=== PATIENT | female | born 1955 | race Caucasian/White ===

== ENCOUNTER → 2017-04-12 | Outpatient (CLI) | payer MEDICARE, BC ==
[2017-04-12 13:00] LABS: Basophils # (A) 0.1 k/uL (0-0.2); Basophils % (A) 1 %; CH 28.4; Eosinophils # (A) 0.4 k/uL (0-0.7); Eosinophils % (A) 6 %; HCT 44.6 % (34.0-46.0); HDW 2.57; Hypochromasia Slight; Luc # (Auto) 0.18; Luc % (Auto) 2; Lymphocytes # (A) 0.6 k/uL (1.0-4.8); Lymphocytes % (A) 8 %; MCH 28.8 pg (25.0-35.0); MCHC 31.4 g/dL (31.0-37.0); Mean Platelet Volume 7.2; Monocytes # (A) 0.3 k/uL (0-1.0); Monocytes % (A) 5 %; Neutrophils # (A) 5.7 k/uL (1.3-7.7); Neutrophils % (A) 78 %; RBC 4.85 m/uL (3.80-5.40); RDW 15.3 % (11.5-15.5); WBC 7.3 k/uL (3.8-10.6); WBC (Perox) 7.29
[2017-04-12 13:21] LABS: ALT 34 U/L (9-52); AST 15 U/L (14-36); Alkaline Phosphatase 57 U/L (38-126); Anion Gap 12 mmol/L; Blood Urea Nitrogen 23 mg/dL (7-17); Calcium 9.3 mg/dL (8.4-10.2); Carbon Dioxide 25 mmol/L (22-30); Chloride 105 mmol/L (98-107); Cholesterol 193 mg/dL (<200); Glucose 236 mg/dL (74-99); HDL Cholesterol 45 mg/dL (40-60); Non-African American GFR(MDRD) >60 (>60 ml/min/1.73 sqM); Potassium 4.2 mmol/L (3.5-5.1); Sodium 142 mmol/L (137-145); Total Bilirubin 0.6 mg/dL (0.2-1.3); Total Protein 6.7 g/dL (6.3-8.2); Triglycerides 158 mg/dL (<150)
[2017-04-12 13:40] LABS: Hemoglobin A1C 7.4 % (4.2-6.1)
[2017-04-12 14:09] LABS: Vitamin B12 475 pg/mL (239-931)
== END | disposition home or self-care (01) ==
LOC: LABWHC1 12:21
PROVIDERS: ATTEND Nurse Practitioner Acute Care
DX: Z00.00 Encounter for general adult medical examination without abnormal findings (principal); E11.9 Type 2 diabetes mellitus without complications; E03.9 Hypothyroidism, unspecified; E78.5 Hyperlipidemia, unspecified; I10 Essential (primary) hypertension; E55.9 Vitamin D deficiency, unspecified; G47.33 Obstructive sleep apnea (adult) (pediatric)
CPT/HCPCS: 36415; 80053; 80061; 82306; 82607; 83036; 84439; 84443; 84481; 85025

== ENCOUNTER 2017-05-14 01:35 | Emergency (ER) | payer MEDICARE, BC ==
[2017-05-14 01:42] VITALS: RESP 18
--- NOTE | 2017-05-14 01:57 | ED ---
Skin/Abscess/FB HPI - General Chief complaint: Skin/Abscess/Foreign Body Stated complaint: SAT ON NEEDLE Time Seen by Provider: 05/14/17 01:45 Source: patient, RN notes reviewed Mode of arrival: ambulatory Limitations: no limitations - History of Present Illness Initial comments: 62-year-old female presents to the emergency department with a chief complaint of concern for possible foreign body in the right leg. Patient states that she had something pricking her all day and then tonight she feels as if something went into her leg. Patient states that she hasn't had any drainage or discharge from the area. They do not know what this could be. There is no other symptoms. She has pain when to touch. She states that certainly on this area.Patient denies any recent fever, chills, shortness of breath, chest pain, back pain, abdominal pain, nausea vomiting, numbness or tingling, dysuria or hematuria, constipation or diarrhea, headaches or visual changes, or any other current symptoms. - Related Data Home Medications Medication Instructions Recorded Confirmed Aspirin 81 mg PO DAILY 04/10/14 10/06/14 Cyclobenzaprine [Flexeril] 10 mg PO DIRECTED 04/10/14 10/06/14 Ergocalciferol [Vitamin D2 600 mg PO Q7D 04/10/14 10/06/14 (DRISDOL)] Furosemide [Lasix] 40 mg PO DAILY 04/10/14 10/06/14 INSULIN LISPRO (humaLOG) [humaLOG] 0 unit SQ DIRECTED 04/10/14 10/06/14 Insulin Glargine [Lantus] 60 units SQ HS 04/10/14 10/06/14 Metolazone [Zaroxolyn] 5 mg PO DAILY 04/10/14 10/06/14 Colesevelam [Welchol] 625 mg PO BID 04/11/14 10/06/14 Dimethyl Fumarate [Tecfidera] 240 mg PO BID 04/11/14 10/06/14 Calcium Citrate 600 mg PO DAILY 10/06/14 10/06/14 Magnesium 400 mg PO BID 10/06/14 10/06/14 Allergies Allergy/AdvReac Type Severity Reaction Status Date / Time No Known Allergies Allergy Verified 05/14/17 01:42 Review of Systems ROS Statement: Those systems with pertinent positive or pertinent negative responses have been documented in the HPI. ROS Other: All systems not noted in ROS Statement are negative. Past Medical History Past Medical History: Diabetes Mellitus, Hyperlipidemia, Hypertension, Musculoskeletal Disorder, Sleep Apnea/CPAP/BIPAP, Thyroid Disorder Additional Past Medical History / Comment(s): MS,ARTHRITIS,BACK PAIN History of Any Multi-Drug Resistant Organisms: None Reported Past Surgical History: Bariatric Surgery, Heart Catheterization With Stent Additional Past Surgical History / Comment(s): L CARPAL TUNNEL, GASTRIC SLEEVE Past Anesthesia/Blood Transfusion Reactions: Previous Problems w/ Anesthesia Additional Past Anesthesia/Blood Transfusion Reaction / Comment(s): HX HALLUCINATIONS WITH ANESTHESIA Date of Last Stent Placement:: March 2013, 2 stents placed in front of heart at [facility] Past Psychological History: No Psychological Hx Reported Smoking Status: Never smoker Past Alcohol Use History: None Reported Past Drug Use History: None Reported General Exam - General Exam Comments Initial Comments: General: The patient is awake and alert, in no distress, and does not appear acutely ill. Neck: The neck is supple, there is no tenderness. Cardiovascular: There is a regular rate and rhythm. No murmur, rub or gallop is appreciated. Respiratory: Lungs are clear to auscultation, respirations are non-labored, breath sounds are equal. No wheezes, stridor, rales, or rhonchi. Musculoskeletal: Sensation intact with 2+ pulses in upper extremity. Patient does have some tenderness to palpation in the posterior thigh that doesn't move around to touch there is no fluctuance erythema or induration to the area. Neurological: CN II-XII intact, There are no obvious motor or sensory deficits. Coordination appears grossly intact. Speech is normal. Skin: Skin is warm and dry and no rashes or lesions are noted. Psychiatric: Normal mood and affect. Limitations: no limitations Course Vital Signs 05/14/17 01:39 Temperature 98 F Pulse Rate 99 Respiratory 18 Rate Blood Pressure 143/78 O2 Sat by Pulse 97 Oximetry Medical Decision Making - Medical Decision Making 62-year-old female presents for concern for foreign body to the right leg. This time there does not appear to be any foreign body. Patient does appear to have some skin breakdown. We did discuss care of this. We did discuss follow- up we did discuss return parameters all questions. Patient family stated the [facility] they are in agreement with this plan. This time they will be discharged home. Disposition Clinical Impression: Skin breakdown Disposition: HOME SELF-CARE Condition: Stable Instructions: Acute Wound Care (ED) Additional Instructions: Please use medication as discussed. Please follow up with family doctor if symptoms have not improved over the next two days. Please return to the emergency room if your symptoms increase or worsen or for any other concerns. Referrals: Martin Cuello DO [Primary Care Provider] - 1-2 days Time of Disposition: 03:09
--- NOTE | 2017-05-14 02:33 | XR ---
ADDENDUM - Added by Martin Marques MD on 05/14/2017 2:44 AM (-04:00) Irregularly-shaped radiopaque structure is seen lateral to the right hip, only definitively visualized on the frontal views, measuring up to 3.1 cm. Clinical correlation is recommended to assure this is not a foreign body. EXAM: XR Right Hip With Pelvis When Performed, 2 or 3 Views CLINICAL HISTORY: Reason: Pain TECHNIQUE: Two or three views of the right hip, with pelvis when performed. COMPARISON: None. FINDINGS: Bones/joints: Mild narrowing of the right femoroacetabular joint is seen with associated bony productive changes. Mild osteoarthropathy of the left hip is also noted. No acute fracture. No dislocation. Osteopenia suggested. Soft tissues: Unremarkable. IMPRESSION: No radiographic evidence of an acute fracture. Mild osteoarthropathy involving both hips. [employer] 05/14/17 02:58 Verify Receipt Verified receipt with SUNITA Gayle for KALIN Hoover on 05/14 02:58 (-04:00)
[2017-05-14 03:33] VITALS: BP 155/74; PULSE 95; TEMP 97.8
== END 2017-05-14 03:34 | disposition home or self-care (01) ==
LOC: EC 01:35
DX: L98.8 Other specified disorders of the skin and subcutaneous tissue (principal); M79.604 Pain in right leg; E78.5 Hyperlipidemia, unspecified; I10 Essential (primary) hypertension; E11.9 Type 2 diabetes mellitus without complications; G35 Multiple sclerosis; M19.90 Unspecified osteoarthritis, unspecified site; Z79.4 Long term (current) use of insulin; Z79.82 Long term (current) use of aspirin; Z79.899 Other long term (current) drug therapy
CPT/HCPCS: 73502; 99283

== ENCOUNTER → 2017-06-24 | Outpatient (CLI) | payer MEDICARE, BC ==
[2017-06-24 13:44] LABS: Basophils # (A) 0.1 k/uL (0-0.2); Basophils % (A) 1 %; CHCM 31.9; Eosinophils # (A) 0.4 k/uL (0-0.7); Eosinophils % (A) 4 %; HCT 45.5 % (34.0-46.0); HGB 14.1 gm/dL (11.4-16.0); Luc # (Auto) 0.18; Luc % (Auto) 2; Lymphocytes # (A) 0.8 k/uL (1.0-4.8); Lymphocytes % (A) 10 %; MCH 28.3 pg (25.0-35.0); MCHC 30.9 g/dL (31.0-37.0); MCV 91.4 fL (80.0-100.0); Mean Platelet Volume 7.6; Monocytes # (A) 0.3 k/uL (0-1.0); Monocytes % (A) 4 %; Neutrophils # (A) 6.3 k/uL (1.3-7.7); Neutrophils % (A) 79 %; RBC 4.98 m/uL (3.80-5.40); RDW 15.8 % (11.5-15.5); WBC (Perox) 7.82
[2017-06-24 14:01] LABS: ALT 20 U/L (9-52); AST 13 U/L (14-36); Alkaline Phosphatase 53 U/L (38-126); Anion Gap 10 mmol/L; Blood Urea Nitrogen 20 mg/dL (7-17); Carbon Dioxide 25 mmol/L (22-30); Chloride 105 mmol/L (98-107); Glucose 212 mg/dL (74-99); Non-African American GFR(MDRD) >60 (>60 ml/min/1.73 sqM); Potassium 4.6 mmol/L (3.5-5.1); Sodium 140 mmol/L (137-145); Total Bilirubin 0.5 mg/dL (0.2-1.3); Total Protein 6.8 g/dL (6.3-8.2)
== END | disposition home or self-care (01) ==
LOC: LABWHC1 13:09
PROVIDERS: ATTEND Nurse Practitioner Acute Care
DX: G35 Multiple sclerosis (principal)
CPT/HCPCS: 36415; 80053; 85025; 86480

== ENCOUNTER → 2018-02-26 | Outpatient (CLI) | payer MEDICARE, BC ==
[2018-02-26 10:55] LABS: Anisocytosis Slight; Basophils % (A) 1 %; Eosinophils # (A) 0.2 k/uL (0-0.7); Eosinophils % (A) 3 %; HGB 13.4 gm/dL (11.4-16.0); Hypochromasia Slight; Lymphocytes # (A) 0.5 k/uL (1.0-4.8); Lymphocytes % (A) 6 %; MCH 26.3 pg (25.0-35.0); MCHC 31.2 g/dL (31.0-37.0); MCV 84.2 fL (80.0-100.0); Mean Platelet Volume 6.7; Monocytes # (A) 0.4 k/uL (0-1.0); Monocytes % (A) 5 %; Neutrophils # (A) 6.8 k/uL (1.3-7.7); Neutrophils % (A) 85 %; Platelet Count 247 k/uL (150-450); RBC 5.11 m/uL (3.80-5.40); RDW 16.6 % (11.5-15.5)
[2018-02-26 11:31] LABS: Albumin 3.6 g/dL (3.5-5.0); Bilirubin, Delta 0.2 mg/dL (0.0-0.2); Calcium 9.5 mg/dL (8.4-10.2); Potassium 4.3 mmol/L (3.5-5.1); Total Bilirubin 0.2 mg/dL (0.2-1.3); Total Protein 6.5 g/dL (6.3-8.2)
[2018-02-26 11:47] LABS: T4, Free (Free Thyroxine) 1.38 ng/dL (0.78-2.19)
[2018-02-26 18:32] LABS: Hemoglobin A1C 7.3 % (4.0-6.0)
--- NOTE | 2018-02-26 22:20 | CT ---
EXAMINATION TYPE: CT sinus wo con DATE OF EXAM: 02/26/2018 COMPARISON: NONE HISTORY: 62-year-old female has recurrent sinus infection, 3 in last [address] DLP: 605.9 mGycm Automated exposure control for dose reduction was used. TECHNIQUE: Noncontrast axial views of the paranasal sinuses were obtained. Coronal reconstructions pe rformed. FINDINGS: There is a polyp or mucosal retention cyst along the floor of the left maxillary sinus. Additional tr wade mucosal thickening along the floor of the maxillary sinuses. Otherwise, sphenoid ethmoid, and frontal sinuses are well pneumatized There is no air-fluid level. Reactive leyla- osteogenesis is not seen. There is no destruction of the osseous [place] of the paranasal sinuses. The osteomeatal complexes are patent. Rightward nasal septal deviation. The imaged brain and orbits are normal in appearance. Visualized mastoid air cells and middle ear cavities are well pneumatized. There is a dense plug of c erumen within the deep left external auditory canal and strands of debris in the right external audit ory canal. Reformatted images confirm above findings. IMPRESSION: 1. Mild chronic maxillary sinus disease. Polyp or mucosal retention cyst along the floor of the left maxillary sinus. 2. Rightward nasal septal deviation. 3. A dense plug of cerumen in the deep left external auditory canal and strands of debris in the righ t external auditory canal.
== END ==
LOC: RADCTMAIN 10:13
PROVIDERS: ATTEND Internal Medicine Critical Care Medicine
DX: J32.0 Chronic maxillary sinusitis (principal); J34.2 Deviated nasal septum; I10 Essential (primary) hypertension; E78.5 Hyperlipidemia, unspecified; E11.9 Type 2 diabetes mellitus without complications; G35 Multiple sclerosis; R09.02 Hypoxemia; Z79.899 Other long term (current) drug therapy
CPT/HCPCS: 36415; 70486; 80053; 80061; 82248; 82306; 83036; 84439; 84443; 84481; 85025

== ENCOUNTER → 2018-10-01 | Outpatient (CLI) | payer MEDICARE, BC ==
[2018-10-01 12:26] LABS: Basophils % (A) 1 %; Eosinophils # (A) 0.2 k/uL (0-0.7); Eosinophils % (A) 2 %; HGB 14.3 gm/dL (11.4-16.0); Hypochromasia Slight; Lymphocytes # (A) 0.7 k/uL (1.0-4.8); Lymphocytes % (A) 9 %; MCH 27.2 pg (25.0-35.0); MCHC 31.1 g/dL (31.0-37.0); MCV 87.2 fL (80.0-100.0); Mean Platelet Volume 7.2; Monocytes # (A) 0.4 k/uL (0-1.0); Monocytes % (A) 6 %; Neutrophils # (A) 5.7 k/uL (1.3-7.7); Neutrophils % (A) 80 %; Platelet Count 215 k/uL (150-450); RBC 5.27 m/uL (3.80-5.40); RDW 15.8 % (11.5-15.5)
[2018-10-01 16:45] LABS: Albumin/Globulin Ratio 1.74 (1.20-2.10); Anion Gap 8.1 mmol/L (4.00-12.00); Calcium 9.3 mg/dL (8.7-10.3); Carbon Dioxide 31.9 mmol/L (21.6-31.8); Globulin 2.3 g/dL (2.1-3.7); Potassium 4.5 mmol/L (3.5-5.5); Total Bilirubin 0.4 mg/dL (0.2-1.2); Total Protein 6.3 g/dL (6.2-8.2)
[2018-10-01 16:53] LABS: Vitamin D 25 Hydroxy 32.6 ng/mL (30.0-100.0)
== END ==
LOC: LABWHC1 10:19
PROVIDERS: ATTEND Nurse Practitioner Acute Care
DX: Z51.81 Encounter for therapeutic drug level monitoring (principal); E55.9 Vitamin D deficiency, unspecified; R53.83 Other fatigue
CPT/HCPCS: 36415; 80053; 82306; 82607; 84207; 85025

== ENCOUNTER → 2018-10-05 | Outpatient (CLI) | payer MEDICARE, BC ==
--- NOTE | 2018-10-06 10:34 | US ---
EXAMINATION TYPE: US venous doppler duplex LE LT DATE OF EXAM: 10/05/2018 5:57 PM COMPARISON: Previous lower extremity Doppler duplex 06/29/2012 CLINICAL HISTORY: M79.89 Swollen Left L eg. Left leg swelling. Exam limitations due to body habitus. SIDE PERFORMED: Left TECHNIQUE: The lower extremity deep venous system is examined utilizing real time linear array sonog melisa with graded compression, doppler sonography and color-flow sonography. VESSELS IMAGED: External Iliac Vein (EIV) Common Femoral Vein Deep Femoral Vein Greater Saphenous Vein * Femoral Vein Popliteal Vein Small Saphenous Vein * Proximal Calf Veins (* superficial vessels) Left Leg: Negative for DVT There is normal flow, compressibility, vascular waveforms. There is somewhat limited evaluation of t he peripheral portion of the left femoral vein. Small caliber vessels are again noted. IMPRESSION: No evident deep venous thrombosis at or above the left knee. There are some limitations l ikely due to patient's body habitus. Follow-up as indicated.
== END | disposition home or self-care (01) ==
LOC: RADUSMAIN 17:19
PROVIDERS: ATTEND Internal Medicine Critical Care Medicine
DX: M79.89 Other specified soft tissue disorders (principal)

== ENCOUNTER → 2019-02-10 | Outpatient (CLI) | payer MEDICARE, BC ==
[2019-02-10 18:29] LABS: Anion Gap 12.5 mmol/L (4.00-12.00); Carbon Dioxide 27.5 mmol/L (21.6-31.8); Potassium 3.6 mmol/L (3.5-5.5)
== END ==
LOC: LABWHC1 11:55
PROVIDERS: ATTEND Internal Medicine Critical Care Medicine
DX: I10 Essential (primary) hypertension (principal); E11.9 Type 2 diabetes mellitus without complications; R60.0 Localized edema
CPT/HCPCS: 36415; 80048

== ENCOUNTER 2019-04-12 14:44 | Inpatient (IN) | payer MEDICARE, BC ==
[2019-04-12 17:08] LABS: Glucose,Whole Blood 152 mg/dL (75-99)
[2019-04-12] MEDS ORDERED: NALOXONE 0.4 MG/ML 1 ML VIAL IV PRN (17:14)
[2019-04-12] MEDS ORDERED: ONDANSETRON 4 MG/2 ML VIAL IVP PRN (17:14)
[2019-04-12] MEDS: SODIUM CHLORIDE 0.9% 1,000 ML IV SCH (18:11)
--- NOTE | 2019-04-12 18:21 | P.HPIM ---
History of Present Illness H&P Date: 04/12/19 Chief Complaint: Right great toe swelling redness and infection The patient is a 64-year-old obese female with a past medical history of insulin-dependent type 2 diabetes that presents to [facility] after being referred from Dr. Dickson's wound care clinic earlier today. Apparently the patient began having a right medial great toe blister about 2 weeks ago and was seen by podiatry Dr. Gallegos at her home, at that time the patient was just instructed not to andrew the blister to put PolysporiN and a Band-Aid on her toE, over the next week the patient's began having increasing right great toe swelling redness and pain and reported the burst or broke on its own. The patient was seen in follow-up by podiatry and was placed in a diabetic boot with modifications made for offloading on that right great toe and was started on Keflex with no significant improvement and was later transitioned to clindamycin And was referred to Dr. Jameson clinic today. The patient denied any subjective fevers chills or night sweats, she does report some drainage of her toe that can be malodorous at times. The patient reports history of well- controlled diabetes and reports her last A1c was between 7 and 8. She reports her blood sugars have been labile elevated and low at times. The patient denies any chest pain or shortness of breath. Review of Systems Pertinent positives per HPI all other systems otherwise negative Past Medical History Past Medical History: Chest Pain / Angina, Heart Failure, COPD, Diabetes Mellitus, Hyperlipidemia, Musculoskeletal Disorder, Sleep Apnea/CPAP/BIPAP, Thyroid Disorder Additional Past Medical History / Comment(s): MS,ARTHRITIS,BACK PAIN History of Any Multi-Drug Resistant Organisms: None Reported Past Surgical History: Bariatric Surgery, Heart Catheterization With Stent Additional Past Surgical History / Comment(s): L CARPAL TUNNEL, GASTRIC SLEEVE Past Anesthesia/Blood Transfusion Reactions: No Reported Reaction Additional Past Anesthesia/Blood Transfusion Reaction / Comment(s): HX HALLUCINATIONS WITH ANESTHESIA Date of Last Stent Placement:: March 2013, 2 stents placed in front of heart at [facility] Past Psychological History: No Psychological Hx Reported Smoking Status: Former smoker Past Alcohol Use History: None Reported Past Drug Use History: None Reported - Past Family History Father History Unknown: Yes Family Medical History: COPD, Diabetes Mellitus, Myocardial Infarction (MA) Mother History Unknown: Yes Family Medical History: Diabetes Mellitus, Deep Vein Thrombosis (DVT), Myocardial Infarction (MA) Medications and Allergies Home Medications Medication Instructions Recorded Confirmed Type Aspirin 81 mg PO DAILY 04/10/14 10/06/14 History Cyclobenzaprine [Flexeril] 10 mg PO DIRECTED 04/10/14 10/06/14 History Ergocalciferol [Vitamin D2 600 mg PO Q7D 04/10/14 10/06/14 History (DRISDOL)] Furosemide [Lasix] 40 mg PO DAILY 04/10/14 10/06/14 History INSULIN LISPRO (humaLOG) [humaLOG] 0 unit SQ DIRECTED 04/10/14 10/06/14 History Insulin Glargine [Lantus] 60 units SQ HS 04/10/14 10/06/14 History Metolazone [Zaroxolyn] 5 mg PO DAILY 04/10/14 10/06/14 History Colesevelam [Welchol] 625 mg PO BID 04/11/14 10/06/14 History Dimethyl Fumarate [Tecfidera] 240 mg PO BID 04/11/14 10/06/14 History Calcium Citrate 600 mg PO DAILY 10/06/14 10/06/14 History Magnesium 400 mg PO BID 10/06/14 10/06/14 History Allergies Allergy/AdvReac Type Severity Reaction Status Date / Time No Known Allergies Allergy Verified 04/12/19 17:16 Physical Exam Vitals: Intake and Output 04/12/19 04/12/19 04/12/19 06:59 14:59 22:59 Other: Weight 128.18 kg Constitutional: No acute distress, conversant, pleasant Eyes: Anicteric sclerae, moist conjunctiva, no lid-lag, PERRLA ENMT: NC/AT,Oropharynx clear, no erythema, exudates Neck:Supple, FROM, no masses, or JVD, No carotid bruits; No thyromegaly Lungs: Clear to auscultation, Clear to percussion, Normal respiratory effort, no accessory muscle use Cardiovascular: Heart regular in rate and rhythm, No murmurs, gallops, or rubs no peripheral edema Abdominal: Soft Nontender, nom distended, no guarding, no rebound or rigidity, Normoactive bowel sounds No hepatomegaly, No splenomegaly, No palpable mass No abdominal wall hernia noted Skin: Medially located right great toe ulcer with wet gangrenous drainage with surrounding mild erythema extending up to the MTP Extremities:No digital cyanosis No clubbing, Pedal pulses intact and symmetrical Radial pulses intact and symmetrical Normal gait and station, No calf tenderness Psychiatric: Alert and oriented to person, place and time, Appropriate affect Intact judgement Neuro: Muscles Strength 5/5 in all 4 extremities, Sensation to light touch grossly present throughout, Cranial nerves II-XII grossly intact. No focal sensory deficits Results Labs: Abnormal Lab Results - Last 24 Hours (Table) 04/12/19 Range/Units 17:06 POC Glucose (mg/dL) 152 H (75-99) mg/dL Thrombosis Risk Factor Assmnt - Choose All That Apply Each Factor Represents 1 point: Age 41-60 years Each Risk Factor Represents 2 Points: Age 61-74 years Each Risk Factor Represents 3 Points: Family history of DVT/PE Thrombosis Risk Factor Assessment Total Risk Factor Score: 6 Thrombosis Risk Factor Assessment Level: High Risk Assessment and Plan (1) Diabetic foot ulcer Current Visit: Yes Status: Acute Code(s): E11.621 - TYPE 2 DIABETES MELLITUS WITH FOOT ULCER; L97.509 - NON-PRESSURE CHRONIC ULCER OTH PRT UNSP FOOT W UNSP SEVERITY SNOMED Code(s): 348744922 (2) Diabetic wet gangrene of the foot Current Visit: Yes Status: Acute Code(s): E11.52 - TYPE 2 DIABETES W DIABETIC PERIPHERAL ANGIOPATHY W GANGRENE SNOMED Code(s): 959715551 (3) Type 2 diabetes mellitus Current Visit: Yes Status: Acute Code(s): E11.9 - TYPE 2 DIABETES MELLITUS WITHOUT COMPLICATIONS SNOMED Code(s): 35288930 Plan: The patient is admitted anticipated greater than 2 midnight stay with a diabetic foot ulcer with subsequent wet gangrene, admission labs were ordered we'll check his CBC CMP will plan to institute IV antibiotics with Zosyn and vancomycin. We will plan to restart the patient's medications once updated in the EMR. Wound cultures have been ordered have been obtained and are pending, Start diabetic diet, check an A1c, continue with Accu-Cheks qa with correctional insulin coverage as needed. We will consult Dr. Dickson for further recommendations, kya ordered with daily dressing changes. The patient patient on DVT prophylaxis With heparin and SCDs. Continue to follow her clinical course CODE STATUS: Full code Anticipated discharge: 1-2 days
[2019-04-12 18:27] LABS: Basophils # (A) 0.1 k/uL (0-0.2); Basophils % (A) 1 %; Eosinophils # (A) 0.2 k/uL (0-0.7); Eosinophils % (A) 2 %; HCT 42.9 % (34.0-46.0); HGB 13.3 gm/dL (11.4-16.0); Lymphocytes # (A) 0.8 k/uL (1.0-4.8); Lymphocytes % (A) 9 %; MCH 27.9 pg (25.0-35.0); MCHC 31.1 g/dL (31.0-37.0); MCV 89.8 fL (80.0-100.0); Mean Platelet Volume 6.8; Monocytes # (A) 0.4 k/uL (0-1.0); Monocytes % (A) 5 %; Neutrophils # (A) 6.8 k/uL (1.3-7.7); Neutrophils % (A) 80 %; Platelet Count 259 k/uL (150-450); RBC 4.77 m/uL (3.80-5.40); RDW 15.2 % (11.5-15.5); WBC 8.5 k/uL (3.8-10.6)
[2019-04-12 18:34] LABS: Albumin 3.8 g/dL (3.5-5.0); Calcium 9.3 mg/dL (8.4-10.2); Potassium 4.2 mmol/L (3.5-5.1); Total Bilirubin 0.3 mg/dL (0.2-1.3); Total Protein 6.8 g/dL (6.3-8.2)
[2019-04-12] MEDS ORDERED: CYCLOBENZAPRINE 10 MG TAB PO PRN (18:34)
[2019-04-12 19:26] LABS: Glucose,Whole Blood 110 mg/dL (75-99)
[2019-04-12] MEDS ORDERED: VANCOMYCIN 1,000 MG in SODIUM CHLORIDE 0.9% 250 ML IVPB STA (20:37)
[2019-04-12] MEDS ORDERED: VANCOMYCIN IV PER PHARMACY 1 EACH MISC MISCELLANE PRN (20:37)
[2019-04-12] MEDS ORDERED: VANCOMYCIN 2,250 MG in SODIUM CHLORIDE 0.9% 500 ML 500 ML IVPB ONE (21:00)
[2019-04-12 21:17] LABS: Glucose,Whole Blood 103 mg/dL (75-99)
[2019-04-12] MEDS: ASPIRIN 325 MG TAB PO SCH (21:34)
[2019-04-12] MEDS: MAGNESIUM OXIDE 400 MG TAB PO SCH (21:35)
[2019-04-12] MEDS: COLESEVELAM 625 MG TAB PO SCH (21:35)
[2019-04-12] MEDS: ACETAMINOPHEN TAB 325 MG TAB PO PRN (21:56)
[2019-04-13 00:02] LABS: Glucose,Whole Blood 186 mg/dL (75-99)
[2019-04-13] MEDS: INSULIN DETEMIR (LEVEMIR) 100 UNIT/ML SYR SQ SCH ×2 (00:02→20:45)
[2019-04-13] MEDS: PIPERACILLIN-TAZOBACTAM 3.375 GM in SODIUM CHLORIDE 0.9% 100 ML IVPB SCH ×4 (01:07→22:39)
[2019-04-13 01:29] LABS: Hemoglobin A1C 7.7 % (4.0-6.0)
[2019-04-13 02:19] LABS: Glucose,Whole Blood 170 mg/dL (75-99)
[2019-04-13] MEDS: ACETAMINOPHEN TAB 325 MG TAB PO PRN ×3 (03:33→19:17)
[2019-04-13] MEDS: LEVOTHYROXINE 125 MCG TAB PO SCH (05:40)
[2019-04-13 06:43] LABS: Glucose,Whole Blood 134 mg/dL (75-99)
--- NOTE | 2019-04-13 08:22 | CONS ---
CONSULTATION This is a 64-year-old diabetic female. She came to my office referred by Dr. Gallegos for right foot wet gangrene changes noted. The patient had a blister formation and eventually blister busted and she was put on p.o. antibiotic, but no improvement. The patient was seen in my office and we did the vascular study and the patient has been admitted because of the ulcer and wet gangrene changes noted on the right foot big toe. MEDICAL HISTORY: History of diabetes mellitus, hyperlipidemia, obesity, sleep apnea. PHYSICAL EXAMINATION: Neck is supple. Trachea central. CHEST: Clear. ABDOMEN: Soft. Femorals are present. Posterior dorsalis pedis is by the Doppler. The right foot big toe has an open wound with drainage noted from the big toe wound and redness noted on the dorsal aspect of the foot. PLAN: The patient has been admitted with IV antibiotic and local wound care. We will use Medihoney gel for the wound and IV antibiotic on daily basis. Follow up with you. MMODL / IJN: [id number] /
[2019-04-13] MEDS: MAGNESIUM OXIDE 400 MG TAB PO SCH ×2 (08:27→20:45)
[2019-04-13] MEDS: ASPIRIN 325 MG TAB PO SCH ×2 (08:27→20:45)
[2019-04-13] MEDS: INSULIN ASPART (NovoLOG) 100 UNIT/ML VIAL SQ SCH ×5 (08:27→20:48)
[2019-04-13] MEDS: COLESEVELAM 625 MG TAB PO SCH ×2 (08:27→20:44)
[2019-04-13] MEDS: FUROSEMIDE 40 MG TAB PO SCH (08:27)
[2019-04-13] MEDS: CHOLECALCIFEROL 1,000 UNIT TAB PO SCH (08:27)
[2019-04-13 10:26] LABS: Basophils # (A) 0.1 k/uL (0-0.2); Basophils % (A) 1 %; Eosinophils # (A) 0.2 k/uL (0-0.7); Eosinophils % (A) 3 %; HGB 12.6 gm/dL (11.4-16.0); Hypochromasia Slight; Lymphocytes # (A) 0.6 k/uL (1.0-4.8); Lymphocytes % (A) 8 %; MCH 28.5 pg (25.0-35.0); MCHC 31.5 g/dL (31.0-37.0); MCV 90.6 fL (80.0-100.0); Mean Platelet Volume 6.9; Monocytes # (A) 0.4 k/uL (0-1.0); Monocytes % (A) 6 %; Neutrophils # (A) 5.6 k/uL (1.3-7.7); Neutrophils % (A) 80 %; Platelet Count 235 k/uL (150-450); RBC 4.42 m/uL (3.80-5.40); RDW 15.2 % (11.5-15.5)
[2019-04-13 10:41] LABS: Calcium 8.7 mg/dL (8.4-10.2); Potassium 4.2 mmol/L (3.5-5.1)
[2019-04-13 11:56] LABS: Glucose,Whole Blood 223 mg/dL (75-99)
[2019-04-13] MEDS: VANCOMYCIN 2,000 MG in SODIUM CHLORIDE 0.9% 500 ML 500 ML IVPB SCH (14:10)
[2019-04-13] MEDS ORDERED: VANCOMYCIN 2,000 MG in SODIUM CHLORIDE 0.9% 500 ML 500 ML IVPB SCH (16:00)
[2019-04-13 16:52] LABS: Glucose,Whole Blood 158 mg/dL (75-99)
[2019-04-13] MEDS: SODIUM CHLORIDE 0.9% 1,000 ML IV SCH (17:32)
--- NOTE | 2019-04-13 18:34 | P.PN ---
Subjective Progress Note Date: 04/13/19 Patient seen and examined at bedside, awaiting to have her dressing changed. No acute events overnight having dressing changes daily with therfrances hogan. Wound cultures taken yesterday and are pending. Vital signs are stable patient afebrile Objective - Vital Signs Vital signs: Vital Signs Temp 98.8 F 04/13/19 13:50 Pulse 86 04/13/19 13:50 Resp 16 04/13/19 13:50 BP 141/69 04/13/19 13:50 Pulse Ox 95 04/13/19 13:50 Intake & Output 04/12/19 04/13/19 04/13/19 18:59 06:59 18:59 Intake Total 500 Balance 500 Weight 128.18 kg 130.2 kg Intake: Intake, IV Titration 500 Amount Vancomycin 2,000 mg In 500 Sodium Chloride 0.9% 500 ml 500 ml @ 167 mls/hr IVPB Q16H [facility] Rx#: [id number] Other: Voiding Method Bedside Commode # Voids 0 2 3 - Exam Constitutional: No acute distress, conversant, pleasant Eyes: Anicteric sclerae, moist conjunctiva, no lid-lag, PERRLA ENMT: NC/AT,Oropharynx clear, no erythema, exudates Neck:Supple, FROM, no masses, or JVD, No carotid bruits; No thyromegaly Lungs: Clear to auscultation, Clear to percussion, Normal respiratory effort, no accessory muscle use Cardiovascular: Heart regular in rate and rhythm, No murmurs, gallops, or rubs no peripheral edema Abdominal: Soft Nontender, nom distended, no guarding, no rebound or rigidity, Normoactive bowel sounds No hepatomegaly, No splenomegaly, No palpable mass No abdominal wall hernia noted Skin: Medially located right great toe ulcer with wet gangrenous drainage with improving surrounding erythema extending up to the MTP Extremities:No digital cyanosis No clubbing, Pedal pulses intact and symmetr ical Radial pulses intact and symmetrical Normal gait and station, No calf tenderness Psychiatric: Alert and oriented to person, place and time, Appropriate affect Intact judgement Neuro: Muscles Strength 5/5 in all 4 extremities, Sensation to light touch grossly present throughout, Cranial nerves II-XII grossly intact. No focal sensory deficits - Labs CBC & Chem 7: 04/13/19 09:39 04/13/19 09:39 Labs: Abnormal Lab Results - Last 24 Hours (Table) 04/12/19 04/12/19 04/12/19 Range/Units 18:10 18:10 18:10 Lymphocytes # 0.8 L (1.0-4.8) k/uL Chloride 110 H (98-107) mmol/L BUN 26 H (7-17) mg/dL Glucose (74-99) mg/dL POC Glucose (mg/dL) (75-99) mg/dL Hemoglobin A1c 7.7 H (4.0-6.0) % 04/12/19 04/12/19 04/12/19 Range/Units 19:25 20:44 23:59 Lymphocytes # (1.0-4.8) k/uL Chloride (98-107) mmol/L BUN (7-17) mg/dL Glucose (74-99) mg/dL POC Glucose (mg/dL) 110 H 103 H 186 H (75-99) mg/dL Hemoglobin A1c (4.0-6.0) % 04/13/19 04/13/19 04/13/19 Range/Units 02:16 06:39 09:39 Lymphocytes # 0.6 L (1.0-4.8) k/uL Chloride (98-107) mmol/L BUN (7-17) mg/dL Glucose (74-99) mg/dL POC Glucose (mg/dL) 170 H 134 H (75-99) mg/dL Hemoglobin A1c (4.0-6.0) % 04/13/19 04/13/19 04/13/19 Range/Units 09:39 11:52 16:48 Lymphocytes # (1.0-4.8) k/uL Chloride 108 H (98-107) mmol/L BUN 23 H (7-17) mg/dL Glucose 220 H (74-99) mg/dL POC Glucose (mg/dL) 223 H 158 H (75-99) mg/dL Hemoglobin A1c (4.0-6.0) % Microbiology - Last 24 Hours (Table) 04/12/19 Unknown Gram Stain - Preliminary Toe - Right First Wound Culture - Preliminary 04/12/19 Unknown Anaerobic Culture - Preliminary Toe - Right First Assessment and Plan (1) Diabetic foot ulcer Narrative/Plan: * Continue TheraHoney daily chesting changes * Continue current antibiotic regimen IV vancomycin and Zosyn * Noted improvement with erythema resolving Current Visit: Yes Status: Acute Code(s): E11.621 - TYPE 2 DIABETES MELLITUS WITH FOOT ULCER; L97.509 - NON-PRESSURE CHRONIC ULCER OTH PRT UNSP FOOT W UNSP SEVERITY SNOMED Code(s): 198472234 (2) Diabetic wet gangrene of the foot Narrative/Plan: * Continue with antibiotic regimen above * Preliminary Wound culture growing through gram-positive cocci * We'll plan to consult ID for further recommendations regarding antibiotics for discharge Current Visit: Yes Status: Acute Code(s): E11.52 - TYPE 2 DIABETES W DIABETIC PERIPHERAL ANGIOPATHY W GANGRENE SNOMED Code(s): 569237986 (3) Type 2 diabetes mellitus Narrative/Plan: * A1c 7.7 * Blood sugars are elevated 130-223 * continue with correctional scale coverage Current Visit: Yes Status: Acute Code(s): E11.9 - TYPE 2 DIABETES MELLITUS WITHOUT COMPLICATIONS SNOMED Code(s): 52956288 Plan: Disposition * Anticipated discharge 1-2 days * Follow-up wound cultures and ID recommendations
[2019-04-13 20:44] LABS: Glucose,Whole Blood 131 mg/dL (75-99)
[2019-04-14] MEDS: ACETAMINOPHEN TAB 325 MG TAB PO PRN ×3 (01:02→13:05)
[2019-04-14] MEDS: VANCOMYCIN 2,000 MG in SODIUM CHLORIDE 0.9% 500 ML 500 ML IVPB SCH ×2 (03:21→19:55)
[2019-04-14] MEDS: LEVOTHYROXINE 125 MCG TAB PO SCH (06:03)
[2019-04-14] MEDS: PIPERACILLIN-TAZOBACTAM 3.375 GM in SODIUM CHLORIDE 0.9% 100 ML IVPB SCH ×3 (06:03→23:12)
[2019-04-14 07:19] LABS: Glucose,Whole Blood 101 mg/dL (75-99)
[2019-04-14] MEDS: INSULIN ASPART (NovoLOG) 100 UNIT/ML VIAL SQ SCH ×4 (07:31→20:34)
[2019-04-14] MEDS: CHOLECALCIFEROL 1,000 UNIT TAB PO SCH (07:36)
[2019-04-14] MEDS: ASPIRIN 325 MG TAB PO SCH ×2 (07:36→19:55)
[2019-04-14] MEDS: MAGNESIUM OXIDE 400 MG TAB PO SCH ×2 (07:37→19:56)
[2019-04-14] MEDS: FUROSEMIDE 40 MG TAB PO SCH (07:37)
[2019-04-14] MEDS: COLESEVELAM 625 MG TAB PO SCH ×2 (07:37→19:56)
--- NOTE | 2019-04-14 08:23 | P.CONS ---
History of Present Illness - Reason for Consult Consult date: 04/14/19 Gangrenous right great toe - History of Present Illness This is a 64-year-old female with past medical history for diabetes mellitus type 2 insulin requiring, MS luc Hardy. Patient gives history that several weeks ago she developed a blister on her right great toe. She was seen by Dr. Gallegos and he initially told her to cover it keep it clean and dry and apply Neosporin but 4 days later she thought it was looking funny that the skin was puffy white and raised. Dr. Gallegos came back and saw her on Wednesday, March 31 and he prescribed Keflex and gentamicin cream. He then rechecked her on April 04 and told her she needed to get into the wound center. He contacted Wound Center and the only appointment they had was on April 11 and because she artery had an MRI scheduled and waiting for 6 weeks, Dr. Gallegos contacted Dr. Dickson's office and the patient was seen there yesterday. Dr. Dickson saw the patient in office and sent her in to [facility] emergency center for evaluation. Patient has been started on Zosyn and vancomycin and wound cultures are in progress. She has been afebrile, white count 7, creatinine 0.98 albumin 3.8. Hemoglobin A1c 7.7. Wound culture is showing gra m-negative bacilli. The patient has been seen by Dr. Dickson and he has ordered wound care in the form of medihoney daily. Note the patient was waiting for MRI ordered by Dr. Baez at the open MRI center. She is scheduled to see him in May for the results. The patient has been treated at a wound care center in the remote past for nonhealing wound to the left pretibial area. This wound has healed with no sign of active infection. Patient states that the redness on her right great toe is improved from yesterday. Review of Systems Constitutional: Reports chills, Reports fatigue, Reports sweats, Denies anorexia, Denies fever, Denies lethargy, Denies malaise, Denies poor appetite, Denies weight loss Ears, nose, mouth and throat: Reports sore throat, Denies dental pain, Denies dysphagia, Denies mouth pain, Denies nasal congestion, Denies nasal discharge Cardiovascular: Denies chest pain, Denies leg edema, Denies lightheadedness, Denies shortness of breath, Denies syncope Respiratory: Reports cough, Denies cough with sputum, Denies dyspnea, Denies excessive sputum, Denies hemoptysis, Denies home oxygen Gastrointestinal: Denies abdominal pain, Denies diarrhea, Denies loss of appetite, Denies nausea, Denies vomiting Genitourinary: Denies dysuria, Denies urgency, Denies urinary frequency Musculoskeletal: Reports gait dysfunction, Reports muscle weakness, Reports myalgias, Denies frequent falls Integumentary: Reports wounds, Denies pruritus, Denies rash Neurological: Reports gait dysfunction, Denies aphasia, Denies change in mentation, Denies confusion, Denies syncope Psychiatric: Denies anxiety, Denies depression Endocrine: Denies fatigue, Denies weight change Past Medical History Past Medical History: Chest Pain / Angina, Heart Failure, COPD, Diabetes Mellitus, Hyperlipidemia, Musculoskeletal Disorder, Sleep Apnea/CPAP/BIPAP, Thyroid Disorder Additional Past Medical History / Comment(s): MS,ARTHRITIS,BACK PAIN History of Any Multi-Drug Resistant Organisms: None Reported Past Surgical History: Bariatric Surgery, Heart Catheterization With Stent Additional Past Surgical History / Comment(s): L CARPAL TUNNEL, GASTRIC SLEEVE Past Anesthesia/Blood Transfusion Reactions: No Reported Reaction Additional Past Anesthesia/Blood Transfusion Reaction / Comm: HX HALLUCINATIONS WITH ANESTHESIA Date of Last Stent Placement:: March 2013, 2 stents placed in front of heart at [facility] Past Psychological History: No Psychological Hx Reported Smoking Status: Former smoker Past Alcohol Use History: None Reported Additional Past Alcohol Use History / Comment(s): Patient was a smoker of less than one pack per day for about 14 years and quit 20 years ago. She uses stephanie brittnee oil for muscle aches. She denies any alcohol or street drug use. She currently lives alone. She has a dog in the home. Past Drug Use History: None Reported - Past Family History Father History Unknown: Yes Family Medical History: COPD, Diabetes Mellitus, Myocardial Infarction (SC) Mother History Unknown: Yes Family Medical History: Diabetes Mellitus, Deep Vein Thrombosis (DVT), Myocardial Infarction (SC) Medications and Allergies Home Medications Medication Instructions Recorded Confirmed Type Furosemide [Lasix] 40 mg PO DAILY 04/10/14 04/12/19 History INSULIN LISPRO (humaLOG) [humaLOG] See Protocol SQ DIRECTED 04/10/14 04/12/19 History Insulin Glargine [Lantus] 60 units SQ HS 04/10/14 04/12/19 History Colesevelam [Welchol] 625 mg PO BID 04/11/14 04/12/19 History Magnesium 400 mg PO BID 10/06/14 04/12/19 History Aspirin EC [Ecotrin] 650 mg PO BID 04/12/19 04/12/19 History Cdb Salve 1 applic TOPICAL Q2H 04/12/19 04/12/19 History Cholecalciferol (Vitamin D3) 2,000 unit PO DAILY 04/12/19 04/12/19 History [Vitamin D3] Cyclobenzaprine [Flexeril] 10 mg PO DAILY PRN 04/12/19 04/12/19 History Levothyroxine Sodium 125 mcg PO DAILY 04/12/19 04/12/19 History Sulfamethox-Tmp 800-160Mg [Bactrim 1 tab PO BID 04/12/19 04/12/19 History DS 800-160 mg] Teriflunomide [Aubagio] 14 mg PO DAILY 04/12/19 04/12/19 History Allergies Allergy/AdvReac Type Severity Reaction Status Date / Time No Known Allergies Allergy Verified 04/12/19 17:16 Physical Exam Vitals: Vital Signs Temp Pulse Resp BP BP Pulse Ox 04/14/19 07:43 18 04/14/19 05:25 98 F 86 20 168/93 93 L 04/13/19 20:51 98.2 F 94 18 129/76 94 L 04/13/19 13:50 98.8 F 86 16 141/69 95 Intake and Output 04/13/19 04/14/19 04/14/19 22:59 06:59 14:59 Other: Voiding Method Bedside Commode # Voids 3 Gen: This is a morbidly obese 64-year-old female. Patient is resting in bed and appears to be comfortable and in no acute distress. HEENT: Head is atraumatic, normocephalic. Pupils equal, round. Sclerae is anicteric. Oral mucous membranes are moist. Dentures in place. No erythema to the oropharynx. NECK: Supple. No JVD. No lymphadenopathy. No thyromegaly. LUNGS: Diminished but Clear to auscultation. No wheezes or rhonchi. No intercostal retractions. HEART: Slight irregular rate and rhythm. No murmur. ABDOMEN: Soft. Bowel sounds are present. No masses. No tenderness. EXTREMITIES: Minimal pedal edema. No calf tenderness. Dorsalis pedis is palpable bilaterally. Patient is open wound to the right great toe lateral plantar surface with serous drainage and surrounding erythema. Chronic dark skin changes to the left pretibial area from previous wound. NEUROLOGICAL: Patient is awake, alert and oriented x3. Cranial nerves 2 through 12 are grossly intact. Results Results: Laboratory Results WBC 7.0 k/uL (3.8-10.6) 04/13/19 09:39 RBC 4.42 m/uL (3.80-5.40) 04/13/19 09:39 Hgb 12.6 gm/dL (11.4-16.0) 04/13/19 09:39 Hct 40.0 % (34.0-46.0) 04/13/19 09:39 MCV 90.6 fL (80.0-100.0) 04/13/19 09:39 MCH 28.5 pg (25.0-35.0) 04/13/19 09:39 MCHC 31.5 g/dL (31.0-37.0) 04/13/19 09:39 RDW 15.2 % (11.5-15.5) 04/13/19 09:39 Plt Count 235 k/uL (150-450) 04/13/19 09:39 Neutrophils % 80 % 04/13/19 09:39 Lymphocytes % 8 % 04/13/19 09:39 Monocytes % 6 % 04/13/19 09:39 Eosinophils % 3 % 04/13/19 09:39 Basophils % 1 % 04/13/19 09:39 Neutrophils # 5.6 k/uL (1.3-7.7) 04/13/19 09:39 Lymphocytes # 0.6 k/uL (1.0-4.8) L 04/13/19 09:39 Monocytes # 0.4 k/uL (0-1.0) 04/13/19 09:39 Eosinophils # 0.2 k/uL (0-0.7) 04/13/19 09:39 Basophils # 0.1 k/uL (0-0.2) 04/13/19 09:39 Hypochromasia Slight 04/13/19 09:39 Sodium 140 mmol/L (137-145) 04/13/19 09:39 Potassium 4.2 mmol/L (3.5-5.1) 04/13/19 09:39 Chloride 108 mmol/L (98-107) H 04/13/19 09:39 Carbon Dioxide 23 mmol/L (22-30) 04/13/19 09:39 Anion Gap 9 mmol/L 04/13/19 09:39 BUN 23 mg/dL (7-17) H 04/13/19 09:39 Creatinine 0.98 mg/dL (0.52-1.04) 04/13/19 09:39 Est GFR (CKD-EPI)AfAm 71 (>60 ml/min/1.73 sqM) 04/13/19 09:39 Est GFR (CKD-EPI)NonAf 61 (>60 ml/min/1.73 sqM) 04/13/19 09:39 Glucose 220 mg/dL (74-99) H 04/13/19 09:39 POC Glucose (mg/dL) 101 mg/dL (75-99) H 04/14/19 07:15 POC Glu Ramp Lead ID Vita Rendon 04/14/19 07:[address] Glu mg/dL 174 04/12/19 18:10 Hemoglobin A1c 7.7 % (4.0-6.0) H 04/12/19 18:10 Calcium 8.7 mg/dL (8.4-10.2) 04/13/19 09:39 Total Bilirubin 0.3 mg/dL (0.2-1.3) 04/12/19 18:10 AST 14 U/L (14-36) 04/12/19 18:10 ALT 11 U/L (9-52) 04/12/19 18:10 Alkaline Phosphatase 51 U/L (38-126) 04/12/19 18:10 Total Protein 6.8 g/dL (6.3-8.2) 04/12/19 18:10 Albumin 3.8 g/dL (3.5-5.0) 04/12/19 18:10 CBC & Chem 7: 04/13/19 09:39 04/13/19 09:39 Labs: Abnormal Lab Results - Last 24 Hours (Table) 04/13/19 04/13/19 04/13/19 Range/Units 09:39 09:39 11:52 Lymphocytes # 0.6 L (1.0-4.8) k/uL Chloride 108 H (98-107) mmol/L BUN 23 H (7-17) mg/dL Glucose 220 H (74-99) mg/dL POC Glucose (mg/dL) 223 H (75-99) mg/dL 04/13/19 04/13/19 04/14/19 Range/Units 16:48 20:43 07:15 Lymphocytes # (1.0-4.8) k/uL Chloride (98-107) mmol/L BUN (7-17) mg/dL Glucose (74-99) mg/dL POC Glucose (mg/dL) 158 H 131 H 101 H (75-99) mg/dL Microbiology - Last 24 Hours (Table) 04/12/19 Unknown Gram Stain - Preliminary Toe - Right First Wound Culture - Preliminary Gram Neg Bacilli Assessment and Plan Plan: This is a 64-year-old patient presents with a nonhealing gangrenous diabetic wound to the right great toe. She is currently on Zosyn and vancomycin which will be continued. Wound cultures are showing gram-positive bacilli. Bone scan will be ordered to rule out osteomyelitis. Dr. Dickson is following the patient as well and ordered medihoney daily for wound care. Patient will require tight glucose control to improve healing of this wound. Continue supportive care. Further recommendations as patient progresses. The above dictated assessment and findings were discussed with Dr. King. The impression and plan of care have been directed as dictated. Anitra Lemon nurse practitioner acting as scribe for Dr. King.
--- NOTE | 2019-04-14 11:27 | P.PN ---
Subjective Progress Note Date: 04/14/19 Patient seen and examined at bedside doing well today apparently having a bowel movement on the commode. He was seen by center consultant ID this morning, denies any fevers chills or night sweats. No acute events overnight. Preliminary wound cultures growing gram-negative bacilli Objective - Vital Signs Vital signs: Vital Signs Temp 98 F 04/14/19 05:25 Pulse 86 04/14/19 05:25 Resp 18 04/14/19 07:43 BP 168/93 04/14/19 05:25 Pulse Ox 93 L 04/14/19 05:25 Intake & Output 04/13/19 04/14/19 04/14/19 18:59 06:59 18:59 Intake Total 500 200 Balance 500 200 Weight 133 kg Intake: Intake, IV Titration 500 Amount Vancomycin 2,000 mg In 500 Sodium Chloride 0.9% 500 ml 500 ml @ 167 mls/hr IVPB Q16H [facility] Rx#: [id number] Oral 200 Other: Voiding Method Bedside Commode # Voids 3 10 1 - Exam Constitutional: No acute distress, conversant, pleasant Eyes: Anicteric sclerae, moist conjunctiva, no lid-lag, PERRLA ENMT: NC/AT,Oropharynx clear, no erythema, exudates Neck:Supple, FROM, no masses, or JVD, No carotid bruits; No thyromegaly Lungs: Clear to auscultation, Clear to percussion, Normal respiratory effort, no accessory muscle use Cardiovascular: Heart regular in rate and rhythm, No murmurs, gallops, or rubs no peripheral edema Abdominal: Soft Nontender, nom distended, no guarding, no rebound or rigidity, Normoactive bowel sounds No hepatomegaly, No splenomegaly, No palpable mass No abdominal wall hernia noted Skin: Medially located right great toe ulcer with wet gangrenous drainage with improving surrounding erythema extending up to the MTP Extremities:No digital cyanosis No clubbing, Pedal pulses intact and symmetrical Radial pulses intact and symmetrical Normal gait and station, No calf tenderness Psychiatric: Alert and oriented to person, place and time, Appropriate affect Intact judgement Neuro: Muscles Strength 5/5 in all 4 extremities, Sensation to light touch grossly present throughout, Cranial nerves II-XII grossly intact. No focal sensory deficits - Labs CBC & Chem 7: 04/13/19 09:39 04/13/19 09:39 Labs: Abnormal Lab Results - Last 24 Hours (Table) 04/13/19 04/13/19 04/13/19 Range/Units 11:52 16:48 20:43 POC Glucose (mg/dL) 223 H 158 H 131 H (75-99) mg/dL 04/14/19 Range/Units 07:15 POC Glucose (mg/dL) 101 H (75-99) mg/dL Microbiology - Last 24 Hours (Table) 04/12/19 Unknown Gram Stain - Preliminary Toe - Right First Wound Culture - Preliminary Gram Neg Bacilli Assessment and Plan (1) Diabetic foot ulcer Narrative/Plan: * Continue TheraHoney daily dressing changes * Continue current antibiotic regimen IV vancomycin and Zosyn * Noted improvement with erythema resolving Current Visit: Yes Status: Acute Code(s): E11.621 - TYPE 2 DIABETES MELLITUS WITH FOOT ULCER; L97.509 - NON-PRESSURE CHRONIC ULCER OTH PRT UNSP FOOT W UNSP SEVERITY SNOMED Code(s): 952379321 (2) Diabetic wet gangrene of the foot Narrative/Plan: * Continue with antibiotic regimen above * Preliminary Wound culture growing gram-negative bacilli * Bone scan ordered to rule out osteomyelitis * We'll plan to consult ID for further recommendations regarding antibiotics for discharge Current Visit: Yes Status: Acute Code(s): E11.52 - TYPE 2 DIABETES W DIABETIC PERIPHERAL ANGIOPATHY W GANGRENE SNOMED Code(s): 016684334 (3) Type 2 diabetes mellitus Narrative/Plan: * A1c 7.7 * Blood sugars are elevated 130-223 * continue with correctional scale coverage Current Visit: Yes Status: Acute Code(s): E11.9 - TYPE 2 DIABETES MELLITUS WITHOUT COMPLICATIONS SNOMED Code(s): 09865513 Plan: Disposition * Anticipated discharge 1-2 days * Follow-up bone scan wound cultures and ID recommendations
[2019-04-14 12:06] LABS: Glucose,Whole Blood 207 mg/dL (75-99)
--- NOTE | 2019-04-14 14:53 | NM ---
EXAMINATION TYPE: NM bone 3 phase DATE OF EXAM: 04/14/2019 COMPARISON: NONE HISTORY: Right great toe blister Triple phase bone scintigraphy was performed following the injection of 25.7 mCi Tc 99m MDP. Immedia te images and 5 hours post injection images acquired. FINDINGS: Increased blood flow, blood pool and delayed uptake is noted the first digit of the right foot. Uptak e in the mid foot is likely degenerative bilaterally. IMPRESSION: Findings consistent with osteomyelitis.
[2019-04-14 17:14] LABS: Glucose,Whole Blood 134 mg/dL (75-99)
[2019-04-14] MEDS: SODIUM CHLORIDE 0.9% 1,000 ML IV SCH (17:55)
[2019-04-14 20:29] LABS: Glucose,Whole Blood 153 mg/dL (75-99)
[2019-04-14] MEDS: INSULIN DETEMIR (LEVEMIR) 100 UNIT/ML SYR SQ SCH (20:34)
--- NOTE | 2019-04-15 00:49 | P.CON ---
Consult Note - . Consult date: 04/14/19 Assessment/Plan:: This is a 64-year-old female with past medical history for diabetes mellitus type 2 insulin requiring, MS on Aubagio. Patient gives history that several weeks ago she developed a blister on her right great toe. She was seen by Dr. Gallegos and he initially told her to cover it keep it clean and dry and apply Neosporin but 4 days later she thought it was looking funny that the skin was puffy white and raised. Dr. Gallegos came back and saw her on Wednesday, March 31 and he prescribed Keflex and gentamicin cream. He then rechecked her on April 04 and told her she needed to get into the wound center. He contacted Wound Center and the only appointment they had was on April 11 and because she artery had an MRI scheduled and waiting for 6 weeks, Dr. Gallegos contacted Dr. Dickson's office and the patient was seen there yesterday. Dr. Dickson saw the patient in office and sent her in to [facility] emergency center for evaluation. Patient has been started on Zosyn and vancomycin and wound cultures are in progress. She has been afebrile, white count 7, creatinine 0.98 albumin 3.8. Hemoglobin A1c 7.7. Wound culture is showing gram-negative bacilli. The patient has been seen by Dr. Dickson and he has ordered wound care in the form of medihoney daily. Note the patient was waiting for MRI ordered by Dr. Baez at the open MRI center. She is scheduled to see him in May for the results. The patient has been treated at a wound care center in the remote past for nonhealing wound to the left pretibial area. This wound has healed with no sign of active infection. Patient states that the re dness on her right great toe is improved from yesterday. Please see the consult note is dictated by nurse practitioner Mrs. Anitra Lemon. The 64-year-old woman has multiple medical troubles and has diabetes and MS on immunotherapy. Developed the callus and blister to the right great toe is now ulcerated. At this time bone scan has been requested await those results. Wound cultures also pending which further help direct the course of antibiotic therapy. Underlying osteomyelitis. We'll need to make arrangements for outpatient intravenous antibiotic therapy. She is anxious to get home to be with her pet dog is being cared for by her neighbor. She's been seen by podiatry and has an offloading shoe are ready. Local wound care with therahoney product is requesting to be continued on a daily basis for now. I agree with evaluation, assessment and plan as dictated by nurse practitioner Mrs. Anitra Lemon.
[2019-04-15] MEDS: ACETAMINOPHEN TAB 325 MG TAB PO PRN ×3 (04:23→15:06)
[2019-04-15] MEDS: LEVOTHYROXINE 125 MCG TAB PO SCH (05:55)
[2019-04-15] MEDS: PIPERACILLIN-TAZOBACTAM 3.375 GM in SODIUM CHLORIDE 0.9% 100 ML IVPB SCH ×3 (05:55→22:00)
[2019-04-15 07:12] LABS: Glucose,Whole Blood 90 mg/dL (75-99)
[2019-04-15] MEDS: INSULIN ASPART (NovoLOG) 100 UNIT/ML VIAL SQ SCH ×4 (07:16→20:59)
[2019-04-15] MEDS: FUROSEMIDE 40 MG TAB PO SCH (07:46)
[2019-04-15] MEDS: ASPIRIN 325 MG TAB PO SCH ×2 (07:51→20:07)
[2019-04-15] MEDS: CHOLECALCIFEROL 1,000 UNIT TAB PO SCH (07:51)
[2019-04-15] MEDS: COLESEVELAM 625 MG TAB PO SCH ×2 (07:51→20:07)
[2019-04-15] MEDS: MAGNESIUM OXIDE 400 MG TAB PO SCH ×2 (07:51→20:08)
[2019-04-15] MEDS ORDERED: ASPIRIN 325 MG TAB PO STA (07:55)
--- NOTE | 2019-04-15 09:04 | P.WCPCN ---
Wound Center Open Debridement Procedure note preoperative diagnoses is right foot big toe chronic wound measurement is 8 mm Post operative same Procedure right foot was prepped and draped applied usual sterile manner 1% lidocaine for infected in the wound area. After using a knife did the debridement down to separate his tissue necrotic tissue was removed and no active bleeding was noted wound was irrigated with saline medihoney gel applied to the wound dressing applied patient are to the procedure well
[2019-04-15 11:00] LABS: Glucose,Whole Blood 150 mg/dL (75-99)
[2019-04-15] MEDS: VANCOMYCIN 2,000 MG in SODIUM CHLORIDE 0.9% 500 ML 500 ML IVPB SCH (11:40)
[2019-04-15 11:51] LABS: Glucose,Whole Blood 130 mg/dL (75-99)
[2019-04-15] MEDS: NYSTATIN 100,000 UNIT/GM POWD 15 GM TOPICAL SCH ×2 (12:38→22:07)
--- NOTE | 2019-04-15 13:28 | P.PN ---
Subjective Progress Note Date: 04/15/19 Patient seen and examined at bedside doing well today apparently having a bowel movement on the commode. The patient currently receiving bedside debridement by Dr. Dickson, patient had a bone scan that was consistent with osteomyelitis Objective - Vital Signs Vital signs: Vital Signs Temp 98.6 F 04/15/19 12:24 Pulse 80 04/15/19 12:24 Resp 18 04/15/19 12:24 BP 162/80 04/15/19 12:24 Pulse Ox 95 04/15/19 12:24 Intake & Output 04/14/19 04/15/19 04/15/19 18:59 06:59 18:59 Intake Total 800 825 Balance 800 825 Weight 133 kg 127.5 kg Intake: Oral 800 825 Other: Voiding Method Bedside Commode Bedside Commode # Voids 7 8 2 # Bowel Movements 4 2 - Exam Constitutional: No acute distress, conversant, pleasant Eyes: Anicteric sclerae, moist conjunctiva, no lid-lag, PERRLA ENMT: NC/AT,Oropharynx clear, no erythema, exudates Neck:Supple, FROM, no masses, or JVD, No carotid bruits; No thyromegaly Lungs: Clear to auscultation, Clear to percussion, Normal respiratory effort, no accessory muscle use Cardiovascular: Heart regular in rate and rhythm, No murmurs, gallops, or rubs no peripheral edema Abdominal: Soft Nontender, nom distended, no guarding, no rebound or rigidity, Normoactive bowel sounds No hepatomegaly, No splenomegaly, No palpable mass No abdominal wall hernia noted Skin: Medially located right great toe ulcer with wet gangrenous drainage with improving surrounding erythema extending up to the MTP Extremities:No digital cyanosis No clubbing, Pedal pulses intact and symmetrical Radial pulses intact and symmetrical Normal gait and station, No calf tenderness Psychiatric: Alert and oriented to person, place and time, Appropriate affect Intact judgement Neuro: Muscles Strength 5/5 in all 4 extremities, Sensation to light touch grossly present throughout, Cranial nerves II-XII grossly intact. No focal sensory deficits - Labs CBC & Chem 7: 04/13/19 09:39 04/15/19 09:53 Labs: Abnormal Lab Results - Last 24 Hours (Table) 04/14/19 04/14/19 04/15/19 Range/Units 16:59 20:22 10:57 POC Glucose (mg/dL) 134 H 153 H 150 H (75-99) mg/dL 04/15/19 Range/Units 11:46 POC Glucose (mg/dL) 130 H (75-99) mg/dL Microbiology - Last 24 Hours (Table) 04/12/19 Unknown Anaerobic Culture - Preliminary Toe - Right First Assessment and Plan (1) Diabetic foot ulcer Narrative/Plan: * Continue TheraHoney daily dressing changes * Continue current antibiotic regimen IV vancomycin and Zosyn * Noted improvement with erythema resolving Current Visit: Yes Status: Acute Code(s): E11.621 - TYPE 2 DIABETES MELLITUS WITH FOOT ULCER; L97.509 - NON-PRESSURE CHRONIC ULCER OTH PRT UNSP FOOT W UNSP SEVERITY SNOMED Code(s): 527420757 (2) Osteomyelitis of great toe of right foot Narrative/Plan: * Seen on bone scan consistent with osteomyelitis * We'll need PICC placement and several weeks of IV antibiotics * Consult placed for PICC line Current Visit: Yes Status: Acute Code(s): M86.9 - OSTEOMYELITIS, UNSPECIFIED SNOMED Code(s): 885368790 (3) Diabetic wet gangrene of the foot Narrative/Plan: * Continue with antibiotic regimen above * Preliminary Wound culture growing gram-negative bacilli * Bone scan ordered to rule out osteomyelitis * We'll plan to consult ID for further recommendations regarding antibiotics for discharge Current Visit: Yes Status: Acute Code(s): E11.52 - TYPE 2 DIABETES W DIABETIC PERIPHERAL ANGIOPATHY W GANGRENE SNOMED Code(s): 846832403 (4) Type 2 diabetes mellitus Narrative/Plan: * A1c 7.7 * Blood sugars are elevated 130-223 * continue with correctional scale coverage Current Visit: Yes Status: Acute Code(s): E11.9 - TYPE 2 DIABETES MELLITUS WITHOUT COMPLICATIONS SNOMED Code(s): 91234087 Plan: Disposition * Anticipated discharge 1-2 days * Follow-up bone scan wound cultures and ID recommendations
[2019-04-15] MEDS: NON-FORMULARY DRUG (Teriflunomide [Aubagio] 14 MG) PO SCH ×3 (15:00→21:58)
[2019-04-15 17:07] LABS: Glucose,Whole Blood 143 mg/dL (75-99)
[2019-04-15] MEDS: SODIUM CHLORIDE 0.9% 1,000 ML IV SCH (17:23)
[2019-04-15 20:36] LABS: Glucose,Whole Blood 160 mg/dL (75-99)
[2019-04-15] MEDS: INSULIN DETEMIR (LEVEMIR) 100 UNIT/ML SYR SQ SCH (20:58)
--- NOTE | 2019-04-15 22:03 | P.PN ---
Subjective Progress Note Date: 04/15/19 This is a 64-year-old female with past medical history for diabetes mellitus type 2 insulin requiring, MS on Hayley. Patient gives history that several weeks ago she developed a blister on her right great toe. She was seen by Dr. Gallegos and he initially told her to cover it keep it clean and dry and apply Neosporin but 4 days later she thought it was looking funny that the skin was puffy white and raised. Dr. Gallegos came back and saw her on Wednesday, March 31 and he prescribed Keflex and gentamicin cream. He then rechecked her on April 04 and told her she needed to get into the wound center. He contacted W[facility] Center and the only appointment they had was on April 11 and because she artery had an MRI scheduled and waiting for 6 weeks, Dr. Gallegos contacted Dr. Dickson's office and the patient was seen there yesterday. Dr. Dickson saw the patient in office and sent her in to [facility] emergency center for evaluation. Patient has been started on Zosyn and vancomycin and wound cultures are in progress. She has been afebrile, white count 7, creatinine 0.98 albumin 3.8. Hemoglobin A1c 7.7. Wound culture is showing gram-negative bacilli. The patient has been seen by Dr. Dickson and he has ordered wound care in the form of medihoney daily. Note the patient was waiting for MRI ordered by Dr. Baez at the open MRI center. She is scheduled to see him in May for the results. The patient has been treated at a wound care center in the remote past for nonhealing wound to the left pretibial area. This wound has healed with no sign of active infection. Patient states that the redness on her right great toe is improved from yesterday. Patient feels about the same today. Does not feel very well overall. We discussed that the bone scan his become available and shows evidence of the osteomyelitis to the right great toe. Blood cultures negative so far. Wound culture is pending. Objective - Vital Signs Vital signs: Vital Signs Temp 98.6 F 04/15/19 12:24 Pulse 80 04/15/19 12:24 Resp 18 04/15/19 12:24 BP 162/80 04/15/19 12:24 Pulse Ox 95 04/15/19 12:24 Intake & Output 04/15/19 04/15/19 04/16/19 06:59 18:59 06:59 Intake Total 825 Balance 825 Weight 127.5 kg Intake: Oral 825 Other: Voiding Method Bedside Commode Bedside Commode # Voids 8 3 # Bowel Movements 2 - Exam Gen: This is a morbidly obese 64-year-old female. Patient is resting in bed and appears to be comfortable and in no acute distress. HEENT: Head is atraumatic, normocephalic. Pupils equal, round. Sclerae is anicteric. Oral mucous membranes are moist. Dentures in place. No erythema to the oropharynx. NECK: Supple. No JVD. No lymphadenopathy. No thyromegaly. LUNGS: Diminished but Clear to auscultation. No wheezes or rhonchi. No intercostal retractions. HEART: Slight irregular rate and rhythm. No murmur. ABDOMEN: Soft. Bowel sounds are present. No masses. No tenderness. EXTREMITIES: Minimal pedal edema. No calf tenderness. Dorsalis pedis is palpable bilaterally. Patient is open wound to the right great toe lateral plantar surface with serous drainage and surrounding erythema. Chronic dark skin changes to the left pretibial area from previous wound. NEUROLOGICAL: Patient is awake, alert and oriented x3. - Labs CBC & Chem 7: 04/13/19 09:39 04/15/19 09:53 Labs: Abnormal Lab Results - Last 24 Hours (Table) 04/15/19 04/15/19 04/15/19 Range/Units 10:57 11:46 17:05 POC Glucose (mg/dL) 150 H 130 H 143 H (75-99) mg/dL 04/15/19 Range/Units 20:28 POC Glucose (mg/dL) 160 H (75-99) mg/dL Microbiology - Last 24 Hours (Table) 04/12/19 Unknown Gram Stain - Final Toe - Right First Wound Culture - Final Pseudomonas aeruginosa Alpha Hemolytic Streptococcus 04/12/19 Unknown Anaerobic Culture - Preliminary Toe - Right First Laboratory Results WBC 7.0 k/uL (3.8-10.6) 04/13/19 09:39 RBC 4.42 m/uL (3.80-5.40) 04/13/19 09:39 Hgb 12.6 gm/dL (11.4-16.0) 04/13/19 09:39 Hct 40.0 % (34.0-46.0) 04/13/19 09:39 MCV 90.6 fL (80.0-100.0) 04/13/19 09:39 MCH 28.5 pg (25.0-35.0) 04/13/19 09:39 MCHC 31.5 g/dL (31.0-37.0) 04/13/19 09:39 RDW 15.2 % (11.5-15.5) 04/13/19 09:39 Plt Count 235 k/uL (150-450) 04/13/19 09:39 Neutrophils % 80 % 04/13/19 09:39 Lymphocytes % 8 % 04/13/19 09:39 Monocytes % 6 % 04/13/19 09:39 Eosinophils % 3 % 04/13/19 09:39 Basophils % 1 % 04/13/19 09:39 Neutrophils # 5.6 k/uL (1.3-7.7) 04/13/19 09:39 Lymphocytes # 0.6 k/uL (1.0-4.8) L 04/13/19 09:39 Monocytes # 0.4 k/uL (0-1.0) 04/13/19 09:39 Eosinophils # 0.2 k/uL (0-0.7) 04/13/19 09:39 Basophils # 0.1 k/uL (0-0.2) 04/13/19 09:39 Hypochromasia Slight 04/13/19 09:39 Sodium 140 mmol/L (137-145) 04/13/19 09:39 Potassium 4.2 mmol/L (3.5-5.1) 04/13/19 09:39 Chloride 108 mmol/L (98-107) H 04/13/19 09:39 Carbon Dioxide 23 mmol/L (22-30) 04/13/19 09:39 Anion Gap 9 mmol/L 04/13/19 09:39 BUN 23 mg/dL (7-17) H 04/13/19 09:39 Creatinine 0.85 mg/dL (0.52-1.04) 04/15/19 09:53 Est GFR (CKD-EPI)AfAm 84 (>60 ml/min/1.73 sqM) 04/15/19 09:53 Est GFR (CKD-EPI)NonAf 73 (>60 ml/min/1.73 sqM) 04/15/19 09:53 Glucose 220 mg/dL (74-99) H 04/13/19 09:39 POC Glucose (mg/dL) 160 mg/dL (75-99) H 04/15/19 20:28 POC Glu Service Delivery Management Consultant ID Angeline Ashford 04/15/19 20:[address] Glu mg/dL 174 04/12/19 18:10 Hemoglobin A1c 7.7 % (4.0-6.0) H 04/12/19 18:10 Calcium 8.7 mg/dL (8.4-10.2) 04/13/19 09:39 Total Bilirubin 0.3 mg/dL (0.2-1.3) 04/12/19 18:10 AST 14 U/L (14-36) 04/12/19 18:10 ALT 11 U/L (9-52) 04/12/19 18:10 Alkaline Phosphatase 51 U/L (38-126) 04/12/19 18:10 Total Protein 6.8 g/dL (6.3-8.2) 04/12/19 18:10 Albumin 3.8 g/dL (3.5-5.0) 04/12/19 18:10 Microbiology 04/12/19 Unknown Toe - Right First Gram Stain - Final 04/12/19 Unknown Toe - Right First Wound Culture - Final Pseudomonas aeruginosa Alpha Hemolytic Streptococcus 04/12/19 Unknown Toe - Right First Anaerobic Culture - Preliminary Assessment and Plan (1) Osteomyelitis of great toe of right foot Narrative/Plan: The 64-year-old woman has multiple medical troubles and has diabetes and MS on immunotherapy. Developed the callus and blister to the right great toe is now ulcerated. At this time bone scan has been requested await those results. Wound cultures also pending which further help direct the course of antibiotic therapy. Underlying osteomyelitis. We'll need to make arrangements for outpatient intravenous antibiotic therapy. She is anxious to get home to be with her pet dog is being cared for by her neighbor. She's been seen by podiatry and has an offloading shoe are ready. Local wound care with therahoney product is requesting to be continued on a daily basis for now. 04/15/2019 patient feeling about the same has some generalized weakness. Ulceration of the toe has been debrided by the vascular surgeon today. There is evidence of the bone scan showing evidence of underlying osteomyelitis of the ri ght great toe and consequently will need a course of intravenous antibiotic therapy. We'll start to investigate what her options are recommendations is therapy, significant be done at home or she would need to go to a outpatient clinic or other type of setting. Local wound care continues to the [facility] product continue to work on her blood glucose status. Further basic laboratories requested for the morning. Current Visit: Yes Status: Acute Code(s): M86.9 - OSTEOMYELITIS, UNSPECIFIED SNOMED Code(s): 246163067
[2019-04-16] MEDS: ACETAMINOPHEN TAB 325 MG TAB PO PRN ×4 (00:37→18:12)
[2019-04-16] MEDS ORDERED: VANCOMYCIN TROUGH DUE 1 EACH MISC MISCELLANE ONE (03:00)
[2019-04-16 03:34] LABS: Anisocytosis Slight; Basophils # (A) 0.1 k/uL (0-0.2); Basophils % (A) 1 %; Eosinophils # (A) 0.2 k/uL (0-0.7); Eosinophils % (A) 3 %; HCT 41.7 % (34.0-46.0); HGB 13.1 gm/dL (11.4-16.0); Lymphocytes # (A) 0.7 k/uL (1.0-4.8); Lymphocytes % (A) 10 %; MCH 28.1 pg (25.0-35.0); MCHC 31.4 g/dL (31.0-37.0); MCV 89.4 fL (80.0-100.0); Mean Platelet Volume 7.4; Monocytes # (A) 0.4 k/uL (0-1.0); Monocytes % (A) 6 %; Neutrophils # (A) 5.4 k/uL (1.3-7.7); Neutrophils % (A) 78 %; Platelet Count 213 k/uL (150-450); RBC 4.66 m/uL (3.80-5.40); RDW 16.5 % (11.5-15.5); WBC 6.9 k/uL (3.8-10.6)
[2019-04-16 03:56] LABS: African American GFR (CKD) >90 (>60 ml/min/1.73 sqM); Anion Gap 6 mmol/L; Blood Urea Nitrogen 16 mg/dL (7-17); C Reactive Protein 28.8 mg/L (<10.0); Calcium 8.7 mg/dL (8.4-10.2); Carbon Dioxide 23 mmol/L (22-30); Chloride 110 mmol/L (98-107); Glucose 103 mg/dL (74-99); Potassium 3.8 mmol/L (3.5-5.1); Sodium 139 mmol/L (137-145)
[2019-04-16] MEDS: VANCOMYCIN 2,000 MG in SODIUM CHLORIDE 0.9% 500 ML 500 ML IVPB SCH ×2 (03:59→20:18)
[2019-04-16] MEDS: LEVOTHYROXINE 125 MCG TAB PO SCH (06:00)
[2019-04-16 07:07] LABS: Erythrocyte Sedimentation Rate 48 mm/hr (0-20)
[2019-04-16 07:23] LABS: Glucose,Whole Blood 86 mg/dL (75-99)
[2019-04-16] MEDS: INSULIN ASPART (NovoLOG) 100 UNIT/ML VIAL SQ SCH ×4 (07:53→21:51)
[2019-04-16] MEDS: CHOLECALCIFEROL 1,000 UNIT TAB PO SCH (08:02)
[2019-04-16] MEDS: COLESEVELAM 625 MG TAB PO SCH ×2 (08:02→21:51)
[2019-04-16] MEDS: MAGNESIUM OXIDE 400 MG TAB PO SCH ×2 (08:02→21:51)
[2019-04-16] MEDS: ASPIRIN 325 MG TAB PO SCH ×2 (08:02→21:51)
[2019-04-16] MEDS: FUROSEMIDE 40 MG TAB PO SCH (08:02)
[2019-04-16] MEDS: PIPERACILLIN-TAZOBACTAM 3.375 GM in SODIUM CHLORIDE 0.9% 100 ML IVPB SCH ×2 (08:03→13:29)
[2019-04-16] MEDS: NYSTATIN 100,000 UNIT/GM POWD 15 GM TOPICAL SCH ×2 (08:03→21:53)
--- NOTE | 2019-04-16 11:19 | P.PN ---
Subjective Progress Note Date: 04/16/19 Patient seen and examined at bedside doing well today apparently having a bowel movement on the commode. the patient unable to have PICC line placed as it's the weekend. No acute events overnight Objective - Vital Signs Vital signs: Vital Signs Temp 97.0 F L 04/16/19 06:21 Pulse 91 04/16/19 06:21 Resp 20 04/16/19 06:21 BP 170/71 04/16/19 06:21 Pulse Ox 95 04/16/19 06:21 Intake & Output 04/15/19 04/16/19 04/16/19 18:59 06:59 18:59 Intake Total 1000 Balance 1000 Weight 127.5 kg Intake: Oral 1000 Other: Voiding Method Bedside Commode Bedside Commode # Voids 3 15 # Bowel Movements 1 - Exam Constitutional: No acute distress, conversant, pleasant Eyes: Anicteric sclerae, moist conjunctiva, no lid-lag, PERRLA ENMT: NC/AT,Oropharynx clear, no erythema, exudates Neck:Supple, FROM, no masses, or JVD, No carotid bruits; No thyromegaly Lungs: Clear to auscultation, Clear to percussion, Normal respiratory effort, no accessory muscle use Cardiovascular: Heart regular in rate and rhythm, No murmurs, gallops, or rubs no peripheral edema Abdominal: Soft Nontender, nom distended, no guarding, no rebound or rigidity, Normoactive bowel sounds No hepatomegaly, No splenomegaly, No palpable mass No abdominal wall hernia noted Skin: Medially located right great toe ulcer with wet gangrenous drainage with improving surrounding erythema extending up to the MTP Extremities:No digital cyanosis No clubbing, Pedal pulses intact and symmetrical Radial pulses intact and symmetrical Normal gait and station, No calf tenderness Psychiatric: Alert and oriented to person, place and time, Appropriate affect Intact judgement Neuro: Muscles Strength 5/5 in all 4 extremities, Sensation to light touch grossly present throughout, Cranial nerves II-XII grossly intact. No focal sensory deficits - Labs CBC & Chem 7: 04/16/19 03:18 04/17/19 08:34 Labs: Abnormal Lab Results - Last 24 Hours (Table) 04/15/19 04/15/19 04/15/19 Range/Units 11:46 17:05 20:28 RDW (11.5-15.5) % Lymphocytes # (1.0-4.8) k/uL ESR (0-20) mm/hr Chloride (98-107) mmol/L Glucose (74-99) mg/dL POC Glucose (mg/dL) 130 H 143 H 160 H (75-99) mg/dL C-Reactive Protein (<10.0) mg/L 04/16/19 04/16/19 Range/Units 03:18 03:18 RDW 16.5 H (11.5-15.5) % Lymphocytes # 0.7 L (1.0-4.8) k/uL ESR 48 H (0-20) mm/hr Chloride 110 H (98-107) mmol/L Glucose 103 H (74-99) mg/dL POC Glucose (mg/dL) (75-99) mg/dL C-Reactive Protein 28.8 H (<10.0) mg/L Microbiology - Last 24 Hours (Table) 04/12/19 Unknown Gram Stain - Final Toe - Right First Wound Culture - Final Pseudomonas aeruginosa Alpha Hemolytic Streptococcus Assessment and Plan (1) Diabetic foot ulcer Narrative/Plan: * Continue TheraHoney daily dressing changes * Continue current antibiotic regimen IV vancomycin and Zosyn * Noted improvement with erythema resolving Current Visit: Yes Status: Acute Code(s): E11.621 - TYPE 2 DIABETES MELLITUS WITH FOOT ULCER; L97.509 - NON-PRESSURE CHRONIC ULCER OTH PRT UNSP FOOT W UNSP SEVERITY SNOMED Code(s): 910976278 (2) Osteomyelitis of great toe of right foot Narrative/Plan: * Seen on bone scan consistent with osteomyelitis * We'll need PICC placement and several weeks of IV antibiotics * Consult placed for PICC line dry me Current Visit: Yes Status: Acute Code(s): M86.9 - OSTEOMYELITIS, UNSPECIFIED SNOMED Code(s): 377860636 (3) Diabetic wet gangrene of the foot Narrative/Plan: * Continue with antibiotic regimen above * Preliminary Wound culture growing gram-negative bacilli * Bone scan ordered to rule out osteomyelitis * We'll plan to consult ID for further recommendations regarding antibiotics for discharge Current Visit: Yes Status: Acute Code(s): E11.52 - TYPE 2 DIABETES W DIABETIC PERIPHERAL ANGIOPATHY W GANGRENE SNOMED Code(s): 993632683 (4) Type 2 diabetes mellitus Narrative/Plan: * A1c 7.7 * Blood sugars are elevated 130-223 * continue with correctional scale coverage Current Visit: Yes Status: Acute Code(s): E11.9 - TYPE 2 DIABETES MELLITUS WITHOUT COMPLICATIONS SNOMED Code(s): 32184580
[2019-04-16 12:05] LABS: Glucose,Whole Blood 131 mg/dL (75-99)
[2019-04-16 17:20] LABS: Glucose,Whole Blood 113 mg/dL (75-99)
[2019-04-16] MEDS: SODIUM CHLORIDE 0.9% 1,000 ML IV SCH (18:03)
[2019-04-16 20:32] LABS: Glucose,Whole Blood 159 mg/dL (75-99)
[2019-04-16] MEDS: INSULIN DETEMIR (LEVEMIR) 100 UNIT/ML SYR SQ SCH (21:52)
[2019-04-16] MEDS: NON-FORMULARY DRUG (Teriflunomide [Aubagio] 14 MG) PO SCH (21:52)
[2019-04-17] MEDS: PIPERACILLIN-TAZOBACTAM 3.375 GM in SODIUM CHLORIDE 0.9% 100 ML IVPB SCH ×3 (00:01→13:54)
[2019-04-17] MEDS: ACETAMINOPHEN TAB 325 MG TAB PO PRN (03:24)
[2019-04-17 05:30] VITALS: TEMP 98.1
[2019-04-17] MEDS: LEVOTHYROXINE 125 MCG TAB PO SCH (06:22)
[2019-04-17 07:12] LABS: Glucose,Whole Blood 93 mg/dL (75-99)
[2019-04-17] MEDS: INSULIN ASPART (NovoLOG) 100 UNIT/ML VIAL SQ SCH ×2 (07:22→12:23)
[2019-04-17] MEDS: COLESEVELAM 625 MG TAB PO SCH (07:23)
[2019-04-17] MEDS: ASPIRIN 325 MG TAB PO SCH (07:23)
[2019-04-17] MEDS: MAGNESIUM OXIDE 400 MG TAB PO SCH (07:23)
[2019-04-17] MEDS: FUROSEMIDE 40 MG TAB PO SCH (07:23)
[2019-04-17] MEDS: CHOLECALCIFEROL 1,000 UNIT TAB PO SCH (07:23)
[2019-04-17] MEDS: NYSTATIN 100,000 UNIT/GM POWD 15 GM TOPICAL SCH (07:24)
[2019-04-17 09:41] LABS: Potassium 3.9 mmol/L (3.5-5.1)
[2019-04-17 11:17] LABS: Glucose,Whole Blood 128 mg/dL (75-99)
--- NOTE | 2019-04-17 13:41 | P.DS ---
Providers Date of admission: 04/12/19 16:07 Expected date of discharge: 04/17/19 Attending physician: Brett Santana MD Consults: 04/12/19 17:16 Consult Physician Routine Consulting Provider: Chris Dickson Consult Reason/Comments: gangrene Do you want consulting provider notified?: Yes 04/13/19 16:19 Consult Physician Routine Consulting Provider: Felipe King Consult Reason/Comments: gangrenous right big toe Do you want consulting provider notified?: Yes Primary care physician: Martin Cuello - Discharge Diagnosis(es) (1) Diabetic foot ulcer Current Visit: Yes Status: Acute (2) Osteomyelitis of great toe of right foot Current Visit: Yes Status: Acute (3) Diabetic wet gangrene of the foot Current Visit: Yes Status: Acute (4) Type 2 diabetes mellitus Current Visit: Yes Status: Acute Hospital Course: the patient is a 64-year-old obese female with a past medical history of type 2 diabetes with diabetic foot ulcer of the right great toe that was referred for admission from Dr. Dickson after being seen in wound care clinic due to nonhealing ulcer and after failing outpatient antibiotics and treatment. she was started on empiric IV antibiotics with Zosyn and vancomycin. Dr. Dickson was consulted for wound care and he performed open debridement of the right big toe chronic wound measuring 8 mm. Cultures were drawn and grew pseudomonas and alphahemolytic streptococcus, ID was consulted and the patient was continued on current antibiotic regimen. A bone scan was ordered that was consistent with osteomyelitis. IR was consulted to provide a PICC placement so the patient can receive outpatient antibiotics for total of 6 weeks. The patient is discharged to home with home health services for wound care and antibiotics. This discharge process took approximately 35 minutes. focused exam Extremities:No digital cyanosis No clubbing, Pedal pulses intact and symmetrical Radial pulses intact and symmetrical Normal gait and station, No calf tenderness, right lower extremity dressed without any obvious purulent drainage or bleeding. Patient Condition at Discharge: Fair Plan - Discharge Summary New Discharge Prescriptions: New Ertapenem [INVanz] 1 gm IVPB Q24H #42 bag Ciprofloxacin HCl [Cipro] 500 mg PO Q12HR #84 tablet Continue INSULIN LISPRO (humaLOG) [humaLOG] See Protocol SQ DIRECTED Furosemide [Lasix] 40 mg PO DAILY Insulin Glargine [Lantus] 60 units SQ HS Colesevelam [Welchol] 625 mg PO BID Magnesium 400 mg PO BID Cdb Salve 1 applic TOPICAL Q2H Teriflunomide [Aubagio] 14 mg PO DAILY Levothyroxine Sodium 125 mcg PO DAILY Cholecalciferol (Vitamin D3) [Vitamin D3] 2,000 unit PO DAILY Aspirin EC [Ecotrin] 325 mg PO BID Cyclobenzaprine [Flexeril] 10 mg PO DAILY PRN PRN Reason: Spasms Discontinued Sulfamethox-Tmp 800-160Mg [Bactrim DS 800-160 mg] 1 tab PO BID Discharge Medication List Furosemide [Lasix] 40 mg PO DAILY 04/10/14 [History] INSULIN LISPRO (humaLOG) [humaLOG] See Protocol SQ DIRECTED 04/10/14 [History] Insulin Glargine [Lantus] 60 units SQ HS 04/10/14 [History] Colesevelam [Welchol] 625 mg PO BID 04/11/14 [History] Magnesium 400 mg PO BID 10/06/14 [History] Aspirin EC [Ecotrin] 325 mg PO BID 04/12/19 [History] Cdb Salve 1 applic TOPICAL Q2H 04/12/19 [History] Cholecalciferol (Vitamin D3) [Vitamin D3] 2,000 unit PO DAILY 04/12/19 [History] Cyclobenzaprine [Flexeril] 10 mg PO DAILY PRN 04/12/19 [History] Levothyroxine Sodium 125 mcg PO DAILY 04/12/19 [History] Teriflunomide [Aubagio] 14 mg PO DAILY 04/12/19 [History] Ertapenem [INVanz] 1 gm IVPB Q24H #42 bag 04/15/19 [Rx] Ciprofloxacin HCl [Cipro] 500 mg PO Q12HR #84 tablet 04/17/19 [Rx] Follow up Appointment(s)/Referral(s): Felipe King MD [STAFF PHYSICIAN] - 1 Week Martin Cuello DO [Primary Care Provider] - 1 Week [facility] [NON-STAFF] - Chris Dickson MD [STAFF PHYSICIAN] - 1 Week Patient Instructions/Handouts: Heart Failure (DC), Type 2 Diabetes in Adults: New Diagnosis (DC), Gangrene (DC) Activity/Diet/Wound Care/Special Instructions: Dr. King office will call you with time to start IV antibiotic infusions for 04/18/19. Discharge Disposition: HOME WITH HOME HEALTH SERVICES
[2019-04-17] MEDS ORDERED: LIDOCAINE 1% INJ 10MG/ML (20 ML MDV) ONE (14:42)
[2019-04-17] MEDS ORDERED: LIDOCAINE 1% INJ 10MG/ML (20 ML MDV) SQ ONE (14:59)
[2019-04-17 15:09] VITALS: BP 153/64; PULSE 77; RESP 16
[2019-04-17] MEDS ORDERED: ERTAPENEM 1 GM in SODIUM CHLORIDE 0.9% 50 ML IVPB SCH (16:00)
--- NOTE | 2019-04-17 17:19 | CDI ---
Documentation Clarification Form Date: 04/17/2019 5:02:00 PM From: Tiffany Jackson RN, CCDS Admit Date: 04/12/2019 4:07:00 PM Patient Name: Roxana Barnes Visit Number: [id number] Discharge Date: 04/17/2019 5:12:00 PM ATTENTION: The Clinical Documentation Specialists (CDI) and [facility] Coding Staff appreciate your assistance in clarifying documentation. Please respond to the clarification below the line at the bottom and electronically sign. The CDI & [facility] Coding staff will review the response and follow-up if needed. Please note: Queries are made part of the Legal Health Record. If you have any questions, please contact the author of this message via ITS. Dr. Felipe King Osteomyelitis has been documented in the ongoing progress note starting on 04/15/15 and further clarification is needed. History/Risk Factors: Diabetes Mellitus type 2, COPD, MS, Clinical Indicators: 64-year-old female who present with a nonhealing gangrenous diabetic wound, developed a blister on her right great toe and is now ulcerated. The wound culture showing gram-positive bacilli. Bone Scan Right great toe: Findings consistent with osteomyelitis Treatment: PICC line Invanz IV In your professional opinion, please specify the acuity of the right great toe osteomyelitis: Acuity: Acute Chronic Subacute Unable to Determine Cause: Viral (specify organism if know): Bacterial (specify organism if know): Other (please specify): Unable to Determine (Last Revision: August 2017) MTDD
[2019-04-17] MEDS ORDERED: CIPROFLOXACIN HCL 500 MG TAB PO SCH (21:00)
--- NOTE | 2019-04-18 08:08 | IR ---
EXAMINATION TYPE: IR cvc insert >=5 years DATE OF EXAM: 04/17/2019 COMPARISON: NONE CLINICAL HISTORY: Infection Needs long-term intravenous access for antibiotics. PROCEDURE: After informed consent, the skin overlying the left basilic vein was localized with ultrasound and no gerry to be compressible and patent. An ultrasound image was obtained and submitted on the patient's c dacosta. The overlying skin was prepped and draped and Lidocaine was used for local anesthesia. A skin reina was made with a scalpel. Access was gained to the vein under ultrasound guidance with a 21 gau ge needle and a 0.018 inch wire was advanced. Access site was dilated with Peel-Away sheath and cath eter tailored to the appropriate length and advanced such that the distal tip is at the cavoatrial ju nction. Spot image was obtained verifying placement. Catheter was fixed to the skin and a sterile d ressing was placed following hemostasis. Catheter was aspirated and flushed with saline. Patient wa s discharged in stable condition without complication. Maximal barrier technique is utilized. Ultras ound image is documented on the chart. Ultrasound used with sterile technique. Fluoro time and fluoroscopic images submitted to document procedure: 235 intraoperative C-arm images. 0.9 minutes fluoroscopy time IMPRESSION: STATUS POST ULTRASOUND AND FLUOROSCOPIC GUIDED PICC LINE PLACEMENT, READY FOR USE. THIS PROCEDURE WAS PERFORMED BY THE UNDERSIGNED.
--- NOTE | 2019-04-18 09:28 | CDI ---
Documentation Clarification Form Date: 04/18/19 From: Tiffany Jackson RN, CCDS Admit Date: 04/12/2019 4:07:00 PM Patient Name: Roxana Barnes Visit Number: [id number] Discharge Date: 04/17/2019 5:12:00 PM ATTENTION: The Clinical Documentation Specialists (CDI) and [facility] Coding Staff appreciate your assistance in clarifying documentation. Please respond to the clarification below the line at the bottom and electronically sign. The CDI & [facility] Coding staff will review the response and follow-up if needed. Please note: Queries are made part of the Legal Health Record. If you have any questions, please contact the author of this message via ITS. Dr. Chris Dickson Per your progress notes/operative note, a debridement was performed on 04/15/2019, and further clarification is needed. History/Risk Factors: Diabetes mellitus Type 2, COPD, Heart Failure, Former smoker, MS Clinical Indicators: 64-year-old female who developed a blister on her right great toe and presents with a non healing gangrenous diabetic ulcer to the right great toe. Wound cultures are showing gram-positive. Bone scan was ordered and was positive for osteomyelitis. Treatment: Debridement Medihoney Daily Antibiotics: Vancomycin IV, Zosyn IV, Cipro PO PICC Line Five elements required for accurate and compliant documentation of a debridement: 1. Technique used (e.g., excisional, excised, cutting, etc.) 2. Instrument(s) used (e.g., scalpel, curette, etc.) 3. Nature of the tissue removed (e.g., necrotic, devitalized tissues, non- viable tissue, etc.) 4. Appearance and size of the wound (e.g., down to fresh bleeding tissue, 7cm x 10cm, etc.) 5. Depth of the debridement* (e.g., skin, subcutaneous tissue, fascia, muscle, bone, etc.) In order to capture the severity of condition and code the appropriate procedure; could you please clarify if the procedure was an: Excisional debridement (the removal of necrotic, devitalized tissue or slough by means of cutting away of tissue) Non-excisional debridement (the removal of necrotic, devitalized tissue or slough by means of flushing, brushing, or washing. (Irrigation) Other; please specify Unable to determine (Last Revision: January 2018) MTDD
--- NOTE | 2019-04-28 08:45 | CDI ---
o Documentation Clarification Form Date: 04/18/2019 9:30:00 AM From: Tiffany Jackson RN, CCDS Admit Date: 04/12/2019 4:07:00 PM Patient Name: Roxana Barnes Visit Number: [id number] Discharge Date: 04/17/2019 5:12:00 PM ATTENTION: The Clinical Documentation Specialists (CDI) and [facility] Coding Staff appreciate your assistance in clarifying documentation. Please respond to the clarification below the line at the bottom and electronically sign. The CDI & [facility] Coding staff will review the response and follow-up if needed. Please note: Queries are made part of the Legal Health Record. If you have any questions, please contact the author of this message via ITS. Dr. Chris Dickson Per your progress notes/operative note, a debridement was performed on 04/15/2019, and further clarification is needed. History/Risk Factors: Diabetes mellitus Type 2, COPD, Heart Failure, Former smoker, MS Clinical Indicators: 64-year-old female who developed a blister on her right great toe and presents with a non healing gangrenous diabetic wound to the right great toe. Wound cultures are showing gram-positive. Bone scan was ordered and was positive for osteomyelitis. Treatment: Debridement Medihoney Daily Antibiotics: Vancomycin IV, Zosyn IV, Cipro PO PICC Line Five elements required for accurate and compliant documentation of a debridement: 1. Technique used (e.g., excisional, excised, cutting, etc.) 2. Instrument(s) used (e.g., scalpel, curette, etc.) 3. Nature of the tissue removed (e.g., necrotic, devitalized tissues, non- viable tissue, etc.) 4. Appearance and size of the wound (e.g., down to fresh bleeding tissue, 7cm x 10cm, etc.) 5. Depth of the debridement* (e.g., skin, subcutaneous tissue, fascia, muscle, bone, etc.) In order to capture the severity of condition and code the appropriate procedure; could you please clarify if the procedure was an: Excisional debridement (the removal of necrotic, devitalized tissue or slough by means of cutting away of tissue) Non-excisional debridement (the removal of necrotic, devitalized tissue or slough by means of flushing, brushing, or washing. (Irrigation) Other; please specify Unable to determine (Last Revision: January 2018) MTDD
== END 2019-04-17 17:12 | disposition home health service (06) | DRG 264 ==
LOC: 4MS4W 16:07
PROVIDERS: ADMIT Family Medicine; ATTEND Family Medicine
PROC: 0JBQ0ZZ Excision of Right Foot Subcutaneous Tissue and Fascia, Open Approach (ICD-10-PCS; principal; 2019-04-15)
PROC: 02HV33Z Insertion of Infusion Device into Superior Vena Cava, Percutaneous Approach (ICD-10-PCS; 2019-04-17)
DX: E11.52 Type 2 diabetes mellitus with diabetic peripheral angiopathy with gangrene (principal); I96 Gangrene, not elsewhere classified; Z68.42 Body mass index [BMI] 45.0-49.9, adult; M86.9 Osteomyelitis, unspecified; E11.621 Type 2 diabetes mellitus with foot ulcer; E11.69 Type 2 diabetes mellitus with other specified complication; I50.9 Heart failure, unspecified; G35 Multiple sclerosis; L97.519 Non-pressure chronic ulcer of other part of right foot with unspecified severity; E66.01 Morbid (severe) obesity due to excess calories; E78.5 Hyperlipidemia, unspecified; G47.30 Sleep apnea, unspecified; J44.9 Chronic obstructive pulmonary disease, unspecified; E07.9 Disorder of thyroid, unspecified; M19.90 Unspecified osteoarthritis, unspecified site; Z79.4 Long term (current) use of insulin; Z79.82 Long term (current) use of aspirin; Z79.890 Hormone replacement therapy; Z79.899 Other long term (current) drug therapy; I25.10 Atherosclerotic heart disease of native coronary artery without angina pectoris; Z87.891 Personal history of nicotine dependence; Z95.5 Presence of coronary angioplasty implant and graft; Z82.49 Family history of ischemic heart disease and other diseases of the circulatory system; Z82.5 Family history of asthma and other chronic lower respiratory diseases; Z83.3 Family history of diabetes mellitus
CPT/HCPCS: 36573; 78315; 80048; 80053; 80202; 82565; 83036; 85025; 85652; 86140; 87070; 87075; 87077; 87186; 87205; 93005

== ENCOUNTER 2019-04-23 11:07 | Inpatient (IN) | payer MEDICARE, BC ==
[2019-04-23] MEDS ORDERED: ASPIRIN 81 MG PO STA (11:46)
--- NOTE | 2019-04-23 11:51 | ED ---
General Adult HPI - General Chief complaint: Weakness Stated complaint: Unable to walk Time Seen by Provider: 04/23/19 11:30 Source: patient Mode of arrival: wheelchair Limitations: no limitations - History of Present Illness Initial comments: Patient is a 64-year-old female with a history of MS, diabetes, osteomyelitis of the right foot, and currently on long-term IV antibiotics through a PICC line who presents with the chief complaint weakness and left knee pain. Patient states this is her recent discharge from the hospital she has been feeling weak. She states that she stays in bed most the day. She came to the emergency department today because when she entered the bathroom she was unable to get up afterwards. She states that her knee hurts when she tries to ambulate even though she uses a walker. The patient cannot identify any inciting incident or knee pain. Factors include movement, there are no alleviating factors. Timing is constant. Patient states that she lives alone, she does not feel safe as she is not mobile enough to take care of herself. - Related Data Home Medications Medication Instructions Recorded Confirmed Furosemide [Lasix] 40 mg PO DAILY 04/10/14 04/12/19 INSULIN LISPRO (humaLOG) [humaLOG] See Protocol SQ DIRECTED 04/10/14 04/12/19 Insulin Glargine [Lantus] 60 units SQ HS 04/10/14 04/12/19 Colesevelam [Welchol] 625 mg PO BID 04/11/14 04/12/19 Magnesium 400 mg PO BID 10/06/14 04/12/19 Aspirin EC [Ecotrin] 325 mg PO BID 04/12/19 04/15/19 Cdb Salve 1 applic TOPICAL Q2H 04/12/19 04/12/19 Cholecalciferol (Vitamin D3) 2,000 unit PO DAILY 04/12/19 04/12/19 [Vitamin D3] Cyclobenzaprine [Flexeril] 10 mg PO DAILY PRN 04/12/19 04/12/19 Levothyroxine Sodium 125 mcg PO DAILY 04/12/19 04/12/19 Teriflunomide [Aubagio] 14 mg PO DAILY 04/12/19 04/12/19 Previous Rx's Medication Instructions Recorded Ertapenem [INVanz] 1 gm IVPB Q24H #42 bag 04/15/19 Ciprofloxacin HCl [Cipro] 500 mg PO Q12HR #84 tablet 04/17/19 Allergies Allergy/AdvReac Type Severity Reaction Status Date / Time No Known Allergies Allergy Verified 04/23/19 11:22 Review of Systems ROS Statement: Those systems with pertinent positive or pertinent negative responses have been documented in the HPI. ROS Other: All systems not noted in ROS Statement are negative. Constitutional: Reports: weakness Musculoskeletal: Reports: arthralgia Past Medical History Past Medical History: Chest Pain / Angina, Heart Failure, COPD, Diabetes Mellitus, Hyperlipidemia, Musculoskeletal Disorder, Sleep Apnea/CPAP/BIPAP, Thyroid Disorder Additional Past Medical History / Comment(s): MS,ARTHRITIS,BACK PAIN History of Any Multi-Drug Resistant Organisms: None Reported Past Surgical History: Bariatric Surgery, Heart Catheterization With Stent Additional Past Surgical History / Comment(s): L CARPAL TUNNEL, GASTRIC SLEEVE Past Anesthesia/Blood Transfusion Reactions: No Reported Reaction Additional Past Anesthesia/Blood Transfusion Reaction / Comment(s): HX HALLUCINATIONS WITH ANESTHESIA Date of Last Stent Placement:: March 2013, 2 stents placed in front of heart at [facility] Past Psychological History: No Psychological Hx Reported Smoking Status: Former smoker Past Alcohol Use History: None Reported Past Drug Use History: None Reported - Past Family History Father History Unknown: Yes Family Medical History: COPD, Diabetes Mellitus, Myocardial Infarction ([place]) Mother History Unknown: Yes Family Medical History: Diabetes Mellitus, Deep Vein Thrombosis (DVT), Myocardial Infarction ([place]) General Exam Limitations: no limitations General appearance: alert, in no apparent distress Head exam: Present: atraumatic, normocephalic Eye exam: Present: normal appearance ENT exam: Present: normal exam Neck exam: Present: normal inspection Respiratory exam: Present: normal lung sounds bilaterally. Absent: respiratory distress, wheezes Cardiovascular Exam: Present: regular rate, normal rhythm GI/Abdominal exam: Present: soft. Absent: distended, tenderness Rectal exam: Present: deferred Extremities exam: Present: other (Patient has a PICC line in the left upper extremity) Back exam: Present: normal inspection Neurological exam: Present: alert, oriented X3 Psychiatric exam: Present: normal affect, normal mood Skin exam: Present: warm, dry, intact Course Vital Signs 04/23/19 04/23/19 11:19 13:09 Temperature 98.8 F 98.2 F Pulse Rate 81 77 Respiratory 18 18 Rate Blood Pressure 122/66 113/73 O2 Sat by Pulse 97 97 Oximetry Medical Decision Making - Medical Decision Making Patient presents with a chief complaint of weakness, debility, and left knee pain. On initial evaluation, vitals are stable, patient is in no acute distress. Being concerned because she was not able to get off of the commode today at home. She lives alone and states that she does not feel safe. Patient to be evaluated with patient including cardiac enzymes, x-ray of the chest, urinalysis, and x-ray of the knee 1:52 PM X-rays reviewed, there is evidence of osteoarthritis the left knee with possible joint effusion. X-ray of the chest shows mild cardiomegaly but otherwise stable. Laboratory evaluation is unremarkable. Possibility of urinary tract i nfection however patient already on antibiotics. At this time, patient will be admitted for intractable knee pain. Case discussed with Dr. Pringle who is agreeable with admission for placement. - Lab Data Result diagrams: 04/23/19 12:01 04/23/19 12:01 Lab Results 04/23/19 04/23/19 04/23/19 Range/Units 12:01 12:01 12:01 WBC 6.3 (3.8-10.6) k/uL RBC 4.64 (3.80-5.40) m/uL Hgb 13.1 (11.4-16.0) gm/dL Hct 41.5 (34.0-46.0) % MCV 89.5 (80.0-100.0) fL MCH 28.1 (25.0-35.0) pg MCHC 31.5 (31.0-37.0) g/dL RDW 15.3 (11.5-15.5) % Plt Count 207 (150-450) k/uL Neutrophils % 79 % Lymphocytes % 11 % Monocytes % 5 % Eosinophils % 2 % Basophils % 1 % Neutrophils # 5.0 (1.3-7.7) k/uL Lymphocytes # 0.7 L (1.0-4.8) k/uL Monocytes # 0.3 (0-1.0) k/uL Eosinophils # 0.1 (0-0.7) k/uL Basophils # 0.1 (0-0.2) k/uL Sodium 142 (137-145) mmol/L Potassium 4.1 (3.5-5.1) mmol/L Chloride 108 H (98-107) mmol/L Carbon Dioxide 26 (22-30) mmol/L Anion Gap 8 mmol/L BUN 16 (7-17) mg/dL Creatinine 0.82 (0.52-1.04) mg/dL Est GFR (CKD-EPI)AfAm 88 (>60 ml/min/1.73 sqM) Est GFR (CKD-EPI)NonAf 76 (>60 ml/min/1.73 sqM) Glucose 107 H (74-99) mg/dL Calcium 9.2 (8.4-10.2) mg/dL Total Bilirubin 0.3 (0.2-1.3) mg/dL AST 15 (14-36) U/L ALT 20 (9-52) U/L Alkaline Phosphatase 51 (38-126) U/L Troponin I (0.000-0.034) ng/mL NT-Pro-B Natriuret Pep pg/mL Total Protein 6.3 (6.3-8.2) g/dL Albumin 3.5 (3.5-5.0) g/dL Urine Color Urine Appearance (Clear) Urine pH (5.0-8.0) Ur Specific [place] (1.001-1.035) Urine Protein (Negative) Urine Glucose (UA) (Negative) Urine Ketones (Negative) Urine Blood (Negative) Urine Nitrite (Negative) Urine Bilirubin (Negative) Urine Urobilinogen (<2.0) mg/dL Ur Leukocyte Esterase (Negative) Urine RBC (0-5) /hpf Urine WBC (0-5) /hpf Ur Squamous Epith Cells (0-4) /hpf Urine Bacteria (None) /hpf Hyaline Casts (0-2) /lpf Urine Mucus (None) /hpf Blood Type A Positive Blood Type Recheck No Antibody Screen NEGATIVE Spec Expiration Date 04/26/2019 - 230004/23/19 04/23/19 04/23/19 Range/Units 12:01 12:01 12:01 WBC (3.8-10.6) k/uL RBC (3.80-5.40) m/uL Hgb (11.4-16.0) gm/dL Hct (34.0-46.0) % MCV (80.0-100.0) fL MCH (25.0-35.0) pg MCHC (31.0-37.0) g/dL RDW (11.5-15.5) % Plt Count (150-450) k/uL Neutrophils % % Lymphocytes % % Monocytes % % Eosinophils % % Basophils % % Neutrophils # (1.3-7.7) k/uL Lymphocytes # (1.0-4.8) k/uL Monocytes # (0-1.0) k/uL Eosinophils # (0-0.7) k/uL Basophils # (0-0.2) k/uL Sodium (137-145) mmol/L Potassium (3.5-5.1) mmol/L Chloride (98-107) mmol/L Carbon Dioxide (22-30) mmol/L Anion Gap mmol/L BUN (7-17) mg/dL Creatinine (0.52-1.04) mg/dL Est GFR (CKD-EPI)AfAm (>60 ml/min/1.73 sqM) Est GFR (CKD-EPI)NonAf (>60 ml/min/1.73 sqM) Glucose (74-99) mg/dL Calcium (8.4-10.2) mg/dL Total Bilirubin (0.2-1.3) mg/dL AST (14-36) U/L ALT (9-52) U/L Alkaline Phosphatase (38-126) U/L Troponin I 0.014 (0.000-0.034) ng/mL NT-Pro-B Natriuret Pep 702 pg/mL Total Protein (6.3-8.2) g/dL Albumin (3.5-5.0) g/dL Urine Color Yellow Urine Appearance Cloudy H (Clear) Urine pH 5.5 (5.0-8.0) Ur Specific [place] 1.032 (1.001-1.035) Urine Protein 1+ H (Negative) Urine Glucose (UA) Negative (Negative) Urine Ketones Negative (Negative) Urine Blood Trace H (Negative) Urine Nitrite Negative (Negative) Urine Bilirubin Negative (Negative) Urine Urobilinogen 2.0 (<2.0) mg/dL Ur Leukocyte Esterase Moderate H (Negative) Urine RBC 6 H (0-5) /hpf Urine WBC 10 H (0-5) /hpf Ur Squamous Epith Cells 6 H (0-4) /hpf Urine Bacteria Rare H (None) /hpf Hyaline Casts 3 H (0-2) /lpf Urine Mucus Many H (None) /hpf Blood Type Blood Type Recheck Antibody Screen Spec Expiration Date Disposition Clinical Impression: Intractable neuropathic pain of knee, At risk for falls, Debility, Osteomyelitis Disposition: ADMITTED IP TO THIS HOSP Condition: Good Is patient prescribed a controlled substance at d/c from ED?: No Referrals: Martin Cuello DO [Primary Care Provider] - 1-2 days Decision to Admit Reason: Admit from EC - Out of Hospital Transfer - Req. Specs Out of Hospital Transfer - Requested Specifics: Other Non-Acute
[2019-04-23 12:23] LABS: Basophils # (A) 0.1 k/uL (0-0.2); Basophils % (A) 1 %; Eosinophils # (A) 0.1 k/uL (0-0.7); Eosinophils % (A) 2 %; HCT 41.5 % (34.0-46.0); HGB 13.1 gm/dL (11.4-16.0); Lymphocytes # (A) 0.7 k/uL (1.0-4.8); Lymphocytes % (A) 11 %; MCH 28.1 pg (25.0-35.0); MCHC 31.5 g/dL (31.0-37.0); MCV 89.5 fL (80.0-100.0); Mean Platelet Volume 6.8; Monocytes # (A) 0.3 k/uL (0-1.0); Monocytes % (A) 5 %; Neutrophils % (A) 79 %; Platelet Count 207 k/uL (150-450); RBC 4.64 m/uL (3.80-5.40); RDW 15.3 % (11.5-15.5); WBC 6.3 k/uL (3.8-10.6)
[2019-04-23 12:30] LABS: Appearance,Urine Cloudy (Clear); Bacteria,Urine Rare /hpf; Bilirubin,Urine Negative (Negative); Blood,Urine Trace (Negative); Color,Urine Yellow; Glucose,Urine (UA) Negative (Negative); Hyaline Casts,Urine 3 /lpf (0-2); Ketones,Urine Negative (Negative); Leukocyte Esterase,Urine Moderate (Negative); Mucus,Urine Many /hpf; Nitrite,Urine Negative (Negative); PH, Urine 5.5 (5.0-8.0); Protein,Urine 1+ (Negative); RBC,Urine 6 /hpf (0-5); Specific Gravity,Urine 1.032 (1.001-1.035); Squamous Epithelial Cell,Urine 6 /hpf (0-4); WBC,Urine 10 /hpf (0-5)
[2019-04-23 12:36] LABS: Albumin 3.5 g/dL (3.5-5.0); Calcium 9.2 mg/dL (8.4-10.2); Potassium 4.1 mmol/L (3.5-5.1); Total Bilirubin 0.3 mg/dL (0.2-1.3); Total Protein 6.3 g/dL (6.3-8.2)
--- NOTE | 2019-04-23 12:45 | XR ---
EXAMINATION TYPE: XR chest 2V DATE OF EXAM: 04/23/2019 HISTORY: Pain. REFERENCE: Previous study dated 05/17/2013. FINDINGS: There is multichamber cardiac enlargement. Lungs are clear. Pleural spaces are clear. IMPRESSION: CARDIOMEGALY.
--- NOTE | 2019-04-23 12:46 | XR ---
EXAMINATION TYPE: XR knee complete LT , 3 VIEWS DATE OF EXAM ORDERED: 04/23/2019 HISTORY: Pain. COMPARISON: None. FINDINGS: There is lateral joint space loss. There are remodeling changes in the lateral compartment as well as the patellofemoral joint. I could not exclude a tiny effusion. No fracture or dislocation is seen. IMPRESSION: OSTEOARTHRITIS WITH A SMALL CONCOMITANT EFFUSION.
[2019-04-23] MEDS ORDERED: NALOXONE 0.4 MG/ML 1 ML VIAL IV PRN (13:54)
[2019-04-23] MEDS ORDERED: KETOROLAC 30 MG/ML 1 ML VIAL IVP STA (13:54)
[2019-04-23] MEDS ORDERED: ACETAMINOPHEN TAB 500 MG TAB PO STA (13:54)
[2019-04-23] MEDS ORDERED: HYDROcodone/APAP 5-325MG 1 EACH TAB PO PRN (16:24)
[2019-04-23] MEDS ORDERED: MELATONIN 3 MG TABLET PO PRN (16:24)
--- NOTE | 2019-04-23 16:28 | P.HPIM ---
History of Present Illness H&P Date: 04/23/19 Chief Complaint: left knee pain Patient is a 64-year-old female past medical history of diet controlled diabetes mellitus, dyslipidemia, congestive heart failure unknown type, coronary artery disease status post stenting, COPD and, obstructive sleep apnea without CPAP use who presented to the ER with inability to bear weight on her left knee. In the ER she underwent an extensive evaluation. Her vital signs were within normal limits. Laboratory analysis unremarkable. X-ray of her left knee revealed a small effusion but no fracture. Chest x-ray negative. She was unable to ambulate in the ER was therefore admitted. Patient was recently hospitalized here from through for osteomyelitis of her right great toe at that time she was found have Pseudomonas and also lytic strep in her wound. She has been on IV Invanz through [facility] as well as oral Cipro. She was admitted as she will need ortho eval and placement. Patient seen and examined at bedside. When she initially left the hospital she was doing well. However 2 days ago she became exceedingly weak. She started noticing left pain. Her knee was making and grinding sound. Every time she was trying to bear weight on her left knee is buckling and giving out from her. She has no pain at rest but does have excruciating pain with walking. She's never had any difficulty with her left knee before. She does have a history of multiple sclerosis and is followed by Dr. Baez. She states she was diagnosed when she had dizziness and has never had an multiple sclerosis flare. She repor ts that she's been feeling very fatigued since leaving the hospital and has been sleeping more than normal. She also reports urinary frequency which is unchanged. She states that due to her difficulty ambulating she has not taken her water pill for the last 2 days. She denies any chest pain, shortness of breath, nausea, vomiting, or dysuria. She does report some loose stools however this is approximately 1-2 times daily. She lives by herself and does not feel safe at home at this point in time. She has not followed with any orthopedic surgeons recently. She did receive her Invanz today prior to coming to the hospital. Review of Systems Pertinent positives and negatives as discussed in HPI, a complete review of systems was performed and all other systems are negative. Past Medical History Past Medical History: Chest Pain / Angina, Heart Failure, COPD, Diabetes Mellitus, Hyperlipidemia, Musculoskeletal Disorder, Sleep Apnea/CPAP/BIPAP, Thyroid Disorder Additional Past Medical History / Comment(s): MS,ARTHRITIS,BACK PAIN History of Any Multi-Drug Resistant Organisms: None Reported Past Surgical History: Bariatric Surgery, Heart Catheterization With Stent Additional Past Surgical History / Comment(s): L CARPAL TUNNEL, GASTRIC SLEEVE Past Anesthesia/Blood Transfusion Reactions: No Reported Reaction Additional Past Anesthesia/Blood Transfusion Reaction / Comment(s): HX HALLUCINATIONS WITH ANESTHESIA Date of Last Stent Placement:: March 2013, 2 stents placed in front of heart at [facility] Past Psychological History: No Psychological Hx Reported Smoking Status: Former smoker Past Alcohol Use History: None Reported Past Drug Use History: None Reported - Past Family History Father Family Medical History: COPD, Diabetes Mellitus, Myocardial Infarction ([place]) Mother Family Medical History: Diabetes Mellitus, Deep Vein Thrombosis (DVT), Myocardial Infarction ([place]) Medications and Allergies Home Medications Medication Instructions Recorded Confirmed Type Furosemide [Lasix] 40 mg PO DAILY 04/10/14 04/23/19 History INSULIN LISPRO (humaLOG) [humaLOG] See Protocol SQ AC-TID 04/10/14 04/23/19 History Insulin Glargine [Lantus] 60 units SQ HS 04/10/14 04/23/19 History Colesevelam [Welchol] 625 mg PO BID 04/11/14 04/23/19 History Aspirin EC [Ecotrin] 325 mg PO BID 04/12/19 04/23/19 History Cyclobenzaprine [Flexeril] 10 mg PO DAILY PRN 04/12/19 04/23/19 History Levothyroxine Sodium 125 mcg PO DAILY 04/12/19 04/23/19 History Teriflunomide [Aubagio] 14 mg PO DAILY 04/12/19 04/23/19 History Ciprofloxacin HCl [Cipro] 500 mg PO Q12HR #84 tablet 04/17/19 04/23/19 Rx Allergies Allergy/AdvReac Type Severity Reaction Status Date / Time No Known Allergies Allergy Verified 04/23/19 14:21 Physical Exam Osteopathic Statement: *. No significant issues noted on an osteopathic structural exam other than those noted in the History and Physical/Consult. Vitals: Vital Signs Temp Pulse Resp BP Pulse Ox 04/23/19 14:17 72 18 113/62 97 04/23/19 13:09 98.2 F 77 18 113/73 97 04/23/19 11:19 98.8 F 81 18 122/66 97 Intake and Output 04/23/19 04/23/19 04/23/19 06:59 14:59 22:59 Other: Weight 127.913 kg General: non toxic, no distress, appears at stated age, Obese, Malodorus Derm: + erythema with excoriations b/l pannus, no unusual rashes/lesions no unusual ecchymoses, warm, dry Head: atraumatic, normocephalic, symmetric Eyes: EOMI, no lid lag, anicteric sclera, pupils equal round reactive to light ENT: Nose and ears atraumatic, no thrush, no pharyngeal erythema Neck: No thyromegaly, no cervical lymphadenopathy, trachea midline, supple Mouth: no lip lesion, mucus membranes moist Cardiovascular: S1S2 reg, no murmur, positive posterior tibial pulse bilateral, no edema, capillary refill less than 2 seconds Lungs: decreased bs bilateral, no rhonchi, no rales , no accessory muscle use Abdominal: soft, nontender to palpation, no guarding, no appreciable organomegaly, normal bowel sounds Ext: no gross muscle atrophy, muscle strength 5 out of 5 in bilateral upper extremities, no contractures, negative anterior and posterior drawer of the knee, no pain to varus pressure, but pain along the medial knee and slight ligamentous laxity with valgus pressure. Neuro: CN II-XI grossly intact, light touch intact all 4 extremities, finger to nose within normal limits, Psych: Alert, oriented, appropriate affect Results CBC & Chem 7: 04/23/19 12:01 04/23/19 12:01 Labs: Abnormal Lab Results - Last 24 Hours (Table) 04/23/19 04/23/19 04/23/19 Range/Units 12:01 12:01 12:01 Lymphocytes # 0.7 L (1.0-4.8) k/uL Chloride 108 H (98-107) mmol/L Glucose 107 H (74-99) mg/dL Urine Appearance Cloudy H (Clear) Urine Protein 1+ H (Negative) Urine Blood Trace H (Negative) Ur Leukocyte Esterase Moderate H (Negative) Urine RBC 6 H (0-5) /hpf Urine WBC 10 H (0-5) /hpf Ur Squamous Epith Cells 6 H (0-4) /hpf Urine Bacteria Rare H (None) /hpf Hyaline Casts 3 H (0-2) /lpf Urine Mucus Many H (None) /hpf Chest x-ray: report reviewed Thrombosis Risk Factor Assmnt - DVT/VTE Prophylaxis DVT/VTE Prophylaxis: Pharmacologic Prophylaxis ordered Assessment and Plan Assessment: Intractable left knee pain with inability to ambulate. Concern for possible MCL tear -Orthopedics evaluation -PT/OT -Pain control -Fall precautions Osteomyelitis of the right great toe Pseudomonas and strep -Continue with Invanz and Cipro -Infectious disease recommendations -Wound care recommendations Diabetes mellitus type 2 -Converting Lantus to Levemir -Sliding-scale insulin -Follow blood sugars -Hemoglobin A1c 7.7 Morbid obesity -Structured outpatient weight loss Dyslipidemia -Continue with WelChol Congestive heart failure, unknown ejection fraction -Resume Lasix -Patient is not chronically on beta masoud or ALFONSO inhibitor Multiple sclerosis -continue teriflunomide Hope intertrigo -Nystatin powder PEPPER - does not use CPAP at baseline The patient is placed in observation with an anticipated less than 2 per night stay for evaluation of Left knee pain. Surrogate decision-maker: Lewis Villegas CODE STATUS: Full, no prolonged mechanical ventilation DVT prophylaxis: Lovenox Discussed with: patient, nursing Anticipated discharge: 1-[address]: home A total of 65 minutes was spent on the care of this complex patient more than 50% of the time was spent in counseling and care coordination.
[2019-04-23] MEDS ORDERED: CYCLOBENZAPRINE 10 MG TAB PO PRN (16:37)
[2019-04-23 17:20] LABS: Glucose,Whole Blood 79 mg/dL (75-99)
[2019-04-23] MEDS: INSULIN ASPART (NovoLOG) 100 UNIT/ML VIAL SQ SCH ×2 (17:31→21:00)
[2019-04-23] MEDS ORDERED: ONDANSETRON 4 MG/2 ML VIAL IVP PRN ×2 (18:12)
[2019-04-23] MEDS: ACETAMINOPHEN TAB 325 MG TAB PO PRN (19:59)
[2019-04-23 20:16] LABS: Glucose,Whole Blood 84 mg/dL (75-99)
[2019-04-23] MEDS: ERTAPENEM 1 GM in SODIUM CHLORIDE 0.9% 50 ML IVPB SCH (20:57)
[2019-04-23] MEDS: LACTOBACILLUS ACIDOPH & BULGAR 1 EACH PACKET PO SCH (20:58)
[2019-04-23] MEDS: CIPROFLOXACIN HCL 500 MG TAB PO SCH (20:59)
[2019-04-23] MEDS: COLESEVELAM 625 MG TAB PO SCH (20:59)
[2019-04-23] MEDS ORDERED: INSULIN DETEMIR (LEVEMIR) 100 UNIT/ML SYR SQ SCH (21:00)
[2019-04-23] MEDS: NYSTATIN 100,000 UNIT/GM POWD 15 GM TOPICAL SCH (21:01)
[2019-04-23] MEDS: TERIFLUNOMIDE 14 MG PO SCH (22:07)
[2019-04-24 02:46] LABS: Glucose,Whole Blood 93 mg/dL (75-99)
[2019-04-24] MEDS: LEVOTHYROXINE 125 MCG TAB PO SCH (05:53)
[2019-04-24] MEDS: CIPROFLOXACIN HCL 500 MG TAB PO SCH ×2 (07:06→20:44)
[2019-04-24] MEDS: LACTOBACILLUS ACIDOPH & BULGAR 1 EACH PACKET PO SCH ×4 (07:06→20:44)
[2019-04-24] MEDS: FUROSEMIDE 40 MG TAB PO SCH (07:06)
[2019-04-24] MEDS: COLESEVELAM 625 MG TAB PO SCH ×2 (07:06→20:44)
[2019-04-24] MEDS: NYSTATIN 100,000 UNIT/GM POWD 15 GM TOPICAL SCH ×3 (07:06→20:45)
[2019-04-24 07:14] LABS: Glucose,Whole Blood 83 mg/dL (75-99)
[2019-04-24] MEDS: INSULIN ASPART (NovoLOG) 100 UNIT/ML VIAL SQ SCH ×4 (07:24→21:23)
[2019-04-24] MEDS ORDERED: TERIFLUNOMIDE 14 MG PO SCH (09:00)
[2019-04-24] MEDS: ACETAMINOPHEN TAB 325 MG TAB PO PRN ×3 (09:05→20:46)
[2019-04-24 12:03] LABS: Glucose,Whole Blood 118 mg/dL (75-99)
--- NOTE | 2019-04-24 16:21 | P.CNOR ---
History of Present Illness - [facility] Consult date: 04/24/19 Requesting physician: Hilary Mendoza Consult reason: joint pain (Left knee pain) History of present illness: Patient is a very pleasant 64-year-old female who is seen and examined at bedside for further evaluation in regards to left knee pain. Patient has a significant medical history which includes osteomyelitis of the right great toe. She was recently hospitalized from 04/12/2019 to 04/18/2019 for osteomyelitis of the right great toe. She currently has a PICC line in place and is receiving antibiotics for the osteomyelitis of the right great toe. She has been follo wing with Dr. Mclean and Dr. King. She's been nonweightbearing on the right lower extremity. Following discharge from the hospital she had been doing quite well until approximately 3 days ago when she began to experience some left knee pain. She states she went to use the toilet and was unable to get up. She called EMS who help transfer her from a toilet to her couch. She states she remained on the couch overnight. She states in the morning she was unable to get off a couch. She called the EMS at that time to transfer her to [facility]. She denies any injury to her left knee. She states she has been relying on her left lower extremity to bear weight due to her inability to place any weight on the right lower extremity and feels that may be a cause of her symptoms. She denies any left knee pain at rest and states her symptoms are only present with weightbearing. She states her pain is most significant upon the medial side of the knee and along the medial joint line. She is using a walker to aid in ambulation. She uses a 4 wheeled walker to aid in ambulation at baseline. She admits to multiple sclerosis. X-rays the left knee were taken at her presentation to the emergency department which showed evidence of osteoarthritis without evidence of fracture. Patient has been discussed with nursing case management. Case management states medicine is planning to discharge the patient today to a rehabilitation facility. She qualifies for discharge after her recent 5 night hospital stay. Patient has a history of diabetes mellitus type 2. Past Medical History Past Medical History: Chest Pain / Angina, Heart Failure, COPD, Diabetes Mellitus, Hyperlipidemia, Musculoskeletal Disorder, Sleep Apnea/CPAP/BIPAP, Thyroid Disorder Additional Past Medical History / Comment(s): MS,ARTHRITIS,BACK PAIN History of Any Multi-Drug Resistant Organisms: None Reported Past Surgical History: Bariatric Surgery, Heart Catheterization With Stent Additional Past Surgical History / Comment(s): L CARPAL TUNNEL, GASTRIC SLEEVE Past Anesthesia/Blood Transfusion Reactions: No Reported Reaction Additional Past Anesthesia/Blood Transfusion Reaction / Comm: HX HALLUCINATIONS WITH ANESTHESIA Date of Last Stent Placement:: March 2013, 2 stents placed in front of heart at [facility] Past Psychological History: No Psychological Hx Reported Smoking Status: Former smoker Past Alcohol Use History: None Reported Past Drug Use History: None Reported - Past Family History Father History Unknown: Yes Family Medical History: COPD, Diabetes Mellitus, Myocardial Infarction (NM) Mother History Unknown: Yes Family Medical History: Diabetes Mellitus, Deep Vein Thrombosis (DVT), Myocardial Infarction (NM) Medications and Allergies Home Medications Medication Instructions Recorded Confirmed Type Furosemide [Lasix] 40 mg PO DAILY 04/10/14 04/23/19 History INSULIN LISPRO (humaLOG) [humaLOG] See Protocol SQ AC-TID 04/10/14 04/23/19 History Insulin Glargine [Lantus] 60 units SQ HS 04/10/14 04/23/19 History Colesevelam [Welchol] 625 mg PO BID 04/11/14 04/23/19 History Aspirin EC [Ecotrin] 325 mg PO BID 04/12/19 04/23/19 History Cyclobenzaprine [Flexeril] 10 mg PO DAILY PRN 04/12/19 04/23/19 History Levothyroxine Sodium 125 mcg PO DAILY 04/12/19 04/23/19 History Teriflunomide [Aubagio] 14 mg PO DAILY 04/12/19 04/23/19 History Ciprofloxacin HCl [Cipro] 500 mg PO Q12HR #84 tablet 04/17/19 04/23/19 Rx Allergies Allergy/AdvReac Type Severity Reaction Status Date / Time No Known Allergies Allergy Verified 04/23/19 14:21 Physical Examination Physical Exam: Patient is awake, alert, and oriented 3 Vital signs stable Good chest excursion with deep inspiration and expiration Inspection of the left knee shows mild generalized swelling over the left lateral in the superior portion of the left knee No erythema, bruising, laceration, or signs of infection or left knee Pain on palpation along the medial joint line along the medial aspect of the left knee No pain with palpation along the lateral joint line or lateral aspect of the left knee Patient is able to perform active hip flexion and knee extension on the left range of motion is slow Patient is able to perform dorsiflexion and plantarflexion of the left ankle without difficulty Neurovascular intact left lower extremity Calves are soft nontender: No evidence of DVT Evidence of a dressing intact over the right great toe Results Pertinent studies: X-rays left knee taken on 04/23/2019: Osteoarthritis of the left knee with l ateral joint space loss; no evidence of fracture dislocation at the left knee - Labs Labs: Abnormal Lab Results - Last 24 Hours (Table) 04/24/19 Range/Units 11:59 POC Glucose (mg/dL) 118 H (75-99) mg/dL Microbiology - Last 24 Hours (Table) 04/23/19 12:01 Urine Culture - Final Urine,Voided Hope albicans H & H 04/23/19 Range/Units 12:01 Hgb 13.1 (11.4-16.0) gm/dL Hct 41.5 (34.0-46.0) % Result Diagrams: 04/23/19 12:01 04/23/19 12:01 Assessment and Plan Assessment: Assessment: Acute left knee pain Inability to ambulate left lower extremity due to knee pain Osteoarthritis left knee Osteomyelitis right great toe History of multiple sclerosis History of diabetes mellitus type 2 Current PICC line placement receiving IV antibiotics (1) Acute pain of left knee Current Visit: Yes Status: Acute Code(s): M25.562 - PAIN IN LEFT KNEE SNOMED Code(s): 33166786 (2) Inability to ambulate due to knee Current Visit: Yes Status: Acute Code(s): R26.2 - DIFFICULTY IN WALKING, NOT ELSEWHERE CLASSIFIED SNOMED Code(s): 820442768 (3) Osteoarthritis of left knee Current Visit: Yes Status: Acute Code(s): M17.12 - UNILATERAL PRIMARY OSTEOARTHRITIS, LEFT KNEE SNOMED Code(s): 476856210599251 (4) Multiple sclerosis Current Visit: Yes Status: Acute Code(s): G35 - MULTIPLE SCLEROSIS SNOMED Code(s): 04982330 (5) Osteomyelitis of great toe of right foot Current Visit: No Status: Acute Code(s): M86.9 - OSTEOMYELITIS, UNSPECIFIED SNOMED Code(s): 479669270 (6) Type 2 diabetes mellitus Current Visit: No Status: Acute Code(s): E11.9 - TYPE 2 DIABETES MELLITUS WITHOUT COMPLICATIONS SNOMED Code(s): 93197921 Plan: Plan: 1. After further discussion with the patient, reviewing imaging, physical examination the patient, and discussion with Dr. Noe Suazo, we will currently plan to continue with conservative treatment. Reviewing of imaging does show osteoarthritic changes at the left knee. There is no evidence of fracture dislocation. Physical examination shows some generalized swelling along the lateral superior aspect of the left knee. Patient does have some pain with palpation over the joint line medially along the medial aspect of the left knee. Patient has been unable to ambulate on the right lower extremity due to recent osteomyelitis of the right great toe. She has been performing all her weightbearing on the left lower extremity which may be the cause of the exacerbation of her symptoms. She is unable to care for herself at home. Given her recent 5 night hospital stay, patient is approved to be transferred to a rehabilitation facility. We feel this is a good plan of care. We are not planning for surgical intervention in her left knee. She does not currently need further evaluation or bracing for her left knee. She may weight-bear to tolerance on the left lower extremity. At this time, we'll plan to have her follow up in the outpatient setting on as-needed basis. If her symptoms are not improving with rehabilitation, she may call the office to set up a follow-up appointment. She may follow-up with Juan Daniel Santillan PA-C or Dr. Noe Suazo at [facility]. Patient is cleared for discharge from an orthopedic standpoint. 2. Patient will continue be seen and examined by medicine. Time with Patient: Greater than 30 (Including obtaining history, physical examination, reviewing of imaging, and dictation.)
[2019-04-24 17:23] LABS: Glucose,Whole Blood 109 mg/dL (75-99)
[2019-04-24] MEDS: ERTAPENEM 1 GM in SODIUM CHLORIDE 0.9% 50 ML IVPB SCH (17:23)
--- NOTE | 2019-04-24 20:21 | P.PN ---
Subjective Progress Note Date: 04/24/19 (Delayed charting patient seen and examined at 9:15 AM) Principal diagnosis: Left knee pain with inability to ambulate Patient is a 64-year-old female past medical history of diet controlled diabetes mellitus, dyslipidemia, congestive heart failure unknown type, coronary artery disease status post stenting, COPD and, obstructive sleep apnea without CPAP use who presented to the ER with inability to bear weight on her left knee. In the ER she underwent an extensive evaluation. Her vital signs were within normal limits. Laboratory analysis unremarkable. X-ray of her left knee revealed a small effusion but no fracture. Chest x-ray negative. She was unable to ambulate in the ER was therefore admitted. Patient was recently hospitalized here from through for osteomyelitis of her right great toe at that time she was found have Pseudomonas and also lytic strep in her wound. She has been on IV Invanz through [facility] as well as oral Cipro. Patient seen by orthopedic surgery who felt that she likely exacerbated her arthritis of her left knee and she was weightbearing on this. They did not feel bracing was warranted. Patient seen and examined at bedside. She is pain-free when she is laying in bed but is still unable to ambulate on her left knee. She denies any chest pain, shortness of breath, nausea, vomiting, or diarrhea. Objective - Vital Signs Vital signs: Vital Signs Temp 99.0 F 04/24/19 14:36 Pulse 85 04/24/19 14:36 Resp 18 04/24/19 15:30 BP 126/62 04/24/19 14:36 Pulse Ox 91 L 04/24/19 14:36 Intake & Output 04/24/19 04/24/19 04/25/19 06:59 18:59 06:59 Intake Total 750 240 Balance 750 240 Weight 119 kg Intake: Oral 750 240 Other: Voiding Method Bedpan # Voids 4 5 0 # Bowel Movements 1 0 - Exam General: non toxic, no distress, appears at stated age, obese Derm: warm, dry Head: atraumatic, normocephalic, symmetric Eyes: EOMI, no lid lag, anicteric sclera Mouth: no lip lesion, mucus membranes moist Cardiovascular: S1S2 reg, no murmur, positive posterior tibial pulse bilateral, Lungs: CTA bilateral, no rhonchi, no rales , no accessory muscle use Abdominal: soft, nontender to palpation, no guarding, no appreciable organomegaly Ext: no gross muscle atrophy, swelling over left lateral knee, no contractures Neuro: CN II-XI grossly intact, no focal neuro deficits Psych: Alert, oriented, appropriate affect - Labs CBC & Chem 7: 04/23/19 12:01 04/23/19 12:01 Labs: Abnormal Lab Results - Last 24 Hours (Table) 04/24/19 04/24/19 Range/Units 11:59 17:13 POC Glucose (mg/dL) 118 H 109 H (75-99) mg/dL Microbiology - Last 24 Hours (Table) 04/23/19 12:01 Urine Culture - Final Urine,Voided Hope albicans Assessment and Plan Assessment: Intractable left knee pain secondary to acute exacerbation of arthritis on top of multiple sclerosis -Orthopedics recommendations appreciated. -PT/OT -Pain control -Fall precautions -Patient is currently unable to ambulate secondary to increased pain and instability in the left knee. She is nonweightbearing of her right lower extremity secondary to osteomyelitis of her right great toe. She is currently not safe to return home secondary to her inability to ambulate. Osteomyelitis of the right great toe Pseudomonas and strep -Continue with Invanz and Cipro -Infectious disease recommendations -Wound care recommendations Diabetes mellitus type 2 -Patient's blood sugar has been low normal. Levemir decreased to 20 units as it was not given on 04/23 secondary to low normal blood sugars. -Sliding-scale insulin -Follow blood sugars -Hemoglobin A1c 7.7 Morbid obesity -Structured outpatient weight loss Dyslipidemia -Continue with WelChol Congestive heart failure, unknown ejection fraction -Lasix -Patient is not chronically on beta masoud or ALFONSO inhibitor Multiple sclerosis -continue teriflunomide Hope intertrigo -Nystatin powder PEPPER - does not use CPAP at baseline DVT prophylaxis: Lovenox Discussed with: patient, nursing Anticipated discharge: 1-[address]: half-way nursing facility A total of 25 minutes was spent on the care of this complex patient more than 50% of the time was spent in counseling and care coordination.
[2019-04-24] MEDS ORDERED: INSULIN DETEMIR (LEVEMIR) 100 UNIT/ML SYR SQ SCH (21:00)
[2019-04-24 21:17] LABS: Glucose,Whole Blood 141 mg/dL (75-99)
[2019-04-24] MEDS: TERIFLUNOMIDE 14 MG PO SCH (21:27)
--- NOTE | 2019-04-25 00:08 | P.CONS ---
History of Present Illness - Reason for Consult Consult date: 04/24/19 - Chief Complaint left knee pain - History of Present Illness This is a 64-year-old female with past medical history for diabetes mellitus type 2 insulin requiring, MS on Hayley. Patient gives history that several weeks ago she developed a blister on her right great toe. She was seen by Dr. Gallegos and he initially told her to cover it keep it clean and dry and apply Neosporin but 4 days later she thought it was looking funny that the skin was puffy white and raised. Dr. Gallegos came back and saw her on Wednesday, March 31 and he prescribed Keflex and gentamicin cream. He then rechecked her on April 04 and told her she needed to get into the wound center. She was evaluated by Dr. Dickson with evidence of the significant ulceration to she was brought in the hospital. She was seen in consult at that point in time and imaging to reveal evidence of osteomyelitis of the right great toe and she was initiated to a course of outpatient intravenous antibiotic therapy. The pat ient was nonweightbearing to the right foot in developed significant injury to her left leg likely from ongoing use and developed inability to bear weight on her left leg and presented to the emergency center. He was seen by orthopedics and there is concerned shown acute flare of osteoarthritis to the knee and unable to determine if there is other significant difficulty but does not appear to have any acute traumatic change. Regardless patient is now unable to ambulate, having significant pain in having ongoing needs for IV antibiotic therapy. Consult is requested. She is a 89 fever chills rigors or sweats. Jover is miserable consider inability to ambulate. Review of Systems HEENT:Denies headache or acute visual change. Denies sinus or mouth discomforts. Denies neck stiffness or pain. Denies significant oral cavity pain. Denies difficulty on swallowing. Lungs: Denies significant shortness of breath, cough, sputum production, or hemoptysis. Cardiovascular: Denies significant shortness of breath, chest pain, chest wall pain, orthopnea, dyspnea on exertion, syncope Gastrointestinal:Denies nausea, vomiting, diarrhea, constipation, hematemesis, m rosanna, hematochezia. No no significant change of bowel habit noticed. Musculoskeletal: As per the HPI has severe left knee pain Skin: Ulceration of the right great toe is without acute change Neuro: MS with chronic weakness difficulty with ambulation no recent falls Psychiatric chronic anxiety and depression Endocrine: Fatigue and weight gain Past Medical History Past Medical History: Chest Pain / Angina, Heart Failure, COPD, Diabetes Mellitu s, Hyperlipidemia, Musculoskeletal Disorder, Sleep Apnea/CPAP/BIPAP, Thyroid Disorder Additional Past Medical History / Comment(s): MS,ARTHRITIS,BACK PAIN History of Any Multi-Drug Resistant Organisms: None Reported Past Surgical History: Bariatric Surgery, Heart Catheterization With Stent Additional Past Surgical History / Comment(s): L CARPAL TUNNEL, GASTRIC SLEEVE Past Anesthesia/Blood Transfusion Reactions: No Reported Reaction Additional Past Anesthesia/Blood Transfusion Reaction / Comm: HX HALLUCINATIONS WITH ANESTHESIA Date of Last Stent Placement:: March 2013, 2 stents placed in front of heart at [facility] Past Psychological History: No Psychological Hx Reported Additional Psychological History / Comment(s): Patient was a smoker of less than one pack per day for about 14 years and quit 20 years ago. She uses marijuana oil for muscle aches. She denies any alcohol or street drug use. She currently lives alone. She has a dog in the home. Smoking Status: Former smoker Past Alcohol Use History: None Reported Past Drug Use History: None Reported - Past Family History Father History Unknown: Yes Family Medical History: COPD, Diabetes Mellitus, Myocardial Infarction (OK) Mother History Unknown: Yes Family Medical History: Diabetes Mellitus, Deep Vein Thrombosis (DVT), Myocardial Infarction (OK) Medications and Allergies Home Medications and Allergies Comment(s): Current Medications Acetaminophen (Tylenol Tab) 650 mg PO Q6HR PRN PRN Reason: Mild Pain or Fever > 100.5 Last Admin: 04/24/19 20:46 Dose: 650 mg Documented by: Hydrocodone Bitart/Acetaminophen ([place] 5-325) 1 each PO Q4HR PRN PRN Reason: Moderate Pain Ciprofloxacin (Cipro) 500 mg PO Q12HR [facility] Last Admin: 04/24/19 20:44 Dose: 500 mg Documented by: Colesevelam HCl (Welchol) 625 mg PO BID [facility] Last Admin: 04/24/19 20:44 Dose: 625 mg Documented by: Cyclobenzaprine HCl (Flexeril) 10 mg PO DAILY PRN PRN Reason: Spasms Furosemide (Lasix) 40 mg PO DAILY [facility] Last Admin: 04/24/19 07:06 Dose: 40 mg Documented by: Ertapenem 1 gm/ Sodium (Chloride) 50 mls @ 100 mls/hr IVPB Q24H [facility]; Protocol Last Admin: 04/24/19 17:23 Dose: 100 mls/hr Documented by: Insulin Aspart (Novolog) 0 unit SQ ACHS [facility]; Protocol Last Admin: 04/24/19 21:23 Dose: 1 unit Documented by: Insulin Detemir (Levemir) 20 unit SQ HS [facility] Last Admin: 04/24/19 21:24 Dose: 20 unit Documented by: Lactobacillus Acidoph/Bulgaricus (Lactinex) 1 each PO QID [facility] Last Admin: 04/24/19 20:44 Dose: 1 each Documented by: Levothyroxine Sodium (Synthroid) 125 mcg PO 0630 [facility] Last Admin: 04/24/19 05:53 Dose: 125 mcg Documented by: Melatonin (Melatonin) 3 mg PO HS PRN PRN Reason: Insomnia Naloxone HCl (Narcan) 0.2 mg IV Q2M PRN PRN Reason: Opioid Reversal Patient's Own ( Teriflunomide [ Aubagio] 14 Mg) 14 mg PO HS@2200 [facility] Last Admin: 04/24/19 21:27 Dose: 14 mg Documented by: Nystatin (Mycostatin Powder) 1 applic TOPICAL TID [facility] Last Admin: 04/24/19 20:45 Dose: 1 applic Documented by: Ondansetron HCl (Zofran) 4 mg IVP Q6HR PRN PRN Reason: Nausea And Vomiting Home Medications Medication Instructions Recorded Confirmed Type Furosemide [Lasix] 40 mg PO DAILY 04/10/14 04/23/19 History INSULIN LISPRO (humaLOG) [humaLOG] See Protocol SQ AC-TID 04/10/14 04/23/19 History Insulin Glargine [Lantus] 60 units SQ HS 04/10/14 04/23/19 History Colesevelam [Welchol] 625 mg PO BID 04/11/14 04/23/19 History Aspirin EC [Ecotrin] 325 mg PO BID 04/12/19 04/23/19 History Cyclobenzaprine [Flexeril] 10 mg PO DAILY PRN 04/12/19 04/23/19 History Levothyroxine Sodium 125 mcg PO DAILY 04/12/19 04/23/19 History Teriflunomide [Aubagio] 14 mg PO DAILY 04/12/19 04/23/19 History Ciprofloxacin HCl [Cipro] 500 mg PO Q12HR #84 tablet 04/17/19 04/23/19 Rx Allergies Allergy/AdvReac Type Severity Reaction Status Date / Time No Known Allergies Allergy Verified 04/23/19 14:21 Physical Exam Vitals: Vital Signs Temp Pulse Resp BP Pulse Ox 04/24/19 15:30 18 04/24/19 14:36 99.0 F 85 18 126/62 91 L 04/24/19 08:00 18 04/24/19 05:15 97.8 F 89 18 132/77 92 L 04/23/19 23:21 18 Intake and Output 04/24/19 04/24/19 04/25/19 14:59 22:59 06:59 Intake Total 240 Balance 240 Intake: Oral 240 Other: # Voids 5 0 # Bowel Movements 1 0 Weight 119 kg 64 -year-old woman very uncomfortable due to her left knee pain and anxious because inability to ambulate HEENT: Anicteric conjunctiva are pink and moist nasal mucosa grossly intact without significant lesions, there is no thrush. Neck: The neck is supple without significant lymphadenopathy or thyromegaly. Lungs: Good bilateral air entry without significant crackles or wheezing. There is no significant bronchial sounds. There is no egophony or dullness. Heart: Regular rate and rhythm with an audible S1-S2, no S3 no S4. There is no significant murmur click or rub, PMI was nondisplaced. Abdomen: Positive bowel sounds soft and nontender without palpable masses or organomegaly. There was no guarding or rebound. Extremities: The upper extremities have excellent pulses they are symmetric, no significant petechiae or telangiectasia. No splinter hemorrhages were noted. The lower extremity reveal evidence of bilateral lower extremity edema. The ulceration to the right great toe without acute change. The left knee has evidence of some swelling in distinct point tenderness over the left medial aspect of the tibia, patella is nontender ballotable without acute tenderness. Lateral aspect of the left knee is without tenderness on exam. His distinct pain upon range of motion to the left knee. Neuro: Awake alert oriented to person place and time. There are no acute new gross focal sensory motor deficits. Results CBC & Chem 7: 04/23/19 12:01 04/23/19 12:01 Labs: Abnormal Lab Results - Last 24 Hours (Table) 04/24/19 04/24/19 04/24/19 Range/Units 11:59 17:13 21:04 POC Glucose (mg/dL) 118 H 109 H 141 H (75-99) mg/dL Microbiology - Last 24 Hours (Table) 04/23/19 12:01 Urine Culture - Final Urine,Voided Hope albicans Laboratory Results WBC 6.3 k/uL (3.8-10.6) 04/23/19 12:01 RBC 4.64 m/uL (3.80-5.40) 04/23/19 12:01 Hgb 13.1 gm/dL (11.4-16.0) 04/23/19 12:01 Hct 41.5 % (34.0-46.0) 04/23/19 12:01 MCV 89.5 fL (80.0-100.0) 04/23/19 12:01 MCH 28.1 pg (25.0-35.0) 04/23/19 12:01 MCHC 31.5 g/dL (31.0-37.0) 04/23/19 12:01 RDW 15.3 % (11.5-15.5) 04/23/19 12:01 Plt Count 207 k/uL (150-450) 04/23/19 12:01 Neutrophils % 79 % 04/23/19 12:01 Lymphocytes % 11 % 04/23/19 12:01 Monocytes % 5 % 04/23/19 12:01 Eosinophils % 2 % 04/23/19 12:01 Basophils % 1 % 04/23/19 12:01 Neutrophils # 5.0 k/uL (1.3-7.7) 04/23/19 12:01 Lymphocytes # 0.7 k/uL (1.0-4.8) L 04/23/19 12:01 Monocytes # 0.3 k/uL (0-1.0) 04/23/19 12:01 Eosinophils # 0.1 k/uL (0-0.7) 04/23/19 12:01 Basophils # 0.1 k/uL (0-0.2) 04/23/19 12:01 Sodium 142 mmol/L (137-145) 04/23/19 12:01 Potassium 4.1 mmol/L (3.5-5.1) 04/23/19 12:01 Chloride 108 mmol/L (98-107) H 04/23/19 12:01 Carbon Dioxide 26 mmol/L (22-30) 04/23/19 12:01 Anion Gap 8 mmol/L 04/23/19 12:01 BUN 16 mg/dL (7-17) 04/23/19 12:01 Creatinine 0.82 mg/dL (0.52-1.04) 04/23/19 12:01 Est GFR (CKD-EPI)AfAm 88 (>60 ml/min/1.73 sqM) 04/23/19 12:01 Est GFR (CKD-EPI)NonAf 76 (>60 ml/min/1.73 sqM) 04/23/19 12:01 Glucose 107 mg/dL (74-99) H 04/23/19 12:01 POC Glucose (mg/dL) 141 mg/dL (75-99) H 04/24/19 21:04 POC Glu Business Analyst Consultant ID Lulú Oswald 04/24/19 21:04 Calcium 9.2 mg/dL (8.4-10.2) 04/23/19 12:01 Total Bilirubin 0.3 mg/dL (0.2-1.3) 04/23/19 12:01 AST 15 U/L (14-36) 04/23/19 12:01 ALT 20 U/L (9-52) 04/23/19 12:01 Alkaline Phosphatase 51 U/L (38-126) 04/23/19 12:01 Troponin I 0.014 ng/mL (0.000-0.034) 04/23/19 12:01 NT-Pro-B Natriuret Pep 702 pg/mL 04/23/19 12:01 Total Protein 6.3 g/dL (6.3-8.2) 04/23/19 12:01 Albumin 3.5 g/dL (3.5-5.0) 04/23/19 12:01 Urine Color Yellow 04/23/19 12:01 Urine Appearance Cloudy (Clear) H 04/23/19 12:01 Urine pH 5.5 (5.0-8.0) 04/23/19 12:01 Ur Specific [place] 1.032 (1.001-1.035) 04/23/19 12:01 Urine Protein 1+ (Negative) H 04/23/19 12:01 Urine Glucose (UA) Negative (Negative) 04/23/19 12:01 Urine Ketones Negative (Negative) 04/23/19 12:01 Urine Blood Trace (Negative) H 04/23/19 12:01 Urine Nitrite Negative (Negative) 04/23/19 12:01 Urine Bilirubin Negative (Negative) 04/23/19 12:01 Urine Urobilinogen 2.0 mg/dL (<2.0) 04/23/19 12:01 Ur Leukocyte Esterase Moderate (Negative) H 04/23/19 12:01 Urine RBC 6 /hpf (0-5) H 04/23/19 12:01 Urine WBC 10 /hpf (0-5) H 04/23/19 12:01 Ur Squamous Epith Cells 6 /hpf (0-4) H 04/23/19 12:01 Urine Bacteria Rare /hpf (None) H 04/23/19 12:01 Hyaline Casts 3 /lpf (0-2) H 04/23/19 12:01 Urine Mucus Many /hpf (None) H 04/23/19 12:01 Blood Type A Positive 04/23/19 12:01 Blood Type Recheck No 04/23/19 12:01 Antibody Screen NEGATIVE 04/23/19 12:01 Spec Expiration Date 04/26/2019 - 2301 04/23/19 12:01 Microbiology 04/23/19 12:01 Urine,Voided Urine Culture - Final Hope albicans Comments: X-ray left knee with degenerative joint change and small effusion Assessment and Plan (1) Acute pain of left knee Narrative/Plan: 64-year-old woman who has a long-standing history of MS who is having some ongoing debility he also has uncontrolled diabetes who developed the right great toe diabetic foot ulceration which was found also to have evidence of osteomyelitis. She's been receiving intravenous antibiotic therapy and offloa ding of the right foot. Which may have aggravated her left knee resulting in the significant inability to ambulate at this time. She also does have MS which may be worsening the current situation. Case management is working and she likely will go to rehab to receive therapy and her course of antibiotic therapy. Invanz is not appear to be an option and they are looking to see if meropenem can be utilized instead. Fanioney utilized for daily wound care Importance of improved glucose control was again stressed. Current Visit: Yes Status: Acute Code(s): M25.562 - PAIN IN LEFT KNEE SNOMED Code(s): 62497178 (2) Osteomyelitis of great toe of right foot Current Visit: No Status: Acute Code(s): M86.9 - OSTEOMYELITIS, UNSPECIFIED SNOMED Code(s): 366659492
[2019-04-25] MEDS: ACETAMINOPHEN TAB 325 MG TAB PO PRN ×2 (04:45→14:56)
[2019-04-25] MEDS: LEVOTHYROXINE 125 MCG TAB PO SCH (06:15)
[2019-04-25 07:41] LABS: Glucose,Whole Blood 82 mg/dL (75-99)
[2019-04-25] MEDS: CIPROFLOXACIN HCL 500 MG TAB PO SCH (07:42)
[2019-04-25] MEDS: COLESEVELAM 625 MG TAB PO SCH (07:42)
[2019-04-25] MEDS: FUROSEMIDE 40 MG TAB PO SCH (07:42)
[2019-04-25] MEDS: INSULIN ASPART (NovoLOG) 100 UNIT/ML VIAL SQ SCH ×4 (07:43→17:54)
[2019-04-25] MEDS: LACTOBACILLUS ACIDOPH & BULGAR 1 EACH PACKET PO SCH ×3 (07:43→18:25)
[2019-04-25] MEDS: NYSTATIN 100,000 UNIT/GM POWD 15 GM TOPICAL SCH ×2 (07:44→15:26)
[2019-04-25 08:58] VITALS: RESP 18
[2019-04-25 12:11] LABS: Glucose,Whole Blood 114 mg/dL (75-99)
[2019-04-25 15:00] VITALS: BP 152/71; PULSE 59; TEMP 97.5
--- NOTE | 2019-04-25 16:00 | P.DS ---
Providers Date of admission: 04/23/19 13:55 Expected date of discharge: 04/25/19 Attending physician: Hilary Mendoza DO Consults: 04/23/19 14:42 Consult Physician Stat Consulting Provider: Felipe King Reason/Comments: osteomyelitis of the foot Do you want consulting provider notified?: Already Contacted 04/23/19 16:27 Consult Physician Routine Consulting Provider: Bruce Cordero Consult Reason/Comments: Left knee pain Do you want consulting provider notified?: Yes Primary care physician: [facility] Course: Discharge Diagnosis: Intractable left knee pain secondary to acute flare of arthritis on top of multiple sclerosis Osteomyelitis of the right great toe Pseudomonas and alpha hemolytic strep Diabetes mellitus type 2 Morbid obesity with BMI 42.3 Dyslipidemia Congestive heart failure with unknown ejection fraction Hope intertrigo Obstructive sleep apnea-patient does not use CPAP at baseline Hospital Course: Patient is a 64-year-old female past medical history of diet controlled diabetes mellitus, dyslipidemia, congestive heart failure unknown type, coronary artery disease status post stenting, COPD and, obstructive sleep apnea without CPAP use who presented to the ER with inability to bear weight on her left knee. In the ER she underwent an extensive evaluation. Her vital signs were within normal limits. Laboratory analysis unremarkable. X-ray of her left knee revealed a small effusion but no fracture. Chest x-ray negative. She was unable to ambulate in the ER was therefore admitted. Patient was recently hospitalized here from 04/12 through 04/18 for osteomyelitis of her right great toe at that time she was found have Pseudomonas and also alpha hemolytic strep in her wound. She has been on IV Invanz through outpatient infusion as well as oral Cipro. Patient seen by orthopedic surgery who felt that she likely exacerbated her arthritis of her left knee and she could weight bear as tolerated. They did not feel bracing was warranted. Patient is unable to ambulate at this time without significant pain. She is also feeling more tired than usual. She is having frequent bowel movements at 3-4 per day but they are formed. The lactobacillus has helped slightly. She was accepted at [facility] and is stable for discharge to SNF. She will complete both invanz and cipro on May 29. Patient seen and examined at bedside. Pain controlled well resting, continues to have left knee pain and instability with inability to ambulate. Denies any chest pain or shortness of breath. Denies any nausea or vomiting today. Still having some more frequent bowel movements however they are not liquid. Vital signs reviewed and stable. General: non toxic, no distress, appears at stated age, obese Derm: warm, dry Head: atraumatic, normocephalic, symmetric Eyes: EOMI, no lid lag, anicteric sclera Mouth: no lip lesion, mucus membranes moist Cardiovascular: S1S2 reg, no murmur, positive posterior tibial pulse bilateral, Lungs: CTA bilateral, no rhonchi, no rales , no accessory muscle use Abdominal: soft, nontender to palpation, no guarding, no appreciable organomegaly Ext: no gross muscle atrophy, left medial knee edema, no contractures Neuro: CN II-XI grossly intact, no focal neuro deficits Psych: Alert, oriented, appropriate affect A total of 35 minutes of time were spent preparing this complex discharge summary . Pertinent Studies: Knee [id number] with small concomitant effusion Chest x-ray-no acute process Patient Condition at Discharge: Good Plan - Discharge Summary Discharge Rx Participant: No New Discharge Prescriptions: New Ertapenem [INVanz] 1 gm IVPB Q24H vial Lactobacillus Acidoph & Bulgar [Lactinex] 1 each PO QID packet Insulin Detemir (Levemir) [Levemir] 20 unit SQ HS syr Nystatin 100,000 Unit/gm Powd [Mycostatin Powder] 1 applic TOPICAL TID applic Acetaminophen Tab [Tylenol] 650 mg PO Q6HR PRN tab PRN Reason: Mild Pain Or Fever > 100.5 Continue INSULIN LISPRO (humaLOG) [humaLOG] See Protocol SQ AC-TID Furosemide [Lasix] 40 mg PO DAILY Colesevelam [Welchol] 625 mg PO BID Teriflunomide [Aubagio] 14 mg PO DAILY Levothyroxine Sodium 125 mcg PO DAILY Aspirin EC [Ecotrin] 325 mg PO BID Ciprofloxacin HCl [Cipro] 500 mg PO Q12HR #84 tablet Cyclobenzaprine [Flexeril] 10 mg PO DAILY PRN #7 tab PRN Reason: Spasms Discontinued Insulin Glargine [Lantus] 60 units SQ HS Discharge Medication List Furosemide [Lasix] 40 mg PO DAILY 04/10/14 [History] INSULIN LISPRO (humaLOG) [humaLOG] See Protocol SQ AC-TID 04/10/14 [History] Colesevelam [Welchol] 625 mg PO BID 04/11/14 [History] Aspirin EC [Ecotrin] 325 mg PO BID 04/12/19 [History] Levothyroxine Sodium 125 mcg PO DAILY 04/12/19 [History] Teriflunomide [Aubagio] 14 mg PO DAILY 04/12/19 [History] Ciprofloxacin HCl [Cipro] 500 mg PO Q12HR #84 tablet 04/17/19 [Rx] Acetaminophen Tab [Tylenol] 650 mg PO Q6HR PRN tab 04/25/19 [Rx] Cyclobenzaprine [Flexeril] 10 mg PO DAILY PRN #7 tab 04/25/19 [Rx] Ertapenem [INVanz] 1 gm IVPB Q24H vial 04/25/19 [Rx] Insulin Detemir (Levemir) [Levemir] 20 unit SQ HS syr 04/25/19 [Rx] Lactobacillus Acidoph & Bulgar [Lactinex] 1 each PO QID packet 04/25/19 [Rx] Nystatin 100,000 Unit/gm Powd [Mycostatin Powder] 1 applic TOPICAL TID applic 04/25/19 [Rx] Follow up Appointment(s)/Referral(s): Juan Daniel Santillan, JENISE [PHYSICIAN PROGRAM SUPPORT CLERK] - As Needed (Patient may follow-up with Juan Daniel Santillan PA-C or Dr. Noe Suazo at [facility] on an as-needed basis following discharge. ) Martin Cuello DO [Primary Care Provider] - 1-2 days Patient Instructions/Handouts: Osteomyelitis (DC), Knee Pain (ED) Activity/Diet/Wound Care/Special Instructions: STERLING picc line dressing changed 04/23 dressing on right great toe changed 04-25-19 :therahoney, nonadherent gauze, and kirlex Patient may weight-bear to tolerance on the left lower extremity
[2019-04-25] MEDS: ERTAPENEM 1 GM in SODIUM CHLORIDE 0.9% 50 ML IVPB SCH (16:23)
[2019-04-25 17:52] LABS: Glucose,Whole Blood 112 mg/dL (75-99)
--- NOTE | 2019-04-25 22:47 | P.PN ---
Subjective Progress Note Date: 04/25/19 This is a 64-year-old female with past medical history for diabetes mellitus type 2 insulin requiring, MS on [place]. Patient gives history that several weeks ago she developed a blister on her right great toe. She was seen by Dr. Gallegos and he initially told her to cover it keep it clean and dry and apply Neosporin but 4 days later she thought it was looking funny that the skin was puffy white and raised. Dr. Gallegos came back and saw her on Wednesday, March 31 and he prescribed Keflex and gentamicin cream. He then rechecked her on April 04 and told her she needed to get into the wound center. She was evaluated by Dr. Dickson with evidence of the significant ulceration to she was brought in the hospital. She was seen in consult at that point in time and imaging to reveal evidence of osteomyelitis of the right great toe and she was initiated to a course of outpatient intravenous antibiotic therapy. The patient was nonweightbearing to the right foot in developed significant injury to her left leg likely from ongoing use and developed inability to bear weight on her left leg and presented to the emergency center. He was seen by orthopedics and there is concerned shown acute flare of osteoarthritis to the knee and unable to determine if there is other significant difficulty but does not appear to have any acute traumatic change. Regardless patient is now unable to ambulate, having significant pain in having ongoing needs for IV antibiotic therapy. Consult is requested. She is a 89 fever chills rigors or sweats. However is miserable consider inability to ambulate. 04/25/2019 the patient is feeling just slightly better. Still has significant weakness and difficulty ambulating. Objective - Vital Signs Vital signs: Vital Signs Temp 97.5 F L 04/25/19 14:53 Pulse 59 L 04/25/19 14:53 Resp 18 04/25/19 15:14 BP 152/71 04/25/19 14:53 Pulse Ox 93 L 04/25/19 14:53 Intake & Output 04/25/19 04/25/19 04/26/19 06:59 18:59 06:59 Intake Total 300 Output Total 450 Balance 300 -450 Intake: Oral 300 Output: Urine 450 Other: Voiding Method Bedpan Bedpan # Voids 1 6 # Bowel Movements 0 2 - Exam 64 -year-old woman very uncomfortable due to her left knee pain and anxious because inability to ambulate HEENT: Anicteric conjunctiva are pink and moist nasal mucosa grossly intact without significant lesions, there is no thrush. Neck: The neck is supple without significant lymphadenopathy or thyromegaly. Lungs: Good bilateral air entry without significant crackles or wheezing. There is no significant bronchial sounds. There is no egophony or dullness. Heart: Regular rate and rhythm with an audible S1-S2, no S3 no S4. There is no significant murmur click or rub, PMI was nondisplaced. Abdomen: Positive bowel sounds soft and nontender without palpable masses or organomegaly. There was no guarding or rebound. Extremities: The upper extremities have excellent pulses they are symmetric, no significant petechiae or telangiectasia. No splinter hemorrhages were noted. The lower extremity reveal evidence of bilateral lower extremity edema. The ulceration to the right great toe without acute change. The left knee has evidence of some swelling in distinct point tenderness over the left medial aspect of the tibia, patella is nontender ballotable without acute tenderness. Lateral aspect of the left knee is without tenderness on exam. Has distinct pain upon range of motion to the left knee. Neuro: Awake alert oriented to person place and time. There are no acute new gross focal sensory motor deficits. - Labs CBC & Chem 7: 04/23/19 12:01 04/23/19 12:01 Labs: Abnormal Lab Results - Last 24 Hours (Table) 04/25/19 04/25/19 Range/Units 11:57 17:13 POC Glucose (mg/dL) 114 H 112 H (75-99) mg/dL Laboratory Results WBC 6.3 k/uL (3.8-10.6) 04/23/19 12:01 RBC 4.64 m/uL (3.80-5.40) 04/23/19 12:01 Hgb 13.1 gm/dL (11.4-16.0) 04/23/19 12:01 Hct 41.5 % (34.0-46.0) 04/23/19 12:01 MCV 89.5 fL (80.0-100.0) 04/23/19 12:01 MCH 28.1 pg (25.0-35.0) 04/23/19 12:01 MCHC 31.5 g/dL (31.0-37.0) 04/23/19 12:01 RDW 15.3 % (11.5-15.5) 04/23/19 12:01 Plt Count 207 k/uL (150-450) 04/23/19 12:01 Neutrophils % 79 % 04/23/19 12:01 Lymphocytes % 11 % 04/23/19 12:01 Monocytes % 5 % 04/23/19 12:01 Eosinophils % 2 % 04/23/19 12:01 Basophils % 1 % 04/23/19 12:01 Neutrophils # 5.0 k/uL (1.3-7.7) 04/23/19 12:01 Lymphocytes # 0.7 k/uL (1.0-4.8) L 04/23/19 12:01 Monocytes # 0.3 k/uL (0-1.0) 04/23/19 12:01 Eosinophils # 0.1 k/uL (0-0.7) 04/23/19 12:01 Basophils # 0.1 k/uL (0-0.2) 04/23/19 12:01 Sodium 142 mmol/L (137-145) 04/23/19 12:01 Potassium 4.1 mmol/L (3.5-5.1) 04/23/19 12:01 Chloride 108 mmol/L (98-107) H 04/23/19 12:01 Carbon Dioxide 26 mmol/L (22-30) 04/23/19 12:01 Anion Gap 8 mmol/L 04/23/19 12:01 BUN 16 mg/dL (7-17) 04/23/19 12:01 Creatinine 0.82 mg/dL (0.52-1.04) 04/23/19 12:01 Est GFR (CKD-EPI)AfAm 88 (>60 ml/min/1.73 sqM) 04/23/19 12:01 Est GFR (CKD-EPI)NonAf 76 (>60 ml/min/1.73 sqM) 04/23/19 12:01 Glucose 107 mg/dL (74-99) H 04/23/19 12:01 POC Glucose (mg/dL) 112 mg/dL (75-99) H 04/25/19 17:13 POC Glu [facility] SHAGUFTA Azeb Moon 04/25/19 17:13 Calcium 9.2 mg/dL (8.4-10.2) 04/23/19 12:01 Total Bilirubin 0.3 mg/dL (0.2-1.3) 04/23/19 12:01 AST 15 U/L (14-36) 04/23/19 12:01 ALT 20 U/L (9-52) 04/23/19 12:01 Alkaline Phosphatase 51 U/L (38-126) 04/23/19 12:01 Troponin I 0.014 ng/mL (0.000-0.034) 04/23/19 12:01 NT-Pro-B Natriuret Pep 702 pg/mL 04/23/19 12:01 Total Protein 6.3 g/dL (6.3-8.2) 04/23/19 12:01 Albumin 3.5 g/dL (3.5-5.0) 04/23/19 12:01 Urine Color Yellow 04/23/19 12:01 Urine Appearance Cloudy (Clear) H 04/23/19 12:01 Urine pH 5.5 (5.0-8.0) 04/23/19 12:01 Ur Specific Mccaskill 1.032 (1.001-1.035) 04/23/19 12:01 Urine Protein 1+ (Negative) H 04/23/19 12:01 Urine Glucose (UA) Negative (Negative) 04/23/19 12:01 Urine Ketones Negative (Negative) 04/23/19 12:01 Urine Blood Trace (Negative) H 04/23/19 12:01 Urine Nitrite Negative (Negative) 04/23/19 12:01 Urine Bilirubin Negative (Negative) 04/23/19 12:01 Urine Urobilinogen 2.0 mg/dL (<2.0) 04/23/19 12:01 Ur Leukocyte Esterase Moderate (Negative) H 04/23/19 12:01 Urine RBC 6 /hpf (0-5) H 04/23/19 12:01 Urine WBC 10 /hpf (0-5) H 04/23/19 12:01 Ur Squamous Epith Cells 6 /hpf (0-4) H 04/23/19 12:01 Urine Bacteria Rare /hpf (None) H 04/23/19 12:01 Hyaline Casts 3 /lpf (0-2) H 04/23/19 12:01 Urine Mucus Many /hpf (None) H 04/23/19 12:01 Blood Type A Positive 04/23/19 12:01 Blood Type Recheck No 04/23/19 12:01 Antibody Screen NEGATIVE 04/23/19 12:01 Spec Expiration Date 04/26/2019 - 230004/23/19 12:01 Microbiology 04/23/19 12:01 Urine,Voided Urine Culture - Final Hope albicans Assessment and Plan (1) Acute pain of left knee Narrative/Plan: 64-year-old woman who has a long-standing history of MS who is having some ongoing debility he also has uncontrolled diabetes who developed the right great toe diabetic foot ulceration which was found also to have evidence of osteo myelitis. She's been receiving intravenous antibiotic therapy and offloading of the right foot. Which may have aggravated her left knee resulting in the significant inability to ambulate at this time. She also does have MS which may be worsening the current situation. Case management is working and she likely will go to rehab to receive therapy and her course of antibiotic therapy. Invanz is not appear to be an option and they are looking to see if meropenem can be utilized instead. Therahoney utilized for daily wound care Importance of improved glucose control was again stressed. 04/25/2019 patient is having significant difficulties with ambulation with the acute left knee pain and her MS. We'll transfer to rehab today to receive physical therapy and her intravenous antibiotic therapy Invanz or Merrem depending on the formulary of the facility. She is to complete 6 weeks of antib iotic for the osteomyelitis of her right great toe. Orthopedics will follow regarding her acute swelling of her left knee that does not appear to be infectious. I believe she was following up in the wound healing center as possible. Status: Acute Code(s): M25.562 - PAIN IN LEFT KNEE SNOMED Code(s): 12676827 (2) Osteomyelitis of great toe of right foot Status: Acute Code(s): M86.9 - OSTEOMYELITIS, UNSPECIFIED SNOMED Code(s): 995270006
== END 2019-04-25 19:16 | DRG 554 ==
LOC: EC 11:07 → 4MS4W 13:55 → OBSVTOIN 04-25 15:52 → UNDODISOB 04-25 19:16
PROVIDERS: ADMIT Internal Medicine; ATTEND Internal Medicine
DX: M17.12 Unilateral primary osteoarthritis, left knee (principal); Z68.41 Body mass index [BMI] 40.0-44.9, adult; M86.171 Other acute osteomyelitis, right ankle and foot; G35 Multiple sclerosis; E11.69 Type 2 diabetes mellitus with other specified complication; B96.5 Pseudomonas (aeruginosa) (mallei) (pseudomallei) as the cause of diseases classified elsewhere; B95.0 Streptococcus, group A, as the cause of diseases classified elsewhere; E11.621 Type 2 diabetes mellitus with foot ulcer; L97.519 Non-pressure chronic ulcer of other part of right foot with unspecified severity; E11.65 Type 2 diabetes mellitus with hyperglycemia; J44.9 Chronic obstructive pulmonary disease, unspecified; G47.33 Obstructive sleep apnea (adult) (pediatric); E78.5 Hyperlipidemia, unspecified; R53.81 Other malaise; I50.9 Heart failure, unspecified; I25.10 Atherosclerotic heart disease of native coronary artery without angina pectoris; E07.9 Disorder of thyroid, unspecified; B37.2 Candidiasis of skin and nail; R35.0 Frequency of micturition; E66.01 Morbid (severe) obesity due to excess calories; M54.9 Dorsalgia, unspecified; F41.9 Anxiety disorder, unspecified; F32.9 Major depressive disorder, single episode, unspecified; R26.2 Difficulty in walking, not elsewhere classified; Z79.4 Long term (current) use of insulin; Z79.82 Long term (current) use of aspirin; Z79.890 Hormone replacement therapy; Z79.2 Long term (current) use of antibiotics; Z79.899 Other long term (current) drug therapy; Z95.5 Presence of coronary angioplasty implant and graft; Z87.891 Personal history of nicotine dependence; Z98.84 Bariatric surgery status; Z95.9 Presence of cardiac and vascular implant and graft, unspecified; Z83.3 Family history of diabetes mellitus; Z82.5 Family history of asthma and other chronic lower respiratory diseases; Z82.49 Family history of ischemic heart disease and other diseases of the circulatory system; B95.4 Other streptococcus as the cause of diseases classified elsewhere; M25.362 Other instability, left knee; Z91.81 History of falling; M25.462 Effusion, left knee; L30.4 Erythema intertrigo
CPT/HCPCS: 36415; 71046; 80053; 81001; 83880; 84484; 85025; 86850; 86900; 86901; 87086; 93005; 96365; 99285

== ENCOUNTER → 2019-08-10 | Outpatient (CLI) | payer MEDICARE, BC ==
--- NOTE | 2019-08-11 07:44 | CT ---
EXAMINATION TYPE: CT angio abd aorta w/Runoff DATE OF EXAM: 08/10/2019 HISTORY: Non healing wound 1st digit of right foot CT DLP: 1533mGycm Automated Exposure Control for Dose Reduction was Utilized. CONTRAST: CTA scan of the abdomen and pelvis with lower extremity runoff is performed without oral but with IV Contrast, patient injected with 120 mL of Isovue 370. 3-D reconstructed images created on an [employer] workstation and reviewed. COMPARISON: None. FINDINGS: VASCULAR: There is moderate mixed plaque in the abdominal aorta. There is patent celiac artery and SM A with moderate peripheral plaque in the proximal celiac artery causing stenosis approaching about ju st under 50% seen best on axial image 29. There are patent bilateral single renal arteries without si gnificant stenosis. There is a patent SIRISHA identified. Common iliac arteries show mild peripheral plaq ue without significant stenosis. Moderate plaque and internal iliac arteries bilaterally is seen with out significant stenosis. No significant plaque or stenosis in the external iliac arteries bilaterall y. Mild peripheral plaque bilateral common femoral arteries. Left lower extremity shows successful branching into superficial and deep femoral arteries without si gnificant plaque or stenosis. There is moderate calcified plaque along the course of the proximal sup erficial femoral artery extending into the popliteal artery without significant stenosis. There is dowd ccessful bifurcation with an more significant calcified plaque and areas of nonvisualization or poor thready flow involving the tibial peroneal trunk before bifurcation. There are areas of absent flow i n the posterior tibial and peroneal arteries. Poor distal flow in the left lower extremity noted. Right lower extremity shows similar findings with no significant plaque or stenosis at origin of supe rficial and deep femoral arteries. There is then moderate calcified plaque along course of the superf icial femoral artery and popliteal artery without significant stenosis. There is good visualization o f the bifurcation with an poor flow involving the anterior tibial artery suspected occluded shortly a fter its origin. There is good flow in the tibial peroneal trunk with severe calcified plaque causing complete occlusion of the posterior tibial artery shortly after its origin. There is poor flow mid t o distal leg on the right also. LUNG BASES: Small pericardial effusion. LIVER/GB: Liver is diffusely low dense may be products of fatty infiltration or phase of contrast sirisha ging. PANCREAS: No significant abnormality is seen. SPLEEN: No significant abnormality is seen. ADRENALS: No significant abnormality is seen. KIDNEYS: Some areas of cortical thinning in both kidneys. Roughly 7 mm calculus upper pole right kidn ey on axial image 48. BOWEL: Sigmoid colonic diverticulosis. UTERUS/ADNEXA: No gross abnormality seen. LYMPH NODES: No greater than 1cm abdominal or pelvic lymph nodes are appreciated. OSSEOUS STRUCTURES: Multilevel moderate to severe spurring and disc space narrowing most prominent at L1-L2 and L4-L5 levels. Multilevel facet arthropathy in the lower lumbar spine. Lower extremities: Fairly moderate to severe degenerative change in both knees, left skull slightly m ore prominent than right. There is moderate to severe diffuse subcutaneous edema below the knees involving both legs most promi nent in the distal leg and ankle level with slight asymmetric swelling of the left bike versus right leg thought present. Hallux valgus positioning first metatarsal-phalangeal joint bilaterally is noted . Other: Ventral wall hernia containing fat near level of umbilicus. Mild diffuse fat stranding or prom inent right posterior gluteal region could reflect early soft tissue infection approximately 157. Cor relate clinically. IMPRESSION: Bilateral significant peripheral vascular disease below the level of knee bilaterally wit h multifocal areas of significant stenosis and occlusion bilaterally. Poor flow begins after poplitea l bifurcation bilaterally with significant multifocal occlusions are normal three-vessel and two-vess el flows beginning in the proximal leg extending to the hindfoot region. Findings thought on basis of severe peripheral atherosclerotic calcified plaque.
== END | disposition home or self-care (01) ==
LOC: RADCTMAIN 17:15
PROVIDERS: ATTEND Surgery Vascular Surgery
DX: I73.9 Peripheral vascular disease, unspecified (principal); I70.0 Atherosclerosis of aorta; I77.1 Stricture of artery; E11.52 Type 2 diabetes mellitus with diabetic peripheral angiopathy with gangrene; E11.621 Type 2 diabetes mellitus with foot ulcer; I50.9 Heart failure, unspecified; G35 Multiple sclerosis; L97.519 Non-pressure chronic ulcer of other part of right foot with unspecified severity; E66.01 Morbid (severe) obesity due to excess calories
CPT/HCPCS: 75635; Q9967

== ENCOUNTER → 2019-08-14 | Outpatient (CLI) | payer MEDICARE, BC ==
--- NOTE | 2019-08-14 12:07 | FL ---
EXAMINATION TYPE: FL barium swallow w video DATE OF EXAM: 08/14/2019 COMPARISON: NONE HISTORY: Dysphagia TECHNIQUE: Fluoroscopy. FINDINGS: Fluoroscopic guidance was provided for the procedure performed in conjunction with the [facility] pathology department. Please see complete report forthcoming from the Speech Pathology departmen t. Various consistencies from thin liquid to solids were administered. Fluoroscopy time 54 seconds. Number of images: 0. No aspiration or penetration was evident. No significant pooling was observed in the vallecula. There was normal propulsion of the bolus. IMPRESSION: 1. Normal modified barium swallow
== END | disposition home or self-care (01) ==
LOC: RADFLMAIN 10:28
PROVIDERS: ATTEND Internal Medicine Critical Care Medicine
DX: R13.10 Dysphagia, unspecified (principal)
CPT/HCPCS: 74230

== ENCOUNTER 2019-08-26 12:03 | Emergency (ER) | payer MEDICARE, BC ==
[2019-08-26 12:46] LABS: Glucose,Whole Blood 123 mg/dL (75-99)
--- NOTE | 2019-08-26 12:47 | CT ---
EXAMINATION TYPE: CT brain wo con for TPA DATE OF EXAM: 08/26/2019 COMPARISON: Previous study dated 04/11/2014. HISTORY: altered mental status CT DLP: 1061 mGycm Automated exposure control for dose reduction was used. FINDINGS: There are generalized changes of sulcal prominence and ventriculomegaly, compatible with atrophic pao nge. There is diffuse periventricular white matter lucency, compatible with small vessel ischemic pao nge. There is no acute focal lesion, mass effect or midline shift identified. I do not see evidence o f intracranial blood. There are vascular calcifications present. Visualized portions of the paranasal sinuses and mastoids are clear. The bony calvarium is intact. IMPRESSION: 1. NO ACUTE INTRACRANIAL ABNORMALITY. 2. ATROPHIC CHANGE. 3. CHRONIC WHITE MATTER ISCHEMIC
[2019-08-26 12:49] LABS: Basophils # (A) 0.1 k/uL (0-0.2); Basophils % (A) 1 %; Eosinophils # (A) 0.1 k/uL (0-0.7); Eosinophils % (A) 2 %; HGB 14.1 gm/dL (11.4-16.0); Lymphocytes # (A) 0.4 k/uL (1.0-4.8); Lymphocytes % (A) 6 %; MCH 29.7 pg (25.0-35.0); MCHC 32.7 g/dL (31.0-37.0); MCV 90.8 fL (80.0-100.0); Mean Platelet Volume 5.9; Monocytes # (A) 0.3 k/uL (0-1.0); Monocytes % (A) 4 %; Neutrophils # (A) 6.7 k/uL (1.3-7.7); Neutrophils % (A) 87 %; Platelet Count 222 k/uL (150-450); RBC 4.73 m/uL (3.80-5.40); RDW 14.4 % (11.5-15.5); WBC 7.7 k/uL (3.8-10.6)
--- NOTE | 2019-08-26 12:51 | ED ---
Neuro HPI - General Chief Complaint: Neuro Symptoms/Deficit Stated Complaint: Stroke like Symptoms Time Seen by Provider: 08/26/19 12:07 Source: patient, EMS Mode of arrival: EMS Limitations: altered mental status - History of Present Illness Is the patient presenting with stroke symptoms?: Yes Last Known Well Date: 08/25/19 Last Known Well Time: 19:00 Initial Comments: The patient is a 64-year-old female with past medical history of DVT and right lower extremity gangrene who presents to the emergency department with strokelike symptoms. History is provided by the patient's sister. She talked to her at 7 PM last night and stated the patient was well. She then called her again this morning around 9:30 AM. This is when she noted that the patient was having confused speech. The patient had significant difficulty finding her words. Because of this the sister decided to drive to the patient's home. This was approximately an hour and half commute. She found the patient continued to be confused with expressive aphasia. No lateralizing deficits otherwise. Patient does not have a history of stroke. She is currently on Coumadin for DVT. Denies that she missed any doses. Denies any blunt head trauma or syncopal episodes. Patient admits that she has difficulty finding her words. She denies any new weakness in her extremities. She does have chronic lower extremity weakness and is wheelchair-bound. Denies any visual disturbances. No headaches. Denies any nausea or vomiting. No back pain or neck pain. No recent fevers or chills. Denies any changes in bowel or bladder habits. No history of similar event in the past. There are no other alleviating, precipitating or modifying factors - Related Data Home Medications: Home Medications Medication Instructions Recorded Confirmed Furosemide [Lasix] 40 mg PO DAILY 04/10/14 08/26/19 INSULIN LISPRO (humaLOG) [humaLOG] See Protocol SQ AC-TID 04/10/14 08/26/19 Levothyroxine Sodium 125 mcg PO DAILY 04/12/19 08/26/19 Teriflunomide [Aubagio] 14 mg PO DAILY 04/12/19 08/26/19 Acetaminophen Tab [Tylenol Tab] 500 mg PO Q6HR 08/25/19 08/26/19 Cannabidiol (Cbd) Extract 1 dose TOPICAL DIRECTED 08/25/19 08/26/19 [Epidiolex] Cyclobenzaprine [Flexeril] 10 mg PO Q4HR PRN 08/25/19 08/26/19 Insulin Glargine [Lantus] 60 unit SQ BID 08/25/19 08/26/19 Warfarin [Coumadin] 5 mg PO HS 08/25/19 08/26/19 amLODIPine BESYLATE [Norvasc] 10 mg PO DAILY 08/25/19 08/26/19 Allergies/Adverse Reactions: Allergies Allergy/AdvReac Type Severity Reaction Status Date / Time No Known Allergies Allergy Verified 08/26/19 13:14 Review of Systems ROS Statement: Those systems with pertinent positive or pertinent negative responses have been documented in the HPI. ROS Other: All systems not noted in ROS Statement are negative. General Exam Limitations: altered mental status General appearance: alert, in no apparent distress Head exam: Present: atraumatic, normocephalic Eye exam: Present: normal appearance, PERRL ENT exam: Present: normal exam, normal oropharynx, mucous membranes moist Neck exam: Present: normal inspection. Absent: tenderness, meningismus Respiratory exam: Present: normal lung sounds bilaterally. Absent: respiratory distress, wheezes, rales, rhonchi Cardiovascular Exam: Present: normal rhythm, tachycardia GI/Abdominal exam: Present: soft, other (The patient does have a red, blanchable rash noted within her inguinal folds. This is worse on the left. Appears chronic with brawny edema. Consistent with intertrigo). Absent: distended Extremities exam: Present: other (The patient has 3-5 strength in her bilateral lower extremity. This is chronic for the patient. She has a bandage placed on the right great toe. There is a small area of blistering. No surrounding cellulitic changes.) Back exam: Present: normal inspection, full ROM. Absent: tenderness Neurological exam: Present: alert, oriented X3, other (The patient has expressive aphasia. Difficulty naming objects. Difficult recall. 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 3 out of 5 strength in her bilateral lower extremities which is chronic. No deviation or visual field deficit) Psychiatric exam: Present: normal affect, normal mood Skin exam: Present: warm, dry, intact Stroke MDM - Lab Data Result diagrams: 08/26/19 12:34 08/26/19 12:34 Lab Results 08/26/19 08/26/19 08/26/19 Range/Units 12:34 12:34 12:34 WBC 7.7 (3.8-10.6) k/uL RBC 4.73 (3.80-5.40) m/uL Hgb 14.1 (11.4-16.0) gm/dL Hct 43.0 (34.0-46.0) % MCV 90.8 (80.0-100.0) fL MCH 29.7 (25.0-35.0) pg MCHC 32.7 (31.0-37.0) g/dL RDW 14.4 (11.5-15.5) % Plt Count 222 (150-450) k/uL Neutrophils % 87 % Lymphocytes % 6 % Monocytes % 4 % Eosinophils % 2 % Basophils % 1 % Neutrophils # 6.7 (1.3-7.7) k/uL Lymphocytes # 0.4 L (1.0-4.8) k/uL Monocytes # 0.3 (0-1.0) k/uL Eosinophils # 0.1 (0-0.7) k/uL Basophils # 0.1 (0-0.2) k/uL PT 15.3 H (9.0-12.0) sec INR 1.5 H (<1.2) APTT 30.1 H (22.0-30.0) sec Sodium 136 L (137-145) mmol/L Potassium 4.1 (3.5-5.1) mmol/L Chloride 103 (98-107) mmol/L Carbon Dioxide 26 (22-30) mmol/L Anion Gap 7 mmol/L BUN 16 (7-17) mg/dL Creatinine 0.70 (0.52-1.04) mg/dL Est GFR (CKD-EPI)AfAm >90 (>60 ml/min/1.73 sqM) Est GFR (CKD-EPI)NonAf >90 (>60 ml/min/1.73 sqM) Glucose 210 H (74-99) mg/dL POC Glucose (mg/dL) (75-99) mg/dL POC Glu Summer Nanny ID Calcium 8.9 (8.4-10.2) mg/dL Total Bilirubin 0.5 (0.2-1.3) mg/dL AST 12 L (14-36) U/L ALT 15 (9-52) U/L Alkaline Phosphatase 57 (38-126) U/L Total Creatine Kinase (30-135) U/L CK-MB (CK-2) (0.0-2.4) ng/mL CK-MB (CK-2) Rel Index Troponin I (0.000-0.034) ng/mL Total Protein 6.5 (6.3-8.2) g/dL Albumin 3.4 L (3.5-5.0) g/dL 08/26/19 08/26/19 Range/Units 12:34 12:35 WBC (3.8-10.6) k/uL RBC (3.80-5.40) m/uL Hgb (11.4-16.0) gm/dL Hct (34.0-46.0) % MCV (80.0-100.0) fL MCH (25.0-35.0) pg MCHC (31.0-37.0) g/dL RDW (11.5-15.5) % Plt Count (150-450) k/uL Neutrophils % % Lymphocytes % % Monocytes % % Eosinophils % % Basophils % % Neutrophils # (1.3-7.7) k/uL Lymphocytes # (1.0-4.8) k/uL Monocytes # (0-1.0) k/uL Eosinophils # (0-0.7) k/uL Basophils # (0-0.2) k/uL PT (9.0-12.0) sec INR (<1.2) APTT (22.0-30.0) sec Sodium (137-145) mmol/L Potassium (3.5-5.1) mmol/L Chloride (98-107) mmol/L Carbon Dioxide (22-30) mmol/L Anion Gap mmol/L BUN (7-17) mg/dL Creatinine (0.52-1.04) mg/dL Est GFR (CKD-EPI)AfAm (>60 ml/min/1.73 sqM) Est GFR (CKD-EPI)NonAf (>60 ml/min/1.73 sqM) Glucose (74-99) mg/dL POC Glucose (mg/dL) 123 H (75-99) mg/dL POC Glu Summer Nanny ID Roseboom, Momo Calcium (8.4-10.2) mg/dL Total Bilirubin (0.2-1.3) mg/dL AST (14-36) U/L ALT (9-52) U/L Alkaline Phosphatase (38-126) U/L Total Creatine Kinase 33 (30-135) U/L CK-MB (CK-2) 0.9 (0.0-2.4) ng/mL CK-MB (CK-2) Rel Index 2.7 Troponin I 0.014 (0.000-0.034) ng/mL Total Protein (6.3-8.2) g/dL Albumin (3.5-5.0) g/dL - Medical Decision Making Upon arrival the patient was placed in room 6. Physical exam was performed. Patient does have moderate expressive aphasia. Because of this I did activate a code stroke at 1210. IV access was established. The patient was sent over for a CT of her brain as well as CT angios of her head and neck. Laboratory studies were conducted. 12-lead EKG was performed. Laboratory studies demonstrated normal CBC. INR is subtherapeutic at 1.5. CMP shows a sugar of 210. Chest x-ray demonstrates tiny infiltrate in the posterior basal segment of the left lower lobe. Vascular congestion without kalpana edema. CT angios of brain demonstrates no significant right-sided carotid stenosis. Minimal, nonhemodynamically significant stenosis of the left internal rotted artery. Diminution of the left vertebral artery. Normal CT of the [place] of [place]. CT of the brain without contrast demonstrates no acute intracranial abnormality. Atrophic change. Chronic white matter ischemia. He did reevaluate the patient. She continues to have difficulties finding her words. Because of this I did recommend transfer to [facility] as Dr. Ferrera had requested. Called and discussed the case with Dr. Boothe who accepted transfer. Discussed this with the patient and her sister at bedside. They did agree. The patient was transferred in stable condition 08/26/19 14:09 EKG demonstrates a sinus tachycardia with a ventricular rate of 102. PA interval is 18. QRS E4. QTC 461. No acute ST segment elevations or depressions concerning for ischemic changes Past Medical History Past Medical History: Chest Pain / Angina, Heart Failure, COPD, Diabetes Mellitus, Deep Vein Thrombosis (DVT), Hyperlipidemia, Hypertension, Musculoskeletal Disorder, Sleep Apnea/CPAP/BIPAP, Thyroid Disorder Additional Past Medical History / Comment(s): MS , STATES PAIN ALL OVER., COPD (NO RX), OXYGEN AT 2 LITERS @ HS AND PRN., USES WHEELCHAIR., DYSPHAGIA. History of Any Multi-Drug Resistant Organisms: None Reported Past Surgical History: Bariatric Surgery, Heart Catheterization With Stent Additional Past Surgical History / Comment(s): L CARPAL TUNNEL, GASTRIC SLEEVE ([facility]) Past Anesthesia/Blood Transfusion Reactions: No Reported Reaction Additional Past Anesthesia/Blood Transfusion Reaction / Comment(s): . Date of Last Stent Placement:: March 2013, 2 stents placed @ [facility] Past Psychological History: No Psychological Hx Reported Smoking Status: Former smoker Past Alcohol Use History: None Reported Past Drug Use History: Marijuana - Past Family History Father History Unknown: Yes Family Medical History: Cancer, COPD, Diabetes Mellitus, Myocardial Infarction ([place]) Mother History Unknown: Yes Family Medical History: Diabetes Mellitus, Deep Vein Thrombosis (DVT), Myocardial Infarction ([place]) Course Vital Signs 08/26/19 08/26/19 08/26/19 12:07 12:10 12:25 Temperature 99 F Pulse Rate 106 H 106 H 102 H Respiratory 18 18 16 Rate Blood Pressure 132/106 156/111 157/113 O2 Sat by Pulse 100 95 97 Oximetry 08/26/19 08/26/19 08/26/19 12:40 12:55 13:10 Temperature Pulse Rate 102 H 100 108 H Respiratory 18 18 18 Rate Blood Pressure 164/94 154/77 171/75 O2 Sat by Pulse 97 96 95 Oximetry 08/26/19 08/26/19 13:40 14:13 Temperature 98.7 F Pulse Rate 99 108 H Respiratory 18 16 Rate Blood Pressure 155/68 157/94 O2 Sat by Pulse 96 98 Oximetry - Reevaluation(s) Reevaluation #1: 08/26/19 12:[address] Loza who agrees that the patient is not a TPA candidate. We are awaiting the scan results. He recommended the patient be transferred to [facility] Disposition Clinical Impression: Cerebrovascular accident (CVA) Disposition: OTHER INSTITUTION NOT DEFINED Condition: Serious Is patient prescribed a controlled substance at d/c from ED?: No Referrals: Martin Cuello DO [Primary Care Provider] - 1-2 days Time of Disposition: 13:56 - Out of Hospital Transfer - Req. Specs Out of Hospital Transfer - Requested Specifics: Other Emergency Center ([facility])
[2019-08-26 12:59] LABS: INR 1.5 (<1.2); Prothrombin Time 15.3 sec (9.0-12.0)
[2019-08-26 13:00] LABS: Partial Thromboplastin Time 30.1 sec (22.0-30.0)
[2019-08-26 13:01] LABS: ALT 15 U/L (9-52); AST 12 U/L (14-36); African American GFR (CKD) >90 (>60 ml/min/1.73 sqM); Albumin 3.4 g/dL (3.5-5.0); Alkaline Phosphatase 57 U/L (38-126); Anion Gap 7 mmol/L; Blood Urea Nitrogen 16 mg/dL (7-17); Calcium 8.9 mg/dL (8.4-10.2); Carbon Dioxide 26 mmol/L (22-30); Chloride 103 mmol/L (98-107); Glucose 210 mg/dL (74-99); Potassium 4.1 mmol/L (3.5-5.1); Sodium 136 mmol/L (137-145); Total Bilirubin 0.5 mg/dL (0.2-1.3); Total Protein 6.5 g/dL (6.3-8.2)
--- NOTE | 2019-08-26 13:07 | CT ---
EXAMINATION TYPE: CT angio head neck DATE OF EXAM: 08/26/2019 HISTORY: altered mental status COMPARISON: None. CT DLP: 638.8 mGycm. Automated Exposure Control for Dose Reduction was Utilized. TECHNIQUE: CTA scan of the neck is performed with IV Contrast, patient injected with 65 mL of Isovue 370, axial images are obtained, coronal and sagittal reformatted images are reviewed. Three-D recons tructed images are created on an independent workstation and reviewed. FINDINGS: Visualized portions of the lungs are clear. The heart is enlarged. There is no significant cervical adenopathy. The major salivary glands are unremarkable. Visualized i ntracranial structures are normal. Visualized portions of the paranasal sinuses and mastoids are eleazar r. Vertebral body height and alignment are maintained. Atlantoaxial relationships are normal. There is degenerative disc disease and hypertrophic spondylosis most marked at C5-6 and C6-7. There is a normal origin of the great vessels. The left vertebral artery is miniscule in the right ve rtebral artery is dominant. There is mild to moderate atheromatous calcification of the left carotid bulb. There is no significan t calcification at the right carotid bulb.. In spite of calcification there is only 11% by diameter s tenosis on the left. There is no significant stenosis on the right. There is moderate chronic calcification within the carotid sinus. There is normal arborization of the middle cerebral arteries. Both anterior cerebral arteries are patent. The posterior circulation appe ars unremarkable. IMPRESSION: 1. NO SIGNIFICANT RIGHT SIDED CAROTID STENOSIS. 2. MINIMAL, NONHEMODYNAMICALLY SIGNIFICANT STENOSIS OF THE LEFT INTERNAL CAROTID ARTERY. 3. DIMINUTION OF THE LEFT VERTEBRAL ARTERY. 4. NORMAL CTA OF THE [place].
[2019-08-26 13:20] LABS: Creatine Kinase MB 0.9 ng/mL (0.0-2.4); Troponin I 0.014 ng/mL (0.000-0.034)
--- NOTE | 2019-08-26 13:36 | XR ---
EXAMINATION TYPE: XR chest 2V DATE OF EXAM: 08/26/2019 HISTORY: altered mental status. REFERENCE: Previous study dated 04/23/2019. FINDINGS: The heart is enlarged. There is a tiny infiltrate in the posterior basal segment of the lef t lower lobe. There is vascular congestion without kalpana edema. I suspect tiny, bilateral effusions. IMPRESSION: 1. CARDIAC 2 SMALL AMOUNT OF INFILTRATE IN THE LEFT LUNG BASE. 3. VASCULAR CONGESTION WITHOUT KALPANA EDEMA. 4. I COULD NOT EXCLUDE SMALL, BILATERAL EFFUSIONS.
[2019-08-26 14:15] VITALS: BP 157/94; PULSE 108; RESP 16; TEMP 98.7
== END 2019-08-26 14:24 | disposition other institution (70) ==
LOC: EC 12:03
DX: I63.9 Cerebral infarction, unspecified (principal); I87.8 Other specified disorders of veins; R91.8 Other nonspecific abnormal finding of lung field; I65.22 Occlusion and stenosis of left carotid artery; I67.82 Cerebral ischemia; S90.421A Blister (nonthermal), right great toe, initial encounter; I25.2 Old myocardial infarction; I11.0 Hypertensive heart disease with heart failure; I50.9 Heart failure, unspecified; E11.9 Type 2 diabetes mellitus without complications; E78.5 Hyperlipidemia, unspecified; G35 Multiple sclerosis; G47.30 Sleep apnea, unspecified; E07.9 Disorder of thyroid, unspecified; J44.9 Chronic obstructive pulmonary disease, unspecified; Z79.890 Hormone replacement therapy; Z79.4 Long term (current) use of insulin; Z79.01 Long term (current) use of anticoagulants; Z79.899 Other long term (current) drug therapy; Z86.718 Personal history of other venous thrombosis and embolism; Z99.89 Dependence on other enabling machines and devices; Z99.81 Dependence on supplemental oxygen; Z99.3 Dependence on wheelchair; Z98.84 Bariatric surgery status; Z95.5 Presence of coronary angioplasty implant and graft; Z87.891 Personal history of nicotine dependence; X58.XXXA Exposure to other specified factors, initial encounter
CPT/HCPCS: 36415; 93005; 80053; 82550; 82553; 84484; 85025; 85610; 85730; 71046; 70496; 70450; 70498; 99285; Q9967

== ENCOUNTER 2019-11-02 10:30 | Day surgery (SDC) | payer MEDICARE, BC ==
[2019-10-26 11:01] VITALS: BMI 45.7
[~2019-11-02 10:30] MED LIST: ALPRAZolam 0.25 MG TAB PO PRN; ASPIRIN 325 MG TAB PO STA; SODIUM CHLORIDE 0.9% 1,000 ML in EMPTY BAG 1 BAG IV ONE
[2019-11-02 10:54] VITALS: TEMP 98.2
[2019-11-02 11:04] LABS: Glucose,Whole Blood 190 mg/dL (75-99)
[2019-11-02] MEDS ORDERED: MIDAZOLAM 2 MG/2 ML VIAL IVP ONE (12:59)
[2019-11-02] MEDS ORDERED: LIDOCAINE 1% INJ 10MG/ML (20 ML MDV) SQ ONE (12:59)
[2019-11-02 13:01] LABS: INR 1.1 (<1.2); Prothrombin Time 11.4 sec (9.0-12.0)
[2019-11-02] MEDS: VERAPAMIL SYRINGE (5 MG/10 ML) INTRAARTER ONE ×2 (13:01→13:16)
[2019-11-02] MEDS ORDERED: IOPAMIDOL-370 150ML BTL INJ ONE (13:13)
[2019-11-02] MEDS ORDERED: SODIUM CHLORIDE 0.9% 1,000 ML IV SCH (13:30)
--- NOTE | 2019-11-02 13:43 | IR ---
EXAMINATION TYPE: IR angio abdominal w runoff DATE OF EXAM: 11/02/2019 COMPARISON: NONE HISTORY: Fluoroscopy time. Fluoroscopy was provided to the referring clinician.
[2019-11-02 15:28] VITALS: BP 137/62; PULSE 100; RESP 16
--- NOTE | 2019-11-03 08:32 | AN ---
ANGIOGRAPHY REPORT DATE OF SERVICE: November 02, 2019 PERFORMING PHYSICIAN: Nikolas Nina MD. PROCEDURE PERFORMED: 1. An abdominal aortogram. 2. Bilateral lower extremities runoff. INDICATION: This is a 64-year-old female patient with diabetes who recently was diagnosed with critical limb ischemia of the right foot with nonhealing ulcer involving the right toe. She was referred for aortogram and possible angioplasty. APPROACH: Right radial artery. COMPLICATION: None. LEVEL OF SEDATION: Moderate with sedation length of 20 minutes. PROCEDURE DESCRIPTION: After obtaining an informed consent, the patient was brought to the cardiac cath lab radiology technician. The right radial artery was cannulated using micropuncture technique and a micropuncture wire passed easily then I placed a 5-[place]izen Of [place] sheath. I gave the patient 2 mg of verapamil IA and 10,000 units of Heparin IV. Subsequently I did an aortogram with runoff using 5-[place]izen [place] pigtail catheter which was initially placed at the level of the renal arteries and it was advanced into above the bifurcation of the aorta to right and left common iliac arteries. The procedure was completed without any complication. SELECTIVE PERIPHERAL ANGIOGRAM: 1. The aorta appeared to be angiographically normal. 2. Iliacs: Both right and left common iliac arteries appeared to be angiographically normal. 3. Internal iliac arteries appeared to be patent. 4. External iliac arteries appeared to be patent as well. 5. Common femoral arteries appeared to be normal. 6. Profunda: Both are patent. 7. SFA: Both are patent. 8. Popliteal: Both are angiographically normal. 9. Below the knee: The 3 vessels below the knee are 100% occluded bilaterally. They reconstitute above the heel. CONCLUSION: 1. Normal aortoiliac segments. 2. Normal femoral popliteal segments. 3. Severe fzyaw-vvf-axil disease bilaterally. POSTPROCEDURE MANAGEMENT: The patient will be scheduled to undergo a ASSOCI[employer] of the right anterior tibial and/or posterior tibial. MMODL / IJN: [id number] /
== END 2019-11-02 16:37 | disposition home or self-care (01) ==
LOC: CATHCVL 10:30
PROVIDERS: ATTEND Internal Medicine Interventional Cardiology
DX: E11.51 Type 2 diabetes mellitus with diabetic peripheral angiopathy without gangrene (principal); I70.235 Atherosclerosis of native arteries of right leg with ulceration of other part of foot; L97.519 Non-pressure chronic ulcer of other part of right foot with unspecified severity; I70.202 Unspecified atherosclerosis of native arteries of extremities, left leg; I99.8 Other disorder of circulatory system; I25.10 Atherosclerotic heart disease of native coronary artery without angina pectoris; I10 Essential (primary) hypertension; E78.5 Hyperlipidemia, unspecified; F17.210 Nicotine dependence, cigarettes, uncomplicated; Z86.718 Personal history of other venous thrombosis and embolism; Z95.5 Presence of coronary angioplasty implant and graft; Z79.4 Long term (current) use of insulin; Z79.82 Long term (current) use of aspirin; Z79.890 Hormone replacement therapy; Z79.899 Other long term (current) drug therapy
CPT/HCPCS: 36200; 75625; 75716; 85610; C1769 ×4; C1887; C1894; J2250; J2001; J1644; Q9967

== ENCOUNTER 2019-11-16 05:53 | Day surgery (SDC) | payer MEDICARE, BC ==
[2019-11-14 13:39] VITALS: BMI 45.7
[2019-11-16] MEDS ORDERED: SODIUM CHLORIDE 0.9% 1,000 ML in EMPTY BAG 1 BAG IV ONE (06:02)
[2019-11-16] MEDS ORDERED: ALPRAZolam 0.25 MG TAB PO PRN (06:02)
[2019-11-16] MEDS ORDERED: ASPIRIN 325 MG TAB ONE (06:34)
[2019-11-16 06:50] LABS: Glucose,Whole Blood 125 mg/dL (75-99)
[2019-11-16 06:54] LABS: Basophils # (A) 0.1 k/uL (0-0.2); Basophils % (A) 1 %; Eosinophils # (A) 0.3 k/uL (0-0.7); Eosinophils % (A) 3 %; HCT 41.9 % (34.0-46.0); HGB 13.2 gm/dL (11.4-16.0); Lymphocytes # (A) 0.7 k/uL (1.0-4.8); Lymphocytes % (A) 8 %; MCH 28.9 pg (25.0-35.0); MCHC 31.4 g/dL (31.0-37.0); Mean Platelet Volume 7.4; Monocytes # (A) 0.4 k/uL (0-1.0); Monocytes % (A) 5 %; Neutrophils # (A) 6.8 k/uL (1.3-7.7); Neutrophils % (A) 82 %; Platelet Count 219 k/uL (150-450); RBC 4.56 m/uL (3.80-5.40); RDW 15.8 % (11.5-15.5); WBC 8.3 k/uL (3.8-10.6)
[2019-11-16 07:01] LABS: Prothrombin Time 10.4 sec (9.0-12.0)
[2019-11-16 07:14] LABS: African American GFR (CKD) >90 (>60 ml/min/1.73 sqM); Anion Gap 8 mmol/L; Blood Urea Nitrogen 22 mg/dL (7-17); Calcium 9.1 mg/dL (8.4-10.2); Carbon Dioxide 26 mmol/L (22-30); Chloride 107 mmol/L (98-107); Glucose 127 mg/dL (74-99); Non-African American GFR(CKD) 87 (>60 ml/min/1.73 sqM); Potassium 4.4 mmol/L (3.5-5.1); Sodium 141 mmol/L (137-145)
[2019-11-16] MEDS ORDERED: LIDOCAINE 1% INJ 10MG/ML (20 ML MDV) SQ ONE (07:56)
[2019-11-16] MEDS ORDERED: MIDAZOLAM 2 MG/2 ML VIAL IV ONE (08:05)
[2019-11-16] MEDS ORDERED: fentaNYL (PF) 50 MCG/ML 2 ML AMP IV ONE (08:05)
[2019-11-16] MEDS: HYDROmorphone 1 MG/ML 1 ML SYRINGE IVP ONE ×2 (08:38→08:52)
[2019-11-16] MEDS ORDERED: NITROGLYCERIN SL TABS 0.4 MG TAB SUBLINGUAL PRN (09:15)
[2019-11-16] MEDS ORDERED: RX INFO: IV CONTRAST WAS GIVEN 1 EACH MISC MISCELLANE PRN (09:15)
[2019-11-16] MEDS ORDERED: ZOLPIDEM 5 MG TAB PO PRN (09:15)
[2019-11-16] MEDS ORDERED: ATROPINE SULFATE 0.1 MG/ML 10ML SYRINGE IV PRN (09:15)
[2019-11-16] MEDS ORDERED: SODIUM CHLORIDE 0.9% 1,000 ML IV SCH (09:15)
[2019-11-16] MEDS ORDERED: MAG HYDROX/AL HYDROX/SIMETH 30 ML CUP PO PRN (09:15)
[2019-11-16] MEDS ORDERED: IOPAMIDOL-250 100ML BTL INTRAARTER ONE (09:16)
[2019-11-16] MEDS ORDERED: CLOPIDOGREL 75 MG TAB PO ONE (09:17)
--- NOTE | 2019-11-16 10:12 | AN ---
ANGIOGRAPHY REPORT PERCUTANEOUS PERIPHERAL INTERVENTION: DATE OF SERVICE: November 16, 2019. PERFORMING PHYSICIAN: Nikolas Nina MD. PROCEDURE PERFORMED: 1. Right cphvz-bva-wnnr angiogram. 2. Successful crossing chronic total occlusion of the right posterior tibial artery. 3. Successful balloon angioplasty of the right posterior tibial artery with reduction of stenosis from 100% to 0%. 4. Selective left common femoral artery angiogram. INDICATION: This is a 64-year-old female patient who sees Dr. Dickson in the office as an outpatient with diabetes, who was diagnosed recently with critical limb ischemia of the right foot. She underwent an angiogram which revealed normal aortoiliacs and normal fem-pop segments. She did have severe dhaoj-lyu-capx disease bilaterally. Because of that, she was brought today to undergo an angioplasty of the right posterior tibial artery. APPROACH: Left common femoral artery. COMPLICATION: None. LEVEL OF SEDATION: Moderate with sedation length of 80 minutes. PROCEDURE DESCRIPTION: After obtaining an informed consent, the patient was brought to the cardiac photographic laboratory technician. The left common femoral artery was cannulated using micropuncture technique and a micropuncture wire passed easily then I placed a 70 cm 6-[place] Raabe sheath across the left groin. After that I did go up and over using a 0.035 Niland Advantage wire and Rim catheter. The long sheath was advanced all the way to the right mid SFA. Selective left atdsh-osq-pkih angiogram was performed and revealed severe below-the- knee disease with occluded anterior tibial as well as posterior tibial as well as peroneal. At that point, anticoagulation was initiated using heparin. I did cross the chronic total occlusion initially using an 0.014 wire, but I was unsuccessful then 0.018 yin tip glidewire with the backup support of 0.018 Quick- Cross catheter. Subsequently, I did inject contrast in the left posterior tibial artery to prove that I was in the true lumen. Balloon angioplasty was performed using initially a 2 mm balloon and then 2.5 x 120 mm chocolate balloon. The following angiogram showed excellent angiographic results and the procedure was completed without any complication. After that I did exchange my long sheath into short sheath using 0.035 Nil[employer] Advantage wire. Then I did selective left common femoral artery angiogram. The procedure was completed without any complication. POSTPROCEDURE MANAGEMENT: 1. Dual antiplatelet therapy. 2. Risk factors modifications. 3. Follow up with the patient. MMODL / IJN: [id number] /
--- NOTE | 2019-11-16 12:12 | IR ---
EXAMINATION TYPE: IR angio lower extremity RT DATE OF EXAM: 11/16/2019 COMPARISON: NONE HISTORY: Fluoroscopy time. Fluoroscopy was provided to the referring clinician.
[2019-11-16] MEDS ORDERED: hydrALAZINE HCL 20 MG/ML 1 ML VIAL ONE (12:18)
[2019-11-16 16:14] VITALS: BP 125/76; PULSE 94; RESP 18; TEMP 97.9
[2019-11-16] MEDS ORDERED: ACETAMINOPHEN TAB 500 MG TAB PO STA (16:17)
[2019-11-16 16:42] LABS: Glucose,Whole Blood 184 mg/dL (75-99)
== END 2019-11-16 18:40 | disposition home or self-care (01) ==
LOC: CATHCVL 05:53 → 3SCARD 09:15 → CATHCVL 18:40
PROVIDERS: ATTEND Internal Medicine Interventional Cardiology
DX: E11.51 Type 2 diabetes mellitus with diabetic peripheral angiopathy without gangrene (principal); I70.235 Atherosclerosis of native arteries of right leg with ulceration of other part of foot; I70.92 Chronic total occlusion of artery of the extremities; E11.621 Type 2 diabetes mellitus with foot ulcer; L97.519 Non-pressure chronic ulcer of other part of right foot with unspecified severity; I10 Essential (primary) hypertension; I25.10 Atherosclerotic heart disease of native coronary artery without angina pectoris; Z95.5 Presence of coronary angioplasty implant and graft; E78.5 Hyperlipidemia, unspecified; Z87.891 Personal history of nicotine dependence; Z86.718 Personal history of other venous thrombosis and embolism; Z79.01 Long term (current) use of anticoagulants; Z79.82 Long term (current) use of aspirin; Z79.890 Hormone replacement therapy; Z79.4 Long term (current) use of insulin; Z79.899 Other long term (current) drug therapy
CPT/HCPCS: 37228; 80048; 85025; 85610; C1894; C1769 ×3; C1887; C1725 ×2; J2250; J0360; J2001; J3010; J1170; J1644; Q9966

== ENCOUNTER 2019-12-04 17:55 | Emergency (ER) | payer MEDICARE, BC ==
[2019-12-04 18:05] VITALS: TEMP 98.9
[2019-12-04 18:58] LABS: Basophils % (A) 0 %; Eosinophils # (A) 0.2 k/uL (0-0.7); Eosinophils % (A) 2 %; HCT 41.3 % (34.0-46.0); HGB 12.8 gm/dL (11.4-16.0); Lymphocytes # (A) 0.6 k/uL (1.0-4.8); Lymphocytes % (A) 7 %; MCH 28.9 pg (25.0-35.0); MCHC 31.1 g/dL (31.0-37.0); Mean Platelet Volume 7.7; Monocytes # (A) 0.5 k/uL (0-1.0); Monocytes % (A) 6 %; Neutrophils # (A) 7.4 k/uL (1.3-7.7); Neutrophils % (A) 82 %; Platelet Count 231 k/uL (150-450); RBC 4.44 m/uL (3.80-5.40); RDW 15.3 % (11.5-15.5)
[2019-12-04 19:00] LABS: ALT 9 U/L (4-34); AST 17 U/L (14-36); African American GFR (CKD) >90 (>60 ml/min/1.73 sqM); Albumin 3.6 g/dL (3.5-5.0); Alkaline Phosphatase 49 U/L (38-126); Anion Gap 9 mmol/L; Blood Urea Nitrogen 20 mg/dL (7-17); Carbon Dioxide 25 mmol/L (22-30); Chloride 107 mmol/L (98-107); Glucose 86 mg/dL (74-99); Magnesium 1.7 mg/dL (1.6-2.3); Non-African American GFR(CKD) 80 (>60 ml/min/1.73 sqM); Potassium 4.1 mmol/L (3.5-5.1); Sodium 141 mmol/L (137-145); Total Bilirubin 0.4 mg/dL (0.2-1.3); Total Protein 6.5 g/dL (6.3-8.2)
[2019-12-04 19:02] LABS: INR 1.1 (<1.2); Partial Thromboplastin Time 23.8 sec (22.0-30.0); Prothrombin Time 11.5 sec (9.0-12.0)
--- NOTE | 2019-12-04 19:03 | ED ---
General Adult HPI - General Chief complaint: Back Pain/Injury Stated complaint: back pain Time Seen by Provider: 12/04/19 18:17 Source: EMS Mode of arrival: EMS Limitations: physical limitation - History of Present Illness Initial comments: 64-year-old female patient presents to the emergency department today for evaluation of mid thoracic back pain. Patient states this started on 3 PM this afternoon and has been worsening. Patient states the pain has been persistent. Denies any radiation through to her chest. Denies shortness of breath. Denies a ny abdominal pain, nausea, vomiting, sweats, dizziness, or weakness. Patient states she does have a history of coronary artery disease and has 2 stents. States her symptoms were different with those episodes. She denies any known aortic aneurysm. States that she has had an intermittent cough. Denies sputum production. Denies any fever or chills. Patient denies any recent rash, fever, chills, shortness or breath, chest pain, diarrhea, constipation, numbness, tingling, dizziness, weakness, hematuria, dysuria, urinary urgency, urinary frequency, headache, visual changes, or any other complaints. - Related Data Home Medications Medication Instructions Recorded Confirmed INSULIN LISPRO (humaLOG) [humaLOG] See Protocol SQ AC-TID 04/10/14 12/04/19 Levothyroxine Sodium 125 mcg PO DAILY 04/12/19 12/04/19 Teriflunomide [Aubagio] 14 mg PO HS 04/12/19 12/04/19 Acetaminophen Tab [Tylenol] 500 mg PO Q6HR PRN 08/25/19 12/04/19 Cyclobenzaprine [Flexeril] 10 mg PO TID PRN 08/25/19 12/04/19 Insulin Glargine [Lantus] 20 unit SQ HS 08/25/19 12/04/19 amLODIPine BESYLATE [Norvasc] 10 mg PO DAILY 08/25/19 12/04/19 Warfarin [Coumadin] 2.5 mg PO SA 11/14/19 12/04/19 Warfarin [Coumadin] 5 mg PO MOTUWETHFR 11/14/19 12/04/19 Aspirin EC [Ecotrin Low Dose] 81 mg PO DAILY 12/04/19 12/04/19 Atorvastatin [Lipitor] 40 mg PO HS 12/04/19 12/04/19 Lisinopril [Prinivil] 10 mg PO DAILY 12/04/19 12/04/19 Previous Rx's Medication Instructions Recorded Clopidogrel Bisulfate [Plavix] 75 mg PO DAILY #30 tab 11/16/19 Allergies Allergy/AdvReac Type Severity Reaction Status Date / Time No Known Allergies Allergy Verified 12/04/19 19:22 Review of Systems ROS Statement: Those systems with pertinent positive or pertinent negative responses have been documented in the HPI. ROS Other: All systems not noted in ROS Statement are negative. Past Medical History Past Medical History: Chest Pain / Angina, Heart Failure, COPD, Diabetes Mellitus, Deep Vein Thrombosis (DVT), Hyperlipidemia, Hypertension, Musculoskeletal Disorder, Sleep Apnea/CPAP/BIPAP, Thyroid Disorder Additional Past Medical History / Comment(s): MS, current wound on rt leg great toe, dressing on, STATES PAIN ALL OVER., COPD (NO RX), OXYGEN AT 2 LITERS @ HS AND PRN, USES WHEELCHAIR., DYSPHAGIA. History of Any Multi-Drug Resistant Organisms: None Reported Past Surgical History: Bariatric Surgery, Heart Catheterization With Stent, Orthopedic Surgery Additional Past Surgical History / Comment(s): 11/02/19 angiogram, L CARPAL TUNNEL, GASTRIC SLEEVE ([facility]) wound center patient Past Anesthesia/Blood Transfusion Reactions: No Reported Reaction Additional Past Anesthesia/Blood Transfusion Reaction / Comment(s): . Date of Last Stent Placement:: March 2013, 2 stents placed @ [facility] Past Psychological History: No Psychological Hx Reported Smoking Status: Never smoker Past Alcohol Use History: None Reported Past Drug Use History: None Reported - Past Family History Father History Unknown: Yes Family Medical History: Cancer, COPD, Diabetes Mellitus, Myocardial Infarction ([place]) Mother History Unknown: Yes Family Medical History: Diabetes Mellitus, Deep Vein Thrombosis (DVT), Myocardial Infarction ([place]) General Exam Limitations: physical limitation General appearance: alert, in no apparent distress, other (Physical well-develo ped, well-nourished adult female patient in no acute distress. Vital signs upon presentation are temperature 98.9F, pulse 93, respirations 17, blood pressure 142/59, pulse ox 98% on room air.) Eye exam: Present: normal appearance, PERRL, EOMI. Absent: scleral icterus, con junctival injection, periorbital swelling ENT exam: Present: normal exam, normal oropharynx, mucous membranes moist Respiratory exam: Present: normal lung sounds bilaterally. Absent: respiratory distress, wheezes, rales, rhonchi, stridor Cardiovascular Exam: Present: regular rate, normal rhythm, normal heart sounds. Absent: systolic murmur, diastolic murmur, rubs, gallop, clicks GI/Abdominal exam: Present: soft, normal bowel sounds. Absent: distended, tenderness, guarding, rebound, rigid Back exam: Present: normal inspection. Absent: vertebral tenderness Neurological exam: Present: alert, oriented X3, CN II-XII intact Psychiatric exam: Present: normal affect, normal mood Skin exam: Present: warm, dry, intact, normal color. Absent: rash Course Vital Signs 12/04/19 12/04/19 18:02 20:39 Temperature 98.9 F 98.9 F Pulse Rate 93 87 Respiratory 17 19 Rate Blood Pressure 142/59 121/57 O2 Sat by Pulse 98 98 Oximetry EKG Findings - EKG Comments: EKG Findings:: EKG obtained at 1847 shows sinus rhythm with PACs, there is some left axis deviation. Ventricular rate is 86, CT interval 162, QRS duration 86, QT 372, QTc 445. No evidence of ST elevation or depression. Medical Decision Making - Medical Decision Making 64-year-old female patient presents to the emergency department today for evaluation of mid thoracic back pain. Physical examination did reveal clear equal lung sounds. The pain is not reproducible palpation. She states it does not worsen with movement. Labs reviewed and are unremarkable. Troponin negative. Did add d-dimer which was positive at 0.62. Perform CT angiography of the chest which was negative for pulmonary and was evidence for aortic aneurysm or dissection. I had patient was given a small dose of Toradol, she does report improvement of symptoms with this medication. Given negative workup it is felt her symptoms are most likely from musculoskeletal back pain. She'll be discharged home to follow-up with her primary care physician for recheck in 1-2 days. Return parameters were discussed in detail. She verbalizes understanding and agrees with this plan. - Lab Data Result diagrams: 12/04/19 18:35 12/04/19 18:35 Lab Results 12/04/19 12/04/19 12/04/19 Range/Units 18:35 18:35 18:35 WBC 9.0 (3.8-10.6) k/uL RBC 4.44 (3.80-5.40) m/uL Hgb 12.8 (11.4-16.0) gm/dL Hct 41.3 (34.0-46.0) % MCV 93.0 (80.0-100.0) fL MCH 28.9 (25.0-35.0) pg MCHC 31.1 (31.0-37.0) g/dL RDW 15.3 (11.5-15.5) % Plt Count 231 (150-450) k/uL Neutrophils % 82 % Lymphocytes % 7 % Monocytes % 6 % Eosinophils % 2 % Basophils % 0 % Neutrophils # 7.4 (1.3-7.7) k/uL Lymphocytes # 0.6 L (1.0-4.8) k/uL Monocytes # 0.5 (0-1.0) k/uL Eosinophils # 0.2 (0-0.7) k/uL Basophils # 0.0 (0-0.2) k/uL PT 11.5 (9.0-12.0) sec INR 1.1 (<1.2) APTT 23.8 (22.0-30.0) sec D-Dimer (<0.60) mg/L FEU Sodium 141 (137-145) mmol/L Potassium 4.1 (3.5-5.1) mmol/L Chloride 107 (98-107) mmol/L Carbon Dioxide 25 (22-30) mmol/L Anion Gap 9 mmol/L BUN 20 H (7-17) mg/dL Creatinine 0.79 (0.52-1.04) mg/dL Est GFR (CKD-EPI)AfAm >90 (>60 ml/min/1.73 sqM) Est GFR (CKD-EPI)NonAf 80 (>60 ml/min/1.73 sqM) Glucose 86 (74-99) mg/dL Calcium 9.0 (8.4-10.2) mg/dL Magnesium 1.7 (1.6-2.3) mg/dL Total Bilirubin 0.4 (0.2-1.3) mg/dL AST 17 (14-36) U/L ALT 9 (4-34) U/L Alkaline Phosphatase 49 (38-126) U/L Troponin I (0.000-0.034) ng/mL Total Protein 6.5 (6.3-8.2) g/dL Albumin 3.6 (3.5-5.0) g/dL Lipase 113 (23-300) U/L Urine Color Urine Appearance (Clear) Urine pH (5.0-8.0) Ur Specific [place] (1.001-1.035) Urine Protein (Negative) Urine Glucose (UA) (Negative) Urine Ketones (Negative) Urine Blood (Negative) Urine Nitrite (Negative) Urine Bilirubin (Negative) Urine Urobilinogen (<2.0) mg/dL Ur Leukocyte Esterase (Negative) Urine RBC (0-5) /hpf Urine WBC (0-5) /hpf Ur Squamous Epith Cells (0-4) /hpf Urine Mucus (None) /hpf 12/04/19 12/04/19 12/04/19 Range/Units 18:35 18:35 20:00 WBC (3.8-10.6) k/uL RBC (3.80-5.40) m/uL Hgb (11.4-16.0) gm/dL Hct (34.0-46.0) % MCV (80.0-100.0) fL MCH (25.0-35.0) pg MCHC (31.0-37.0) g/dL RDW (11.5-15.5) % Plt Count (150-450) k/uL Neutrophils % % Lymphocytes % % Monocytes % % Eosinophils % % Basophils % % Neutrophils # (1.3-7.7) k/uL Lymphocytes # (1.0-4.8) k/uL Monocytes # (0-1.0) k/uL Eosinophils # (0-0.7) k/uL Basophils # (0-0.2) k/uL PT (9.0-12.0) sec INR (<1.2) APTT (22.0-30.0) sec D-Dimer 0.62 H (<0.60) mg/L FEU Sodium (137-145) mmol/L Potassium (3.5-5.1) mmol/L Chloride (98-107) mmol/L Carbon Dioxide (22-30) mmol/L Anion Gap mmol/L BUN (7-17) mg/dL Creatinine (0.52-1.04) mg/dL Est GFR (CKD-EPI)AfAm (>60 ml/min/1.73 sqM) Est GFR (CKD-EPI)NonAf (>60 ml/min/1.73 sqM) Glucose (74-99) mg/dL Calcium (8.4-10.2) mg/dL Magnesium (1.6-2.3) mg/dL Total Bilirubin (0.2-1.3) mg/dL AST (14-36) U/L ALT (4-34) U/L Alkaline Phosphatase (38-126) U/L Troponin I <0.012 (0.000-0.034) ng/mL Total Protein (6.3-8.2) g/dL Albumin (3.5-5.0) g/dL Lipase (23-300) U/L Urine Color Yellow Urine Appearance Clear (Clear) Urine pH 5.5 (5.0-8.0) Ur Specific [place] 1.020 (1.001-1.035) Urine Protein Negative (Negative) Urine Glucose (UA) Negative (Negative) Urine Ketones Negative (Negative) Urine Blood Negative (Negative) Urine Nitrite Negative (Negative) Urine Bilirubin Negative (Negative) Urine Urobilinogen <2.0 (<2.0) mg/dL Ur Leukocyte Esterase Trace H (Negative) Urine RBC <1 (0-5) /hpf Urine WBC 3 (0-5) /hpf Ur Squamous Epith Cells 2 (0-4) /hpf Urine Mucus Rare H (None) /hpf - Radiology Data Radiology results: report reviewed, image reviewed Two-view x-ray of the chest is obtained. Report was reviewed in its entirety. Impression by Dr. Serrano shows mild cardiomegaly. No acute lung disease. Inspiration improved compared to old exam. CT chest angiography for pulmonary embolism was obtained. Report was reviewed in its entirety. Impression by Dr. Lindsey shows no evidence of pulmonary embolism. Small hiatal hernia noted. Disposition Clinical Impression: Thoracic back pain Disposition: HOME SELF-CARE Condition: Good Instructions (If sedation given, give patient instructions): Back Pain (ED) Additional Instructions: Take Tylenol Motrin for pain control. Follow-up with your primary care physician for recheck in 1-2 days. Return to the emergency department immediately for any new, worsening, or concerning symptoms. Is patient prescribed a controlled substance at d/c from ED?: No Referrals: Basha,Martin, DO [Primary Care Provider] - 1-2 days Time of Disposition: 22:16
--- NOTE | 2019-12-04 19:22 | XR ---
EXAMINATION TYPE: XR chest 2V DATE OF EXAM: 12/04/2019 COMPARISON: 08/26/2019 HISTORY: Chest pain TECHNIQUE: FINDINGS: Heart appears slightly enlarged. There is no heart failure. Lungs are clear of infiltrate. There is no pleural effusion. There are chest leads. Bony thorax appears intact. IMPRESSION: Mild cardiomegaly. No acute lung disease. Inspiration improved compared to old exam.
[2019-12-04 20:12] LABS: Appearance,Urine Clear (Clear); Bilirubin,Urine Negative (Negative); Blood,Urine Negative (Negative); Color,Urine Yellow; Glucose,Urine (UA) Negative (Negative); Ketones,Urine Negative (Negative); Leukocyte Esterase,Urine Trace (Negative); Mucus,Urine Rare /hpf; Nitrite,Urine Negative (Negative); PH, Urine 5.5 (5.0-8.0); Protein,Urine Negative (Negative); RBC,Urine <1 /hpf (0-5); Squamous Epithelial Cell,Urine 2 /hpf (0-4); Urobilinogen,Urine <2.0 mg/dL (<2.0); WBC,Urine 3 /hpf (0-5)
[2019-12-04] MEDS ORDERED: SODIUM CHLORIDE 0.9% 500 ML 500 ML IV ONE (20:31)
[2019-12-04] MEDS ORDERED: KETOROLAC 30 MG/ML 1 ML VIAL IVP STA (20:32)
[2019-12-04 20:44] VITALS: BP 121/57; PULSE 87; RESP 19
--- NOTE | 2019-12-04 22:03 | CT ---
EXAMINATION TYPE: CT chest angio for PE DATE OF EXAM: 12/04/2019 COMPARISON: None HISTORY: Upper back pain, elevated d-dimer CT DLP: 829.8 mGycm Automated exposure control for dose reduction was used. CONTRAST: Performed with IV Contrast, patient injected with 80 mL of Isovue 370. There are 3-D post processed images. The lungs are clear of consolidation. There is no evidence of a pulmonary mass. There is minimal subs egmental atelectasis at the lung bases. There is no pericardial effusion. There is no pleural effusio n. There is no mediastinal adenopathy. There are no hilar masses. There is normal contrast opacification of the pulmonary arteries. There are no filling defects. There is hiatal hernia noted. Thoracic aorta is atheromatous. There is no aneurysm or dissection. The bony thorax is intact. There is spurring in the thoracic spine. I see no bony destructive process. IMPRESSION: No evidence of pulmonary embolism. Small hiatal hernia noted.
== END 2019-12-04 22:32 | disposition home or self-care (01) ==
LOC: EC 17:55
DX: M54.6 Pain in thoracic spine (principal); I11.0 Hypertensive heart disease with heart failure; I50.9 Heart failure, unspecified; E11.9 Type 2 diabetes mellitus without complications; E07.9 Disorder of thyroid, unspecified; G47.30 Sleep apnea, unspecified; Z79.01 Long term (current) use of anticoagulants; Z79.82 Long term (current) use of aspirin; Z79.4 Long term (current) use of insulin; Z79.890 Hormone replacement therapy; Z79.899 Other long term (current) drug therapy; Z98.84 Bariatric surgery status; Z95.5 Presence of coronary angioplasty implant and graft; Z99.89 Dependence on other enabling machines and devices; Z86.718 Personal history of other venous thrombosis and embolism
CPT/HCPCS: 36415; 93005; 85379; 80053; 83690; 83735; 84484; 85025; 85610; 85730; 81001; 71046; 71275; 99285; 96374; 96361 ×2; J1885; Q9967

== ENCOUNTER → 2020-08-19 | Outpatient (CLI) | payer MEDICARE, BC ==
[2020-08-19 15:42] LABS: Basophils % (A) 0 %; Eosinophils # (A) 0.1 k/uL (0-0.7); Eosinophils % (A) 2 %; HCT 41.8 % (34.0-46.0); HGB 13.1 gm/dL (11.4-16.0); Hypochromasia Slight; Lymphocytes # (A) 0.8 k/uL (1.0-4.8); Lymphocytes % (A) 10 %; MCH 27.7 pg (25.0-35.0); MCHC 31.3 g/dL (31.0-37.0); MCV 88.6 fL (80.0-100.0); Mean Platelet Volume 6.7; Monocytes # (A) 0.5 k/uL (0-1.0); Monocytes % (A) 5 %; Neutrophils # (A) 6.8 k/uL (1.3-7.7); Neutrophils % (A) 81 %; Platelet Count 283 k/uL (150-450); RBC 4.71 m/uL (3.80-5.40); RDW 14.6 % (11.5-15.5); WBC 8.4 k/uL (3.8-10.6)
[2020-08-19 21:15] LABS: Hemoglobin A1C 6.3 % (4.0-6.0)
[2020-08-20 01:27] LABS: T4, Free (Free Thyroxine) 1.4 ng/dL (0.80-1.80)
== END | disposition home or self-care (01) ==
LOC: LABWHC1 14:54
PROVIDERS: ATTEND Internal Medicine Critical Care Medicine
DX: E78.5 Hyperlipidemia, unspecified (principal); I82.409 Acute embolism and thrombosis of unspecified deep veins of unspecified lower extremity; G35 Multiple sclerosis; E11.9 Type 2 diabetes mellitus without complications; M86.9 Osteomyelitis, unspecified
CPT/HCPCS: 36415; 82306; 82947; 83036; 84439; 84481; 85025

== ENCOUNTER 2020-10-20 18:05 | Emergency (ER) | payer MEDICARE, BC ==
[2020-10-20 18:14] VITALS: BP 113/56; PULSE 85; RESP 18; TEMP 98
[2020-10-20] MEDS ORDERED: HYDROcodone/APAP 5-325MG 1 EACH TAB PO STA (18:27)
--- NOTE | 2020-10-20 18:28 | ED ---
General Adult HPI - General Chief complaint: Wound/Laceration Stated complaint: Right toe pain Time Seen by Provider: 10/20/20 18:15 Source: patient, RN notes reviewed, old records reviewed Mode of arrival: ambulatory Limitations: no limitations - History of Present Illness Initial comments: 65-year-old female with chronic wound to the right toe. Patient is presenting with pain that is not being treated well with [id number] Tylenol. No fever or chills. She has an appointment with her vascular surgeon Dr. Dickson tomorrow for wound evaluation. She has been following with the wound clinic regarding this for some time. Her only complaint is increased pain, no increased swelling, no increased redness. She has had a dressing on for the pa st 6 days and is scheduled to see the wound clinic and Dr. Dickson tomorrow morning. - Related Data Home Medications Medication Instructions Recorded Confirmed INSULIN LISPRO (humaLOG) [humaLOG] See Protocol SQ AC-TID 04/10/14 12/04/19 Levothyroxine Sodium 125 mcg PO DAILY 04/12/19 12/04/19 Teriflunomide [Aubagio] 14 mg PO HS 04/12/19 12/04/19 Acetaminophen Tab [Tylenol] 500 mg PO Q6HR PRN 08/25/19 12/04/19 Cyclobenzaprine [Flexeril] 10 mg PO TID PRN 08/25/19 12/04/19 Insulin Glargine [Lantus] 20 unit SQ HS 08/25/19 12/04/19 amLODIPine BESYLATE [Norvasc] 10 mg PO DAILY 08/25/19 12/04/19 Warfarin [Coumadin] 2.5 mg PO SA 11/14/19 12/04/19 Warfarin [Coumadin] 5 mg PO MOTUWETHFR 11/14/19 12/04/19 Aspirin EC [Ecotrin Low Dose] 81 mg PO DAILY 12/04/19 12/04/19 Atorvastatin [Lipitor] 40 mg PO HS 12/04/19 12/04/19 Lisinopril [Prinivil] 10 mg PO DAILY 12/04/19 12/04/19 Previous Rx's Medication Instructions Recorded Clopidogrel Bisulfate [Plavix] 75 mg PO DAILY #30 tab 11/16/19 HYDROcodone/APAP 5-325MG [Fifty Six 1 tab PO Q6HR PRN #12 tab 10/20/20 5-325] Allergies Allergy/AdvReac Type Severity Reaction Status Date / Time No Known Allergies Allergy Verified 10/20/20 18:11 Review of Systems ROS Statement: Those systems with pertinent positive or pertinent negative responses have been documented in the HPI. ROS Other: All systems not noted in ROS Statement are negative. Past Medical History Past Medical History: Chest Pain / Angina, Heart Failure, COPD, Diabetes Mellitus, Deep Vein Thrombosis (DVT), Hyperlipidemia, Hypertension, Musculoskeletal Disorder, Sleep Apnea/CPAP/BIPAP, Thyroid Disorder Additional Past Medical History / Comment(s): MS, current wound on rt leg great toe, dressing on, STATES PAIN ALL OVER., COPD (NO RX), OXYGEN AT 2 LITERS @ HS AND PRN, USES WHEELCHAIR., DYSPHAGIA. History of Any Multi-Drug Resistant Organisms: None Reported Past Surgical History: Bariatric Surgery, Heart Catheterization With Stent, Orthopedic Surgery Additional Past Surgical History / Comment(s): 11/02/19 angiogram, L CARPAL TUNNEL, GASTRIC SLEEVE ([facility]) wound center patient Past Anesthesia/Blood Transfusion Reactions: No Reported Reaction Additional Past Anesthesia/Blood Transfusion Reaction / Comment(s): . Date of Last Stent Placement:: March 2013, 2 stents placed @ [facility] Past Psychological History: No Psychological Hx Reported Smoking Status: Former smoker Past Alcohol Use History: Rare Past Drug Use History: None Reported - Past Family History Father History Unknown: Yes Family Medical History: Cancer, COPD, Diabetes Mellitus, Myocardial Infarction ([place]) Mother History Unknown: Yes Family Medical History: Diabetes Mellitus, Deep Vein Thrombosis (DVT), Myocardial Infarction ([place]) General Exam Limitations: no limitations General appearance: alert, in no apparent distress Head exam: Present: atraumatic, normocephalic Eye exam: Present: normal appearance, PERRL ENT exam: Present: normal exam Neck exam: Present: normal inspection. Absent: tenderness, meningismus Respiratory exam: Present: normal lung sounds bilaterally. Absent: respiratory distress, wheezes Cardiovascular Exam: Present: regular rate, normal rhythm Extremities exam: Present: other (Dressing is clean dry and intact over the right great toe. There is some minimal erythema to the toe and wound on the plantar surface. Overall this appears appropriate healing with wound care.) Course Vital Signs 10/20/20 18:11 Temperature 98 F Pulse Rate 85 Respiratory 18 Rate Blood Pressure 113/56 O2 Sat by Pulse 100 Oximetry Medical Decision Making - Medical Decision Making Patient is afebrile, nontoxic, wound appears chronic with no signs of acute cellulitis, no systemic signs of infection. Patient prescribed Fifty Six for increased pain control and she will maintain her appointment with vascular surgery and the wound center tomorrow. Disposition Clinical Impression: Diabetic foot ulcer Disposition: HOME SELF-CARE Condition: Fair Instructions (If sedation given, give patient instructions): Diabetic Foot Ulcers (ED) Prescriptions: HYDROcodone/APAP 5-325MG [Fifty Six 5-325] 1 tab PO Q6HR PRN #12 tab PRN Reason: Pain Is patient prescribed a controlled substance at d/c from ED?: No Referrals: Martin Cuello DO [Primary Care Provider] - 1-2 days Chris Dickson MD [STAFF PHYSICIAN] - 1-2 days Time of Disposition: 18:28
== END 2020-10-20 18:59 | disposition home or self-care (01) ==
LOC: EC 18:05
DX: E11.621 Type 2 diabetes mellitus with foot ulcer (principal); L97.529 Non-pressure chronic ulcer of other part of left foot with unspecified severity; I11.0 Hypertensive heart disease with heart failure; I50.9 Heart failure, unspecified; E78.5 Hyperlipidemia, unspecified; G47.30 Sleep apnea, unspecified; G35 Multiple sclerosis; Z79.4 Long term (current) use of insulin; Z79.01 Long term (current) use of anticoagulants; Z79.82 Long term (current) use of aspirin; Z79.899 Other long term (current) drug therapy; Z87.891 Personal history of nicotine dependence; Z86.718 Personal history of other venous thrombosis and embolism; Z99.89 Dependence on other enabling machines and devices; Z95.5 Presence of coronary angioplasty implant and graft
CPT/HCPCS: 99283

== ENCOUNTER → 2020-11-11 | Outpatient (CLI) | payer MEDICARE, BC ==
--- NOTE | 2020-11-11 13:43 | NM ---
EXAMINATION TYPE: NM bone 3 phase DATE OF EXAM: 11/11/2020 COMPARISON: Prior bone scan 04/14/2019 HISTORY: L97.519 Triple phase bone scintigraphy was performed following the injection of 24.5 mCi Tc 99m MDP. Immedia te images and 4 hours post injection images acquired Limited scanning performed at the level of the f eet and ankles. FINDINGS: There is increased blood flow, blood pool activity to the right lower extremity as compared to the le ft with uptake especially noted at the first digit of the right foot which is more focal on delayed i mages. IMPRESSION: Findings consistent with osteomyelitis first digit right foot.
== END | disposition home or self-care (01) ==
LOC: RADNMMAIN 08:29
PROVIDERS: ATTEND Thoracic Surgery (Cardiothoracic Vascular Surgery)
DX: L97.519 Non-pressure chronic ulcer of other part of right foot with unspecified severity (principal)
CPT/HCPCS: 78315; A9503

== ENCOUNTER → 2020-11-13 | Outpatient (CLI) | payer MEDICARE, BC ==
--- NOTE | 2020-11-20 11:01 | P.ARTDOP ---
Arterial Doppler LOWER EXTREMITY ARTERIAL DOPPLER: DATE OF SERVICE: 11/13/2020 Reason for study: Right great toe ulcer. Doppler waveforms: Multiphasic throughout on the left but poor toe waveforms. Multiphasic including popliteal and posterior tibial on the right dorsalis pedis is monophasic. Pulse volume recording: []. Pressure gradients: Across the knee on the right and somewhat below the knee on the right.. Ankle-brachial indices: 0.56 on the right and greater than 1 on the left. Toe brachial indices: [] on the right, [] on the left Impression: Suspect diffuse calcific wall disease. At least moderate femoral popliteal and infrapopliteal disease on the right. Clinical correlation recommended. Appears to be mostly infrapopliteal disease..
== END | disposition home or self-care (01) ==
LOC: RADUSWWP 13:14
PROVIDERS: ATTEND Thoracic Surgery (Cardiothoracic Vascular Surgery)
DX: I73.9 Peripheral vascular disease, unspecified (principal)
CPT/HCPCS: 93923

== ENCOUNTER 2020-11-20 10:55 | Day surgery (SDC) | payer MEDICARE, BC ==
[2020-11-15 11:53] VITALS: BMI 46.5
--- NOTE | 2020-11-20 10:38 | P.GSHP ---
History of Present Illness H&P Date: 11/20/20 Chief Complaint: Ulcer right great toe This 65-year-old diabetic patient has had an ulcer on the right great toe for over a year. Recently it deteriorated to the point that bone is exposed and her bone scan is positive prostate myelitis. - Constitutional Constitutional: Denies chills, Denies fever - EENT Eyes: denies blurred vision, denies pain Ears, nose, mouth and throat: Denies headache, Denies sore throat - Cardiovascular Cardiovascular: Denies chest pain, Denies shortness of breath - Respiratory Respiratory: Denies cough, Denies 7 - Gastrointestinal Gastrointestinal: Denies abdominal pain, Denies diarrhea, Denies nausea, Denies vomiting - Genitourinary (Female) Genitourinary: Denies dysuria, Denies hematuria - Genitourinary (Male) Genitourinary: Denies dysuria, Denies hematuria - Musculoskeletal Musculoskeletal: Denies myalgias - Integumentary Integumentary: Denies pruritus, Denies rash - Neurological Neurological: Denies numbness, Denies weakness - Psychiatric Psychiatric: Denies anxiety, Denies depression - Endocrine Endocrine: Denies fatigue, Denies weight change Past Medical History Past Medical History: Coronary Artery Disease (CAD), COPD, Diabetes Mellitus, Deep Vein Thrombosis (DVT), Hypertension, Musculoskeletal Disorder, Osteoarthritis (OA), Sleep Apnea/CPAP/BIPAP, Thyroid Disorder, Vascular Disorder Additional Past Medical History / Comment(s): MS, current wound on rt leg great toe-dressing on, USES WHEELCHAIR- can stand and pivot., DYSPHAGIA. migraines, no cpap used, hx dvt's luke legs, urinary leakage, History of Any Multi-Drug Resistant Organisms: None Reported Past Surgical History: Bariatric Surgery, Heart Catheterization With Stent, Orthopedic Surgery Additional Past Surgical History / Comment(s): 11/02/19 angiogram, L CARPAL TUNNEL, GASTRIC SLEEVE, 2 cardiac stents Past Anesthesia/Blood Transfusion Reactions: Motion Sickness Additional Past Anesthesia/Blood Transfusion Reaction / Comment(s): past motion sickness, never had a transfusion Date of Last Stent Placement:: unknown Smoking Status: Former smoker - Past Family History Father History Unknown: Yes Family Medical History: Cancer Mother History Unknown: Yes Family Medical History: Deep Vein Thrombosis (DVT) Medications and Allergies Home Medications Medication Instructions Recorded Confirmed Type Levothyroxine Sodium 125 mcg PO DAILY 04/12/19 11/15/20 History Acetaminophen Tab [Tylenol] 500 mg PO Q6HR 08/25/19 11/15/20 History Cyclobenzaprine [Flexeril] 10 mg PO TID PRN 08/25/19 11/15/20 History amLODIPine BESYLATE [Norvasc] 10 mg PO DAILY 08/25/19 11/15/20 History Aspirin EC [Ecotrin Low Dose] 81 mg PO DAILY 12/04/19 11/15/20 History Atorvastatin [Lipitor] 40 mg PO HS 12/04/19 11/15/20 History Lisinopril [Prinivil] 10 mg PO DAILY 12/04/19 11/15/20 History Clopidogrel Bisulfate [Plavix] 75 mg PO HS 11/15/20 11/15/20 History Furosemide [Lasix] 40 mg PO QAM 11/15/20 11/15/20 History Insulin Aspart [NovoLOG Flexpen] 0 units SQ 5XD PRN 11/15/20 11/15/20 History Insulin Glargine,Hum.rec.anlog 50 unit SQ DAILY 11/15/20 11/15/20 History [Lantus Solostar] Multivitamins, Thera [Multivitamin 1 tab PO DAILY 11/15/20 11/15/20 History (formulary)] Rivaroxaban [Xarelto] 20 mg PO DAILY 11/15/20 11/15/20 History Allergies Allergy/AdvReac Type Severity Reaction Status Date / Time No Known Allergies Allergy Verified 11/15/20 11:34 Surgical - Exam Osteopathic Statement: *. No significant issues noted on an osteopathic str uctural exam other than those noted in the History and Physical/Consult. - General well developed, well nourished, no distress, obese - Eyes normal ocular movement, no icteric - ENT no hearing loss, no congestion - Neck no masses, trachea midline - Respiratory normal respiratory effort, clear to auscultation - Cardiovascular Rhythm: regular - Abdomen Abdomen: soft, non tender, no guarding, no rigid, no rebound - Integumentary no rash, no abnormal pigmentation - Neurologic no disoriented, no combative - Musculoskeletal Ulcer right great toe medially with bone exposed - Psychiatric oriented to time, oriented to person, oriented to place, speech is normal, memory intact Assessment and Plan (1) Diabetic ulcer of right great toe Status: Acute Code(s): E11.621 - TYPE 2 DIABETES MELLITUS WITH FOOT ULCER; L97.519 - NON-PRS CHRONIC ULCER OTH PRT RIGHT FOOT W UNSP SEVERITY SNOMED Code(s): 00307876 (2) Osteomyelitis of great toe of right foot Status: Acute Code(s): M86.9 - OSTEOMYELITIS, UNSPECIFIED SNOMED Code(s): 959144635 Plan: We discussed in detail with the patient options for therapy. We have recommended amputation of the right great toe. We've discussed with her the need for offloading afterwards. She appears to understand the process and the risks involved and verbalizes her agreement with the plan.
[~2020-11-20 10:55] MED LIST changes: -ALPRAZolam 0.25 MG TAB PO PRN; -ASPIRIN 325 MG TAB PO STA; +DEXAMETHASONE SOD PHOSPHATE 4 MG/ML 1 ML VIAL IV ONE; +LACTATED RINGERS 1,000 ML IV SCH; +LIDOCAINE 1% (10MG/ML) FOR IV START INTRADERMA PRN; +ONDANSETRON 4 MG/2 ML VIAL IVP ONE; -SODIUM CHLORIDE 0.9% 1,000 ML in EMPTY BAG 1 BAG IV ONE; +ceFAZolin 3 GM in SODIUM CHLORIDE 0.9% 100 ML IVPB PRN
[2020-11-20 11:36] VITALS: TEMP 98.7
[2020-11-20 11:41] LABS: Glucose,Whole Blood 98 mg/dL (75-99)
[2020-11-20] MEDS ORDERED: KETAMINE 10 MG/ML 20 ML VIAL ONE (11:55)
[2020-11-20] MEDS ORDERED: fentaNYL (PF) 50 MCG/ML 2 ML AMP ONE (11:55)
[2020-11-20] MEDS ORDERED: PROPOFOL 10 MG/ML 20 ML VIAL IV ONE (11:55)
[2020-11-20] MEDS ORDERED: HYDROmorphone (PF) 1 MG/ML ONE (11:55)
[2020-11-20] MEDS ORDERED: MIDAZOLAM 2 MG/2 ML VIAL ONE (11:55)
[2020-11-20] MEDS ORDERED: LIDOCAINE 1% INJ 10MG/ML (20 ML MDV) ONE (11:55)
[2020-11-20] MEDS ORDERED: HYDROmorphone 0.5 MG/0.5 ML SYRINGE IVP ONE ×5 (12:50→13:27)
[2020-11-20] MEDS ORDERED: HYDROcodone/APAP 7.5-325MG 1 EACH TAB ONE (13:47)
[2020-11-20] MEDS ORDERED: HYDROcodone/APAP 7.5-325MG 1 EACH TAB PO ONE (13:52)
--- NOTE | 2020-11-20 13:56 | P.OP ---
Date of Procedure: 11/20/20 Preoperative Diagnosis: Osteomyelitis right great toe with ulcer Postoperative Diagnosis: Same Procedure(s) Performed: Amputation right great toe through proximal phalanx Anesthesia: MAC Surgeon: Erich Ham Estimated Blood Loss (ml): 10 Pathology: other (Bone specimen for culture) Condition: stable Disposition: PACU Indications for Procedure: The patient had an ulcer on the medial right great toe for a year. Bone scan showed osteomyelitis. Examination of the wound showed it to involve the phalanx. Operative Findings: The blood supply to the residual tissues appeared excellent. The residual bone were divided appeared healthy. There was necrotic bone at the base of the ulcer. Description of Procedure: With the patient spine position, under benefit of IV sedation, we prepped and draped in standard fashion. We performed a somewhat fishmouth incision with leaving more tissue on the lateral side of the great toe, the ulcer being on the medial aspect. We took this directly down to the bone. The majority of the tissue was removed with sharp dissection. We then removed the distal portion of the proximal phalanx with rongeur, taking it up above the level of the soft tissue in the depth of the wound. We irrigated with saline. We closed the wound with interrupted vertical mattress 4-0 nylon. Hemostasis satisfactory. Sterile dressings were applied. The patient tolerated the procedure well and was taken recovery area in stable condition.
[2020-11-20 14:31] VITALS: BP 132/56; PULSE 91; RESP 16
== END 2020-11-20 14:58 | disposition home or self-care (01) ==
LOC: OR 10:55
PROVIDERS: ATTEND Thoracic Surgery (Cardiothoracic Vascular Surgery)
DX: M86.171 Other acute osteomyelitis, right ankle and foot (principal); M86.671 Other chronic osteomyelitis, right ankle and foot; E11.69 Type 2 diabetes mellitus with other specified complication; E11.621 Type 2 diabetes mellitus with foot ulcer; L97.514 Non-pressure chronic ulcer of other part of right foot with necrosis of bone; I25.10 Atherosclerotic heart disease of native coronary artery without angina pectoris; J44.9 Chronic obstructive pulmonary disease, unspecified; I10 Essential (primary) hypertension; M19.90 Unspecified osteoarthritis, unspecified site; E07.9 Disorder of thyroid, unspecified; G35 Multiple sclerosis; G43.909 Migraine, unspecified, not intractable, without status migrainosus; R32 Unspecified urinary incontinence; G47.33 Obstructive sleep apnea (adult) (pediatric); F41.9 Anxiety disorder, unspecified; K21.9 Gastro-esophageal reflux disease without esophagitis; Z79.02 Long term (current) use of antithrombotics/antiplatelets; Z79.01 Long term (current) use of anticoagulants; Z86.718 Personal history of other venous thrombosis and embolism; Z98.84 Bariatric surgery status; Z95.5 Presence of coronary angioplasty implant and graft; Z98.890 Other specified postprocedural states; Z87.898 Personal history of other specified conditions; Z87.891 Personal history of nicotine dependence; Z79.890 Hormone replacement therapy; Z79.899 Other long term (current) drug therapy; Z79.82 Long term (current) use of aspirin; Z79.4 Long term (current) use of insulin; Z97.2 Presence of dental prosthetic device (complete) (partial); Z80.9 Family history of malignant neoplasm, unspecified; Z82.49 Family history of ischemic heart disease and other diseases of the circulatory system
CPT/HCPCS: 88305; 88311; 87070; 87205; 87075; 28160; J2250; J1100; J0690; J2405; J2001; J3010; J1170 ×2; J2704

== ENCOUNTER → 2020-12-11 | Outpatient (CLI) | payer MEDICARE, BC | END | disposition home or self-care (01) | LOC: LABWHC1 12:18 | PROVIDERS: ATTEND Internal Medicine Critical Care Medicine | DX: E11.9 Type 2 diabetes mellitus without complications (principal) | CPT/HCPCS: 36415; 83036 ==

== ENCOUNTER 2021-02-01 16:42 | Inpatient (IN) | payer MEDICARE, BC ==
--- NOTE | 2021-02-01 19:07 | XR ---
EXAMINATION TYPE: XR Hip Complete RT DATE OF EXAM: 02/01/2021 COMPARISON: NONE HISTORY: Right hip pain. TECHNIQUE: 2 views FINDINGS: I see no fracture nor dislocation. Hip joint space is fairly normal. There is no hip dyspla barbara. There is no evidence of a fracture. Sacroiliac joint is intact. IMPRESSION: Negative right hip exam.
[2021-02-01] MEDS ORDERED: DIAZEPAM 5 MG/ML 2 ML INJ IVP STA (19:41)
--- NOTE | 2021-02-01 19:41 | ED ---
Extremity Problem HPI - General Chief complaint: Extremity Problem,Nontraumatic Stated complaint: R hip injury Time Seen by Provider: 02/01/21 18:28 Source: patient, EMS, RN notes reviewed Mode of arrival: EMS Limitations: physical limitation - History of Present Illness Initial comments: 65-year-old white female patient, alert and oriented 4, presents to the emergency room with complaints of using her exercise pants today at 6 AM and developed a sharp shooting pain from her hip all the on the back of her leg to her ankle. Patient states is wheelchair bound normally does not ambulate. Patient given 10 mg of morphine and Zofran by EMS. Patient crying in distress from pain states nothing is working and can't get relief. Patient with a history of coronary artery disease, hypertension, diabetes, DVT, osteoarthritis, vascular disease, COPD. patient takes xeralto and Plavix for DVTs. MD Complaint: extremity pain -: hour(s) (12) Location: right, lower extremity (right hip down to right foot) Radiation: distal Severity scale (1-10): 10 Quality: sharp, other (shooting) Consistency: constant Improves with: nothing Worsens with: other (movement) Associated Symptoms: denies other symptoms - Related Data Home Medications Medication Instructions Recorded Confirmed Levothyroxine Sodium 125 mcg PO DAILY 04/12/19 02/01/21 Cyclobenzaprine [Flexeril] 10 mg PO DAILY PRN 08/25/19 02/01/21 amLODIPine BESYLATE [Norvasc] 10 mg PO DAILY 08/25/19 02/01/21 Aspirin EC [Ecotrin Low Dose] 81 mg PO DAILY 12/04/19 02/01/21 Atorvastatin [Lipitor] 40 mg PO HS 12/04/19 02/01/21 Lisinopril [Prinivil] 10 mg PO DAILY 12/04/19 02/01/21 Clopidogrel Bisulfate [Plavix] 75 mg PO HS 11/15/20 02/01/21 Furosemide [Lasix] 40 mg PO DAILY 11/15/20 02/01/21 Insulin Glargine,Hum.rec.anlog 50 unit SQ DAILY@0600 11/15/20 02/01/21 [Lantus Solostar] Rivaroxaban [Xarelto] 20 mg PO DAILY 11/15/20 02/01/21 Acetaminophen [Tylenol 8 Hour] 650 mg PO Q6H 02/01/21 02/01/21 Insulin Aspart Protam & Aspart See Protocol SQ AC-TID 02/01/21 02/01/21 [NovoLOG MIX 70-30 Flexpen] Allergies Allergy/AdvReac Type Severity Reaction Status Date / Time No Known Allergies Allergy Verified 02/01/21 22:39 Review of Systems ROS Statement: Those systems with pertinent positive or pertinent negative responses have been documented in the HPI. ROS Other: All systems not noted in ROS Statement are negative. Past Medical History Past Medical History: Coronary Artery Disease (CAD), COPD, Diabetes Mellitus, Deep Vein Thrombosis (DVT), Hypertension, Musculoskeletal Disorder, Osteoarthritis (OA), Sleep Apnea/CPAP/BIPAP, Thyroid Disorder, Vascular Disorder Additional Past Medical History / Comment(s): MS, current wound on rt leg great toe-dressing on, USES WHEELCHAIR- can stand and pivot., DYSPHAGIA. migraines, no cpap used, hx dvt's luke legs, urinary leakage, History of Any Multi-Drug Resistant Organisms: None Reported Past Surgical History: Bariatric Surgery, Heart Catheterization With Stent, Orthopedic Surgery Additional Past Surgical History / Comment(s): 11/02/19 angiogram, L CARPAL TUNNEL, GASTRIC SLEEVE, 2 cardiac stents. Right big toe amputation Past Anesthesia/Blood Transfusion Reactions: Motion Sickness Additional Past Anesthesia/Blood Transfusion Reaction / Comment(s): past motion sickness, never had a transfusion Date of Last Stent Placement:: unknown Past Psychological History: Anxiety Past Alcohol Use History: None Reported - Past Family History Father History Unknown: Yes Family Medical History: Cancer Mother History Unknown: Yes Family Medical History: Deep Vein Thrombosis (DVT) General Exam Limitations: physical limitation General appearance: alert, in no apparent distress Head exam: Present: atraumatic, normocephalic, normal inspection Eye exam: Present: normal appearance, PERRL, EOMI. Absent: scleral icterus ENT exam: Present: normal exam, mucous membranes moist Neck exam: Present: normal inspection. Absent: tenderness, meningismus, lymphadenopathy Respiratory exam: Present: normal lung sounds bilaterally (diminished at bases r/t body habitus). Absent: respiratory distress, wheezes, rales, rhonchi, stridor Cardiovascular Exam: Present: regular rate, normal rhythm, normal heart sounds. Absent: systolic murmur, diastolic murmur, rubs, gallop, clicks GI/Abdominal exam: Present: soft, normal bowel sounds. Absent: distended, tenderness, guarding, rebound, rigid Extremities exam: Present: normal capillary refill. Absent: pedal edema, calf tenderness Right Hip exam: Present: tenderness (intertrigo, right hip and thigh), erythema Knee exam: Present: normal inspection, full ROM, full knee extension. Absent: abrasion, deformity, dislocation, erythema Foot/Toe exam: Present: amputation (partial amputation great toe, ulcer to right side of foot, dressed by home care) Neurological exam: Present: alert, oriented X3, CN II-XII intact Psychiatric exam: Present: normal affect, normal mood Skin exam: Present: warm, dry, intact, normal color, other (pt has dressings on right foot, recent amputation of part of right great toe). Absent: rash, cyanosis, diaphoretic Course Vital Signs 02/01/21 02/01/21 02/01/21 16:45 17:54 18:00 Temperature 99.1 F Pulse Rate 83 83 80 Respiratory 18 18 18 Rate Blood Pressure 105/78 116/64 127/41 O2 Sat by Pulse 90 L 90 L 90 L Oximetry 02/01/21 02/01/21 02/01/21 19:00 20:03 22:00 Temperature Pulse Rate 85 68 72 Respiratory 18 18 18 Rate Blood Pressure 109/80 113/55 113/58 O2 Sat by Pulse 90 L 95 95 Oximetry 02/01/21 02/02/21 02/02/21 23:09 01:56 05:00 Temperature 98.3 F Pulse Rate 90 77 Respiratory 18 20 Rate Blood Pressure 135/88 122/56 O2 Sat by Pulse 95 8 L 95 Oximetry 02/02/21 02/02/21 02/02/21 09:45 12:52 13:37 Temperature 98 F 98.2 F 98.2 F Pulse Rate 82 81 81 Respiratory 20 18 18 Rate Blood Pressure 120/62 97/63 97/63 O2 Sat by Pulse 96 95 95 Oximetry Medical Decision Making - Lab Data Result diagrams: 02/01/21 22:23 02/01/21 22:23 Disposition Clinical Impression: Intractable pain Disposition: ADMITTED IP TO THIS [facility] Condition: Fair
[2021-02-01] MEDS ORDERED: SODIUM CHLORIDE 0.9% 500 ML 500 ML IV STA (20:13)
[2021-02-01] MEDS ORDERED: ACETAMINOPHEN TAB 325 MG TAB PO PRN (22:07)
[2021-02-01] MEDS ORDERED: NALOXONE 0.4 MG/ML 1 ML VIAL IV PRN (22:07)
[2021-02-01 22:48] LABS: Basophils % (A) 0 %; Eosinophils # (A) 0.1 k/uL (0-0.7); Eosinophils % (A) 1 %; HCT 31.4 % (34.0-46.0); HGB 10.7 gm/dL (11.4-16.0); Lymphocytes # (A) 0.7 k/uL (1.0-4.8); Lymphocytes % (A) 12 %; MCH 27.9 pg (25.0-35.0); Mean Platelet Volume 6.9; Monocytes # (A) 0.4 k/uL (0-1.0); Monocytes % (A) 7 %; Neutrophils # (A) 4.5 k/uL (1.3-7.7); Neutrophils % (A) 78 %; Platelet Count 237 k/uL (150-450); RBC 3.83 m/uL (3.80-5.40); RDW 15.6 % (11.5-15.5); WBC 5.8 k/uL (3.8-10.6)
[2021-02-01 22:51] LABS: Appearance,Urine Cloudy (Clear); Bacteria,Urine Moderate /hpf; Bilirubin,Urine Negative (Negative); Blood,Urine Negative (Negative); Color,Urine Yellow; Glucose,Urine (UA) Negative (Negative); Hyaline Casts,Urine 1 /lpf (0-2); Ketones,Urine Negative (Negative); Leukocyte Esterase,Urine Large (Negative); Mucus,Urine Rare /hpf; Nitrite,Urine Negative (Negative); Protein,Urine Trace (Negative); RBC,Urine 7 /hpf (0-5); Specific Gravity,Urine 1.021 (1.001-1.035); Squamous Epithelial Cell,Urine 1 /hpf (0-4); Urobilinogen,Urine <2.0 mg/dL (<2.0); WBC,Urine 46 /hpf (0-5)
[2021-02-01 23:03] LABS: Potassium 4.3 mmol/L (3.5-5.1); Total Bilirubin 0.4 mg/dL (0.2-1.3)
[2021-02-01] MEDS: KETOROLAC 15 MG/ML 1 ML VIAL IVP PRN (23:08)
[2021-02-01 23:33] LABS: C Reactive Protein 120.5 mg/L (<10.0)
[2021-02-02] MEDS: HYDROcodone/APAP 5-325MG 1 EACH TAB PO PRN ×5 (01:49→19:55)
[2021-02-02] MEDS: KETOROLAC 15 MG/ML 1 ML VIAL IVP PRN ×2 (08:36→17:52)
--- NOTE | 2021-02-02 12:02 | P.CNPUL ---
History of Present Illness Consult date: 02/02/21 Requesting physician: Tj Angela Reason for consult: other Chief complaint: Right hip pain. History of present illness: 65-year-old female, well-known to me, who presents to the emergency department with one or 2 days worth of pain in the right hip area. The patient is in her right hip and right back area. In addition, her legs are swollen. She denies any trauma. She couldn't get up out of bed. For that reason, she came in to be evaluated. She did receive some morphine in route from EMS. She apparently was crying and distress when she came to the emergency department. Again she denies any trauma to that area. She sitting in the emergency room, and room 23. She's not receiving any supplemental oxygen or IV fluids. She does have a history of coronary artery disease, hypertension, diabetes, DVT, osteoarthritis, peripheral vascular disease, and COPD. X-ray was negative. White count 5.8, hemoglobin 10.7, hematocrit 31.4, platelet count 237,000. Sodium 134, potassium 4.3, chlorides 103, CO2 27, anion gap 4, BUN 22, creatinine 0.8. Urine is cloudy, with large positive for leukocyte esterase, 46 WBCs, and moderate bacteria. This is consistent with a urinary tract infection. In addition, her COVID test was negative Review of Systems REVIEW OF SYSTEMS: CONSTITUTIONAL: [Negative.] NEUROLOGIC: [ Negative.] HEENT: [ Negative.] CARDIAC: [Negative.] PULMONARY: [Negative.] GI: [Negative.] : [Negative.] RHEUMATOLOGIC: Nontraumatic right hip pain. IMMUNOLOGIC: [ Negative.] ENDOCRINE: [Negative. ] DERMATOLOGIC: [Negative.] Past Medical History Past Medical History: Coronary Artery Disease (CAD), COPD, Diabetes Mellitus, Deep Vein Thrombosis (DVT), Hypertension, Musculoskeletal Disorder, Osteoarthritis (OA), Sleep Apnea/CPAP/BIPAP, Thyroid Disorder, Vascular Disorder Additional Past Medical History / Comment(s): MS, current wound on rt leg great toe-dressing on, USES WHEELCHAIR- can stand and pivot., DYSPHAGIA. migraines, no cpap used, hx dvt's luke legs, urinary leakage, History of Any Multi-Drug Resistant Organisms: None Reported Past Surgical History: Bariatric Surgery, Heart Catheterization With Stent, Orthopedic Surgery Additional Past Surgical History / Comment(s): 11/02/19 angiogram, L CARPAL TUNNEL, GASTRIC SLEEVE, 2 cardiac stents. Right big toe amputation Past Anesthesia/Blood Transfusion Reactions: Motion Sickness Additional Past Anesthesia/Blood Transfusion Reaction / Comment(s): past motion sickness, never had a transfusion Date of Last Stent Placement:: unknown Past Psychological History: Anxiety Past Alcohol Use History: None Reported - Past Family History Father History Unknown: Yes Family Medical History: Cancer Mother History Unknown: Yes Family Medical History: Deep Vein Thrombosis (DVT) Medications and Allergies Home Medications Medication Instructions Recorded Confirmed Type Levothyroxine Sodium 125 mcg PO DAILY 04/12/19 02/01/21 History Cyclobenzaprine [Flexeril] 10 mg PO DAILY PRN 08/25/19 02/01/21 History amLODIPine BESYLATE [Norvasc] 10 mg PO DAILY 08/25/19 02/01/21 History Aspirin EC [Ecotrin Low Dose] 81 mg PO DAILY 12/04/19 02/01/21 History Atorvastatin [Lipitor] 40 mg PO HS 12/04/19 02/01/21 History Lisinopril [Prinivil] 10 mg PO DAILY 12/04/19 02/01/21 History Clopidogrel Bisulfate [Plavix] 75 mg PO HS 11/15/20 02/01/21 History Furosemide [Lasix] 40 mg PO DAILY 11/15/20 02/01/21 History Insulin Glargine,Hum.rec.anlog 50 unit SQ DAILY@0600 11/15/20 02/01/21 History [Lantus Solostar] Rivaroxaban [Xarelto] 20 mg PO DAILY 11/15/20 02/01/21 History Acetaminophen [Tylenol 8 Hour] 650 mg PO Q6H 02/01/21 02/01/21 History Insulin Aspart Protam & Aspart See Protocol SQ AC-TID 02/01/21 02/01/21 History [NovoLOG MIX 70-30 Flexpen] Allergies Allergy/AdvReac Type Severity Reaction Status Date / Time No Known Allergies Allergy Verified 02/01/21 22:39 Physical Exam Osteopathic Statement: *. No significant issues noted on an osteopathic structural exam other than those noted in the History and Physical/Consult. Vitals: Vital Signs Temp Pulse Resp BP Pulse Ox 02/02/21 09:45 98 F 82 20 120/62 96 02/02/21 05:00 95 02/02/21 01:56 98.3 F 77 20 122/56 8 L 02/01/21 23:09 90 18 135/88 95 02/01/21 22:00 72 18 113/58 95 02/01/21 20:03 68 18 113/55 95 02/01/21 19:00 85 18 109/80 90 L 02/01/21 18:00 80 18 127/41 90 L 02/01/21 17:54 83 18 116/64 90 L 02/01/21 16:45 99.1 F 83 18 105/78 90 L Intake and Output 02/01/21 02/02/21 02/02/21 22:59 06:59 14:59 Other: Weight 124.738 kg No acute distress, oriented 3. No supplemental oxygen. Room air saturation 96%. HEENT examination is grossly unremarkable. Mucous membranes are moist. No oral lesions. Neck supple. Full range of motion. No adenopathy thyromegaly or neck vein d istention. Cardiovascular examination reveals regular rhythm rate. S1-S2 normal. No S3 or S4. No discernible murmur noted. Heart rate 82 bpm. Lungs reveal clear breath sounds. Her sounds are equal bilaterally. No adventitious lung sounds including wheezes rhonchi or crackles. Abdomen soft bowel sounds are heard. No masses or tenderness. Extremities are intact. Lower extremity edema, left leg more so than right leg. Right hip normal appearing. Skin is without rash or lesion. Neurologic examination is brief but nonfocal. Results - Laboratory Findings CBC and BMP: 02/01/21 22:23 02/01/21 22:23 Abnormal lab findings: Abnormal Labs 02/01/21 02/01/21 02/01/21 22:23 22:23 22:23 Hgb 10.7 L Hct 31.4 L RDW 15.6 H Lymphocytes # 0.7 L Sodium 134 L BUN 22 H Glucose 68 L AST 12 L C-Reactive Protein 120.5 H Total Protein 6.0 L Albumin 3.0 L Urine Appearance Cloudy H Urine Protein Trace H Ur Leukocyte Esterase Large H Urine RBC 7 H Urine WBC 46 H Urine Bacteria Moderate H Urine Mucus Rare H Assessment and Plan Assessment: Nontraumatic right hip pain. Probable urinary tract infection. History of hyperlipidemia. History of hypertension. History of diabetes mellitus. History of hypothyroidism. History of coronary artery disease, status post stent. History of sleep apnea syndrome, currently on CPAP. History of deep venous thrombosis. History of migraine cephalgia. Obesity. Plan: Plan dated 02/02/2021. The x-rays of the right hip were negative. Not sure what is causing her right hip and back pain. The patient appears to have a urinary tract infection. She should be treated for this. He also significant lower extremity edema. Not really done, Dopplers of the lower extremity should be done. The patient is on will Xarelto already. The patient appears to be stable otherwise. No ad ditional recommendations are made. We'll follow along. Time with Patient: Greater than 30
[2021-02-02] MEDS ORDERED: CYCLOBENZAPRINE 10 MG TAB PO PRN (12:12)
[2021-02-02] MEDS: lisinopriL 10 MG TAB PO SCH ×2 (12:50→12:54)
[2021-02-02] MEDS: RIVAROXABAN 20 MG TAB PO SCH (12:50)
[2021-02-02] MEDS: ACETAMINOPHEN TAB 325 MG TAB PO SCH ×2 (12:51→16:46)
[2021-02-02 13:03] LABS: Glucose,Whole Blood 75 mg/dL (75-99)
--- NOTE | 2021-02-02 13:31 | P.HPIM ---
History of Present Illness Patient is a pleasant 65-year-old female with known history of multiple cirrhosis came to emergency department with compensative right hip pain patient the right hip imaging did not show any significant fracture. Patient pain is better controlled. Patient denies any trauma patient usually can get out of the bed onto the wheelchair and is not dependent on ADLs. But because of this hip pain patient is unable to perform her ADLs. Patient lives by herself with her regular and daily visits from the family members. Patient pain is better controlled with tramadol and Tillar at this time. Patient denied any increased weakness or tingling numbness patient doesn't believe she has MS exacerbation patient the head mildly abnormal urine but was complaining of some burning sensation was started today because of which I'll continue antibiotics today and tomorrow. Patient is negative for covid. Patient has a suprapubic catheter in place patient usually uses wheelchairs nonambulatory. Review of Systems REVIEW OF SYSTEMS: CONSTITUTIONAL: No fever, no malaise, no fatigue. HEENT: No recent visual problems or hearing problems. Denied any sore throat. CARDIOVASCULAR: No chest pain, orthopnea, PND, no palpitations, no syncope. PULMONARY: No shortness of breath, no cough, no hemoptysis. GASTROINTESTINAL: No diarrhea, no nausea, no vomiting, no abdominal pain. NEUROLOGICAL: As mentioned in HPI HEMATOLOGICAL: Denies any bleeding or petechiae. GENITOURINARY: Denies any burning micturition, frequency, or urgency. MUSCULOSKELETAL/RHEUMATOLOGICAL: Denies any joint pain, swelling, or any muscle pain. ENDOCRINE: Denies any polyuria or polydipsia. The rest of the 14-point review of systems is negative. Past Medical History Past Medical History: Coronary Artery Disease (CAD), COPD, Diabetes Mellitus, Deep Vein Thrombosis (DVT), Hypertension, Musculoskeletal Disorder, Osteoarthritis (OA), Sleep Apnea/CPAP/BIPAP, Thyroid Disorder, Vascular Disorder Additional Past Medical History / Comment(s): MS, current wound on rt leg great toe-dressing on, USES WHEELCHAIR- can stand and pivot., DYSPHAGIA. migraines, no cpap used, hx dvt's luke legs, urinary leakage, History of Any Multi-Drug Resistant Organisms: None Reported Past Surgical History: Bariatric Surgery, Heart Catheterization With Stent, Orthopedic Surgery Additional Past Surgical History / Comment(s): 11/02/19 angiogram, L CARPAL TUNNEL, GASTRIC SLEEVE, 2 cardiac stents. Right big toe amputation Past Anesthesia/Blood Transfusion Reactions: Motion Sickness Additional Past Anesthesia/Blood Transfusion Reaction / Comment(s): past motion sickness, never had a transfusion Date of Last Stent Placement:: unknown Past Psychological History: Anxiety Past Alcohol Use History: None Reported - Past Family History Father History Unknown: Yes Family Medical History: Cancer Mother History Unknown: Yes Family Medical History: Deep Vein Thrombosis (DVT) Medications and Allergies Home Medications Medication Instructions Recorded Confirmed Type Levothyroxine Sodium 125 mcg PO DAILY 04/12/19 02/01/21 History Cyclobenzaprine [Flexeril] 10 mg PO DAILY PRN 08/25/19 02/01/21 History amLODIPine BESYLATE [Norvasc] 10 mg PO DAILY 08/25/19 02/01/21 History Aspirin EC [Ecotrin Low Dose] 81 mg PO DAILY 12/04/19 02/01/21 History Atorvastatin [Lipitor] 40 mg PO HS 12/04/19 02/01/21 History Lisinopril [Prinivil] 10 mg PO DAILY 12/04/19 02/01/21 History Clopidogrel Bisulfate [Plavix] 75 mg PO HS 11/15/20 02/01/21 History Furosemide [Lasix] 40 mg PO DAILY 11/15/20 02/01/21 History Insulin Glargine,Hum.rec.anlog 50 unit SQ DAILY@0600 11/15/20 02/01/21 History [Lantus Solostar] Rivaroxaban [Xarelto] 20 mg PO DAILY 11/15/20 02/01/21 History Acetaminophen [Tylenol 8 Hour] 650 mg PO Q6H 02/01/21 02/01/21 History Insulin Aspart Protam & Aspart See Protocol SQ AC-TID 02/01/21 02/01/21 History [NovoLOG MIX 70-30 Flexpen] Allergies Allergy/AdvReac Type Severity Reaction Status Date / Time No Known Allergies Allergy Verified 02/01/21 22:39 Physical Exam Vitals: Vital Signs Temp Pulse Resp BP Pulse Ox 02/02/21 12:52 98.2 F 81 18 97/63 95 02/02/21 09:45 98 F 82 20 120/62 96 02/02/21 05:00 95 02/02/21 01:56 98.3 F 77 20 122/56 8 L 02/01/21 23:09 90 18 135/88 95 02/01/21 22:00 72 18 113/58 95 02/01/21 20:03 68 18 113/55 95 02/01/21 19:00 85 18 109/80 90 L 02/01/21 18:00 80 18 127/41 90 L 02/01/21 17:54 83 18 116/64 90 L 02/01/21 16:45 99.1 F 83 18 105/78 90 L Intake and Output 02/01/21 02/02/21 02/02/21 22:59 06:59 14:59 Other: Weight 124.738 kg PHYSICAL EXAMINATION: GENERAL: The patient is alert and oriented x3, not in any acute distress. Well developed, well nourished. HEENT: Pupils are round and equally reacting to light. EOMI. No scleral icterus. No conjunctival pallor. Normocephalic, atraumatic. No pharyngeal erythema. No thyromegaly. CARDIOVASCULAR: S1 and S2 present. No murmurs, rubs, or gallops. PULMONARY: Chest is clear to auscultation, no wheezing or crackles. ABDOMEN: Soft, nontender, nondistended, normoactive bowel sounds. No palpable organomegaly. She has a suprapubic catheter in place MUSCULOSKELETAL: Patient has some chronic deformities hip exam was not performed because of this reason EXTREMITIES: No cyanosis, clubbing, or pedal edema. NEUROLOGICAL: Patient the has significant bilateral lower limb muscle atrophy no new focal weakness at this time. SKIN: No rashes. Results CBC & Chem 7: 02/01/21 22:23 02/01/21 22:23 Labs: Abnormal Lab Results - Last 24 Hours (Table) 02/01/21 02/01/21 02/01/21 Range/Units 22:23 22:23 22:23 Hgb 10.7 L (11.4-16.0) gm/dL Hct 31.4 L (34.0-46.0) % RDW 15.6 H (11.5-15.5) % Lymphocytes # 0.7 L (1.0-4.8) k/uL Sodium 134 L (137-145) mmol/L BUN 22 H (7-17) mg/dL Glucose 68 L (74-99) mg/dL AST 12 L (14-36) U/L C-Reactive Protein 120.5 H (<10.0) mg/L Total Protein 6.0 L (6.3-8.2) g/dL Albumin 3.0 L (3.5-5.0) g/dL Urine Appearance Cloudy H (Clear) Urine Protein Trace H (Negative) Ur Leukocyte Esterase Large H (Negative) Urine RBC 7 H (0-5) /hpf Urine WBC 46 H (0-5) /hpf Urine Bacteria Moderate H (None) /hpf Urine Mucus Rare H (None) /hpf Microbiology - Last 24 Hours (Table) 02/01/21 22:23 Urine Culture - Preliminary Urine,Voided Assessment and Plan Plan: -Hip pain: No fracture appears to have some back pain radiating to the hip along with some inflammation of muscles and tendons in that area. Patient will be continued on tramadol and Tillar which are helping her. Physical therapy and occupational therapy will evaluate the patient -Generalized deconditioning: Patient may end up needing subacute rehabilitation -Possible urinary tract infection will continue the antibiotic discontinued after 3 days which will be tomorrow -Hypertension: The patient's blood pressure is low-normal continue with lisinopril hold off on amlodipine -Type 2 diabetes mellitus Girard-hypothyroidism -Coronary artery disease with stents in the past -Sleep apnea -History of DVT for which patient is on Xarelto -Migraine history without any headaches at this time For above-mentioned chronic medical problems patient was resumed on appropriate home medications
[2021-02-02 17:59] LABS: Glucose,Whole Blood 86 mg/dL (75-99)
[2021-02-02] MEDS: ATORVASTATIN 40 MG TAB PO SCH (19:55)
[2021-02-02] MEDS: CLOPIDOGREL 75 MG TAB PO SCH (19:55)
[2021-02-02 21:09] LABS: Glucose,Whole Blood 112 mg/dL (75-99)
[2021-02-03] MEDS: ACETAMINOPHEN TAB 325 MG TAB PO SCH ×5 (00:36→23:55)
[2021-02-03] MEDS: KETOROLAC 15 MG/ML 1 ML VIAL IVP PRN ×3 (00:36→19:00)
[2021-02-03] MEDS: HYDROcodone/APAP 5-325MG 1 EACH TAB PO PRN ×3 (02:27→19:53)
[2021-02-03 05:35] LABS: Glucose,Whole Blood 77 mg/dL (75-99)
[2021-02-03 06:59] LABS: Glucose,Whole Blood 83 mg/dL (75-99)
[2021-02-03] MEDS: lisinopriL 10 MG TAB PO SCH (07:44)
[2021-02-03] MEDS: RIVAROXABAN 20 MG TAB PO SCH (07:44)
[2021-02-03] MEDS: ASPIRIN 81 MG PO SCH (07:44)
[2021-02-03] MEDS: LEVOTHYROXINE 125 MCG TAB PO SCH (07:44)
[2021-02-03] MEDS ORDERED: COLLAGENASE 250 UNIT/GM OINTMENT 30 GM TUBE TOPICAL SCH (10:30)
[2021-02-03 11:14] LABS: Glucose,Whole Blood 144 mg/dL (75-99)
[2021-02-03] MEDS: INSULIN DETEMIR (LEVEMIR) 100 UNIT/ML SYR SQ SCH (12:02)
--- NOTE | 2021-02-03 14:19 | P.PN ---
Subjective Progress Note Date: 02/03/21 Principal diagnosis: Right hip pain 65-year-old female, well-known to me, who presents to the emergency department with one or 2 days worth of pain in the right hip area. The patient is in her right hip and right back area. In addition, her legs are swollen. She denies any trauma. She couldn't get up out of bed. For that reason, she came in to be evaluated. She did receive some morphine in route from EMS. She apparently was crying and distress when she came to the emergency department. Again she denies any trauma to that area. She sitting in the emergency room, and room 23. She's not receiving any supplemental oxygen or IV fluids. She does have a history of coronary artery disease, hypertension, diabetes, DVT, osteoarthritis, peripheral vascular disease, and COPD. X-ray was negative. White count 5.8, hemoglobin 10.7, hematocrit 31.4, platelet count 237,000. Sodium 134, potassium 4.3, chlorides 103, CO2 27, anion gap 4, BUN 22, creatinine 0.8. Urine is cloudy, with large positive for leukocyte esterase, 46 WBCs, and moderate bacteria. This is consistent with a urinary tract infection. In addition, her COVID test was negative Reevaluated today on 02/03/2021, patient continues to have significant unbearable pain in the right hip area, especially when she bears weight. Describes the pain as radiating pain, sugars down her buttock area, almost to the knee level. X-rays of the hip failed to show any fracture. Patient is undergoing physical therapy with minimal relief. Continues to have pain with any movement. But no pain at rest. Did recommend orthopedic evaluation, and initiated a consult to Dr. Pierre. No labs were drawn today. Objective - Vital Signs Vital signs: Vital Signs Temp 98.2 F 02/03/21 08:48 Pulse 77 02/03/21 08:48 Resp 16 02/03/21 08:48 BP 106/55 02/03/21 08:48 Pulse Ox 93 L 02/03/21 08:48 Intake & Output 02/02/21 02/03/21 02/03/21 18:59 06:59 18:59 Intake Total 450 Output Total 450 Balance 0 Intake: Oral 450 Output: Urine 450 Other: Voiding Method External Catheter External Catheter External Catheter # Voids 2 - Exam Physical Exam: Revealed a 65-year-old obese, in no distress. Head: Atraumatic, normocephalic. HEENT:[Neck is supple.] [No neck masses.] [No thyromegaly.] [No JVD.] Chest: [Clear throughout, no crackles, no rhonchi, no wheezes.] Cardiac Exam: [Normal S1 and S2, no S3 gallop, no murmur.] Abdomen: [Soft, nontender, no megaly, no rebound, no guarding, normal bowel sounds.] Extremities: [No clubbing, no edema, no cyanosis.] Good pulses bilaterally. Neurological Exam: [No focal neurologic deficit.] Alert oriented 3. Musculoskeletal: Minimal tenderness in the right hip area. Pain upon moving right hip. - Labs CBC & Chem 7: 02/01/21 22:23 02/01/21 22:23 Labs: Abnormal Lab Results - Last 24 Hours (Table) 02/02/21 02/03/21 Range/Units 21:08 11:12 POC Glucose (mg/dL) 112 H 144 H (75-99) mg/dL Microbiology - Last 24 Hours (Table) 02/01/21 22:23 Urine Culture - Preliminary Urine,Voided Gram Neg Bacilli Assessment and Plan Assessment: Impression: Right hip pain, nontraumatic in nature. Possible urinary tract infection. Benign essential hypertension. History of coronary artery disease and previous stent placement. Obstructive sleep apnea syndrome on CPAP. History of deep vein thrombosis. Recommendation: Continue present supportive care measures. We'll consult orthopedics to evaluate right hip pain Will follow on when necessary basis. Time with Patient: Less than 30
--- NOTE | 2021-02-03 15:27 | P.CNOR ---
History of Present Illness - [facility] Consult date: 02/03/21 Consult reason: other (hip pain/low back pain) History of present illness: Patient is a 65yo female who presents to [facility] on 02/01/2021 with regards to severe pain involving her right hip/low back area. Patient was apparently doing her physical therapy exercises at home when she noticed the pain began. She was unable to tolerate the pain, she reports [facility] further workup. Initial x-rays of the right hip demonstrated no acute fractures or dislocations. She was admitted under internal medicine, our orthopedic team was on consult today with regards to the right hip. Patient is a relatively complicated medical history. She does have a history of MS. She utilizes a wheelchair for ambulation, she's been utilizing this over the last year so. She has an extensive surgical history on her right foot, she has a previous dictation of the first great toe and a recent diabetic ulcer that she is followed by at the wound care clinic every Wednesday. She denies any previous surgery involving her right lower extremity. She denies any previous surgery involving her low back. She denies any recent trauma, including falls. At bedside, she notes most of discomfort in her right buttock region. She has some radiating pain that occurs when she positions her self, this goes down the back of the leg to the foot. She denies any active paresthesias of the right lower extremity left lower extremity. She denies any loss of bowel control this time. She states she's had urinary constant for many years, this is positional when she stands up. She denies any left lower extremity symptoms, including pain, numbness or tingling. She has generalized weakness from her medical comorbidities of the bilateral upper and lower extremities. She has no pain involving the right knee, foot or ankle. She denies any pain involving the left lower extremity, bilateral upper extremities, new onset cervical, thoracic or lumbar pain. Review of Systems Constitutional: Reports as per [facility] Past Medical History Past Medical History: Coronary Artery Disease (CAD), COPD, Diabetes Mellitus, D eep Vein Thrombosis (DVT), Hypertension, Musculoskeletal Disorder, Osteoarthritis (OA), Sleep Apnea/CPAP/BIPAP, Thyroid Disorder, Vascular Disorder Additional Past Medical History / Comment(s): MS, current wound on rt leg great toe-dressing on, USES WHEELCHAIR- can stand and pivot., DYSPHAGIA. migraines, no cpap used, hx dvt's luke legs, urinary leakage, History of Any Multi-Drug Resistant Organisms: None Reported Past Surgical History: Bariatric Surgery, Heart Catheterization With Stent, Orthopedic Surgery Additional Past Surgical History / Comment(s): 11/02/19 angiogram, L CARPAL TUNNEL, GASTRIC SLEEVE, 2 cardiac stents. Right big toe amputation Past Anesthesia/Blood Transfusion Reactions: Motion Sickness Additional Past Anesthesia/Blood Transfusion Reaction / Comm: past motion sickness, never had a transfusion Date of Last Stent Placement:: unknown Past Psychological History: Anxiety Past Alcohol Use History: None Reported - Past Family History Father History Unknown: Yes Family Medical History: Cancer Mother History Unknown: Yes Family Medical History: Deep Vein Thrombosis (DVT) Medications and Allergies Home Medications Medication Instructions Recorded Confirmed Type Levothyroxine Sodium 125 mcg PO DAILY 04/12/19 02/01/21 History Cyclobenzaprine [Flexeril] 10 mg PO DAILY PRN 08/25/19 02/01/21 History Aspirin EC [Ecotrin Low Dose] 81 mg PO DAILY 12/04/19 02/01/21 History Atorvastatin [Lipitor] 40 mg PO HS 12/04/19 02/01/21 History Clopidogrel Bisulfate [Plavix] 75 mg PO HS 11/15/20 02/01/21 History Furosemide [Lasix] 40 mg PO DAILY 11/15/20 02/01/21 History Insulin Glargine,Hum.rec.anlog 50 unit SQ DAILY@0600 11/15/20 02/01/21 History [Lantus Solostar] Rivaroxaban [Xarelto] 20 mg PO DAILY 11/15/20 02/01/21 History Acetaminophen [Tylenol 8 Hour] 650 mg PO Q6H 02/01/21 02/01/21 History Insulin Aspart Protam & Aspart See Protocol SQ AC-TID 02/01/21 02/01/21 History [NovoLOG MIX 70-30 Flexpen] HYDROcodone/APAP 5-325MG [[place] 1 each PO Q4HR PRN #12 tab 02/03/21 Rx 5-325] Lisinopril [Prinivil] 5 mg PO DAILY #30 tab 02/03/21 Rx Allergies Allergy/AdvReac Type Severity Reaction Status Date / Time No Known Allergies Allergy Verified 02/01/21 22:39 Physical Examination Right lower extremity, No obvious open lesions or sores present throughout the upper aspect the extremity. There is no obvious ecchymosis or soft tissue swelling Logroll maneuver reproduces no pain in the groin She is tender with palpation in the SI joint region, including posterior buttock, she's nontender with palpation of the greater trochanter Active flexion and internal/external rotation of the hip does reproduce pain in the buttock region. Negative straight leg raise Nontender around the right knee, there is no effusion present, there is no tenderness with medial and lateral joint line She is nontender throughout the lower aspect of the extremity, including foot an d ankle There is a bandage present on the lateral aspect of the right foot from the diabetic foot ulcer The skin is warm to touch, her dorsalis pedis pulses 2+ Gen. Exam: Range of motion is intact in all major muscle groups of the bilateral upper extremities, sensory exam light touch is intact at the extremities, radial and ulnar pulses are 2+ No obvious skin changes are present about the left lower extremity, she is able to extend and flex the knee without difficulty along with flexion of the hip. Logroll maneuver reproduces no pain, she can straight leg raise with no difficulty. Results - Labs Labs: Abnormal Lab Results - Last 24 Hours (Table) 02/02/21 02/03/21 Range/Units 21:08 11:12 POC Glucose (mg/dL) 112 H 144 H (75-99) mg/dL Microbiology - Last 24 Hours (Table) 02/01/21 22:23 Urine Culture - Preliminary Urine,Voided Gram Neg Bacilli H & H 02/01/21 Range/Units 22:23 Hgb 10.7 L (11.4-16.0) gm/dL Hct 31.4 L (34.0-46.0) % Result Diagrams: 02/01/21 22:23 02/01/21 22:23 - Diagnostic results Hip x-ray: report reviewed, image reviewed (X-rays of the hip demonstrated no acute fractures or dislocations. Mild/moderate osteophytic changes present.) Assessment and Plan Assessment: Right lower extremity pain Right-sided sciatica Right hip osteoarthritis Multiple medical comorbidities Plan: I was able to discuss the case, including the physical exam findings and imaging studies with my attending Dr. Pierre, no orthopedic surgery recommended at this time Recommend weight-bear as tolerated with walker at all times Recommending conservative management, this including Tylenol and anti- inflammatories. Patient would benefit from subacute rehab placement with daily physical therapy to include sciatica stretching and strengthening program Recommend follow-up in the outpatient setting an as-needed basis We'll be available for any further questions regarding this patient Time with Patient: Less than 30
--- NOTE | 2021-02-03 16:44 | P.PN ---
Subjective Progress Note Date: 02/03/21 Patient is a pleasant 65-year-old female with known history of multiple cirrhosis came to emergency department with compensative right hip pain patient the right hip imaging did not show any significant fracture. Patient pain is better controlled. Patient denies any trauma patient usually can get out of the bed onto the wheelchair and is not dependent on ADLs. But because of this hip pain patient is unable to perform her ADLs. Patient lives by herself with her regular and daily visits from the family members. Patient pain is better controlled with tramadol and [place] at this time. Patient denied any increased weakness or tingling numbness patient doesn't believe she has MS exacerbation patient the head mildly abnormal urine but was complaining of some burning sensation was started today because of which I'll continue antibiotics today and tomorrow. Patient is negative for covid. Patient has a suprapubic catheter in place patient usually uses wheelchairs nonambulatory. 02/03/2021 She is seen and evaluated this morning continues to have hip pain and is being followed by pulmonary. Consult was placed for orthopedics to discuss possible epidural injection due to continued pain. Xrays negative for any fractures. A continues to be weak and will have PT/OT evaluate the patient for possibility of ECF she states she does not feel strong enough to return home on her own. Will discuss with case management and place a consult for social work for possible placement. Review of systems: Constitutional: No reports of fatigue, fever, or chills Cardiovascular: No reports of chest pain or palpitations Respiratory: No reports of shortness of breath or cough GI: No reports of nausea, vomiting, or diarrhea : No reports of dysuria or retention Neurovascular: Ports generalized weakness and continued hip pain All medications have been reviewed Objective - Vital Signs Vital signs: Vital Signs Temp 98.2 F 02/03/21 08:48 Pulse 77 02/03/21 08:48 Resp 16 02/03/21 08:48 BP 106/55 02/03/21 08:48 Pulse Ox 93 L 02/03/21 08:48 Intake & Output 02/02/21 02/03/21 02/03/21 18:59 06:59 18:59 Intake Total 450 Output Total 450 Balance 0 Intake: Oral 450 Output: Urine 450 Other: Voiding Method External Catheter External Catheter External Catheter # Voids 2 - Exam GENERAL: The patient is alert and oriented x3, not in any acute distress. Well developed, well nourished. HEENT: Pupils are round and equally reacting to light. EOMI. No scleral icterus. No conjunctival pallor. Normocephalic, atraumatic. No pharyngeal erythema. No thyromegaly. CARDIOVASCULAR: S1 and S2 present. No murmurs, rubs, or gallops. PULMONARY: Chest is clear to auscultation, no wheezing or crackles. ABDOMEN: Soft, nontender, nondistended, normoactive bowel sounds. No palpable organomegaly. She has a suprapubic catheter in place MUSCULOSKELETAL: Patient has some chronic deformities hip exam was not performed because of this reason EXTREMITIES: No cyanosis, clubbing, or pedal edema. NEUROLOGICAL: Patient the has significant bilateral lower limb muscle atrophy no new focal weakness at this time. SKIN: No rashes. - Labs CBC & Chem 7: 02/01/21 22:23 02/01/21 22:23 Labs: Abnormal Lab Results - Last 24 Hours (Table) 02/02/21 02/03/21 Range/Units 21:08 11:12 POC Glucose (mg/dL) 112 H 144 H (75-99) mg/dL Microbiology - Last 24 Hours (Table) 02/01/21 22:23 Urine Culture - Preliminary Urine,Voided Gram Neg Bacilli Assessment and Plan Assessment: -Hip pain: No fracture appears to have some back pain radiating to the hip along with some inflammation of muscles and tendons in that area. Patient will be continued on tramadol and [place] which are helping her. Patient has continued weakness and will have PT/OT evaluate the patient. Orthopedic consult placed for the possibility of epidural injection and will await report. -Generalized deconditioning: Patient may end up needing subacute rehabilitation, social work consulted for possible placement as patient continues to be weak -Possible urinary tract infection will continue the antibiotic while waiting for cultures to finalized. Preliminary culture showing gram-negative bacilli and patient is maintained on IV ceftriaxone -Hypertension: The patient's blood pressure is low-normal continue with ellie nopril hold off on amlodipine -Type 2 diabetes mellitus -hypothyroidism -Coronary artery disease with stents in the past -Sleep apnea -History of DVT for which patient is on Xarelto -Migraine history without any headaches at this time Plan: Continue with current medications and continue with IV antibiotics while awaiting for urine cultures to finalized. Preliminary showing gram-negative patient is maintained on IV ceftriaxone. Orthopedic surgery consulted for continued hip pain and will await report. Social work following and working on accepting facility for ECF placement as patient continues to be weak and feels unsafe returning home alone. Anticipate discharge in 24 hours.
[2021-02-03 17:08] LABS: Glucose,Whole Blood 108 mg/dL (75-99)
[2021-02-03] MEDS: CLOPIDOGREL 75 MG TAB PO SCH (19:53)
[2021-02-03] MEDS: ATORVASTATIN 40 MG TAB PO SCH (19:53)
[2021-02-03 20:17] LABS: Glucose,Whole Blood 97 mg/dL (75-99)
[2021-02-04] MEDS: HYDROcodone/APAP 5-325MG 1 EACH TAB PO PRN ×3 (02:32→13:27)
[2021-02-04 03:26] VITALS: RESP 16
[2021-02-04] MEDS: ACETAMINOPHEN TAB 325 MG TAB PO SCH ×2 (05:15→11:39)
[2021-02-04 06:01] LABS: Glucose,Whole Blood 94 mg/dL (75-99)
[2021-02-04] MEDS: INSULIN DETEMIR (LEVEMIR) 100 UNIT/ML SYR SQ SCH (06:02)
[2021-02-04] MEDS: LEVOTHYROXINE 125 MCG TAB PO SCH (06:02)
[2021-02-04 07:34] LABS: Glucose,Whole Blood 88 mg/dL (75-99)
[2021-02-04] MEDS: lisinopriL 10 MG TAB PO SCH (08:33)
[2021-02-04] MEDS: ASPIRIN 81 MG PO SCH (08:33)
[2021-02-04] MEDS: RIVAROXABAN 20 MG TAB PO SCH (08:33)
--- NOTE | 2021-02-04 11:09 | P.PN ---
Subjective Progress Note Date: 02/04/21 Principal diagnosis: Right hip pain 65-year-old female, well-known to me, who presents to the emergency department with one or 2 days worth of pain in the right hip area. The patient is in her right hip and right back area. In addition, her legs are swollen. She denies any trauma. She couldn't get up out of bed. For that reason, she came in to be evaluated. She did receive some morphine in route from EMS. She apparently was crying and distress when she came to the emergency department. Again she denies any trauma to that area. She sitting in the emergency room, and room 23. She's not receiving any supplemental oxygen or IV fluids. She does have a history of coronary artery disease, hypertension, diabetes, DVT, osteoarthritis, peripheral vascular disease, and COPD. X-ray was negative. White count 5.8, hemoglobin 10.7, hematocrit 31.4, platelet count 237,000. Sodium 134, potassium 4.3, chlorides 103, CO2 27, anion gap 4, BUN 22, creatinine 0.8. Urine is cloudy, with large positive for leukocyte esterase, 46 WBCs, and moderate bacteria. This is consistent with a urinary tract infection. In addition, her COVID test was negative Reevaluated today on 02/03/2021, patient continues to have significant unbearable pain in the right hip area, especially when she bears weight. Describes the pain as radiating pain, sugars down her buttock area, almost to the knee level. X-rays of the hip failed to show any fracture. Patient is undergoing physical therapy with minimal relief. Continues to have pain with any movement. But no pain at rest. Did recommend orthopedic evaluation, and initiated a consult to Dr. Pierre. No labs were drawn today. Patient was reevaluated today on 02/04/2021, doing well, undergoing physical therapy and occupational therapy for her right hip pain. Seen by orthopedics on consultation, and the recommendation was to continue the same. Recommending physical therapy and rehab. IVC the patient could be discharged to rehab if possible today. She will be cleared from our perspective for discharge to a rehab facility. In the meantime continue pain control with anti-inflammatory medications. Objective - Vital Signs Vital signs: Vital Signs Temp 97.9 F 02/04/21 07:00 Pulse 85 02/04/21 07:00 Resp 16 02/04/21 07:00 BP 118/70 02/04/21 07:00 Pulse Ox 93 L 02/04/21 07:00 Intake & Output 02/03/21 02/04/21 02/04/21 18:59 06:59 18:59 Intake Total 540 Output Total 250 Balance -250 540 Intake: Oral 540 Output: Urine 250 Other: Voiding Method External Catheter External Catheter External Catheter # Voids 1 - Exam Physical Exam: Revealed a 65-year-old obese, in no distress. Undergoing physical therapy Head: Atraumatic, normocephalic. HEENT:[Neck is supple.] [No neck masses.] [No thyromegaly.] [No JVD.] Chest: [Clear throughout, no crackles, no rhonchi, no wheezes.] Cardiac Exam: [Normal S1 and S2, no S3 gallop, no murmur.] Abdomen: [Soft, nontender, no megaly, no rebound, no guarding, normal bowel sounds.] Extremities: [No clubbing, no edema, no cyanosis.] Good pulses bilaterally. Neurological Exam: [No focal neurologic deficit.] Alert oriented 3. Skin: No rash - Labs CBC & Chem 7: 02/01/21 22:23 02/01/21 22:23 Labs: Abnormal Lab Results - Last 24 Hours (Table) 02/03/21 02/03/21 Range/Units 11:12 17:07 POC Glucose (mg/dL) 144 H 108 H (75-99) mg/dL Microbiology - Last 24 Hours (Table) 02/01/21 22:23 Urine Culture - Final Urine,Voided Klebsiella pneumoniae Assessment and Plan Assessment: Impression: Right hip pain, nontraumatic in nature. Possible urinary tract infection. Benign essential hypertension. History of coronary artery disease and previous stent placement. Obstructive sleep apnea syndrome on CPAP. History of deep vein thrombosis. Recommendation: Continue present supportive care measures. Consider discharge planning to rehab facility. We will sign off for now Time with Patient: Less than 30
[2021-02-04 11:18] LABS: Glucose,Whole Blood 179 mg/dL (75-99)
--- NOTE | 2021-02-04 13:31 | P.DS ---
Providers Date of admission: 02/03/21 08:43 Expected date of discharge: 02/04/21 Attending physician: Tj Angela Consults: 02/02/21 10:24 Consult Physician Routine Consulting Provider: Martin Cuello Consult Reason/Comments: knew the pt Do you want consulting provider notified?: Yes 02/03/21 11:05 Consult Physician Routine Consulting Provider: Nick Pierre Consult Reason/Comments: RT HIP PAIN/SEVERE Do you want consulting provider notified?: Yes Primary care physician: Martin Cuello Hospital Course: Final diagnosis -Hip pain: No fracture appears to have some back pain radiating to the hip along with some inflammation of muscles and tendons in that area -Generalized deconditioning -Acute urinary tract infection, treated -Hypertension -Type 2 diabetes mellitus -hypothyroidism -Coronary artery disease with stents in the past -Sleep apnea -History of DVT for which patient is on Xarelto -Migraine history without any headaches at this time -Full code Discharge disposition Patient is being discharged in a stable condition with guarded prognosis to [facility] continued PT/OT therapy. Patient will follow-up with Dr. Cuello in the outpatient setting upon discharge. Patient will also need to follow-up with wound clinic outpatient as she has been. Patient to also follow up with pulmonary in the outpatient setting. Total time taken is greater than 35 minutes. Hospital course Patient is a pleasant 65-year-old female with known history of multiple cirrhosis came to emergency department with compensative right hip pain patient the right hip imaging did not show any significant fracture. Patient pain is better controlled. Patient denies any trauma patient usually can get out of the bed onto the wheelchair and is not dependent on ADLs. But because of this hip pain patient is unable to perform her ADLs. Patient lives by herself with her regular and daily visits from the family members. Patient pain is better controlled with tramadol and [place] at this time. Patient denied any increased weakness or tingling numbness patient doesn't believe she has MS exacerbation patient the head mildly abnormal urine but was complaining of some burning sensation was started today because of which I'll continue antibiotics today and tomorrow. Patient is negative for covid. Patient has a suprapubic catheter in place patient usually uses wheelchairs nonambulatory. 02/03/2021 She is seen and evaluated this morning continues to have hip pain and is being followed by pulmonary. Consult was placed for orthopedics to discuss possible epidural injection due to continued pain. Xrays negative for any fractures. Patient continues to be weak and will have PT/OT evaluate the patient for possibility of ECF she states she does not feel strong enough to return home on her own. Will discuss with case management and place a consult for social work for possible placement. 02/04/2021 She is seen and evaluated this morning with no acute overnight issues. Patient was seen and evaluated by orthopedic surgery recommending no interventions at this time and continued pain management. Patient does follow-up at the wound center in the outpatient setting and has been using Santyl as she has been with daily dressing changes to the lower extremity for recent amputation of the toe. Patient has been treated with 4 days of IV ceftriaxone for possible acute urinary tract infection and will not require antibiotics upon discharge. Currently no reports of chest pain, shortness of breath, or palpitations. Patient is afebrile. No reports of nausea or vomiting and patient is tolerating diet. Patient will be going to [facility] today. Guarded prognosis On exam vital signs are stable. Cardio S1, S2 are muffled. Respiratory system shows diminished breath sounds at the bases with no wheezing or rhonchi noted. Abdomen is soft and obese, and nontender. Nervous system shows diffuse weakness. Please refer to medication reconciliation sheet for a list of medications. Patient Condition at Discharge: Fair Plan - Discharge Summary New Discharge Prescriptions: New HYDROcodone/APAP 5-325MG [[place] 5-325] 1 each PO Q4HR PRN #12 tab PRN Reason: Moderate Pain Continue Levothyroxine Sodium 125 mcg PO DAILY Cyclobenzaprine [Flexeril] 10 mg PO DAILY PRN PRN Reason: Muscle Spasm Atorvastatin [Lipitor] 40 mg PO HS Aspirin EC [Ecotrin Low Dose] 81 mg PO DAILY Rivaroxaban [Xarelto] 20 mg PO DAILY Insulin Glargine,Hum.rec.anlog [Lantus Solostar] 50 unit SQ DAILY@0600 Furosemide [Lasix] 40 mg PO DAILY Clopidogrel Bisulfate [Plavix] 75 mg PO HS Insulin Aspart Protam & Aspart [NovoLOG MIX 70-30 Flexpen] See Protocol SQ AC-TID Acetaminophen [Tylenol 8 Hour] 650 mg PO Q6H Changed Lisinopril [Prinivil] 5 mg PO DAILY #30 tab Discontinued amLODIPine BESYLATE [Norvasc] 10 mg PO DAILY Discharge Medication List Levothyroxine Sodium 125 mcg PO DAILY 04/12/19 [History] Cyclobenzaprine [Flexeril] 10 mg PO DAILY PRN 08/25/19 [History] Aspirin EC [Ecotrin Low Dose] 81 mg PO DAILY 12/04/19 [History] Atorvastatin [Lipitor] 40 mg PO HS 12/04/19 [History] Clopidogrel Bisulfate [Plavix] 75 mg PO HS 11/15/20 [History] Furosemide [Lasix] 40 mg PO DAILY 11/15/20 [History] Insulin Glargine,Hum.rec.anlog [Lantus Solostar] 50 unit SQ DAILY@0600 11/15/20 [History] Rivaroxaban [Xarelto] 20 mg PO DAILY 11/15/20 [History] Acetaminophen [Tylenol 8 Hour] 650 mg PO Q6H 02/01/21 [History] Insulin Aspart Protam & Aspart [NovoLOG MIX 70-30 Flexpen] See Protocol SQ AC- TID 02/01/21 [History] HYDROcodone/APAP 5-325MG [[place] 5-325] 1 each PO Q4HR PRN #12 tab 02/03/21 [Rx] Lisinopril [Prinivil] 5 mg PO DAILY #30 tab 02/03/21 [Rx] Follow up Appointment(s)/Referral(s): Martin Cuello DO [Primary Care Provider] - 1-2 days Activity/Diet/Wound Care/Special Instructions: Patient is going to [facility] Activity as tolerated follow up with primary care provider upon discharge Follow-up with neurology outpatient Continue with wound care and follow-up at the wound center Monitor blood pressure and keep a diary of blood pressure readings for primary care follow-up Continue with lisinopril 5 mg daily and continue to hold amlodipine until follow-up Continue with local wound care with Darlin to the lower extremities as she has been in follow-up with the wound care center outpatient Continue to monitor blood sugars before meals and at bedtime and treat accordingly Discharge Disposition: TRANSFER TO SNF/F
[2021-02-04 14:33] VITALS: BP 138/75; PULSE 83; TEMP 98
== END 2021-02-04 16:08 | DRG 552 ==
LOC: EC 16:42 → 6NMEDSUR 22:12 → OBSVTOIN 02-03 08:43
PROVIDERS: ADMIT Hospitalist; ATTEND Hospitalist
DX: M54.41 Lumbago with sciatica, right side (principal); N39.0 Urinary tract infection, site not specified; Z68.42 Body mass index [BMI] 45.0-49.9, adult; M25.551 Pain in right hip; M79.18 Myalgia, other site; I10 Essential (primary) hypertension; E03.9 Hypothyroidism, unspecified; G43.909 Migraine, unspecified, not intractable, without status migrainosus; I25.10 Atherosclerotic heart disease of native coronary artery without angina pectoris; G47.33 Obstructive sleep apnea (adult) (pediatric); M16.11 Unilateral primary osteoarthritis, right hip; Z20.822 Contact with and (suspected) exposure to COVID-19; E66.9 Obesity, unspecified; E11.51 Type 2 diabetes mellitus with diabetic peripheral angiopathy without gangrene; J44.9 Chronic obstructive pulmonary disease, unspecified; E78.5 Hyperlipidemia, unspecified; F41.9 Anxiety disorder, unspecified; Z86.718 Personal history of other venous thrombosis and embolism; Z95.5 Presence of coronary angioplasty implant and graft; Z79.01 Long term (current) use of anticoagulants; Z79.02 Long term (current) use of antithrombotics/antiplatelets; Z79.82 Long term (current) use of aspirin; Z79.890 Hormone replacement therapy; Z79.4 Long term (current) use of insulin; Z79.899 Other long term (current) drug therapy; Z89.411 Acquired absence of right great toe; Z82.49 Family history of ischemic heart disease and other diseases of the circulatory system; Z80.9 Family history of malignant neoplasm, unspecified; Z99.3 Dependence on wheelchair; Z60.2 Problems related to living alone; Z83.2 Family history of diseases of the blood and blood-forming organs and certain disorders involving the immune mechanism; R13.10 Dysphagia, unspecified; Z99.89 Dependence on other enabling machines and devices
CPT/HCPCS: 36415; 73502; 80053; 81001; 85025; 86140; 87077; 87086; 87186; 87635

== ENCOUNTER 2021-03-08 00:17 | Inpatient (IN) | payer MEDICARE, BC ==
[2021-03-08] MEDS ORDERED: SODIUM CHLORIDE 0.9% 500 ML 500 ML IV STA (00:36)
[2021-03-08] MEDS ORDERED: ACETAMINOPHEN TAB 325 MG TAB PO STA (00:37)
[2021-03-08 01:06] LABS: Anisocytosis Slight; Basophils % (A) 0 %; Eosinophils # (A) 0.1 k/uL (0-0.7); Eosinophils % (A) 1 %; HCT 33.5 % (34.0-46.0); HGB 11.1 gm/dL (11.4-16.0); Lymphocytes # (A) 0.4 k/uL (1.0-4.8); Lymphocytes % (A) 5 %; MCH 27.4 pg (25.0-35.0); MCV 83.1 fL (80.0-100.0); Monocytes # (A) 0.4 k/uL (0-1.0); Monocytes % (A) 6 %; Neutrophils # (A) 6.8 k/uL (1.3-7.7); Neutrophils % (A) 87 %; Platelet Count 232 k/uL (150-450); RBC 4.03 m/uL (3.80-5.40); RDW 17.2 % (11.5-15.5); WBC 7.8 k/uL (3.8-10.6)
--- NOTE | 2021-03-08 01:08 | XR ---
EXAM: XR Chest, 1 View CLINICAL HISTORY: ITS.REASON XR Reason: fever; weakness TECHNIQUE: Frontal view of the chest. COMPARISON: No relevant prior studies available. FINDINGS: Lungs: No consolidation or mass. Pleural space: No acute findings Heart: Mild cardiomegaly. Bones/joints: No acute findings. IMPRESSION: No acute cardiopulmonary process.
[2021-03-08 01:15] LABS: Albumin 3.5 g/dL (3.5-5.0); Calcium 9.4 mg/dL (8.4-10.2); Magnesium 1.6 mg/dL (1.6-2.3); Potassium 4.7 mmol/L (3.5-5.1); Total Bilirubin 0.5 mg/dL (0.2-1.3); Total Protein 6.6 g/dL (6.3-8.2)
[2021-03-08 01:43] LABS: Appearance,Urine Cloudy (Clear); Bacteria,Urine Moderate /hpf; Bilirubin,Urine Negative (Negative); Blood,Urine Trace (Negative); Color,Urine Yellow; Glucose,Urine (UA) Negative (Negative); Ketones,Urine Negative (Negative); Leukocyte Esterase,Urine Large (Negative); Mucus,Urine Rare /hpf; Nitrite,Urine Positive (Negative); PH, Urine 5.5 (5.0-8.0); Partial Thromboplastin Time 25.6 sec (22.0-30.0); Protein,Urine Trace (Negative); RBC,Urine 1 /hpf (0-5); Specific Gravity,Urine 1.022 (1.001-1.035); Squamous Epithelial Cell,Urine <1 /hpf (0-4); Urobilinogen,Urine <2.0 mg/dL (<2.0); WBC,Urine 52 /hpf (0-5)
--- NOTE | 2021-03-08 01:44 | ED ---
Weakness HPI - General Chief complaint: Weakness Stated complaint: Weakness Time Seen by Provider: 03/08/21 00:30 Source: EMS Mode of arrival: EMS Limitations: no limitations - History of Present Illness Initial comments: 66 year-old female patient presents to the emergency department today for evaluation of weakness. Patient had to call EMS because she was unable to get up off of the couch. She believed it was related to chronic knee pain and arthriti s. Upon arrival she did have elevated temperature. She admits to having increased frequency of urination, but denies any other symptoms. Patient denies any recent rash, cough, shortness of breath, chest pain, abdominal pain, nausea, vomiting, diarrhea, constipation, back pain, numbness, tingling, dizziness, headache, visual changes, or any other complaints. - Related Data Home Medications Medication Instructions Recorded Confirmed Levothyroxine Sodium 125 mcg PO QAM 04/12/19 03/07/21 Cyclobenzaprine [Flexeril] 10 mg PO DAILY PRN 08/25/19 03/07/21 Aspirin EC [Ecotrin Low Dose] 81 mg PO DAILY 12/04/19 03/07/21 Atorvastatin [Lipitor] 40 mg PO HS 12/04/19 03/07/21 Clopidogrel Bisulfate [Plavix] 75 mg PO HS 11/15/20 03/07/21 Furosemide [Lasix] 40 mg PO DAILY 11/15/20 03/07/21 Insulin Glargine,Hum.rec.anlog 50 unit SQ DAILY@0600 11/15/20 03/07/21 [Lantus Solostar] Rivaroxaban [Xarelto] 20 mg PO HS 11/15/20 03/07/21 Acetaminophen [Tylenol 8 Hour] 650 mg PO Q6H 02/01/21 03/07/21 Insulin Aspart Protam & Aspart 50 unit SQ AC-TID 02/01/21 03/07/21 [NovoLOG MIX 70-30 Flexpen] Lisinopril [Prinivil] 5 mg PO QAM 03/07/21 03/07/21 amLODIPine [Norvasc] 10 mg PO DAILY 03/07/21 03/07/21 Previous Rx's Medication Instructions Recorded Collagenase [Santyl] 1 applic TOPICAL DAILY #1 tube 02/04/21 Allergies Allergy/AdvReac Type Severity Reaction Status Date / Time No Known Allergies Allergy Verified 03/07/21 08:38 Review of Systems ROS Statement: Those systems with pertinent positive or pertinent negative responses have been documented in the HPI. ROS Other: All systems not noted in ROS Statement are negative. Past Medical History Past Medical History: Coronary Artery Disease (CAD), COPD, Diabetes Mellitus, Deep Vein Thrombosis (DVT), Hypertension, Musculoskeletal Disorder, Osteoarthritis (OA), Sleep Apnea/CPAP/BIPAP, Thyroid Disorder, Vascular Disorder Additional Past Medical History / Comment(s): MS, current wound on rt leg great toe-dressing on, USES WHEELCHAIR- can stand and pivot., DYSPHAGIA. migraines, no cpap used, hx dvt's luke legs, urinary leakage, History of Any Multi-Drug Resistant Organisms: None Reported Past Surgical History: Bariatric Surgery, Heart Catheterization With Stent, Orthopedic Surgery Additional Past Surgical History / Comment(s): 11/02/19 angiogram, L CARPAL TUNNEL, GASTRIC SLEEVE, 2 cardiac stents. Right big toe amputation Past Anesthesia/Blood Transfusion Reactions: Motion Sickness Additional Past Anesthesia/Blood Transfusion Reaction / Comment(s): past motion sickness, never had a transfusion Date of Last Stent Placement:: unknown Past Psychological History: Anxiety Smoking Status: Former smoker - Past Family History Father History Unknown: Yes Family Medical History: Cancer Mother History Unknown: Yes Family Medical History: Deep Vein Thrombosis (DVT) General Exam Limitations: no limitations General appearance: alert, in no apparent distress, other (Physical well- developed, well-nourished adult female patient in no acute distress. Vital signs upon presentation are temperature 102.8F oral, pulse 91, respirations 20, blood pressure 114/63, pulse ox 97% on room air) Eye exam: Present: normal appearance, PERRL, EOMI. Absent: scleral icterus, conjunctival injection, periorbital swelling ENT exam: Present: normal exam, normal oropharynx, mucous membranes moist Respiratory exam: Present: normal lung sounds bilaterally. Absent: respiratory distress, wheezes, rales, rhonchi, stridor Cardiovascular Exam: Present: regular rate, normal rhythm, normal heart sounds. Absent: systolic murmur, diastolic murmur, rubs, gallop, clicks GI/Abdominal exam: Present: soft, normal bowel sounds. Absent: distended, tenderness, guarding, rebound, rigid Back exam: Absent: CVA tenderness (R), CVA tenderness (L) Neurological exam: Present: alert, oriented X3, CN II-XII intact Psychiatric exam: Present: normal affect, normal mood Skin exam: Present: warm, dry, intact, normal color. Absent: rash Course Vital Signs 03/08/21 03/08/21 00:26 02:33 Temperature 102.8 F H 101 F H Pulse Rate 91 113 H Respiratory 20 20 Rate Blood Pressure 114/63 141/71 O2 Sat by Pulse 97 95 Oximetry EKG Findings - EKG Comments: EKG Findings:: EKG obtained at 0146 shows sinus tachycardia with a left anterior fascicular block. Ventricular rate is 113, para 168, QR orthodoxy 80, QT 314, QTC 430. No evidence of ST elevation or depression. Medical Decision Making - Medical Decision Making 66-year-old female patient presents to the emergency department today for evaluation of increased weakness and urinary frequency. Physical examination was unremarkable. She is neurologically intact. She did have elevated temperature upon arrival. Labs reviewed and revealed normal white blood cell count. She had evidence for UTI. She did test positive for COVID-19. She'll be discharged to follow-up with the primary care physician for recheck in 1-2 days. Return parameters discussed in detail. She verbalizes understanding and agrees with this plan. - Lab Data Result diagrams: 03/08/21 00:52 03/08/21 00:52 Lab Results 03/08/21 03/08/21 03/08/21 Range/Units 00:52 00:52 00:52 WBC 7.8 (3.8-10.6) k/uL RBC 4.03 (3.80-5.40) m/uL Hgb 11.1 L (11.4-16.0) gm/dL Hct 33.5 L (34.0-46.0) % MCV 83.1 (80.0-100.0) fL MCH 27.4 (25.0-35.0) pg MCHC 33.0 (31.0-37.0) g/dL RDW 17.2 H (11.5-15.5) % Plt Count 232 (150-450) k/uL MPV 7.0 Neutrophils % 87 % Lymphocytes % 5 % Monocytes % 6 % Eosinophils % 1 % Basophils % 0 % Neutrophils # 6.8 (1.3-7.7) k/uL Lymphocytes # 0.4 L (1.0-4.8) k/uL Monocytes # 0.4 (0-1.0) k/uL Eosinophils # 0.1 (0-0.7) k/uL Basophils # 0.0 (0-0.2) k/uL Anisocytosis Slight PT 11.0 (9.0-12.0) sec INR 1.0 (<1.2) APTT 25.6 (22.0-30.0) sec D-Dimer (<0.60) mg/L FEU Sodium (137-145) mmol/L Potassium (3.5-5.1) mmol/L Chloride (98-107) mmol/L Carbon Dioxide (22-30) mmol/L Anion Gap mmol/L BUN (7-17) mg/dL Creatinine (0.52-1.04) mg/dL Est GFR (CKD-EPI)AfAm (>60 ml/min/1.73 sqM) Est GFR (CKD-EPI)NonAf (>60 ml/min/1.73 sqM) Glucose (74-99) mg/dL Plasma Lactic Acid Malachi (0.7-2.0) mmol/L Calcium (8.4-10.2) mg/dL Magnesium (1.6-2.3) mg/dL Total Bilirubin (0.2-1.3) mg/dL AST (14-36) U/L ALT (4-34) U/L Alkaline Phosphatase (38-126) U/L Troponin I (0.000-0.034) ng/mL Total Protein (6.3-8.2) g/dL Albumin (3.5-5.0) g/dL Urine Color Yellow Urine Appearance Cloudy H (Clear) Urine pH 5.5 (5.0-8.0) Ur Specific [place] 1.022 (1.001-1.035) Urine Protein Trace H (Negative) Urine Glucose (UA) Negative (Negative) Urine Ketones Negative (Negative) Urine Blood Trace H (Negative) Urine Nitrite Positive H (Negative) Urine Bilirubin Negative (Negative) Urine Urobilinogen <2.0 (<2.0) mg/dL Ur Leukocyte Esterase Large H (Negative) Urine RBC 1 (0-5) /hpf Urine WBC 52 H (0-5) /hpf Ur Squamous Epith Cells <1 (0-4) /hpf Urine Bacteria Moderate H (None) /hpf Urine Mucus Rare H (None) /hpf Influenza Type A (PCR) (Not Detectd) Influenza Type B (PCR) (Not Detectd) RSV (PCR) (Not Detectd) SARS-CoV-2 (PCR) (Not Detectd) 03/08/21 03/08/21 03/08/21 Range/Units 00:52 00:52 00:52 WBC (3.8-10.6) k/uL RBC (3.80-5.40) m/uL Hgb (11.4-16.0) gm/dL Hct (34.0-46.0) % MCV (80.0-100.0) fL MCH (25.0-35.0) pg MCHC (31.0-37.0) g/dL RDW (11.5-15.5) % Plt Count (150-450) k/uL MPV Neutrophils % % Lymphocytes % % Monocytes % % Eosinophils % % Basophils % % Neutrophils # (1.3-7.7) k/uL Lymphocytes # (1.0-4.8) k/uL Monocytes # (0-1.0) k/uL Eosinophils # (0-0.7) k/uL Basophils # (0-0.2) k/uL Anisocytosis PT (9.0-12.0) sec INR (<1.2) APTT (22.0-30.0) sec D-Dimer (<0.60) mg/L FEU Sodium 136 L (137-145) mmol/L Potassium 4.7 (3.5-5.1) mmol/L Chloride 103 (98-107) mmol/L Carbon Dioxide 26 (22-30) mmol/L Anion Gap 7 mmol/L BUN 30 H (7-17) mg/dL Creatinine 0.82 (0.52-1.04) mg/dL Est GFR (CKD-EPI)AfAm 86 (>60 ml/min/1.73 sqM) Est GFR (CKD-EPI)NonAf 75 (>60 ml/min/1.73 sqM) Glucose 109 H (74-99) mg/dL Plasma Lactic Acid Malachi 1.3 (0.7-2.0) mmol/L Calcium 9.4 (8.4-10.2) mg/dL Magnesium 1.6 (1.6-2.3) mg/dL Total Bilirubin 0.5 (0.2-1.3) mg/dL AST 15 (14-36) U/L ALT 8 (4-34) U/L Alkaline Phosphatase 58 (38-126) U/L Troponin I <0.012 (0.000-0.034) ng/mL Total Protein 6.6 (6.3-8.2) g/dL Albumin 3.5 (3.5-5.0) g/dL Urine Color Urine Appearance (Clear) Urine pH (5.0-8.0) Ur Specific [place] (1.001-1.035) Urine Protein (Negative) Urine Glucose (UA) (Negative) Urine Ketones (Negative) Urine Blood (Negative) Urine Nitrite (Negative) Urine Bilirubin (Negative) Urine Urobilinogen (<2.0) mg/dL Ur Leukocyte Esterase (Negative) Urine RBC (0-5) /hpf Urine WBC (0-5) /hpf Ur Squamous Epith Cells (0-4) /hpf Urine Bacteria (None) /hpf Urine Mucus (None) /hpf Influenza Type A (PCR) (Not Detectd) Influenza Type B (PCR) (Not Detectd) RSV (PCR) (Not Detectd) SARS-CoV-2 (PCR) (Not Detectd) 03/08/21 03/08/21 Range/Units 00:52 01:10 WBC (3.8-10.6) k/uL RBC (3.80-5.40) m/uL Hgb (11.4-16.0) gm/dL Hct (34.0-46.0) % MCV (80.0-100.0) fL MCH (25.0-35.0) pg MCHC (31.0-37.0) g/dL RDW (11.5-15.5) % Plt Count (150-450) k/uL MPV Neutrophils % % Lymphocytes % % Monocytes % % Eosinophils % % Basophils % % Neutrophils # (1.3-7.7) k/uL Lymphocytes # (1.0-4.8) k/uL Monocytes # (0-1.0) k/uL Eosinophils # (0-0.7) k/uL Basophils # (0-0.2) k/uL Anisocytosis PT (9.0-12.0) sec INR (<1.2) APTT (22.0-30.0) sec D-Dimer 0.93 H (<0.60) mg/L FEU Sodium (137-145) mmol/L Potassium (3.5-5.1) mmol/L Chloride (98-107) mmol/L Carbon Dioxide (22-30) mmol/L Anion Gap mmol/L BUN (7-17) mg/dL Creatinine (0.52-1.04) mg/dL Est GFR (CKD-EPI)AfAm (>60 ml/min/1.73 sqM) Est GFR (CKD-EPI)NonAf (>60 ml/min/1.73 sqM) Glucose (74-99) mg/dL Plasma Lactic Acid Malachi (0.7-2.0) mmol/L Calcium (8.4-10.2) mg/dL Magnesium (1.6-2.3) mg/dL Total Bilirubin (0.2-1.3) mg/dL AST (14-36) U/L ALT (4-34) U/L Alkaline Phosphatase (38-126) U/L Troponin I (0.000-0.034) ng/mL Total Protein (6.3-8.2) g/dL Albumin (3.5-5.0) g/dL Urine Color Urine Appearance (Clear) Urine pH (5.0-8.0) Ur Specific [place] (1.001-1.035) Urine Protein (Negative) Urine Glucose (UA) (Negative) Urine Ketones (Negative) Urine Blood (Negative) Urine Nitrite (Negative) Urine Bilirubin (Negative) Urine Urobilinogen (<2.0) mg/dL Ur Leukocyte Esterase (Negative) Urine RBC (0-5) /hpf Urine WBC (0-5) /hpf Ur Squamous Epith Cells (0-4) /hpf Urine Bacteria (None) /hpf Urine Mucus (None) /hpf Influenza Type A (PCR) Not Detected (Not Detectd) Influenza Type B (PCR) Not Detected (Not Detectd) RSV (PCR) Not Detected (Not Detectd) SARS-CoV-2 (PCR) Detected A (Not Detectd) - Radiology Data Radiology results: report reviewed, image reviewed One view x-ray of the chest is obtained. Report was reviewed in its entirety. Impression by Dr. Landa shows no acute cardiopulmonary process. Disposition Clinical Impression: COVID-19, UTI (urinary tract infection), Weakness Disposition: ADMITTED IP TO THIS [facility] Condition: Serious Decision to Admit Reason: Admit from EC Decision Date: 03/08/21 Decision Time: 02:41
[2021-03-08] MEDS ORDERED: cefTRIAXone IN SWFI 1,000 MG/10 ML SYRINGE IVP STA (01:55)
[2021-03-08] MEDS ORDERED: NALOXONE 0.4 MG/ML 1 ML VIAL IV PRN (02:39)
[2021-03-08] MEDS ORDERED: MORPHINE SULFATE 4 MG/ML SYRINGE IVP STA (03:04)
[2021-03-08] MEDS ORDERED: ONDANSETRON 4 MG/2 ML VIAL IVP STA (03:05)
[2021-03-08 03:16] LABS: C Reactive Protein 14.2 mg/dL (<1.0)
[2021-03-08] MEDS ORDERED: SODIUM CHLORIDE 0.9% 500 ML 500 ML IV ONE (03:21)
[2021-03-08] MEDS: ACETAMINOPHEN TAB 325 MG TAB PO PRN ×3 (05:13→22:17)
[2021-03-08 07:04] LABS: Glucose,Whole Blood 130 mg/dL (75-99)
[2021-03-08] MEDS: CHOLECALCIFEROL 25 MCG (1000 IU) TABLET PO SCH ×2 (08:36→09:23)
[2021-03-08] MEDS: MORPHINE SULFATE 4 MG/ML SYRINGE IVP PRN ×3 (08:36→17:55)
[2021-03-08] MEDS: ZINC SULFATE 220 MG CAP PO SCH (08:37)
[2021-03-08] MEDS: ASCORBIC ACID 500 MG TAB PO SCH (09:23)
[2021-03-08] MEDS: HYDROcodone/APAP 7.5-325MG 1 EACH TAB PO PRN ×3 (09:31→21:33)
[2021-03-08 11:30] LABS: Glucose,Whole Blood 167 mg/dL (75-99)
--- NOTE | 2021-03-08 13:34 | P.CNPUL ---
History of Present Illness Consult date: 03/08/21 Chief complaint: Fever History of present illness: 66-year-old female patient, presented to [facility] department feeling weak and she was having fever at home. She saw that she was getting dehydrated and for that reason she came into the hospital. She had no respiratory distress. No cough. No sputum production. No chest tightness. No wheezing. No nausea. No vomiting. No diarrhea. No altered mentation. No loss of taste or smell. She tested positive for COVID-19. She was hospitalized for hydration. She has multiple medical problems and comorbidities. Nevertheless, she is on room air oxygen and her pulse ox on 94%. Chest x-rays clear. No respiratory symptoms whatsoever at this point in time. She is resting comfortably in bed. She is diabetic. She has diabetic foot ulcer in her right foot and she is also known to have peripheral neuropathy, peripheral vascular disease, hypertension, hypothyroidism, and she has undergone previous bariatric surgery for morbid obesity. Her history also includes previous history of DVTs of the lower extremities. I believe she is a case of a multiple sclerosis. LDH is 351. D- dimer is at 0.9. UA is abnormal and the patient was suspected to have an underlying urine checked infection and the urine cultures still pending in the meanwhile the patient was started on antibiotics and currently she is on IV Rocephin. Review of Systems Constitutional: Reports fatigue, Reports fever, Reports poor appetite Eyes: denies as per HPI, denies blurred vision, denies bulging eye, denies decreased vision, denies diplopia, denies discharge, denies dry eye, denies irritation, denies itching, denies pain, denies photophobia, denies loss of peripheral vision, denies loss of vision, denies tunnel vision/blind spots Ears: deny: decreased hearing, ear discharge, earache, tinnitus Ears, nose, mouth and throat: Reports as per HPI Breasts: absent: as per HPI, change in shape, gynecomastia, masses, nipple discharge, pain, skin changes, swelling Cardiovascular: Reports decreased exercise tolerance, Reports dyspnea on exertion, Reports leg edema Respiratory: Reports as per HPI Gastrointestinal: Reports as per HPI Genitourinary: Reports as per HPI Menstruation: Reports as per HPI Musculoskeletal: Reports as per HPI Musculoskeletal: bilateral: ankle swelling, absent: ankle pain, ankle stiffness, as per HPI, elbow pain, elbow stiffness, elbow swelling, foot pain, foot stiffness, foot swelling, hand pain, hand stiffness, hand swelling, hip pain, hip stiffness, hip swelling, knee pain, knee stiffness, knee swelling, shoulder pain, shoulder stiffness, shoulder swelling, wrist pain, wrist stiffness, wrist swelling Integumentary: Reports as per HPI Neurological: Reports gait dysfunction, Reports migraines, Reports numbness, R eports tingling, Reports weakness Psychiatric: Reports as per HPI Endocrine: Reports as per HPI Hematologic/Lymphatic: Reports as per HPI Allergic/Immunologic: Reports as per HPI Past Medical History Past Medical History: Coronary Artery Disease (CAD), COPD, Diabetes Mellitus, Deep Vein Thrombosis (DVT), Hypertension, Musculoskeletal Disorder, Osteoarthritis (OA), Sleep Apnea/CPAP/BIPAP, Thyroid Disorder, Vascular Disorder Additional Past Medical History / Comment(s): MS, current wound on rt leg great toe-dressing on, USES WHEELCHAIR- can stand and pivot., DYSPHAGIA. migraines, no cpap used, hx dvt's luke legs, urinary leakage, History of Any Multi-Drug Resistant Organisms: None Reported Past Surgical History: Bariatric Surgery, Heart Catheterization With Stent, Orthopedic Surgery Additional Past Surgical History / Comment(s): 11/02/19 angiogram, L CARPAL TUNNEL, GASTRIC SLEEVE, 2 cardiac stents. Right big toe amputation Past Anesthesia/Blood Transfusion Reactions: Motion Sickness Additional Past Anesthesia/Blood Transfusion Reaction / Comment(s): past motion sickness, never had a transfusion Date of Last Stent Placement:: unknown Past Psychological History: Anxiety Additional Psychological History / Comment(s): anxious over this surgeryalone. She has a dog in the home. Smoking Status: Former smoker Past Alcohol Use History: None Reported Additional Past Alcohol Use History / Comment(s): QUIT SMOKING 20 YRS AGO (1998), SMOKED <PPD, SMOKED 14 YEARS.alone. She has a dog in the home. Past Drug Use History: None Reported Additional Drug Use History / Comment(s): CBD OIL FOR MUSCLE ACHES, instructed to hold 24 hrs prior to procedure - Past Family History Father History Unknown: Yes Family Medical History: Cancer Mother History Unknown: Yes Family Medical History: Deep Vein Thrombosis (DVT) Medications and Allergies Home Medications Medication Instructions Recorded Confirmed Type Levothyroxine Sodium 125 mcg PO QAM 04/12/19 03/08/21 History Cyclobenzaprine [Flexeril] 10 mg PO DAILY PRN 08/25/19 03/08/21 History Aspirin EC [Ecotrin Low Dose] 81 mg PO DAILY 12/04/19 03/08/21 History Atorvastatin [Lipitor] 40 mg PO HS 12/04/19 03/08/21 History Clopidogrel Bisulfate [Plavix] 75 mg PO HS 11/15/20 03/08/21 History Furosemide [Lasix] 40 mg PO DAILY 11/15/20 03/08/21 History Insulin Glargine,Hum.rec.anlog 50 unit SQ DAILY@0600 11/15/20 03/08/21 History [Lantus Solostar] Rivaroxaban [Xarelto] 20 mg PO HS 11/15/20 03/08/21 History Acetaminophen [Tylenol 8 Hour] 650 mg PO Q6H 02/01/21 03/08/21 History Insulin Aspart Protam & Aspart See Protocol SQ AC-TID 02/01/21 03/08/21 History [NovoLOG MIX 70-30 Flexpen] Collagenase [Santyl] 1 applic TOPICAL DAILY #1 tube 02/04/21 03/08/21 Rx Lisinopril [Prinivil] 5 mg PO QAM 03/07/21 03/08/21 History amLODIPine [Norvasc] 10 mg PO DAILY 03/07/21 03/08/21 History Allergies Allergy/AdvReac Type Severity Reaction Status Date / Time No Known Allergies Allergy Verified 03/08/21 10:52 Physical Exam Vitals: Vital Signs Temp Pulse Pulse Resp BP BP Pulse Ox 03/08/21 10:10 98.4 F 103 H 20 121/59 94 L 03/08/21 04:55 98.3 F 76 15 114/54 95 03/08/21 04:20 99.3 F 112 H 20 143/65 95 03/08/21 03:13 100.9 F H 108 H 20 114/50 94 L 03/08/21 02:33 101 F H 113 H 20 141/71 95 03/08/21 00:26 102.8 F H 91 20 114/63 97 Intake and Output 03/07/21 03/08/21 03/08/21 22:59 06:59 14:59 Intake Total 200 Balance 200 Intake: Oral 200 Other: Voiding Method External Catheter External Catheter # Voids 1 Weight 124.738 kg Gen. appearance she is calm and comfortable, BMI of 45, not having any respiratory distress Head exam was generally normal. There was no scleral icterus or corneal arcus. Mucous membranes were moist. Neck was supple and without jugular venous distension, thyromegaly, or carotid bruits. Carotids were easily palpable bilaterally. There was no adenopathy. Lungs were clear to auscultation and percussion, and with normal diaphragmatic excursion. No wheezes or rales were noted. Cardiac exam revealed the PMI to be normally situated and sized. The rhythm was regular and no extrasystoles were noted during several minutes of auscultation. The first and second heart sounds were normal and physiologic splitting of the second heart sound was noted. There were no murmurs, rubs, clicks, or gallops. Abdominal exam revealed normal bowel sounds. The abdomen was soft, non-tender, and without masses, organomegaly, or appreciable enlargement of the abdominal aorta. Extremities show evidence of neuropathy and Charcot joint deformity in the right foot along with diverticulosis involving the toe and the lateral aspect of the right foot. Pulses are diminished in all 4 extremities bilaterally. No cyanosis. Neurologically, the patient is awake and alert and the patient does not have any focal neurological deficit. Cranial nerves are essentially intact. Results - Laboratory Findings CBC and BMP: 03/08/21 00:52 03/08/21 00:52 PT/INR, D-dimer PT 11.0 sec (9.0-12.0) 03/08/21 00:52 INR 1.0 (<1.2) 03/08/21 00:52 D-Dimer 0.93 mg/L FEU (<0.60) H 03/08/21 00:52 Abnormal lab findings: Abnormal Labs 03/08/21 03/08/21 03/08/21 00:52 00:52 00:52 Hgb 11.1 L Hct 33.5 L RDW 17.2 H Lymphocytes # 0.4 L D-Dimer Sodium 136 L BUN 30 H Glucose 109 H POC Glucose (mg/dL) C-Reactive Protein Urine Appearance Cloudy H Urine Protein Trace H Urine Blood Trace H Urine Nitrite Positive H Ur Leukocyte Esterase Large H Urine WBC 52 H Urine Bacteria Moderate H Urine Mucus Rare H SARS-CoV-2 (PCR) 03/08/21 03/08/21 03/08/21 00:52 00:52 01:10 Hgb Hct RDW Lymphocytes # D-Dimer 0.93 H Sodium BUN Glucose POC Glucose (mg/dL) C-Reactive Protein 14.2 H Urine Appearance Urine Protein Urine Blood Urine Nitrite Ur Leukocyte Esterase Urine WBC Urine Bacteria Urine Mucus SARS-CoV-2 (PCR) Detected A 03/08/21 03/08/21 07:02 11:28 Hgb Hct RDW Lymphocytes # D-Dimer Sodium BUN Glucose POC Glucose (mg/dL) 130 H 167 H C-Reactive Protein Urine Appearance Urine Protein Urine Blood Urine Nitrite Ur Leukocyte Esterase Urine WBC Urine Bacteria Urine Mucus SARS-CoV-2 (PCR) - Diagnostic Findings Chest x-ray: image reviewed Assessment and Plan Plan: 1 acute COVID-19 infection with secondary fever and mild dehydration. No indication for pneumonia and this point in time and the patient is having no respiratory symptoms. Hospitalized for hydration and management of fever. 2 suspected UTI, culture are pending and the patient is currently on IV Rocephin. UA is significantly abnormal 3 coronary artery disease 4 diabetes mellitus with diabetic peripheral neuropathy 5 diabetic foot ulcer 6 peripheral vascular disease 7 obstructive sleep apnea. 8 history of morbid obesity post gastric sleeve. 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 12 multiple sclerosis 13 hypothyroidism 14 osteoarthritis Plan Check UA and cultures IV Rocephin Check pro calcitonin level Monitor fever pattern COVID-19 is detected and the patient is obviously infected. No pneumonia this point in time Resume long-term and to coagulation with Xarelto Resume home medications We'll continue to follow
[2021-03-08] MEDS: INSULIN ASPART (NovoLOG) 100 UNIT/ML VIAL SQ SCH ×3 (13:52→21:30)
[2021-03-08] MEDS: COLLAGENASE 250 UNIT/GM OINTMENT 30 GM TUBE TOPICAL SCH (13:53)
--- NOTE | 2021-03-08 15:15 | P.HPIM ---
History of Present Illness H&P Date: 03/08/21 Chief Complaint: Generalized weakness Ms. Barnes is a 66-year-old female with a past medical history of coronary artery disease, COPD, and at this point is, DVT, hypertension, osteoarthritis, PEPPER, thyroid disorder, multiple sclerosis who uses a wheelchair to move around brought in by EMS as she was unable to get off of her couch. Patient states for the past 2-3 days she has been feeling extremely weak and has decreased by mouth intake and this morning she felt so weak that she could not get out of the bed. Patient was also complaining of increased urinary output. Patient denied having any fevers chills or rigors. She denied having any chest pain or palpitations. No cough or difficulty in breathing. No abdominal pain nausea vomiting or diarrhea. In the ER at the time of admission patient's vitals, T-max 102.8, heart rate 91, respiratory 20, blood pressure 114/63, saturating 97% on room air. On reviewing the labs white count of 7.8, hemoglobin 11.1, platelets 32. Sodium 136, potassium 4.7, chloride 103, bicarb 26, BNP 30, creatinine 0.8 to. D-dimer 0.93. Urine analysis is positive for nitrites and large leukocyte esterase and moderate bacteria. COVID 19 PCR positive. So the patient is admitted for further management. Review of Systems REVIEW OF SYSTEMS: CONSTITUTIONAL: Generalized weakness, malaise HEENT: No recent visual problems or hearing problems. Denied any sore throat. CARDIOVASCULAR: No chest pain, orthopnea, PND, no palpitations, no syncope. PULMONARY: No cough or difficulty in breathing GASTROINTESTINAL: Constipation, lower abdominal discomfort NEUROLOGICAL: Denies having any weakness of extremities, loss of consciousness or syncopal episodes HEMATOLOGICAL: Denies any bleeding or petechiae. GENITOURINARY: Positive for decreased frequency MUSCULOSKELETAL/RHEUMATOLOGICAL: Myalgia ENDOCRINE: Denies any polyuria or polydipsia. The rest of the 14-point review of systems is negative Past Medical History Past Medical History: Coronary Artery Disease (CAD), COPD, Diabetes Mellitus, Deep Vein Thrombosis (DVT), Hypertension, Musculoskeletal Disorder, Osteoarthritis (OA), Sleep Apnea/CPAP/BIPAP, Thyroid Disorder, Vascular Disorder Additional Past Medical History / Comment(s): MS, current wound on rt leg great toe-dressing on, USES WHEELCHAIR- can stand and pivot., DYSPHAGIA. migraines, no cpap used, hx dvt's luke legs, urinary leakage, History of Any Multi-Drug Resistant Organisms: None Reported Past Surgical History: Bariatric Surgery, Heart Catheterization With Stent, Orthopedic Surgery Additional Past Surgical History / Comment(s): 11/02/19 angiogram, L CARPAL TUNNEL, GASTRIC SLEEVE, 2 cardiac stents. Right big toe amputation Past Anesthesia/Blood Transfusion Reactions: Motion Sickness Additional Past Anesthesia/Blood Transfusion Reaction / Comment(s): past motion sickness, never had a transfusion Date of Last Stent Placement:: unknown Past Psychological History: Anxiety Additional Psychological History / Comment(s): anxious over this surgeryalone. She has a dog in the home. Smoking Status: Former smoker Past Alcohol Use History: None Reported Additional Past Alcohol Use History / Comment(s): QUIT SMOKING 20 YRS AGO (1998) , SMOKED <PPD, SMOKED 14 YEARS.alone. She has a dog in the home. Past Drug Use History: None Reported Additional Drug Use History / Comment(s): CBD OIL FOR MUSCLE ACHES, instructed to hold 24 hrs prior to procedure - Past Family History Father History Unknown: Yes Family Medical History: Cancer Mother History Unknown: Yes Family Medical History: Deep Vein Thrombosis (DVT) Medications and Allergies Home Medications Medication Instructions Recorded Confirmed Type Levothyroxine Sodium 125 mcg PO QAM 04/12/19 03/08/21 History Cyclobenzaprine [Flexeril] 10 mg PO DAILY PRN 08/25/19 03/08/21 History Aspirin EC [Ecotrin Low Dose] 81 mg PO DAILY 12/04/19 03/08/21 History Atorvastatin [Lipitor] 40 mg PO HS 12/04/19 03/08/21 History Clopidogrel Bisulfate [Plavix] 75 mg PO HS 11/15/20 03/08/21 History Furosemide [Lasix] 40 mg PO DAILY 11/15/20 03/08/21 History Insulin Glargine,Hum.rec.anlog 50 unit SQ DAILY@0600 11/15/20 03/08/21 History [Lantus Solostar] Rivaroxaban [Xarelto] 20 mg PO HS 11/15/20 03/08/21 History Acetaminophen [Tylenol 8 Hour] 650 mg PO Q6H 02/01/21 03/08/21 History Insulin Aspart Protam & Aspart See Protocol SQ AC-TID 02/01/21 03/08/21 History [NovoLOG MIX 70-30 Flexpen] Collagenase [Santyl] 1 applic TOPICAL DAILY #1 tube 02/04/21 03/08/21 Rx Lisinopril [Prinivil] 5 mg PO QAM 03/07/21 03/08/21 History amLODIPine [Norvasc] 10 mg PO DAILY 03/07/21 03/08/21 History Allergies Allergy/AdvReac Type Severity Reaction Status Date / Time No Known Allergies Allergy Verified 03/08/21 10:52 Physical Exam Vitals: Vital Signs Temp Pulse Pulse Resp BP BP Pulse Ox 03/08/21 04:55 98.3 F 76 15 114/54 95 03/08/21 04:20 99.3 F 112 H 20 143/65 95 03/08/21 03:13 100.9 F H 108 H 20 114/50 94 L 03/08/21 02:33 101 F H 113 H 20 141/71 95 03/08/21 00:26 102.8 F H 91 20 114/63 97 Intake and Output 03/07/21 03/08/21 03/08/21 22:59 06:59 14:59 Intake Total 200 Balance 200 Intake: Oral 200 Other: Voiding Method External Catheter # Voids 1 Weight 124.738 kg PHYSICAL EXAMINATION: GENERAL: Obese female lying comfortably in bed appears to be no acute distress HEENT: Pupils are round and equally reacting to light. EOMI. No scleral icterus. No conjunctival pallor. Normocephalic, atraumatic. No pharyngeal erythema. No thyromegaly. CARDIOVASCULAR: S1 and S2 present. PULMONARY: Bilateral breath sounds are positive. No wheeze or crackles. ABDOMEN: Soft, positive for tenderness in the bilateral lower quadrants of the abdomen, bowel sounds positive. MUSCULOSKELETAL: No joint swelling or deformity. EXTREMITIES: No cyanosis, clubbing, or pedal edema. Right Great toe wrapped in bandage . NEUROLOGICAL: Patient is alert awake oriented 3, Gross neurological examination did not reveal any focal deficits. SKIN: No rashes. Results CBC & Chem 7: 03/08/21 00:52 03/08/21 00:52 Labs: Abnormal Lab Results - Last 24 Hours (Table) 03/08/21 03/08/21 03/08/21 Range/Units 00:52 00:52 00:52 Hgb 11.1 L (11.4-16.0) gm/dL Hct 33.5 L (34.0-46.0) % RDW 17.2 H (11.5-15.5) % Lymphocytes # 0.4 L (1.0-4.8) k/uL D-Dimer (<0.60) mg/L FEU Sodium 136 L (137-145) mmol/L BUN 30 H (7-17) mg/dL Glucose 109 H (74-99) mg/dL POC Glucose (mg/dL) (75-99) mg/dL C-Reactive Protein (<1.0) mg/dL Urine Appearance Cloudy H (Clear) Urine Protein Trace H (Negative) Urine Blood Trace H (Negative) Urine Nitrite Positive H (Negative) Ur Leukocyte Esterase Large H (Negative) Urine WBC 52 H (0-5) /hpf Urine Bacteria Moderate H (None) /hpf Urine Mucus Rare H (None) /hpf SARS-CoV-2 (PCR) (Not Detectd) 03/08/21 03/08/21 03/08/21 Range/Units 00:52 00:52 01:10 Hgb (11.4-16.0) gm/dL Hct (34.0-46.0) % RDW (11.5-15.5) % Lymphocytes # (1.0-4.8) k/uL D-Dimer 0.93 H (<0.60) mg/L FEU Sodium (137-145) mmol/L BUN (7-17) mg/dL Glucose (74-99) mg/dL POC Glucose (mg/dL) (75-99) mg/dL C-Reactive Protein 14.2 H (<1.0) mg/dL Urine Appearance (Clear) Urine Protein (Negative) Urine Blood (Negative) Urine Nitrite (Negative) Ur Leukocyte Esterase (Negative) Urine WBC (0-5) /hpf Urine Bacteria (None) /hpf Urine Mucus (None) /hpf SARS-CoV-2 (PCR) Detected A (Not Detectd) 03/08/21 Range/Units 07:02 Hgb (11.4-16.0) gm/dL Hct (34.0-46.0) % RDW (11.5-15.5) % Lymphocytes # (1.0-4.8) k/uL D-Dimer (<0.60) mg/L FEU Sodium (137-145) mmol/L BUN (7-17) mg/dL Glucose (74-99) mg/dL POC Glucose (mg/dL) 130 H (75-99) mg/dL C-Reactive Protein (<1.0) mg/dL Urine Appearance (Clear) Urine Protein (Negative) Urine Blood (Negative) Urine Nitrite (Negative) Ur Leukocyte Esterase (Negative) Urine WBC (0-5) /hpf Urine Bacteria (None) /hpf Urine Mucus (None) /hpf SARS-CoV-2 (PCR) (Not Detectd) Thrombosis Risk Factor Assmnt - Choose All That Apply Any of the Below Risk Factors Present?: Yes Each Factor Represents 1 point: Abnormal pulmonary function (COPD), Medical pt on bed rest, Obesity (BMI >25), Serious lung disease incl. pneumonia (< 1month) Other Risk Factors: Yes Each Risk Factor Represents 2 Points: Age 61-74 years Other congenital or acquired thrombophilia - If yes, enter type in comment: No Thrombosis Risk Factor Assessment Total Risk Factor Score: 6 Thrombosis Risk Factor Assessment Level: High Risk Assessment and Plan Assessment: ASSESSMENT Sepsis secondary to COVID-19 infection, UTI Possible urinary tract infection Coronary artery disease status post stenting COPD Diabetes mellitus Hypertension History of DVT Hypothyroidism Objective sleep apnea History of gastric sleeve surgery History of right big toe petition Morbid obesity with BMI 45.8 Mild protein calorie malnutrition Chronic debility PLAN: Patient to be continued on IV ceftriaxone pending urine cultures. At presentation has been saturating about 94% on room air, no evidence of pneumonia on chest x-ray. Patient has been restarted on her home medications. Continue anticoagulation with Xarelto. Further recommendations to follow depending on the progress of the patient. Overall prognosis is guarded.
[2021-03-08 16:18] LABS: Glucose,Whole Blood 118 mg/dL (75-99)
[2021-03-08] MEDS: HYDROmorphone 0.5 MG/0.5 ML SYRINGE IVP PRN (19:46)
[2021-03-08 20:41] LABS: Glucose,Whole Blood 103 mg/dL (75-99)
[2021-03-08] MEDS: CLOPIDOGREL 75 MG TAB PO SCH (21:32)
[2021-03-08] MEDS: ATORVASTATIN 40 MG TAB PO SCH (21:32)
[2021-03-08] MEDS: RIVAROXABAN 20 MG TAB PO SCH (21:33)
--- NOTE | 2021-03-08 22:55 | CONS ---
CONSULTATION DATE OF SERVICE: 03/08/2021 REASON FOR CONSULTATION: Fever, lower extremity wound. HISTORY OF PRESENT ILLNESS: The patient is a 66-year-old female with a past medical history significant for coronary artery disease, COPD, the patient has multiple sclerosis, uses a wheelchair to move around her house. The patient called EMS as the patient was so weak and unable to get off her couch. The patient over the last two to three days. She has been feeling extremely weak and decreased oral intake. The patient denies having any headache. No chest pain, shortness of breath or cough. No abdominal pain. No diarrhea. She did have some urinary frequency, but no significant burning, suprapubic or flank pain. The patient also has a chronic wound to the right foot big toe and right foot lateral border with the patient is currently being evaluated in outpatient setting by Dr. Ham and she was supposed to have some kind of arteriogram. With these symptoms, the EMS was called and the patient was brought into the hospital. On arrival to the ER, the patient did have a fever of 102 degrees Fahrenheit. The patient was tachycardic, not hypoxic. Chest x-ray was reported as negative for any acute infiltrate. The patient did have a normal white count. Kidney function was normal. Liver enzymes are normal. LDH was normal. CRP was mildly elevated as well as procalcitonin. She did have positive UA. Fonseca PCR came back positive as well. The patient was started on Rocephin and has been admitted to the hospital now. The patient did have right foot wound. The patient currently denies any pain to the foot wound area and no drainage. REVIEW OF SYSTEMS: Positive points have been mentioned in HPI. Rest of systems are negative. PAST MEDICAL HISTORY: Coronary artery disease, COPD, diabetes mellitus, DVT, hypertension, osteoarthritis, sleep apnea, hypothyroidism, MS. PAST SURGICAL HISTORY: Bariatric surgery, heart catheterization with stent, gastric sleeve. SOCIAL HISTORY: Remote history of smoking. No drinking or drug use. FAMILY HISTORY: Mother history of DVT. ALLERGIES: No known drug allergies. MEDICATIONS: The patient is currently on Rocephin 1 g daily, she is on zinc, Xarelto, Naloxone, Zestril, Synthroid, Levemir and NovoLog, Dilaudid, Plavix, Rocephin 1 g daily, Lipitor, aspirin, vitamin C, Norvasc, [place] and Tylenol. PHYSICAL EXAMINATION: Blood pressure 121/75, pulse of 64, temperature of 98.1. She is 94% on room air. General description: The patient is an elderly female lying in bed in no distress. No tachypnea or accessory muscles of respiration use. HEENT exam: Slight pallor. No scleral icterus. Oral mucous membranes dry. NECK: Trachea central. No thyromegaly. LUNGS: Unlabored breathing, clear to auscultation anteriorly. No wheeze or crackles. HEART S1, S2. Regular rate and rhythm. ABDOMEN: Soft. No tenderness. No guarding. No rigidity. EXTREMITIES: No edema of the feet. Examination of the right foot wound on the lateral border of the toe did have slough tissue. No surrounding swelling or redness or any drainage. NEUROLOGICAL: Patient is awake, alert, oriented times three. Mood and affect normal. LABS: Hemoglobin is 11.1, white count 7.8. BUN of 30, creatinine 0.82. Urine is positive. Chest was reported as negative. DIAGNOSTIC IMPRESSION AND PLAN: 1. Patient admitted to the hospital with weakness, urinary frequency, did have a fever and positive UA. Likely secondary to symptomatic urinary tract infection in this patient who did have a history of MS. No obvious focus of infection. The patient did have positive COVID test. However, no respiratory symptoms. She is saturating around 95% on room air. A chest x-ray was negative for any acute infiltrate. 2. Patient with right foot wounds with slough tissue but no evidence of any secondary cellulitis. PLAN: 1. Continue patient on Rocephin 1 g every day. 2. Local wound care to the right foot wound will be Santyl followed by moist dressing, keep the area off the pressure. 3. We will follow on clinical condition and culture to further adjust medication if needed. Thank you for this consultation. Will follow this patient along with you. MMODL / IJN: [id number] / JAYLENE
[2021-03-09] MEDS: HYDROmorphone 0.5 MG/0.5 ML SYRINGE IVP PRN ×2 (02:34→08:28)
[2021-03-09] MEDS: ACETAMINOPHEN TAB 325 MG TAB PO PRN (04:22)
[2021-03-09] MEDS: HYDROcodone/APAP 7.5-325MG 1 EACH TAB PO PRN ×3 (05:35→15:36)
[2021-03-09] MEDS: LEVOTHYROXINE 125 MCG TAB PO SCH (05:38)
[2021-03-09 06:54] LABS: Glucose,Whole Blood 109 mg/dL (75-99)
[2021-03-09] MEDS: INSULIN ASPART (NovoLOG) 100 UNIT/ML VIAL SQ SCH ×4 (07:28→21:31)
[2021-03-09] MEDS: ZINC SULFATE 220 MG CAP PO SCH (08:27)
[2021-03-09] MEDS: ASCORBIC ACID 500 MG TAB PO SCH (08:27)
[2021-03-09] MEDS: ASPIRIN 81 MG PO SCH (08:27)
[2021-03-09] MEDS: amLODIPine 10 MG TAB PO SCH (08:27)
[2021-03-09] MEDS: CHOLECALCIFEROL 25 MCG (1000 IU) TABLET PO SCH (08:27)
[2021-03-09] MEDS: lisinopriL 5 MG TAB PO SCH (08:27)
[2021-03-09 10:01] LABS: African American GFR (CKD) 104.6 (60.0-200.0); Anion Gap 7.2 mmol/L (4.00-12.00); BUN/Creat Ratio 21.43 Ratio (12.00-20.00); C Reactive Protein 15.5 mg/dL (0.0-0.8); Calcium 8.6 mg/dL (8.7-10.3); Carbon Dioxide 26.8 mmol/L (21.6-31.8); Non-African American GFR(CKD) 90.3 (60.0-200.0); Potassium 4.6 mmol/L (3.5-5.5)
[2021-03-09] MEDS: INSULIN DETEMIR (LEVEMIR) 100 UNIT/ML SYR SQ SCH (10:25)
--- NOTE | 2021-03-09 11:20 | P.PN ---
Subjective Progress Note Date: 03/09/21 66-year-old female patient, presented to ED department feeling weak and she was having fever at home. She saw that she was getting dehydrated and for that reason she came into the hospital. She had no respiratory distress. No cough. No sputum production. No chest tightness. No wheezing. No nausea. No vomiting. No diarrhea. No altered mentation. No loss of taste or smell. She tested positive for COVID-19. She was hospitalized for hydration. She has multiple medical problems and comorbidities. Nevertheless, she is on room air oxygen and her pulse ox on 94%. Chest x-rays clear. No respiratory symptoms whatsoever at this point in time. She is resting comfortably in bed. She is diabetic. She has diabetic foot ulcer in her right foot and she is also known to have peripheral neuropathy, peripheral vascular disease, hypertension, hypothyroidism, and she has undergone previous bariatric surgery for morbid obesity. Her history also includes previous history of DVTs of the lower e xtremities. I believe she is a case of a multiple sclerosis. LDH is 351. D- dimer is at 0.9. UA is abnormal and the patient was suspected to have an underlying urine checked infection and the urine cultures still pending in the meanwhile the patient was started on antibiotics and currently she is on IV Rocephin. On today's evaluation of 03/09/2021, the patient is being seen for a follow-up. The patient came in yesterday with fevers and she was ultimately diagnosed having COVID-19 related infection. No obvious signs of pneumonia. UTI was suspected. The patient remains on room air oxygen with a pulse ox of around 92%. Blood cultures been negative. Urine culture preliminary is showing no growth yet. Meanwhile, the patient is having a pro-calcitonin level of 0.17, troponin was negative, CRP was 15, urine analysis was abnormal and the patient is covered with antibiotics and she is currently receiving IV Rocephin. In terms of his fever pattern, the patient has been afebrile for now. Her most recent spike of temperature of 101 was added to a.m. on 03/08/2021. On Xarelto. She is diabetic. No other treatment was offered in regards to COVID-19 infection and the patient's treatment is essentially supportive of this point in time. Objective - Vital Signs Vital signs: Vital Signs Temp 98.6 F 03/09/21 10:12 Pulse 87 03/09/21 10:12 Resp 19 03/09/21 10:12 BP 99/62 03/09/21 10:12 Pulse Ox 92 L 03/09/21 10:12 Intake & Output 03/08/21 03/09/21 03/09/21 18:59 06:59 18:59 Output Total 800 1400 Balance -800 -1400 Output: Urine 800 1400 Other: Voiding Method External Catheter External Catheter External Catheter # Voids 1 - Exam Gen. appearance she is calm and comfortable, BMI of 45, not having any respiratory distress Head exam was generally normal. There was no scleral icterus or corneal arcus. Mucous membranes were moist. Neck was supple and without jugular venous distension, thyromegaly, or carotid bruits. Carotids were easily palpable bilaterally. There was no adenopathy. Lungs were clear to auscultation and percussion, and with normal diaphragmatic excursion. No wheezes or rales were noted. Cardiac exam revealed the PMI to be normally situated and sized. The rhythm was regular and no extrasystoles were noted during several minutes of auscultation. The first and second heart sounds were normal and physiologic splitting of the second heart sound was noted. There were no murmurs, rubs, clicks, or gallops. Abdominal exam revealed normal bowel sounds. The abdomen was soft, non-tender, and without masses, organomegaly, or appreciable enlargement of the abdominal aorta. Extremities show evidence of neuropathy and Charcot joint deformity in the right foot along with diverticulosis involving the toe and the lateral aspect of the right foot. Pulses are diminished in all 4 extremities bilaterally. No cyanosis. Neurologically, the patient is awake and alert and the patient does not have any focal neurological deficit. Cranial nerves are essentially intact. - Labs CBC & Chem 7: 03/08/21 00:52 03/09/21 06:29 Labs: Abnormal Lab Results - Last 24 Hours (Table) 03/08/21 03/08/21 03/08/21 Range/Units 00:52 11:28 16:17 D-Dimer (<0.60) mg/L FEU BUN/Creatinine Ratio (12.00-20.00) Ratio POC Glucose (mg/dL) 167 H 118 H (75-99) mg/dL Calcium (8.7-10.3) mg/dL C-Reactive Protein (0.0-0.8) mg/dL Procalcitonin 0.17 H (0.02-0.09) ng/mL 03/08/21 03/09/21 03/09/21 Range/Units 20:40 06:29 06:29 D-Dimer 1.31 H (<0.60) mg/L FEU BUN/Creatinine Ratio 21.43 H (12.00-20.00) Ratio POC Glucose (mg/dL) 103 H (75-99) mg/dL Calcium 8.6 L (8.7-10.3) mg/dL C-Reactive Protein 15.5 H (0.0-0.8) mg/dL Procalcitonin (0.02-0.09) ng/mL 03/09/21 Range/Units 06:52 D-Dimer (<0.60) mg/L FEU BUN/Creatinine Ratio (12.00-20.00) Ratio POC Glucose (mg/dL) 109 H (75-99) mg/dL Calcium (8.7-10.3) mg/dL C-Reactive Protein (0.0-0.8) mg/dL Procalcitonin (0.02-0.09) ng/mL Microbiology - Last 24 Hours (Table) 03/08/21 00:54 Blood Culture - Preliminary Blood No Growth after 24 hours 03/08/21 00:52 Blood Culture - Preliminary Blood No Growth after 24 hours 03/08/21 00:52 Urine Culture - Preliminary Urine,Voided Assessment and Plan Plan: 1 acute COVID-19 infection with secondary fever and mild dehydration. No ind ication for pneumonia and this point in time and the patient is having no respiratory symptoms. Hospitalized for hydration and management of fever. She is afebrile. He is on IV Rocephin for suspected UTI. 2 suspected UTI, culture are pending and the patient is currently on IV Rocephin. UA is significantly abnormal, urine culture still pending for now. Pro calcitonin is mildly elevated. 3 coronary artery disease 4 diabetes mellitus with diabetic peripheral neuropathy 5 diabetic foot ulcer 6 peripheral vascular disease 7 obstructive sleep apnea. 8 history of morbid obesity post gastric sleeve. 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 12 multiple sclerosis 13 hypothyroidism 14 osteoarthritis Plan Awaiting cultures IV Rocephin Check pro calcitonin level is midly elevated Monitor fever pattern, afebrile for now COVID-19 is detected and the patient is obviously infected. No pneumonia this point in time Resume long-term and to coagulation with Xarelto We'll continue to follow
[2021-03-09 11:37] LABS: Glucose,Whole Blood 124 mg/dL (75-99)
[2021-03-09] MEDS: HYDROmorphone 1 MG/ML 1 ML SYRINGE IVP PRN ×3 (12:57→21:32)
[2021-03-09] MEDS: COLLAGENASE 250 UNIT/GM OINTMENT 30 GM TUBE TOPICAL SCH (14:25)
--- NOTE | 2021-03-09 15:23 | P.PN ---
Subjective Progress Note Date: 03/09/21 Principal diagnosis: Sepsis secondary to COVID-19 infection, UTI Ms. Barnes is a 66-year-old female with a past medical history of coronary artery disease, COPD, and at this point is, DVT, hypertension, osteoarthritis, PEPPER, thyroid disorder, multiple sclerosis who uses a wheelchair to move around brought in by EMS as she was unable to get off of her couch. Patient states for the past 2-3 days she has been feeling extremely weak and has decreased by mouth intake and this morning she felt so weak that she could not get out of the bed. Patient was also complaining of increased urinary output. Patient denied having any fevers chills or rigors. She denied having any chest pain or palpitations. No cough or difficulty in breathing. No abdominal pain nausea vomiting or diarrhea. In the ER at the time of admission patient's vitals, T-max 102.8, heart rate 91, respiratory 20, blood pressure 114/63, saturating 97% on room air. On reviewing the labs white count of 7.8, hemoglobin 11.1, platelets 32. Sodium 136, potassium 4.7, chloride 103, bicarb 26, BNP 30, creatinine 0.8 to. D-dimer 0.93. Urine analysis is positive for nitrites and large leukocyte esterase and moderate bacteria. COVID 19 PCR positive. So the patient is admitted for further management. On 03/10/2021 - patient has been seen and examined at the bedside. As per discussion with nursing staff, patient was complaining of pain in her right foot. Patient denies having any difficulty in breathing. She denies having any fevers chills or rigors. The last spike in her fever was yesterday morning. Patient denies having any abdominal pain nausea vomiting or diarrhea. No dysuria or hematuria. She is currently on ceftriaxone for suspected UTI. On reviewing the orders from this morning T-max of 98.6, heart rate 87, respiratory rate 19, blood pressure 99/62, saturating at 92% on room air. Labs this morning showing d-dimer of 1.31, sodium 136, but patient opens his, chloride 102, bic arbonate 26, BUN 15, creatinine 0.7. Pro-calcitonin 0.17. Active Medications Acetaminophen (Acetaminophen Tab 325 Mg Tab) 650 mg PO Q6HR PRN PRN Reason: Mild Pain or Fever > 100.5 Last Admin: 03/09/21 04:22 Dose: 650 mg Documented by: Hydrocodone Bitart/Acetaminophen (Hydrocodone/Apap 7.5-325mg 1 Each Tab) 1 each PO Q6H PRN PRN Reason: Pain Last Admin: 03/09/21 10:36 Dose: 1 each Documented by: Amlodipine Besylate (Amlodipine 10 Mg Tab) 10 mg PO DAILY [facility] Last Admin: 03/09/21 08:27 Dose: 10 mg Documented by: Ascorbic Acid (Ascorbic Acid 500 Mg Tab) 1,000 mg PO DAILY [facility] Last Admin: 03/09/21 08:27 Dose: 1,000 mg Documented by: Aspirin (Aspirin 81 Mg) 81 mg PO DAILY [facility] Last Admin: 03/09/21 08:27 Dose: 81 mg Documented by: Atorvastatin Calcium (Atorvastatin 40 Mg Tab) 40 mg PO [facility] Last Admin: 03/08/21 21:32 Dose: 40 mg Documented by: Cholecalciferol (Cholecalciferol 25 Mcg (1000 Iu) Tablet) 125 mcg PO DAILY [facility] Last Admin: 03/09/21 08:27 Dose: 125 mcg Documented by: Clopidogrel Bisulfate (Clopidogrel 75 Mg Tab) 75 mg PO [facility] Last Admin: 03/08/21 21:32 Dose: 75 mg Documented by: Collagenase (Collagenase 250 Unit/Gm Ointment 30 Gm Tube) 1 applic TOPICAL DAILY [facility] Last Admin: 03/09/21 14:25 Dose: 1 applic Documented by: Hydromorphone HCl (Hydromorphone 0.5 Mg/0.5 Ml Syringe) 0.5 mg IVP Q6HR PRN PRN Reason: Pain Last Admin: 03/09/21 08:28 Dose: 0.5 mg Documented by: Hydromorphone HCl (Hydromorphone 1 Mg/Ml 1 Ml Syringe) 1 mg IVP Q4HR PRN PRN Reason: Pain Last Admin: 03/09/21 12:57 Dose: 1 mg Documented by: Ceftriaxone Sodium 1 gm/ (Sodium Chloride) 50 mls @ 100 mls/hr IVPB Q24H [facility] Last Admin: 03/09/21 02:35 Dose: 100 mls/hr Documented by: Insulin Aspart (Insulin Aspart (Novolog) 100 Unit/Ml Vial) 0 unit SQ [facility]; Protocol Last Admin: 03/09/21 12:11 Dose: Not Given Documented by: Insulin Detemir (Insulin Detemir (Levemir) 100 Unit/Ml Syr) 50 unit SQ DAILY@0600 [facility] Last Admin: 03/09/21 10:25 Dose: 50 unit Documented by: Levothyroxine Sodium (Levothyroxine 125 Mcg Tab) 125 mcg PO 0630 [facility] Last Admin: 03/09/21 05:38 Dose: 125 mcg Documented by: Lisinopril (Lisinopril 5 Mg Tab) 5 mg PO QAM [facility] Last Admin: 03/09/21 08:27 Dose: 5 mg Documented by: Naloxone HCl (Naloxone 0.4 Mg/Ml 1 Ml Vial) 0.2 mg IV Q2M PRN PRN Reason: Opioid Reversal Rivaroxaban (Rivaroxaban 20 Mg Tab) 20 mg PO HS [facility] Last Admin: 03/08/21 21:33 Dose: 20 mg Documented by: Zinc Sulfate (Zinc Sulfate 220 Mg Cap) 220 mg PO DAILY [facility] Last Admin: 03/09/21 08:27 Dose: 220 mg Documented by: Objective - Vital Signs Vital signs: Vital Signs Temp 98.6 F 03/09/21 10:12 Pulse 87 03/09/21 10:12 Resp 19 03/09/21 10:12 BP 99/62 03/09/21 10:12 Pulse Ox 92 L 03/09/21 10:12 Intake & Output 03/08/21 03/09/21 03/09/21 18:59 06:59 18:59 Output Total 800 1400 Balance -800 -1400 Output: Urine 800 1400 Other: Voiding Method External Catheter External Catheter External Catheter # Voids 1 - Exam PHYSICAL EXAMINATION: GENERAL: Obese female lying comfortably in bed appears to be no acute distress HEENT: Pupils are round and equally reacting to light. EOMI. No scleral icterus. No conjunctival pallor. Normocephalic, atraumatic. No pharyngeal erythema. No thyromegaly. CARDIOVASCULAR: S1 and S2 present. PULMONARY: Bilateral breath sounds are positive. No wheeze or crackles. ABDOMEN: Soft, positive for tenderness in the bilateral lower quadrants of the abdomen, bowel sounds positive. MUSCULOSKELETAL: No joint swelling or deformity. EXTREMITIES: No cyanosis, clubbing, or pedal edema. Right Great toe wrapped in b andage . NEUROLOGICAL: Patient is alert awake oriented 3, Gross neurological examination did not reveal any focal deficits. SKIN: No rashes. - Labs CBC & Chem 7: 03/08/21 00:52 03/09/21 06:29 Labs: Abnormal Lab Results - Last 24 Hours (Table) 03/08/21 03/08/21 03/08/21 Range/Units 00:52 16:17 20:40 D-Dimer (<0.60) mg/L FEU BUN/Creatinine Ratio (12.00-20.00) Ratio POC Glucose (mg/dL) 118 H 103 H (75-99) mg/dL Calcium (8.7-10.3) mg/dL C-Reactive Protein (0.0-0.8) mg/dL Procalcitonin 0.17 H (0.02-0.09) ng/mL 03/09/21 03/09/21 03/09/21 Range/Units 06:29 06:29 06:52 D-Dimer 1.31 H (<0.60) mg/L FEU BUN/Creatinine Ratio 21.43 H (12.00-20.00) Ratio POC Glucose (mg/dL) 109 H (75-99) mg/dL Calcium 8.6 L (8.7-10.3) mg/dL C-Reactive Protein 15.5 H (0.0-0.8) mg/dL Procalcitonin (0.02-0.09) ng/mL 03/09/21 Range/Units 11:35 D-Dimer (<0.60) mg/L FEU BUN/Creatinine Ratio (12.00-20.00) Ratio POC Glucose (mg/dL) 124 H (75-99) mg/dL Calcium (8.7-10.3) mg/dL C-Reactive Protein (0.0-0.8) mg/dL Procalcitonin (0.02-0.09) ng/mL Microbiology - Last 24 Hours (Table) 03/08/21 00:54 Blood Culture - Preliminary Blood No Growth after 24 hours 03/08/21 00:52 Blood Culture - Preliminary Blood No Growth after 24 hours 03/08/21 00:52 Urine Culture - Preliminary Urine,Voided Assessment and Plan Assessment: ASSESSMENT Sepsis secondary to COVID-19 infection, UTI Possible urinary tract infection Coronary artery disease status post stenting COPD Diabetes mellitus Hypertension History of DVT Hypothyroidism Objective sleep apnea History of gastric sleeve surgery History of right big toe petition Morbid obesity with BMI 45.8 Mild protein calorie malnutrition Chronic debility PLAN: Patient to be continued on IV ceftriaxone. Urine cultures positive for gram-negative bacilli. Blood cultures pending. At presentation has been saturating about 94% on room air, no evidence of pneumonia on chest x-ray, continue with supportive care for COVID-19. Patient has been restarted on her home medications. Continue anticoagulation with Xarelto. As the patient continues to have pain in her right toe, will increase the pain medications. Will order an x-ray of the right foot. Further recommendations to follow depending on the progress of the patient. Overall prognosis is guarded.
--- NOTE | 2021-03-09 16:15 | PN ---
PROGRESS NOTE DATE OF SERVICE: 03/09/2021 REASON FOR FOLLOWUP: 1. Urinary tract infection. 2. Right foot ulcer. INTERVAL HISTORY: The patient is currently afebrile. The patient is more awake, alert. She is breathing comfortably. The patient denies having any chest pain, shortness of breath or cough. No abdominal pain. Pain to the foot is currently controlled with adjustment of the pain medication. PHYSICAL EXAMINATION: Blood pressure 148/68 with a pulse of 85, temperature 98.5. She is 91% on room air. General description is an elderly female lying in bed in no distress. Respiratory system: Unlabored breathing, clear to auscultation anteriorly. Heart S1, S2. Regular rate and rhythm. Abdomen soft, no tenderness. Right foot wound is currently dressed. No obvious drainage on the dressing. LABS: BUN of 15, creatinine 2.7. Urine with Gram-negative. DIAGNOSTIC IMPRESSION AND PLAN: 1. Patient admitted to the hospital with generalized weakness, urinary symptoms and fever. Source is likely symptomatic urinary tract infection, gram-negative covered with Rocephin to continue. 2. Patient with right foot ulcer, no cellulitis. Continue wound care with Santyl and monitor clinical course closely. MMODL / IJN: [id number] /
--- NOTE | 2021-03-09 16:28 | XR ---
Right foot. History right toe infection. There are some: None. TECHNIQUE: 3 views the right foot were obtained. The osseous structures are osteopenic. There is been destruction of the distal phalanx of the right big toe and the distal aspect of the pro ximal phalanx of the right big toe likely secondary to osteomyelitis. The remaining osseous structures are intact. There is no dislocation. There mild degenerative changes first metatarsal phalangeal joint. There is no soft tissue gas or radiopaque foreign body. IMPRESSION: Bony destruction of the big toe likely secondary to osteomyelitis as described above.
[2021-03-09 16:34] LABS: Glucose,Whole Blood 96 mg/dL (75-99)
[2021-03-09 21:02] LABS: Glucose,Whole Blood 88 mg/dL (75-99)
[2021-03-09] MEDS: CLOPIDOGREL 75 MG TAB PO SCH (21:31)
[2021-03-09] MEDS: ATORVASTATIN 40 MG TAB PO SCH (21:31)
[2021-03-09] MEDS: RIVAROXABAN 20 MG TAB PO SCH (21:33)
[2021-03-10] MEDS: HYDROcodone/APAP 7.5-325MG 1 EACH TAB PO PRN ×3 (00:05→19:28)
[2021-03-10] MEDS: HYDROmorphone 1 MG/ML 1 ML SYRINGE IVP PRN ×5 (01:55→21:26)
[2021-03-10] MEDS: ACETAMINOPHEN TAB 325 MG TAB PO PRN (03:31)
[2021-03-10] MEDS: LEVOTHYROXINE 125 MCG TAB PO SCH (05:48)
[2021-03-10 07:10] LABS: Glucose,Whole Blood 96 mg/dL (75-99)
[2021-03-10] MEDS: INSULIN DETEMIR (LEVEMIR) 100 UNIT/ML SYR SQ SCH (07:23)
[2021-03-10] MEDS: INSULIN ASPART (NovoLOG) 100 UNIT/ML VIAL SQ SCH ×4 (07:27→20:27)
[2021-03-10] MEDS: ASCORBIC ACID 500 MG TAB PO SCH (09:00)
[2021-03-10] MEDS: CHOLECALCIFEROL 25 MCG (1000 IU) TABLET PO SCH (09:00)
[2021-03-10] MEDS: ASPIRIN 81 MG PO SCH (09:00)
[2021-03-10] MEDS: amLODIPine 10 MG TAB PO SCH (09:00)
[2021-03-10] MEDS: COLLAGENASE 250 UNIT/GM OINTMENT 30 GM TUBE TOPICAL SCH (09:00)
[2021-03-10] MEDS: ZINC SULFATE 220 MG CAP PO SCH (09:01)
[2021-03-10] MEDS: lisinopriL 5 MG TAB PO SCH (09:01)
[2021-03-10 10:16] LABS: Basophils # (A) 0.02 X 10*3/uL (0.00-0.10); Basophils % (A) 0.3 %; Eosinophils # (A) 0.11 X 10*3/uL (0.04-0.35); Eosinophils % (A) 1.9 %; HCT 33.9 % (37.2-46.3); HGB 10.3 g/dL (12.0-15.0); Lymphocytes # (A) 0.52 X 10*3/uL (0.90-5.00); Lymphocytes % (A) 9.1 %; MCHC 30.4 g/dL (32.0-37.0); MCV 85.6 fL (80.0-97.0); Mean Platelet Volume 9.5 fL (9.5-12.2); Monocytes # (A) 0.63 X 10*3/uL (0.20-1.00); Neutrophils # (A) 4.44 X 10*3/uL (1.80-7.70); Neutrophils % (A) 77.4 %; Platelet Count 249 X 10*3/uL (140-440); RBC 3.96 X 10*6/uL (4.10-5.20); RDW 17.2 % (11.5-14.5); WBC 5.74 X 10*3/uL (4.50-10.00)
[2021-03-10] MEDS: RIVAROXABAN 20 MG TAB PO SCH ×2 (10:32→19:29)
[2021-03-10 10:41] LABS: Anion Gap 6.4 mmol/L (4.00-12.00); BUN/Creat Ratio 16.25 Ratio (12.00-20.00); Calcium 8.7 mg/dL (8.7-10.3); Carbon Dioxide 28.6 mmol/L (21.6-31.8); Non-African American GFR(CKD) 76.8 (60.0-200.0); Potassium 4.7 mmol/L (3.5-5.5)
[2021-03-10 11:52] LABS: Glucose,Whole Blood 105 mg/dL (75-99)
[2021-03-10 16:48] LABS: Glucose,Whole Blood 100 mg/dL (75-99)
--- NOTE | 2021-03-10 18:39 | P.PN ---
Subjective Progress Note Date: 03/10/21 Principal diagnosis: Acute COVID-19 infection 66-year-old female patient, presented to ED department feeling weak and she was having fever at home. She saw that she was getting dehydrated and for that reason she came into the hospital. She had no respiratory distress. No cough. No sputum production. No chest tightness. No wheezing. No nausea. No vomiting. No diarrhea. No altered mentation. No loss of taste or smell. She tested positive for COVID-19. She was hospitalized for hydration. She has multiple medical problems and comorbidities. Nevertheless, she is on room air oxygen and her pulse ox on 94%. Chest x-rays clear. No respiratory symptoms whatsoever at this point in time. She is resting comfortably in bed. She is diabetic. She has diabetic foot ulcer in her right foot and she is also known to have peripheral neuropathy, peripheral vascular disease, hypertension, hypothyroidism, and she has undergone previous bariatric surgery for morbid obe sity. Her history also includes previous history of DVTs of the lower extremities. I believe she is a case of a multiple sclerosis. LDH is 351. D- dimer is at 0.9. UA is abnormal and the patient was suspected to have an underlying urine checked infection and the urine cultures still pending in the meanwhile the patient was started on antibiotics and currently she is on IV Rocephin. On today's evaluation of 03/09/2021, the patient is being seen for a follow-up. The patient came in yesterday with fevers and she was ultimately diagnosed having COVID-19 related infection. No obvious signs of pneumonia. UTI was suspected. The patient remains on room air oxygen with a pulse ox of around 9 2%. Blood cultures been negative. Urine culture preliminary is showing no growth yet. Meanwhile, the patient is having a pro-calcitonin level of 0.17, troponin was negative, CRP was 15, urine analysis was abnormal and the patient is covered with antibiotics and she is currently receiving IV Rocephin. In terms of his fever pattern, the patient has been afebrile for now. Her most recent spike of temperature of 101 was added to a.m. on 03/08/2021. On Xarelto. She is diabetic. No other treatment was offered in regards to COVID-19 infection and the patient's treatment is essentially supportive of this point in time. On 03/10/2001 patient seen in follow-up on medical surgical floor. She is currently on room air, her chest x-ray showed no evidence of acute cardiopulmonary process. She denies any worsening dyspnea, her main complaint is pain in her left foot, and patient continues on antibiotics, and possibility of osteomyelitis is being investigated. No cough, no chest discomfort, an episode of low-grade fever earlier today, she is on room air per pulse ox is 95%. Today's labs have been reviewed, white blood cell count is 5.74, hemoglobin is 10.3, electrolytes and renal profile were within normal limits. Objective - Vital Signs Vital signs: Vital Signs Temp 98.7 F 03/10/21 14:00 Pulse 89 03/10/21 14:00 Resp 16 03/10/21 14:00 BP 96/57 03/10/21 14:00 Pulse Ox 95 03/10/21 14:00 Intake & Output 03/09/21 03/10/21 03/10/21 18:59 06:59 18:59 Output Total 1000 700 Balance -1000 -700 Output: Urine 1000 700 Other: Voiding Method External Catheter External Catheter - Exam GENERAL EXAM: Alert, very pleasant, 66-year-old white female, in moderate to severe amount of distress from her left foot pain, comfortable in no apparent distress. HEAD: Normocephalic/atraumatic. EYES: Normal reaction of pupils, equal size. Conjunctiva pink, sclera white. NOSE: Clear with pink turbinates. THROAT: No erythema or exudates. NECK: No masses, no JVD, no thyroid enlargement, no adenopathy. CHEST: No chest wall deformity. Symmetrical expansion. LUNGS: Equal air entry with no crackles, wheeze, rhonchi or dullness. CVS: Regular rate and rhythm, normal S1 and S2, no gallops, no murmurs, no rubs ABDOMEN: Soft, nontender. No hepatosplenomegaly, normal bowel sounds, no guarding or rigidity. EXTREMITIES: No clubbing, swelling and tenderness in left foot, no cyanosis, 2+ pulses and upper and lower extremities. MUSCULOSKELETAL: Muscle strength and tone normal. SPINE: No scoliosis or deformity SKIN: No rashes, wound in her left foot which is covered with a dressing, quite tender to touch CENTRAL NERVOUS SYSTEM: Alert and oriented -3. No focal deficits, tone is normal in all 4 extremities. PSYCHIATRIC: Alert and oriented -3. Appropriate affect. Intact judgment and insight. - Labs CBC & Chem 7: 03/10/21 07:12 03/10/21 07:12 Labs: Abnormal Lab Results - Last 24 Hours (Table) 03/10/21 03/10/21 03/10/21 Range/Units 07:12 11:50 16:46 RBC 3.96 L (4.10-5.20) X 10*6/uL Hgb 10.3 L (12.0-15.0) g/dL Hct 33.9 L (37.2-46.3) % MCH 26.0 L (27.0-32.0) pg MCHC 30.4 L (32.0-37.0) g/dL RDW 17.2 H (11.5-14.5) % Lymphocytes # 0.52 L (0.90-5.00) X 10*3/uL POC Glucose (mg/dL) 105 H 100 H (75-99) mg/dL Microbiology - Last 24 Hours (Table) 03/08/21 00:54 Blood Culture - Preliminary Blood No Growth after 48 hours 03/08/21 00:52 Blood Culture - Preliminary Blood No Growth after 48 hours Assessment and Plan Plan: 1 acute COVID-19 infection with secondary fever and mild dehydration. No indication for pneumonia and this point in time and the patient is having no respiratory symptoms. Hospitalized for hydration and management of fever. She is afebrile. He is on IV Rocephin for suspected UTI. 2 suspected UTI, culture are pending and the patient is currently on IV Rocephin. UA is significantly abnormal, urine culture still pending for now. Pro calcitonin is mildly elevated. 3 coronary artery disease 4 diabetes mellitus with diabetic peripheral neuropathy 5 diabetic foot ulcer 6 peripheral vascular disease 7 obstructive sleep apnea. 8 history of morbid obesity post gastric sleeve. 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 12 multiple sclerosis 13 hypothyroidism 14 osteoarthritis Plan: Patient remains on room air Maintaining O2 saturations above 92% No complaints of dyspnea No cough No fever Chest x-ray showed no evidence of acute pulmonary disease No need for steroids Osteomyelitis of the left foot management per primary care service From pulmonary perspective patient is stable, and does not require any treatment for COVID-19 infection. No evidence of pneumonia at this time We will follow on as-needed basis I performed a history & physical examination of the patient and discussed their management with my nurse practitioner, Romelia Simon. I reviewed the nurse practitioner's note and agree with the documented findings and plan of care. Lung sounds are positive for diminished breath sounds The findings and the impression was discussed with the patient. I attest to the documentation by the nurse practitioner. Time with Patient: Less than 30
[2021-03-10] MEDS: ATORVASTATIN 40 MG TAB PO SCH (19:27)
[2021-03-10] MEDS: CLOPIDOGREL 75 MG TAB PO SCH (19:28)
[2021-03-10 20:12] LABS: Glucose,Whole Blood 149 mg/dL (75-99)
--- NOTE | 2021-03-10 22:55 | P.PN ---
Subjective Progress Note Date: 03/10/21 Principal diagnosis: Sepsis secondary to COVID-19 infection, UTI Ms. Barnes is a 66-year-old female with a past medical history of coronary artery disease, COPD, and at this point is, DVT, hypertension, osteoarthritis, PEPPER, thyroid disorder, multiple sclerosis who uses a wheelchair to move around brought in by EMS as she was unable to get off of her couch. Patient states for the past 2-3 days she has been feeling extremely weak and has decreased by mouth intake and this morning she felt so weak that she could not get out of the bed. Patient was also complaining of increased urinary output. Patient denied having any fevers chills or rigors. She denied having any chest pain or palpitations. No cough or difficulty in breathing. No abdominal pain nausea vomiting or diarrhea. In the ER at the time of admission patient's vitals, T-max 102.8, heart rate 91, respiratory 20, blood pressure 114/63, saturating 97% on room air. On reviewing the labs white count of 7.8, hemoglobin 11.1, platelets 32. Sodium 136, potassium 4.7, chloride 103, bicarb 26, BNP 30, creatinine 0.8 to. D-dimer 0.93. Urine analysis is positive for nitrites and large leukocyte esterase and moderate bacteria. COVID 19 PCR positive. So the patient is admitted for further management. On 03/09/2021 - patient has been seen and examined at the bedside. As per discussion with nursing staff, patient was complaining of pain in her right foot. Patient denies having any difficulty in breathing. She denies having any fevers chills or rigors. The last spike in her fever was yesterday morning. Patient denies having any abdominal pain nausea vomiting or diarrhea. No dysuria or hematuria. She is currently on ceftriaxone for suspected UTI. On reviewing the orders from this morning T-max of 98.6, heart rate 87, respiratory rate 19, blood pressure 99/62, saturating at 92% on room air. Labs this morning showing d-dimer of 1.31, sodium 136, but patient opens his, chloride 102, bica rbonate 26, BUN 15, creatinine 0.7. Pro-calcitonin 0.17. On 03/10/2021 patient is seen and examined at bedside. Patient still complaining of pain in her right foot, x-ray obtained yesterday evening showing bony destruction of the big toe likely secondary to osteomyelitis. ID Dr. Wetzel on board and following the patient. Patient denies having any chest pain or palpitations. No cough or difficulty in breathing. Denies having any fevers. Patient denies having any abdominal pain nausea vomiting or diarrhea. On reviewing the vitals T-max of 99.8 at 3 AM this morning, respiratory rate 16, blood pressure 103 x 60, saturating at 93% on room air. On reviewing the labs from this morning white count of 5.7, hemoglobin 10.3, platelets 249. Sodium 138, potassium 4.7, chloride 103, bicarb 28, BUN 13, creatinine 0.8. Active Medications Acetaminophen (Acetaminophen Tab 325 Mg Tab) 650 mg PO Q6HR PRN PRN Reason: Mild Pain or Fever > 100.5 Last Admin: 03/10/21 03:31 Dose: 650 mg Documented by: Hydrocodone Bitart/Acetaminophen (Hydrocodone/Apap 7.5-325mg 1 Each Tab) 1 each PO Q6H PRN PRN Reason: Pain Last Admin: 03/10/21 19:28 Dose: 1 each Documented by: Amlodipine Besylate (Amlodipine 10 Mg Tab) 10 mg PO DAILY [facility] Last Admin: 03/10/21 09:00 Dose: 10 mg Documented by: Ascorbic Acid (Ascorbic Acid 500 Mg Tab) 1,000 mg PO DAILY [facility] Last Admin: 03/10/21 09:00 Dose: 1,000 mg Documented by: Aspirin (Aspirin 81 Mg) 81 mg PO DAILY [facility] Last Admin: 03/10/21 09:00 Dose: 81 mg Documented by: Atorvastatin Calcium (Atorvastatin 40 Mg Tab) 40 mg PO [facility] Last Admin: 03/10/21 19:27 Dose: 40 mg Documented by: Cholecalciferol (Cholecalciferol 25 Mcg (1000 Iu) Tablet) 125 mcg PO DAILY [facility] Last Admin: 03/10/21 09:00 Dose: 125 mcg Documented by: Clopidogrel Bisulfate (Clopidogrel 75 Mg Tab) 75 mg PO [facility] Last Admin: 03/10/21 19:28 Dose: 75 mg Documented by: Collagenase (Collagenase 250 Unit/Gm Ointment 30 Gm Tube) 1 applic TOPICAL DAILY [facility] Last Admin: 03/10/21 09:00 Dose: 1 applic Documented by: Hydromorphone HCl (Hydromorphone 1 Mg/Ml 1 Ml Syringe) 1.5 mg IVP Q4HR PRN PRN Reason: Pain Last Admin: 03/10/21 21:26 Dose: 1.5 mg Documented by: Ceftriaxone Sodium 1 gm/ (Sodium Chloride) 50 mls @ 100 mls/hr IVPB Q24H [facility] Last Admin: 03/10/21 01:57 Dose: 100 mls/hr Documented by: Insulin Aspart (Insulin Aspart (Novolog) 100 Unit/Ml Vial) 0 unit SQ ACHS [facility]; Protocol Last Admin: 03/10/21 20:27 Dose: 1 unit Documented by: Insulin Detemir (Insulin Detemir (Levemir) 100 Unit/Ml Syr) 50 unit SQ DAILY@0600 [facility] Last Admin: 03/10/21 07:23 Dose: Not Given Documented by: Levothyroxine Sodium (Levothyroxine 125 Mcg Tab) 125 mcg PO 0630 [facility] Last Admin: 03/10/21 05:48 Dose: 125 mcg Documented by: Lisinopril (Lisinopril 5 Mg Tab) 5 mg PO QAM [facility] Last Admin: 03/10/21 09:01 Dose: 5 mg Documented by: Naloxone HCl (Naloxone 0.4 Mg/Ml 1 Ml Vial) 0.2 mg IV Q2M PRN PRN Reason: Opioid Reversal Rivaroxaban (Rivaroxaban 20 Mg Tab) 20 mg PO HS [facility] Last Admin: 03/10/21 19:29 Dose: Not Given Documented by: Zinc Sulfate (Zinc Sulfate 220 Mg Cap) 220 mg PO DAILY [facility] Last Admin: 03/10/21 09:01 Dose: 220 mg Documented by: Objective - Vital Signs Vital signs: Vital Signs Temp 98.4 F 03/10/21 10:15 Pulse 87 03/10/21 10:15 Resp 16 03/10/21 10:15 BP 113/79 03/10/21 10:15 Pulse Ox 95 03/10/21 10:15 Intake & Output 03/09/21 03/10/21 03/10/21 18:59 06:59 18:59 Output Total 1000 700 Balance -1000 -700 Output: Urine 1000 700 Other: Voiding Method External Catheter External Catheter - Exam PHYSICAL EXAMINATION: GENERAL: Obese female lying comfortably in bed appears to be no acute distress HEENT: Pupils are round and equally reacting to light. EOMI. No scleral icterus. No conjunctival pallor. CARDIOVASCULAR: S1 and S2 present. PULMONARY: Bilateral breath sounds are positive. No wheeze or crackles. ABDOMEN: Soft, positive for tenderness in the bilateral lower quadrants of the abdomen, bowel sounds positive. MUSCULOSKELETAL: No joint swelling or deformity. EXTREMITIES: No cyanosis, clubbing, or pedal edema. Right Great toe wrapped in bandage . NEUROLOGICAL: Patient is alert awake oriented 3, Gross neurological examination did not reveal any focal deficits. SKIN: No rashes. - Labs CBC & Chem 7: 03/10/21 07:12 03/10/21 07:12 Labs: Abnormal Lab Results - Last 24 Hours (Table) 03/10/21 03/10/21 Range/Units 07:12 11:50 RBC 3.96 L (4.10-5.20) X 10*6/uL Hgb 10.3 L (12.0-15.0) g/dL Hct 33.9 L (37.2-46.3) % MCH 26.0 L (27.0-32.0) pg MCHC 30.4 L (32.0-37.0) g/dL RDW 17.2 H (11.5-14.5) % Lymphocytes # 0.52 L (0.90-5.00) X 10*3/uL POC Glucose (mg/dL) 105 H (75-99) mg/dL Microbiology - Last 24 Hours (Table) 03/08/21 00:54 Blood Culture - Preliminary Blood No Growth after 48 hours 03/08/21 00:52 Blood Culture - Preliminary Blood No Growth after 48 hours 03/08/21 00:52 Urine Culture - Preliminary Urine,Voided Gram Neg Bacilli Assessment and Plan Assessment: ASSESSMENT Sepsis secondary to COVID-19 infection, UTI Possible urinary tract infection Coronary artery disease status post stenting COPD Diabetes mellitus Hypertension History of DVT Hypothyroidism Objective sleep apnea History of gastric sleeve surgery History of right big toe petition Morbid obesity with BMI 45.8 Mild protein calorie malnutrition Chronic debility PLAN:Patient's urine culture positive for gram-negative bacilli, continue with ceftriaxone for now. Patient saturating at 94% on room air on chest x-ray with no evidence of pulmonary disease. No need for steroids. Patient had an x-ray of the right foot done showing signs of osteomyelitis in the great toe. ID Dr. Wetzel on board. Continue with the rest of her current medication regimen. As the patient's pain is poorly controlled, will increase the dose of morphine to 1.5 mg every 4 hours as needed for pain. Further recommendations to follow depending on the progress of the patient.
[2021-03-11] MEDS: HYDROcodone/APAP 7.5-325MG 1 EACH TAB PO PRN ×4 (01:37→20:49)
[2021-03-11] MEDS: HYDROmorphone 1 MG/ML 1 ML SYRINGE IVP PRN ×3 (04:34→17:05)
[2021-03-11] MEDS: LEVOTHYROXINE 125 MCG TAB PO SCH (06:12)
[2021-03-11] MEDS: INSULIN DETEMIR (LEVEMIR) 100 UNIT/ML SYR SQ SCH (06:13)
[2021-03-11 07:05] LABS: Glucose,Whole Blood 123 mg/dL (75-99)
[2021-03-11] MEDS: INSULIN ASPART (NovoLOG) 100 UNIT/ML VIAL SQ SCH ×4 (07:34→20:47)
[2021-03-11] MEDS: lisinopriL 5 MG TAB PO SCH (07:42)
[2021-03-11] MEDS: ASCORBIC ACID 500 MG TAB PO SCH (07:43)
[2021-03-11] MEDS: ASPIRIN 81 MG PO SCH (07:43)
[2021-03-11] MEDS: amLODIPine 10 MG TAB PO SCH (07:43)
[2021-03-11] MEDS: CHOLECALCIFEROL 25 MCG (1000 IU) TABLET PO SCH (07:43)
[2021-03-11] MEDS: ZINC SULFATE 220 MG CAP PO SCH (07:43)
[2021-03-11] MEDS: COLLAGENASE 250 UNIT/GM OINTMENT 30 GM TUBE TOPICAL SCH (07:43)
[2021-03-11 11:43] LABS: Basophils # (A) 0.02 X 10*3/uL (0.00-0.10); Basophils % (A) 0.4 %; Eosinophils # (A) 0.12 X 10*3/uL (0.04-0.35); Eosinophils % (A) 2.1 %; HCT 33.6 % (37.2-46.3); HGB 10.2 g/dL (12.0-15.0); Lymphocytes # (A) 0.73 X 10*3/uL (0.90-5.00); Lymphocytes % (A) 12.8 %; MCH 26.2 pg (27.0-32.0); MCHC 30.4 g/dL (32.0-37.0); MCV 86.4 fL (80.0-97.0); Mean Platelet Volume 9.3 fL (9.5-12.2); Monocytes # (A) 0.69 X 10*3/uL (0.20-1.00); Monocytes % (A) 12.1 %; Neutrophils # (A) 4.11 X 10*3/uL (1.80-7.70); Neutrophils % (A) 72.1 %; Platelet Count 272 X 10*3/uL (140-440); RBC 3.89 X 10*6/uL (4.10-5.20); RDW 17.2 % (11.5-14.5)
[2021-03-11 11:45] LABS: Glucose,Whole Blood 100 mg/dL (75-99)
[2021-03-11 12:22] LABS: African American GFR (CKD) 104.6 (60.0-200.0); Anion Gap 9.3 mmol/L (4.00-12.00); BUN/Creat Ratio 21.43 Ratio (12.00-20.00); Calcium 8.5 mg/dL (8.7-10.3); Carbon Dioxide 24.7 mmol/L (21.6-31.8); Non-African American GFR(CKD) 90.3 (60.0-200.0); Potassium 4.6 mmol/L (3.5-5.5)
--- NOTE | 2021-03-11 13:45 | PN ---
PROGRESS NOTE DATE OF SERVICE: 03/11/2021 REASON FOR FOLLOWUP: 1. E coli urinary tract infection. 2. Right big toe and left foot lateral border wound. INTERVAL HISTORY: Patient is currently afebrile. The patient is breathing comfortably. Denies having any chest pain, shortness of breath, abdominal pain. Has been complaining of pain to the right foot big toe as well as the lateral border wound. PHYSICAL EXAMINATION: Blood pressure 100/63, pulse of 80, temperature 98.6, she is 95% on room air. GENERAL DESCRIPTION: An elderly female lying in bed in no distress. RESPIRATORY SYSTEM: Unlabored breathing, clear to auscultation anteriorly. HEART: S1, S2. Regular rate and rhythm. ABDOMEN: Soft, no tenderness. EXTREMITIES: Right big toe did have slough tissue. No significant swelling or redness. Same thing was found on the right foot lateral border wound with slough tissue. No surrounding swelling or redness. LABS: Hemoglobin is 10.1, white count of 5.70, BUN of 15, creatinine 0.7. Urine now showing ESBL. Blood culture has been negative. X-rays of the foot did show some bony destruction. DIAGNOSTIC IMPRESSION AND PLAN: 1. Patient with admission to the hospital with fever source is likely UTI. Patient clinically responding to the Rocephin. However, culture now showing ESBL with question of possible contaminant. Urine will be repeated. Antibiotic will be adjusted to the Invanz. 2. Patient with right foot big toe and lateral border wound abnormal axis. RN was advised yesterday to obtain cultures and bone scan. Did not order anything. Will be ordered today and further workup on the basis of these reports. Continue supportive care. MMODL / IJN: [id number] /
[2021-03-11] MEDS: ERTAPENEM 1 GM in SODIUM CHLORIDE 0.9% 50 ML IVPB SCH (13:55)
--- NOTE | 2021-03-11 15:49 | P.PN ---
Subjective Progress Note Date: 03/11/21 Principal diagnosis: Acute COVID-19 infection 66-year-old female patient, presented to ED department feeling weak and she was having fever at home. She saw that she was getting dehydrated and for that reason she came into the hospital. She had no respiratory distress. No cough. No sputum production. No chest tightness. No wheezing. No nausea. No vomiting. No diarrhea. No altered mentation. No loss of taste or smell. She tested positive for COVID-19. She was hospitalized for hydration. She has multiple medical problems and comorbidities. Nevertheless, she is on room air oxygen and her pulse ox on 94%. Chest x-rays clear. No respiratory symptoms whatsoever at this point in time. She is resting comfortably in bed. She is diabetic. She has diabetic foot ulcer in her right foot and she is also known to have peripheral neuropathy, peripheral vascular disease, hypertension, hypothyroidism, and she has undergone previous bariatric surgery for morbid obe sity. Her history also includes previous history of DVTs of the lower extremities. I believe she is a case of a multiple sclerosis. LDH is 351. D- dimer is at 0.9. UA is abnormal and the patient was suspected to have an underlying urine checked infection and the urine cultures still pending in the meanwhile the patient was started on antibiotics and currently she is on IV Rocephin. On today's evaluation of 03/09/2021, the patient is being seen for a follow-up. The patient came in yesterday with fevers and she was ultimately diagnosed having COVID-19 related infection. No obvious signs of pneumonia. UTI was suspected. The patient remains on room air oxygen with a pulse ox of around 9 2%. Blood cultures been negative. Urine culture preliminary is showing no growth yet. Meanwhile, the patient is having a pro-calcitonin level of 0.17, troponin was negative, CRP was 15, urine analysis was abnormal and the patient is covered with antibiotics and she is currently receiving IV Rocephin. In terms of his fever pattern, the patient has been afebrile for now. Her most recent spike of temperature of 101 was added to a.m. on 03/08/2021. On Xarelto. She is diabetic. No other treatment was offered in regards to COVID-19 infection and the patient's treatment is essentially supportive of this point in time. On 03/10/2001 patient seen in follow-up on medical surgical floor. She is currently on room air, her chest x-ray showed no evidence of acute cardiopulmonary process. She denies any worsening dyspnea, her main complaint is pain in her left foot, and patient continues on antibiotics, and possibility of osteomyelitis is being investigated. No cough, no chest discomfort, an episode of low-grade fever earlier today, she is on room air per pulse ox is 95%. Today's labs have been reviewed, white blood cell count is 5.74, hemoglobin is 10.3, electrolytes and renal profile were within normal limits. On 03/11/2021 patient seen in follow-up on medical surgical floor. She is resting in bed, room air pulse ox is 93-95%, she is on antibiotics for ESBL urinary tract infection, she denies any pulmonary symptoms, no worsening dyspnea, no cough, no chest discomfort, the pain in her left foot is improved. The rest of vitals have been stable, her breathing is nonlabored, she is afebrile. She is on Xarelto for anticoagulation, she is on ertapenem for ESBL urinary tract infection, today's labs have been reviewed, white blood cell count was 5.7, hemoglobin is 10.2, electric lites and renal profile were unremarkable. BUN is 15 creatinine 0.7. Objective - Vital Signs Vital signs: Vital Signs Temp 98.3 F 03/11/21 13:44 Pulse 88 03/11/21 13:44 Resp 17 03/11/21 13:44 BP 119/67 03/11/21 13:44 Pulse Ox 93 L 03/11/21 13:44 Intake & Output 03/10/21 03/11/21 03/11/21 18:59 06:59 18:59 Output Total 1100 350 Balance -1100 -350 Output: Urine 1100 350 Other: Voiding Method External Catheter - Exam GENERAL EXAM: Alert, very pleasant, 66-year-old white female, breathing comfortably, on room air, with a pulse ox of 93-95% comfortable in no apparent distress. HEAD: Normocephalic/atraumatic. EYES: Normal reaction of pupils, equal size. Conjunctiva pink, sclera white. NOSE: Clear with pink turbinates. THROAT: No erythema or exudates. NECK: No masses, no JVD, no thyroid enlargement, no adenopathy. CHEST: No chest wall deformity. Symmetrical expansion. LUNGS: Equal air entry with no crackles, wheeze, rhonchi or dullness. CVS: Regular rate and rhythm, normal S1 and S2, no gallops, no murmurs, no rubs ABDOMEN: Soft, nontender. No hepatosplenomegaly, normal bowel sounds, no guarding or rigidity. EXTREMITIES: No clubbing, swelling and tenderness in left foot, no cyanosis, 2+ pulses and upper and lower extremities. MUSCULOSKELETAL: Muscle strength and tone normal. SPINE: No scoliosis or deformity SKIN: No rashes, wound in her left foot which is covered with a dressing, quite tender to touch CENTRAL NERVOUS SYSTEM: Alert and oriented -3. No focal deficits, tone is normal in all 4 extremities. PSYCHIATRIC: Alert and oriented -3. Appropriate affect. Intact judgment and insight. - Labs CBC & Chem 7: 03/11/21 06:58 03/11/21 06:58 Labs: Abnormal Lab Results - Last 24 Hours (Table) 03/10/21 03/10/21 03/11/21 Range/Units 16:46 20:11 06:58 RBC 3.89 L (4.10-5.20) X 10*6/uL Hgb 10.2 L (12.0-15.0) g/dL Hct 33.6 L (37.2-46.3) % MCH 26.2 L (27.0-32.0) pg MCHC 30.4 L (32.0-37.0) g/dL RDW 17.2 H (11.5-14.5) % MPV 9.3 L (9.5-12.2) fL Lymphocytes # 0.73 L (0.90-5.00) X 10*3/uL BUN/Creatinine Ratio (12.00-20.00) Ratio Glucose (70-110) mg/dL POC Glucose (mg/dL) 100 H 149 H (75-99) mg/dL Calcium (8.7-10.3) mg/dL C-Reactive Protein (<1.0) mg/dL 03/11/21 03/11/21 03/11/21 Range/Units 06:58 06:58 07:03 RBC (4.10-5.20) X 10*6/uL Hgb (12.0-15.0) g/dL Hct (37.2-46.3) % MCH (27.0-32.0) pg MCHC (32.0-37.0) g/dL RDW (11.5-14.5) % MPV (9.5-12.2) fL Lymphocytes # (0.90-5.00) X 10*3/uL BUN/Creatinine Ratio 21.43 H (12.00-20.00) Ratio Glucose 127 H (70-110) mg/dL POC Glucose (mg/dL) 123 H (75-99) mg/dL Calcium 8.5 L (8.7-10.3) mg/dL C-Reactive Protein 11.6 H (<1.0) mg/dL 03/11/21 Range/Units 11:44 RBC (4.10-5.20) X 10*6/uL Hgb (12.0-15.0) g/dL Hct (37.2-46.3) % MCH (27.0-32.0) pg MCHC (32.0-37.0) g/dL RDW (11.5-14.5) % MPV (9.5-12.2) fL Lymphocytes # (0.90-5.00) X 10*3/uL BUN/Creatinine Ratio (12.00-20.00) Ratio Glucose (70-110) mg/dL POC Glucose (mg/dL) 100 H (75-99) mg/dL Calcium (8.7-10.3) mg/dL C-Reactive Protein (<1.0) mg/dL Microbiology - Last 24 Hours (Table) 03/08/21 00:52 Urine Culture - Preliminary Urine,Voided Escherichia coli 03/08/21 00:54 Blood Culture - Preliminary Blood No Growth after 72 hours 03/08/21 00:52 Blood Culture - Preliminary Blood No Growth after 72 hours Assessment and Plan Plan: 1 acute COVID-19 infection with secondary fever and mild dehydration. No indication for pneumonia and this point in time and the patient is having no respiratory symptoms. Hospitalized for hydration and management of fever. She is afebrile. He is on IV Rocephin for suspected UTI. 2 acute urinary tract infection related to ESBL E. coli, currently on Invanz 3 coronary artery disease 4 diabetes mellitus with diabetic peripheral neuropathy 5 diabetic foot ulcer 6 peripheral vascular disease 7 obstructive sleep apnea. 8 history of morbid obesity post gastric sleeve. 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 12 multiple sclerosis 13 hypothyroidism 14 osteoarthritis Plan: No pulmonary complaints Patient remains on room air Maintaining O2 saturations above 92% Chest x-ray showed no evidence of acute pulmonary disease No need for steroids From pulmonary perspective patient is stable, and does not require any treatment for COVID-19 infection. No evidence of pneumonia at this time We will follow on as-needed basis I performed a history & physical examination of the patient and discussed their management with my nurse practitioner, Romelia Simon. I reviewed the nurse practitioner's note and agree with the documented findings and plan of care. Lung sounds are positive for diminished breath sounds The findings and the impression was discussed with the patient. I attest to the documentation by the nurse practitioner. Time with Patient: Less than 30
--- NOTE | 2021-03-11 16:54 | NM ---
EXAMINATION TYPE: NM bone 3 phase DATE OF EXAM: 03/11/2021 COMPARISON: NONE HISTORY: Triple phase bone scintigraphy was performed following the injection of 21.5 mCi Tc 99m MDP. Immedia te images and 3 hours post injection images acquired. FINDINGS: There is some hyperemia of the right foot compared to the left on the flow study. The delayed images show increased uptake at the proximal phalanx of the big toe right foot. There is also increased upta ke in the left mid foot. There is also slight increased uptake at the fifth MP joint of the right david t. IMPRESSION: Delayed increased uptake at the big toe proximal phalanx and at the fifth MP joint region suggestive of osteomyelitis. There is increased uptake in the left mid foot that is nonspecific.
--- NOTE | 2021-03-11 16:58 | P.PN ---
Subjective Progress Note Date: 03/11/21 Sepsis secondary to COVID-19 infection, UTI Ms. Barnes is a 66-year-old female with a past medical history of coronary artery disease, COPD, and at this point is, DVT, hypertension, osteoarthritis, PEPPER, thyroid disorder, multiple sclerosis who uses a wheelchair to move around brought in by EMS as she was unable to get off of her couch. Patient states for the past 2-3 days she has been feeling extremely weak and has decreased by mouth intake and this morning she felt so weak that she could not get out of the bed. Patient was also complaining of increased urinary output. Patient denied having any fevers chills or rigors. She denied having any chest pain or palpitations. No cough or difficulty in breathing. No abdominal pain nausea vomiting or diarrhea. In the ER at the time of admission patient's vitals, T-max 102.8, heart rate 91, respiratory 20, blood pressure 114/63, saturating 97% on room air. On reviewing the labs white count of 7.8, hemoglobin 11.1, platelets 32. Sodium 136, potassium 4.7, chloride 103, bicarb 26, BNP 30, creatinine 0.8 to. D-dimer 0.93. Urine analysis is positive for nitrites and large leukocyte esterase and moderate bacteria. COVID 19 PCR positive. So the patient is admitted for further management. On 03/09/2021 - patient has been seen and examined at the bedside. As per discussion with nursing staff, patient was complaining of pain in her right foot. Patient denies having any difficulty in breathing. She denies having any fevers chills or rigors. The last spike in her fever was yesterday morning. Patient denies having any abdominal pain nausea vomiting or diarrhea. No dysuria or hematuria. She is currently on ceftriaxone for suspected UTI. On reviewing the orders from this morning T-max of 98.6, heart rate 87, respiratory rate 19, blood pressure 99/62, saturating at 92% on room air. Labs this morning showing d-dimer of 1.31, sodium 136, but patient opens his, chloride 102, bicarbonate 26, BUN 15, creatinine 0.7. Pro-calcitonin 0.17. On 03/10/2021 patient is seen and examined at bedside. Patient still complaining of pain in her right foot, x-ray obtained yesterday evening showing bony destruction of the big toe likely secondary to osteomyelitis. ID Dr. Wetzel on board and following the patient. Patient denies having any chest pain or palpitations. No cough or difficulty in breathing. Denies having any fevers. Patient denies having any abdominal pain nausea vomiting or diarrhea. On reviewing the vitals T-max of 99.8 at 3 AM this morning, respiratory rate 16, blood pressure 103 x 60, saturating at 93% on room air. On reviewing the labs from this morning white count of 5.7, hemoglobin 10.3, platelets 249. Sodium 138, potassium 4.7, chloride 103, bicarb 28, BUN 13, creatinine 0.8. 03/11/2021 Patient is seen and evaluated in follow-up continues to have pain in her right foot and is quite concerned that her infection has returned as she states she recently underwent amputation in November and was thought that the infection had been removed. Bone scan ordered and pending at this time. Infectious disease is following and patient was maintained on IV antibiotics in the form of ceftriaxone for urinary tract infection with culture showing E. coli. IV antibiotics have been changed to Invanz as cultures showing ESBL with possible contaminant. Repeat urinalysis ordered and pending. Will likely require IV antibiotic therapy in the outpatient setting. Blood cultures remain negative. White blood count is 5.70 and hemoglobin is 10.2, sodium is 137 with a potassium of 4.6 and creatinine is 0.7. Patient is continued on Accu-Cheks before meals and at bedtime and will continue at this time. CRP also elevated at 11.6. Review of systems: Constitutional: No reports of fatigue, fever, or chills Cardiovascular: No reports of chest pain or palpitations Respiratory: No reports of shortness of breath or cough GI: No reports of nausea, vomiting, or diarrhea : No reports of dysuria or retention Neurovascular: Reports generalized weakness and right foot pain All medications have been reviewed Active Medications Acetaminophen (Acetaminophen Tab 325 Mg Tab) 650 mg PO Q6HR PRN PRN Reason: Mild Pain or Fever > 100.5 Last Admin: 03/10/21 03:31 Dose: 650 mg Documented by: Hydrocodone Bitart/Acetaminophen (Hydrocodone/Apap 7.5-325mg 1 Each Tab) 1 each PO Q6H PRN PRN Reason: Pain Last Admin: 03/11/21 13:55 Dose: 1 each Documented by: Amlodipine Besylate (Amlodipine 10 Mg Tab) 10 mg PO DAILY [facility] Last Admin: 03/11/21 07:43 Dose: 10 mg Documented by: Ascorbic Acid (Ascorbic Acid 500 Mg Tab) 1,000 mg PO DAILY [facility] Last Admin: 03/11/21 07:43 Dose: 1,000 mg Documented by: Aspirin (Aspirin 81 Mg) 81 mg PO DAILY [facility] Last Admin: 03/11/21 07:43 Dose: 81 mg Documented by: Atorvastatin Calcium (Atorvastatin 40 Mg Tab) 40 mg PO [facility] Last Admin: 03/10/21 19:27 Dose: 40 mg Documented by: Cholecalciferol (Cholecalciferol 25 Mcg (1000 Iu) Tablet) 125 mcg PO DAILY [facility] Last Admin: 03/11/21 07:43 Dose: 125 mcg Documented by: Clopidogrel Bisulfate (Clopidogrel 75 Mg Tab) 75 mg PO [facility] Last Admin: 03/10/21 19:28 Dose: 75 mg Documented by: Collagenase (Collagenase 250 Unit/Gm Ointment 30 Gm Tube) 1 applic TOPICAL DAILY [facility] Last Admin: 03/11/21 07:43 Dose: 1 applic Documented by: Hydromorphone HCl (Hydromorphone 1 Mg/Ml 1 Ml Syringe) 1.5 mg IVP Q4HR PRN PRN Reason: Pain Last Admin: 03/11/21 10:36 Dose: 1 mg Documented by: Ertapenem 1 gm/ Sodium (Chloride) 50 mls @ 100 mls/hr IVPB DAILY@1200 [facility]; Protocol Last Admin: 03/11/21 13:55 Dose: 100 mls/hr Documented by: Insulin Aspart (Insulin Aspart (Novolog) 100 Unit/Ml Vial) 0 unit SQ [facility]; Protocol Last Admin: 03/11/21 11:47 Dose: Not Given Documented by: Insulin Detemir (Insulin Detemir (Levemir) 100 Unit/Ml Syr) 50 unit SQ DAILY@0600 [facility] Last Admin: 03/11/21 06:13 Dose: 50 unit Documented by: Levothyroxine Sodium (Levothyroxine 125 Mcg Tab) 125 mcg PO 0630 [facility] Last Admin: 03/11/21 06:12 Dose: 125 mcg Documented by: Lisinopril (Lisinopril 5 Mg Tab) 5 mg PO QAM [facility] Last Admin: 03/11/21 07:42 Dose: 5 mg Documented by: Naloxone HCl (Naloxone 0.4 Mg/Ml 1 Ml Vial) 0.2 mg IV Q2M PRN PRN Reason: Opioid Reversal Rivaroxaban (Rivaroxaban 20 Mg Tab) 20 mg PO HS [facility] Last Admin: 03/10/21 19:29 Dose: Not Given Documented by: Zinc Sulfate (Zinc Sulfate 220 Mg Cap) 220 mg PO DAILY [facility] Last Admin: 03/11/21 07:43 Dose: 220 mg Documented by: Objective - Vital Signs Vital signs: Vital Signs Temp 98.3 F 03/11/21 13:44 Pulse 88 03/11/21 13:44 Resp 17 03/11/21 13:44 BP 119/67 03/11/21 13:44 Pulse Ox 93 L 03/11/21 13:44 Intake & Output 03/10/21 03/11/21 03/11/21 18:59 06:59 18:59 Output Total 1100 350 Balance -1100 -350 Output: Urine 1100 350 Other: Voiding Method External Catheter - Exam GENERAL: Obese female lying comfortably in bed appears to be no acute distress, adding some right foot pain HEENT: Pupils are round and equally reacting to light. EOMI. No scleral icterus. No conjunctival pallor. CARDIOVASCULAR: S1 and S2 present. PULMONARY: Bilateral breath sounds are positive. No wheeze or crackles. ABDOMEN: Soft, positive for tenderness in the bilateral lower quadrants of the abdomen, bowel sounds positive. MUSCULOSKELETAL: No joint swelling or deformity. EXTREMITIES: No cyanosis, clubbing, or pedal edema. Right Great toe wrapped in bandage . NEUROLOGICAL: Patient is alert awake oriented 3, Gross neurological examination did not reveal any focal deficits. SKIN: No rashes. - Labs CBC & Chem 7: 03/11/21 06:58 03/11/21 06:58 Labs: Abnormal Lab Results - Last 24 Hours (Table) 03/10/21 03/11/21 03/11/21 Range/Units 20:11 06:58 06:58 RBC 3.89 L (4.10-5.20) X 10*6/uL Hgb 10.2 L (12.0-15.0) g/dL Hct 33.6 L (37.2-46.3) % MCH 26.2 L (27.0-32.0) pg MCHC 30.4 L (32.0-37.0) g/dL RDW 17.2 H (11.5-14.5) % MPV 9.3 L (9.5-12.2) fL Lymphocytes # 0.73 L (0.90-5.00) X 10*3/uL BUN/Creatinine Ratio 21.43 H (12.00-20.00) Ratio Glucose 127 H (70-110) mg/dL POC Glucose (mg/dL) 149 H (75-99) mg/dL Calcium 8.5 L (8.7-10.3) mg/dL C-Reactive Protein (<1.0) mg/dL 03/11/21 03/11/21 03/11/21 Range/Units 06:58 07:03 11:44 RBC (4.10-5.20) X 10*6/uL Hgb (12.0-15.0) g/dL Hct (37.2-46.3) % MCH (27.0-32.0) pg MCHC (32.0-37.0) g/dL RDW (11.5-14.5) % MPV (9.5-12.2) fL Lymphocytes # (0.90-5.00) X 10*3/uL BUN/Creatinine Ratio (12.00-20.00) Ratio Glucose (70-110) mg/dL POC Glucose (mg/dL) 123 H 100 H (75-99) mg/dL Calcium (8.7-10.3) mg/dL C-Reactive Protein 11.6 H (<1.0) mg/dL Microbiology - Last 24 Hours (Table) 03/08/21 00:52 Urine Culture - Preliminary Urine,Voided Escherichia coli 03/08/21 00:54 Blood Culture - Preliminary Blood No Growth after 72 hours 03/08/21 00:52 Blood Culture - Preliminary Blood No Growth after 72 hours Assessment and Plan Assessment: Sepsis secondary to COVID-19 infection, UTI Possible urinary tract infection Possible right foot osteomyelitis is noted on x-ray Coronary artery disease status post stenting COPD Diabetes mellitus Hypertension History of DVT Hypothyroidism Objective sleep apnea History of gastric sleeve surgery History of right big toe amputation Morbid obesity with BMI 45.8 Mild protein calorie malnutrition Chronic debility PLAN:Patient's urine culture positive for gram-negative bacilli, continue with ceftriaxone for now. Urine culture initially showing ESBL and repeat urinalysis and infectious disease is following and IV antibiotics transition to Invanz. Patient saturating at 94% on room air on chest x-ray with no evidence of pulmonary disease. No need for steroids. Patient had an x-ray of the right foot done showing signs of osteomyelitis in the great toe. ID Dr. Wetzel on board. Bone scan has been ordered and pending at this time. Continue with the rest of her current medication regimen. As the patient's pain is poorly controlled, will increase the dose of morphine to 1.5 mg every 4 hours as needed for pain. Further recommendations to follow depending on the progress of the patient. Patient may likely need IV antibiotic therapy upon discharge and will discuss with infectious disease along with case management and social work about discharge planning needs. Our gnosis remains guarded.
[2021-03-11 17:08] LABS: Glucose,Whole Blood 104 mg/dL (75-99)
[2021-03-11 20:49] LABS: Glucose,Whole Blood 147 mg/dL (75-99)
[2021-03-11] MEDS: CLOPIDOGREL 75 MG TAB PO SCH (20:49)
[2021-03-11] MEDS: ATORVASTATIN 40 MG TAB PO SCH (20:49)
[2021-03-11] MEDS: RIVAROXABAN 20 MG TAB PO SCH (20:49)
[2021-03-12 00:08] LABS: Appearance,Urine Cloudy (Clear); Bacteria,Urine Rare /hpf; Bilirubin,Urine Negative (Negative); Blood,Urine Negative (Negative); Color,Urine Light Yellow; Glucose,Urine (UA) Negative (Negative); Ketones,Urine Negative (Negative); Leukocyte Esterase,Urine Large (Negative); Mucus,Urine Rare /hpf; Nitrite,Urine Negative (Negative); Protein,Urine Negative (Negative); RBC,Urine 4 /hpf (0-5); Specific Gravity,Urine 1.014 (1.001-1.035); Squamous Epithelial Cell,Urine 6 /hpf (0-4); Urobilinogen,Urine <2.0 mg/dL (<2.0); WBC,Urine 169 /hpf (0-5)
[2021-03-12] MEDS: ACETAMINOPHEN TAB 325 MG TAB PO PRN (00:26)
[2021-03-12] MEDS: LEVOTHYROXINE 125 MCG TAB PO SCH (05:40)
[2021-03-12] MEDS: HYDROcodone/APAP 7.5-325MG 1 EACH TAB PO PRN ×4 (05:41→23:35)
[2021-03-12] MEDS: INSULIN DETEMIR (LEVEMIR) 100 UNIT/ML SYR SQ SCH (05:42)
[2021-03-12 05:46] LABS: Glucose,Whole Blood 112 mg/dL (75-99)
[2021-03-12 07:23] LABS: Glucose,Whole Blood 186 mg/dL (75-99)
[2021-03-12] MEDS: CHOLECALCIFEROL 25 MCG (1000 IU) TABLET PO SCH (08:08)
[2021-03-12] MEDS: ASPIRIN 81 MG PO SCH (08:08)
[2021-03-12] MEDS: ZINC SULFATE 220 MG CAP PO SCH (08:08)
[2021-03-12] MEDS: lisinopriL 5 MG TAB PO SCH (08:08)
[2021-03-12] MEDS: amLODIPine 10 MG TAB PO SCH (08:08)
[2021-03-12] MEDS: ASCORBIC ACID 500 MG TAB PO SCH (08:08)
[2021-03-12] MEDS: INSULIN ASPART (NovoLOG) 100 UNIT/ML VIAL SQ SCH ×4 (08:08→21:04)
[2021-03-12] MEDS: HYDROmorphone 1 MG/ML 1 ML SYRINGE IVP PRN ×3 (08:09→21:04)
[2021-03-12] MEDS: COLLAGENASE 250 UNIT/GM OINTMENT 30 GM TUBE TOPICAL SCH (09:17)
[2021-03-12] MEDS: ERTAPENEM 1 GM in SODIUM CHLORIDE 0.9% 50 ML IVPB SCH (11:47)
[2021-03-12 12:11] LABS: Glucose,Whole Blood 146 mg/dL (75-99)
--- NOTE | 2021-03-12 15:40 | P.PN ---
Subjective Progress Note Date: 03/12/21 Sepsis secondary to COVID-19 infection, UTI Ms. Barnes is a 66-year-old female with a past medical history of coronary artery disease, COPD, and at this point is, DVT, hypertension, osteoarthritis, PEPPER, thyroid disorder, multiple sclerosis who uses a wheelchair to move around brought in by EMS as she was unable to get off of her couch. Patient states for the past 2-3 days she has been feeling extremely weak and has decreased by mouth intake and this morning she felt so weak that she could not get out of the bed. Patient was also complaining of increased urinary output. Patient denied having any fevers chills or rigors. She denied having any chest pain or palpitations. No cough or difficulty in breathing. No abdominal pain nausea vomiting or diarrhea. In the ER at the time of admission patient's vitals, T-max 102.8, heart rate 91, respiratory 20, blood pressure 114/63, saturating 97% on room air. On reviewing the labs white count of 7.8, hemoglobin 11.1, platelets 32. Sodium 136, potassium 4.7, chloride 103, bicarb 26, BNP 30, creatinine 0.8 to. D-dimer 0.93. Urine analysis is positive for nitrites and large leukocyte esterase and moderate bacteria. COVID 19 PCR positive. So the patient is admitted for further management. On 03/09/2021 - patient has been seen and examined at the bedside. As per discussion with nursing staff, patient was complaining of pain in her right foot. Patient denies having any difficulty in breathing. She denies having any fevers chills or rigors. The last spike in her fever was yesterday morning. Patient denies having any abdominal pain nausea vomiting or diarrhea. No dysuria or hematuria. She is currently on ceftriaxone for suspected UTI. On reviewing the orders from this morning T-max of 98.6, heart rate 87, respiratory rate 19, blood pressure 99/62, saturating at 92% on room air. Labs this morning showing d-dimer of 1.31, sodium 136, but patient opens his, chloride 102, bicarbonate 26, BUN 15, creatinine 0.7. Pro-calcitonin 0.17. On 03/10/2021 patient is seen and examined at bedside. Patient still complaining of pain in her right foot, x-ray obtained yesterday evening showing bony destruction of the big toe likely secondary to osteomyelitis. ID Dr. Wetzel on board and following the patient. Patient denies having any chest pain or palpitations. No cough or difficulty in breathing. Denies having any fevers. Patient denies having any abdominal pain nausea vomiting or diarrhea. On reviewing the vitals T-max of 99.8 at 3 AM this morning, respiratory rate 16, blood pressure 103 x 60, saturating at 93% on room air. On reviewing the labs from this morning white count of 5.7, hemoglobin 10.3, platelets 249. Sodium 138, potassium 4.7, chloride 103, bicarb 28, BUN 13, creatinine 0.8. 03/11/2021 Patient is seen and evaluated in follow-up continues to have pain in her right foot and is quite concerned that her infection has returned as she states she recently underwent amputation in November and was thought that the infection had been removed. Bone scan ordered and pending at this time. Infectious disease is following and patient was maintained on IV antibiotics in the form of ceftriaxone for urinary tract infection with culture showing E. coli. IV antibiotics have been changed to Invanz as cultures showing ESBL with possible contaminant. Repeat urinalysis ordered and pending. Will likely require IV antibiotic therapy in the outpatient setting. Blood cultures remain negative. White blood count is 5.70 and hemoglobin is 10.2, sodium is 137 with a potassium of 4.6 and creatinine is 0.7. Patient is continued on Accu-Cheks before meals and at bedtime and will continue at this time. CRP also elevated at 11.6. 03/12/2021 Patient Is seen in follow-up this morning with no acute overnight issues. Patient underwent bone scan yesterday showing delayed increased uptake at the big toe proximal phalanx and at the fifth MP joint region suggested of osteomyelitis with increased uptake in the left midfoot that is nonspecific. Pulmonary along with infectious disease following. Patient was also found to be Covid positive and continues to be on room air and denies any shortness of breat h. Patient is on Invanz as urine culture finalized showing E. coli and Klebsiella pneumonia and blood cultures remain negative. Her only awaiting for wound cultures and they're pending at this time. Social work also following and patient is agreeable to rehab at an [facility] if requiring IV antibiotic therapy upon discharge. Again awaiting cultures which are currently pending. Review of systems: Constitutional: No reports of fatigue, fever, or chills Cardiovascular: No reports of chest pain or palpitations Respiratory: No reports of shortness of breath or cough GI: No reports of nausea, vomiting, or diarrhea : No reports of dysuria or retention Neurovascular: Reports generalized weakness and right foot pain All medications have been reviewed Active Medications Acetaminophen (Acetaminophen Tab 325 Mg Tab) 650 mg PO Q6HR PRN PRN Reason: Mild Pain or Fever > 100.5 Last Admin: 03/12/21 00:26 Dose: 650 mg Documented by: Hydrocodone Bitart/Acetaminophen (Hydrocodone/Apap 7.5-325mg 1 Each Tab) 1 each PO Q6H PRN PRN Reason: Pain Last Admin: 03/12/21 12:37 Dose: 1 each Documented by: Amlodipine Besylate (Amlodipine 10 Mg Tab) 10 mg PO DAILY [facility] Last Admin: 03/12/21 08:08 Dose: 10 mg Documented by: Ascorbic Acid (Ascorbic Acid 500 Mg Tab) 1,000 mg PO DAILY [facility] Last Admin: 03/12/21 08:08 Dose: 1,000 mg Documented by: Aspirin (Aspirin 81 Mg) 81 mg PO DAILY [facility] Last Admin: 03/12/21 08:08 Dose: 81 mg Documented by: Atorvastatin Calcium (Atorvastatin 40 Mg Tab) 40 mg PO [facility] Last Admin: 03/11/21 20:49 Dose: 40 mg Documented by: Cholecalciferol (Cholecalciferol 25 Mcg (1000 Iu) Tablet) 125 mcg PO DAILY [facility] Last Admin: 03/12/21 08:08 Dose: 125 mcg Documented by: Clopidogrel Bisulfate (Clopidogrel 75 Mg Tab) 75 mg PO [facility] Last Admin: 03/11/21 20:49 Dose: 75 mg Documented by: Collagenase (Collagenase 250 Unit/Gm Ointment 30 Gm Tube) 1 applic TOPICAL DAILY [facility] Last Admin: 03/12/21 09:17 Dose: 1 applic Documented by: Hydromorphone HCl (Hydromorphone 1 Mg/Ml 1 Ml Syringe) 1.5 mg IVP Q4HR PRN PRN Reason: Pain Last Admin: 03/12/21 14:48 Dose: 1 mg Documented by: Ertapenem 1 gm/ Sodium (Chloride) 50 mls @ 100 mls/hr IVPB DAILY@1200 [facility]; Protocol Last Admin: 03/12/21 11:47 Dose: 100 mls/hr Documented by: Insulin Aspart (Insulin Aspart (Novolog) 100 Unit/Ml Vial) 0 unit SQ ACHS [facility]; Protocol Last Admin: 03/12/21 12:36 Dose: 1 unit Documented by: Insulin Detemir (Insulin Detemir (Levemir) 100 Unit/Ml Syr) 50 unit SQ DAILY@0600 [facility] Last Admin: 03/12/21 05:42 Dose: 50 unit Documented by: Levothyroxine Sodium (Levothyroxine 125 Mcg Tab) 125 mcg PO 0630 [facility] Last Admin: 03/12/21 05:40 Dose: 125 mcg Documented by: Lisinopril (Lisinopril 5 Mg Tab) 5 mg PO QAM [facility] Last Admin: 03/12/21 08:08 Dose: 5 mg Documented by: Naloxone HCl (Naloxone 0.4 Mg/Ml 1 Ml Vial) 0.2 mg IV Q2M PRN PRN Reason: Opioid Reversal Rivaroxaban (Rivaroxaban 20 Mg Tab) 20 mg PO HS [facility] Last Admin: 03/11/21 20:49 Dose: 20 mg Documented by: Zinc Sulfate (Zinc Sulfate 220 Mg Cap) 220 mg PO DAILY [facility] Last Admin: 03/12/21 08:08 Dose: 220 mg Documented by: Objective - Vital Signs Vital signs: Vital Signs Temp 98.3 F 03/12/21 15:11 Pulse 86 03/12/21 15:11 Resp 17 03/12/21 15:11 BP 90/55 03/12/21 15:11 Pulse Ox 92 L 03/12/21 15:11 Intake & Output 03/11/21 03/12/21 03/12/21 18:59 06:59 18:59 Output Total 700 700 Balance -700 -700 Output: Urine 700 700 Other: Voiding Method External Catheter External Catheter - Exam GENERAL: Obese female lying comfortably in bed appears to be no acute distress, having some right foot pain HEENT: Pupils are round and equally reacting to light. EOMI. No scleral icterus. No conjunctival pallor. CARDIOVASCULAR: S1 and S2 present. PULMONARY: Bilateral breath sounds are positive. No wheeze or crackles. ABDOMEN: Soft, positive for tenderness in the bilateral lower quadrants of the abdomen, bowel sounds positive. MUSCULOSKELETAL: No joint swelling or deformity. EXTREMITIES: No cyanosis, clubbing, or pedal edema. Right Great toe wrapped in bandage . NEUROLOGICAL: Patient is alert awake oriented 3, Gross neurological examination did not reveal any focal deficits. SKIN: No rashes. - Labs CBC & Chem 7: 03/11/21 06:58 03/11/21 06:58 Labs: Abnormal Lab Results - Last 24 Hours (Table) 03/11/21 03/11/21 03/11/21 Range/Units 06:58 17:00 20:47 ESR 73 H (0-30) mm/Hr POC Glucose (mg/dL) 104 H 147 H (75-99) mg/dL Urine Appearance (Clear) Ur Leukocyte Esterase (Negative) Urine WBC (0-5) /hpf Ur Squamous Epith Cells (0-4) /hpf Urine Bacteria (None) /hpf Urine Mucus (None) /hpf 03/11/21 03/12/21 03/12/21 Range/Units 23:00 05:42 07:21 ESR (0-30) mm/Hr POC Glucose (mg/dL) 112 H 186 H (75-99) mg/dL Urine Appearance Cloudy H (Clear) Ur Leukocyte Esterase Large H (Negative) Urine WBC 169 H (0-5) /hpf Ur Squamous Epith Cells 6 H (0-4) /hpf Urine Bacteria Rare H (None) /hpf Urine Mucus Rare H (None) /hpf 03/12/21 Range/Units 12:08 ESR (0-30) mm/Hr POC Glucose (mg/dL) 146 H (75-99) mg/dL Urine Appearance (Clear) Ur Leukocyte Esterase (Negative) Urine WBC (0-5) /hpf Ur Squamous Epith Cells (0-4) /hpf Urine Bacteria (None) /hpf Urine Mucus (None) /hpf Microbiology - Last 24 Hours (Table) 03/08/21 00:52 Urine Culture - Final Urine,Voided Escherichia coli Klebsiella pneumoniae 03/08/21 00:54 Blood Culture - Preliminary Blood No Growth after 96 hours 03/08/21 00:52 Blood Culture - Preliminary Blood No Growth after 96 hours Assessment and Plan Assessment: Sepsis secondary to COVID-19 infection, UTI Possible urinary tract infection Possible right foot osteomyelitis is noted on x-ray Coronary artery disease status post stenting COPD Diabetes mellitus Hypertension History of DVT Hypothyroidism Objective sleep apnea History of gastric sleeve surgery History of right big toe amputation Morbid obesity with BMI 45.8 Mild protein calorie malnutrition Chronic debility PLAN: Urine culture initially showing ESBL and repeat urinalysis and infectious disease is following and IV antibiotics transition to Invanz. Patient saturating at 94% on room air on chest x-ray with no evidence of pulmonary disease. No need for steroids. Patient had an x-ray of the right foot done showing signs of osteomyelitis in the great toe. ID Dr. Wetzel on board. Bone scan also suggestive of osteomyelitis in the right foot. Currently awaiting wound cultures to determine discharge antibiotics. Continue with the rest of her current medication regimen. As the patient's pain is poorly controlled, will increase the dose of morphine to 1.5 mg every 4 hours as needed for pain. Further recommendations to follow depending on the progress of the patient. Patient may likely need IV antibiotic therapy upon discharge and will discuss w ith infectious disease along with case management and social work about discharge planning needs. Patient is agreeable to rehab and social work following and working on accepting facilities as patient will require IV antibiotic therapy upon discharge. Will repeat a.m. labs. Prognosis remains guarded.
--- NOTE | 2021-03-12 16:20 | XR ---
EXAMINATION TYPE: XR chest 1V portable DATE OF EXAM: 03/12/2021 COMPARISON: 03/08/2021 INDICATION: SOB, Covid TECHNIQUE: Single frontal view of the chest is obtained. FINDINGS: The heart size is mildly prominent. The pulmonary vasculature is normal. The lungs are clear. No suspicious scattered infiltrates are evident. IMPRESSION: 1. No acute pulmonary process. 2. Mild cardiomegaly
[2021-03-12 16:46] LABS: Glucose,Whole Blood 117 mg/dL (75-99)
[2021-03-12] MEDS: RIVAROXABAN 20 MG TAB PO SCH (21:04)
[2021-03-12] MEDS: CLOPIDOGREL 75 MG TAB PO SCH (21:04)
[2021-03-12] MEDS: ATORVASTATIN 40 MG TAB PO SCH (21:04)
[2021-03-12 21:06] LABS: Glucose,Whole Blood 199 mg/dL (75-99)
--- NOTE | 2021-03-12 22:05 | PN ---
PROGRESS NOTE DATE OF SERVICE: 03/12/2021. REASON FOR FOLLOWUP: 1. UTI. 2. Left big toe wound and concern for osteomyelitis. INTERVAL HISTORY: Patient is currently afebrile. The patient is breathing comfortably. No chest pain, shortness of breath or cough. No abdominal pain. Still complaining of pain to the left big toe area. PHYSICAL EXAMINATION: Blood pressure 99/52 with a pulse of 90, temperature 98.7. She is 93% on room air. General description is an elderly female lying in bed in no distress. Respiratory system: Unlabored breathing, clear to auscultation anteriorly. Heart S1, S2. Regular rate and rhythm. Abdomen soft, no tenderness. Left foot is currently dressed up. LABS: Repeat urine is positive. Bone scan has been reported to be suspicious for left big toe osteomyelitis. DIAGNOSTIC IMPRESSION AND PLAN: 1. Patient admitted to the hospital with fever, concern for urinary tract infection clinically improved on Rocephin. However, urine did show E coli ESBL. Antibiotic adjusted to Invanz. Repeat urine has been requested. Culture will be followed. 2. Left big toe wound with a previous post amputation and concern for abnormal x-ray. Suspicious for osteomyelitis. We will wait for the culture to finalize to determine discharge antibiotics. 3. Continue supportive care. MMODL / IJN: [id number] /
[2021-03-13] MEDS: HYDROmorphone 1 MG/ML 1 ML SYRINGE IVP PRN ×5 (01:23→20:55)
[2021-03-13] MEDS: INSULIN DETEMIR (LEVEMIR) 100 UNIT/ML SYR SQ SCH (05:33)
[2021-03-13] MEDS: LEVOTHYROXINE 125 MCG TAB PO SCH (05:33)
[2021-03-13 06:23] LABS: Anisocytosis Slight; Basophils % (A) 1 %; Eosinophils # (A) 0.2 k/uL (0-0.7); Eosinophils % (A) 3 %; HCT 33.1 % (34.0-46.0); HGB 10.8 gm/dL (11.4-16.0); Lymphocytes # (A) 0.7 k/uL (1.0-4.8); Lymphocytes % (A) 11 %; MCH 27.4 pg (25.0-35.0); MCHC 32.7 g/dL (31.0-37.0); MCV 83.9 fL (80.0-100.0); Mean Platelet Volume 6.7; Monocytes # (A) 0.6 k/uL (0-1.0); Monocytes % (A) 9 %; Neutrophils # (A) 4.5 k/uL (1.3-7.7); Neutrophils % (A) 74 %; Platelet Count 291 k/uL (150-450); RBC 3.94 m/uL (3.80-5.40); RDW 16.7 % (11.5-15.5); WBC 6.1 k/uL (3.8-10.6)
[2021-03-13 06:41] LABS: African American GFR (CKD) >90 (>60 ml/min/1.73 sqM); Anion Gap 6 mmol/L; Blood Urea Nitrogen 19 mg/dL (7-17); Calcium 8.8 mg/dL (8.4-10.2); Carbon Dioxide 26 mmol/L (22-30); Chloride 102 mmol/L (98-107); Glucose 105 mg/dL (74-99); Non-African American GFR(CKD) 88 (>60 ml/min/1.73 sqM); Potassium 4.3 mmol/L (3.5-5.1); Sodium 134 mmol/L (137-145)
[2021-03-13 06:49] LABS: Glucose,Whole Blood 114 mg/dL (75-99)
[2021-03-13] MEDS: INSULIN ASPART (NovoLOG) 100 UNIT/ML VIAL SQ SCH ×4 (07:20→20:54)
[2021-03-13] MEDS: HYDROcodone/APAP 7.5-325MG 1 EACH TAB PO PRN (08:44)
[2021-03-13] MEDS: lisinopriL 5 MG TAB PO SCH (08:45)
[2021-03-13] MEDS: ZINC SULFATE 220 MG CAP PO SCH (08:45)
[2021-03-13] MEDS: amLODIPine 10 MG TAB PO SCH (08:45)
[2021-03-13] MEDS: ASCORBIC ACID 500 MG TAB PO SCH (08:45)
[2021-03-13] MEDS: CHOLECALCIFEROL 25 MCG (1000 IU) TABLET PO SCH (08:45)
[2021-03-13] MEDS: ASPIRIN 81 MG PO SCH (08:45)
[2021-03-13] MEDS: COLLAGENASE 250 UNIT/GM OINTMENT 30 GM TUBE TOPICAL SCH (08:46)
[2021-03-13 11:41] LABS: Glucose,Whole Blood 120 mg/dL (75-99)
[2021-03-13] MEDS: ERTAPENEM 1 GM in SODIUM CHLORIDE 0.9% 50 ML IVPB SCH (12:28)
--- NOTE | 2021-03-13 14:49 | P.PN ---
Subjective Progress Note Date: 03/13/21 Sepsis secondary to COVID-19 infection, UTI Ms. Barnes is a 66-year-old female with a past medical history of coronary artery disease, COPD, and at this point is, DVT, hypertension, osteoarthritis, PEPPER, thyroid disorder, multiple sclerosis who uses a wheelchair to move around brought in by EMS as she was unable to get off of her couch. Patient states for the past 2-3 days she has been feeling extremely weak and has decreased by mouth intake and this morning she felt so weak that she could not get out of the bed. Patient was also complaining of increased urinary output. Patient denied having any fevers chills or rigors. She denied having any chest pain or palpitations. No cough or difficulty in breathing. No abdominal pain nausea vomiting or diarrhea. In the ER at the time of admission patient's vitals, T-max 102.8, heart rate 91, respiratory 20, blood pressure 114/63, saturating 97% on room air. On reviewing the labs white count of 7.8, hemoglobin 11.1, platelets 32. Sodium 136, potassium 4.7, chloride 103, bicarb 26, BNP 30, creatinine 0.8 to. D-dimer 0.93. Urine analysis is positive for nitrites and large leukocyte esterase and moderate bacteria. COVID 19 PCR positive. So the patient is admitted for further management. On 03/09/2021 - patient has been seen and examined at the bedside. As per discussion with nursing staff, patient was complaining of pain in her right foot. Patient denies having any difficulty in breathing. She denies having any fevers chills or rigors. The last spike in her fever was yesterday morning. Patient denies having any abdominal pain nausea vomiting or diarrhea. No dysuria or hematuria. She is currently on ceftriaxone for suspected UTI. On reviewing the orders from this morning T-max of 98.6, heart rate 87, respiratory rate 19, blood pressure 99/62, saturating at 92% on room air. Labs this morning showing d-dimer of 1.31, sodium 136, but patient opens his, chloride 102, bicarbonate 26, BUN 15, creatinine 0.7. Pro-calcitonin 0.17. On 03/10/2021 patient is seen and examined at bedside. Patient still complaining of pain in her right foot, x-ray obtained yesterday evening showing bony destruction of the big toe likely secondary to osteomyelitis. ID Dr. Wetzel on board and following the patient. Patient denies having any chest pain or palpitations. No cough or difficulty in breathing. Denies having any fevers. Patient denies having any abdominal pain nausea vomiting or diarrhea. On reviewing the vitals T-max of 99.8 at 3 AM this morning, respiratory rate 16, blood pressure 103 x 60, saturating at 93% on room air. On reviewing the labs from this morning white count of 5.7, hemoglobin 10.3, platelets 249. Sodium 138, potassium 4.7, chloride 103, bicarb 28, BUN 13, creatinine 0.8. 03/11/2021 Patient is seen and evaluated in follow-up continues to have pain in her right foot and is quite concerned that her infection has returned as she states she recently underwent amputation in November and was thought that the infection had been removed. Bone scan ordered and pending at this time. Infectious disease is following and patient was maintained on IV antibiotics in the form of ceftriaxone for urinary tract infection with culture showing E. coli. IV antibiotics have been changed to Invanz as cultures showing ESBL with possible contaminant. Repeat urinalysis ordered and pending. Will likely require IV antibiotic therapy in the outpatient setting. Blood cultures remain negative. White blood count is 5.70 and hemoglobin is 10.2, sodium is 137 with a potassium of 4.6 and creatinine is 0.7. Patient is continued on Accu-Cheks before meals and at bedtime and will continue at this time. CRP also elevated at 11.6. 03/12/2021 Patient Is seen in follow-up this morning with no acute overnight issues. Patient underwent bone scan yesterday showing delayed increased uptake at the big toe proximal phalanx and at the fifth MP joint region suggested of osteomyelitis with increased uptake in the left midfoot that is nonspecific. Pulmonary along with infectious disease following. Patient was also found to be Covid positive and continues to be on room air and denies any shortness of breat h. Patient is on Invanz as urine culture finalized showing E. coli and Klebsiella pneumonia and blood cultures remain negative. Her only awaiting for wound cultures and they're pending at this time. Social work also following and patient is agreeable to rehab at an [facility] if requiring IV antibiotic therapy upon discharge. Again awaiting cultures which are currently pending. 03/13/2021 Patient is seen in follow-up this morning continues to have foot pain currently maintained on IV antibiotics in the form of ertapenem with infectious disease following closely. Continuing to await for wound cultures to finalize to determine discharge antibiotics. White blood count is 6.1 with a hemoglobin of 10.8, sodium is 134 with a potassium of 4.3 and current creatinine is 0.72. He is on Accu-Cheks along with sliding scale and long-acting and will continue at this time. Patient to continue with local wound care as well. chest xray is negative for acute pulmonary process with mild cardiiomegaly. On room air today. Patient is using oxygen for comfort measures. Social work is following in the event that she may need placement for continued IV antibiotic therapy. Questionable if patient is agreeable with this and she states she will only go to rehab if requiring special IV antibiotics and prefers to speak with Dr. Wetzel about this. Infectious disease is following. Review of systems: Constitutional: No reports of fatigue, fever, or chills Cardiovascular: No reports of chest pain or palpitations Respiratory: No reports of shortness of breath or cough GI: No reports of nausea, vomiting, or diarrhea : No reports of dysuria or retention Neurovascular: Reports generalized weakness and right foot pain All medications have been reviewed Active Medications Acetaminophen (Acetaminophen Tab 325 Mg Tab) 650 mg PO Q6HR PRN PRN Reason: Mild Pain or Fever > 100.5 Last Admin: 03/12/21 00:26 Dose: 650 mg Documented by: Hydrocodone Bitart/Acetaminophen (Hydrocodone/Apap 7.5-325mg 1 Each Tab) 1 each PO Q6H PRN PRN Reason: Pain Last Admin: 03/13/21 08:44 Dose: 1 each Documented by: Amlodipine Besylate (Amlodipine 10 Mg Tab) 10 mg PO DAILY [facility] Last Admin: 03/13/21 08:45 Dose: 10 mg Documented by: Ascorbic Acid (Ascorbic Acid 500 Mg Tab) 1,000 mg PO DAILY [facility] Last Admin: 03/13/21 08:45 Dose: 1,000 mg Documented by: Aspirin (Aspirin 81 Mg) 81 mg PO DAILY [facility] Last Admin: 03/13/21 08:45 Dose: 81 mg Documented by: Atorvastatin Calcium (Atorvastatin 40 Mg Tab) 40 mg PO [facility] Last Admin: 03/12/21 21:04 Dose: 40 mg Documented by: Cholecalciferol (Cholecalciferol 25 Mcg (1000 Iu) Tablet) 125 mcg PO DAILY [facility] Last Admin: 03/13/21 08:45 Dose: 125 mcg Documented by: Clopidogrel Bisulfate (Clopidogrel 75 Mg Tab) 75 mg PO HS [facility] Last Admin: 03/12/21 21:04 Dose: 75 mg Documented by: Collagenase (Collagenase 250 Unit/Gm Ointment 30 Gm Tube) 1 applic TOPICAL DAILY [facility] Last Admin: 03/13/21 08:46 Dose: 1 applic Documented by: Hydromorphone HCl (Hydromorphone 1 Mg/Ml 1 Ml Syringe) 2 mg IVP Q4HR PRN PRN Reason: Pain Last Admin: 03/13/21 10:09 Dose: 2 mg Documented by: Ertapenem 1 gm/ Sodium (Chloride) 50 mls @ 100 mls/hr IVPB DAILY@1200 [facility]; Protocol Last Admin: 03/13/21 12:28 Dose: 100 mls/hr Documented by: Insulin Aspart (Insulin Aspart (Novolog) 100 Unit/Ml Vial) 0 unit SQ ACHS [facility]; Protocol Last Admin: 03/13/21 11:47 Dose: Not Given Documented by: Insulin Detemir (Insulin Detemir (Levemir) 100 Unit/Ml Syr) 50 unit SQ DAILY@0600 [facility] Last Admin: 03/13/21 05:33 Dose: 50 unit Documented by: Levothyroxine Sodium (Levothyroxine 125 Mcg Tab) 125 mcg PO 0630 [facility] Last Admin: 03/13/21 05:33 Dose: 125 mcg Documented by: Lisinopril (Lisinopril 5 Mg Tab) 5 mg PO QAM [facility] Last Admin: 03/13/21 08:45 Dose: 5 mg Documented by: Naloxone HCl (Naloxone 0.4 Mg/Ml 1 Ml Vial) 0.2 mg IV Q2M PRN PRN Reason: Opioid Reversal Rivaroxaban (Rivaroxaban 20 Mg Tab) 20 mg PO HS [facility] Last Admin: 03/12/21 21:04 Dose: 20 mg Documented by: Zinc Sulfate (Zinc Sulfate 220 Mg Cap) 220 mg PO DAILY [facility] Last Admin: 03/13/21 08:45 Dose: 220 mg Documented by: Objective - Vital Signs Vital signs: Vital Signs Temp 98.0 F 03/13/21 05:15 Pulse 98 05/13/21 05:15 Resp 17 03/13/21 05:15 BP 119/70 03/13/21 05:15 Pulse Ox 93 L 03/13/21 05:15 Intake & Output 03/12/21 03/13/21 03/13/21 18:59 06:59 18:59 Output Total 800 Balance -800 Output: Urine 800 Other: Voiding Method External Catheter External Catheter # Voids 3 # Bowel Movements 3 - Exam GENERAL: Obese female lying comfortably in bed appears to be no acute distress, having some right foot pain HEENT: Pupils are round and equally reacting to light. EOMI. No scleral icterus. No conjunctival pallor. CARDIOVASCULAR: S1 and S2 present. PULMONARY: Bilateral breath sounds are positive. No wheeze or crackles. ABDOMEN: Soft, positive for tenderness in the bilateral lower quadrants of the abdomen, bowel sounds positive. MUSCULOSKELETAL: No joint swelling or deformity. EXTREMITIES: No cyanosis, clubbing, or pedal edema. Right Great toe wrapped in bandage . NEUROLOGICAL: Patient is alert awake oriented 3, Gross neurological examination did not reveal any focal deficits. SKIN: No rashes. - Labs CBC & Chem 7: 03/13/21 05:49 03/13/21 05:49 Labs: Abnormal Lab Results - Last 24 Hours (Table) 03/12/21 03/12/21 03/12/21 Range/Units 12:08 16:45 21:01 Hgb (11.4-16.0) gm/dL Hct (34.0-46.0) % RDW (11.5-15.5) % Lymphocytes # (1.0-4.8) k/uL Sodium (137-145) mmol/L BUN (7-17) mg/dL Glucose (74-99) mg/dL POC Glucose (mg/dL) 146 H 117 H 199 H (75-99) mg/dL 03/13/21 03/13/21 03/13/21 Range/Units 05:49 05:49 06:48 Hgb 10.8 L (11.4-16.0) gm/dL Hct 33.1 L (34.0-46.0) % RDW 16.7 H (11.5-15.5) % Lymphocytes # 0.7 L (1.0-4.8) k/uL Sodium 134 L (137-145) mmol/L BUN 19 H (7-17) mg/dL Glucose 105 H (74-99) mg/dL POC Glucose (mg/dL) 114 H (75-99) mg/dL Microbiology - Last 24 Hours (Table) 03/11/21 09:09 Gram Stain - Preliminary Foot - Right Wound Culture - Preliminary 03/08/21 00:54 Blood Culture - Preliminary Blood No Growth after 120 hours 03/08/21 00:52 Blood Culture - Preliminary Blood No Growth after 120 hours 03/11/21 23:00 Urine Culture - Preliminary Urine,Voided 03/11/21 09:09 Anaerobic Culture - Preliminary Foot - Right 03/08/21 00:52 Urine Culture - Final Urine,Voided Escherichia coli Klebsiella pneumoniae Assessment and Plan Assessment: Sepsis secondary to COVID-19 infection, UTI Possible urinary tract infection Possible right foot osteomyelitis is noted on x-ray Coronary artery disease status post stenting COPD Diabetes mellitus Hypertension History of DVT Hypothyroidism Objective sleep apnea History of gastric sleeve surgery History of right big toe amputation Morbid obesity with BMI 45.8 Mild protein calorie malnutrition Chronic debility PLAN: Urine culture initially showing ESBL and repeat urinalysis and infectious disease is following and IV antibiotics transition to Invanz. Patient saturating at 94% on room air on chest x-ray with no evidence of pulmonary disease. No need for steroids. Patient had an x-ray of the right foot done showing signs of osteomyelitis in the great toe. Bone scan confirms this osteomyelitis as well. ID Dr. Wetzel on board. Currently awaiting wound cultures to determine discharge antibiotics. Continue with the rest of her current medication regimen. As the patient's pain is poorly controlled, have increased the pain medication as patient continues to have severe pain. Further recommendations to follow depending on the progress of the patient. Patient may likely need IV antibiotic therapy upon discharge and will discuss with infectious disease along with case management and social work about discharge planning needs. Patient is questioning rehab and states she will only go to rehab if requiring special IV antibiotics upon discharge and prefers to talk to Dr. Wetzel about this. Social work following and working on accepting facilities as patient will require IV antibiotic therapy upon discharge. Prognosis remains guarded. Time with Patient: Greater than 30
[2021-03-13 14:55] VITALS: BMI 45.7
[2021-03-13 17:03] LABS: Glucose,Whole Blood 97 mg/dL (75-99)
[2021-03-13] MEDS: RIVAROXABAN 20 MG TAB PO SCH (20:54)
[2021-03-13] MEDS: CLOPIDOGREL 75 MG TAB PO SCH (20:54)
[2021-03-13] MEDS: ATORVASTATIN 40 MG TAB PO SCH (20:54)
[2021-03-13 21:05] LABS: Glucose,Whole Blood 108 mg/dL (75-99)
--- NOTE | 2021-03-13 23:20 | PN ---
PROGRESS NOTE DATE OF SERVICE: 03/13/2021 REASON FOR FOLLOWUP: 1. Right big toe and right foot lateral border wound with abnormal x-ray suspicious for osteomyelitis. 2. UTI. INTERVAL HISTORY: The patient is afebrile. The patient is still complaining of pain to the right foot, especially in the lateral border wound area. The patient denies having any chest pain, shortness of breath or cough. No nausea, vomiting, abdominal pain or diarrhea. PHYSICAL EXAMINATION: Blood pressure 131/62 with a pulse of 90, temperature 98.9. She is 92% on room air. General description is an elderly female lying in bed in no distress. RESPIRATORY SYSTEM: Unlabored breathing. Clear to auscultation anteriorly. HEART: S1, S2. Regular rate and rhythm. ABDOMEN: Soft. No tenderness. Right foot is currently dressed up. No obvious drainage on the dressing. LABS: Hemoglobin is 10.8, white count 6.1. BUN of 19, creatinine 0.72. Cultures are currently pending. Repeat urine is negative. DIAGNOSTIC IMPRESSION AND PLAN: 1. Patient with right foot big toe as well as the lateral border wound with pain and abnormal x-rays as well as bone scan suspicious for osteomyelitis. We are waiting for the culture to finalize to determine her discharge antibiotics. 2. Extended-spectrum beta-lactamase Escherichia coli urinary tract infection; possibly urine was contaminant, as the patient clinically improved without getting treatment for it and repeat cultures are negative. MMODL / IJN: [id number] /
[2021-03-14 05:39] LABS: Glucose,Whole Blood 129 mg/dL (75-99)
[2021-03-14 05:45] LABS: Glucose,Whole Blood 128 mg/dL (75-99)
[2021-03-14] MEDS: HYDROmorphone 1 MG/ML 1 ML SYRINGE IVP PRN (05:50)
[2021-03-14] MEDS: LEVOTHYROXINE 125 MCG TAB PO SCH (05:50)
[2021-03-14] MEDS: INSULIN DETEMIR (LEVEMIR) 100 UNIT/ML SYR SQ SCH (05:50)
[2021-03-14 07:06] LABS: Glucose,Whole Blood 132 mg/dL (75-99)
[2021-03-14] MEDS: CHOLECALCIFEROL 25 MCG (1000 IU) TABLET PO SCH (07:50)
[2021-03-14] MEDS: ASCORBIC ACID 500 MG TAB PO SCH (07:50)
[2021-03-14] MEDS: amLODIPine 10 MG TAB PO SCH (07:51)
[2021-03-14] MEDS: lisinopriL 5 MG TAB PO SCH (07:51)
[2021-03-14] MEDS: ZINC SULFATE 220 MG CAP PO SCH (07:51)
[2021-03-14] MEDS: ASPIRIN 81 MG PO SCH (07:51)
[2021-03-14] MEDS: INSULIN ASPART (NovoLOG) 100 UNIT/ML VIAL SQ SCH ×4 (07:51→22:07)
[2021-03-14] MEDS: COLLAGENASE 250 UNIT/GM OINTMENT 30 GM TUBE TOPICAL SCH (07:52)
[2021-03-14] MEDS: HYDROcodone/APAP 7.5-325MG 1 EACH TAB PO PRN ×3 (09:20→22:08)
[2021-03-14 11:43] LABS: Glucose,Whole Blood 122 mg/dL (75-99)
[2021-03-14] MEDS: ERTAPENEM 1 GM in SODIUM CHLORIDE 0.9% 50 ML IVPB SCH (11:49)
[2021-03-14] MEDS: HYDROmorphone 2 MG/ML 1 ML SYRINGE IVP PRN ×2 (12:21→17:57)
--- NOTE | 2021-03-14 13:12 | P.PN ---
Subjective Progress Note Date: 03/14/21 This is a 66-year-old female who was recently admitted with weakness, decreased appetite, urinary frequency, and right foot pain and is being closely monitored. Patient was also found to be positive for COVID-19. Urinalysis initially was positive for urinary tract infection with cultures finalizing showing E. coli and Klebsiella pneumonia and infectious disease was consulted. Patient was placed on IV antibiotics and continues on IV antibiotics in the form of Invanz at this time. Repeat urine cultures are negative although patient's right foot cultures are currently pending and awaiting finalization to determine discharge antibiotics. A right foot x-ray was obtained showing bony destruction of the big toe likely secondary to osteomyelitis and patient underwent bone scan is also suggestive of osteomyelitis. Patient was recently hospitalized back in November and underwent amputation of the right great toe through proximal phalanx with Dr. Ham. The PCR for COVID-19 was positive although patient is not experiencing any respiratory symptoms at this time. Most recent chest x-ray shows no acute pulmonary process. Urology continues to have extreme discomfort of the right foot and difficulty with ambulation and moving around. Social work is following as patient will likely need F for some rehab upon discharge. Review of systems: Constitutional: No reports of fatigue, fever, or chills Cardiovascular: No reports of chest pain or palpitations Respiratory: No reports of shortness of breath or cough GI: No reports of nausea, vomiting, or diarrhea : No reports of dysuria or retention Neurovascular: Reports generalized weakness continued right foot pain All medications have been reviewed Active Medications Acetaminophen (Acetaminophen Tab 325 Mg Tab) 650 mg PO Q6HR PRN PRN Reason: Mild Pain or Fever > 100.5 Last Admin: 03/12/21 00:26 Dose: 650 mg Documented by: Hydrocodone Bitart/Acetaminophen (Hydrocodone/Apap 7.5-325mg 1 Each Tab) 1 each PO Q6H PRN PRN Reason: Pain Last Admin: 03/14/21 09:20 Dose: 1 each Documented by: Amlodipine Besylate (Amlodipine 10 Mg Tab) 10 mg PO DAILY [facility] Last Admin: 03/14/21 07:51 Dose: 10 mg Documented by: Ascorbic Acid (Ascorbic Acid 500 Mg Tab) 1,000 mg PO DAILY [facility] Last Admin: 03/14/21 07:50 Dose: 1,000 mg Documented by: Aspirin (Aspirin 81 Mg) 81 mg PO DAILY [facility] Last Admin: 03/14/21 07:51 Dose: 81 mg Documented by: Atorvastatin Calcium (Atorvastatin 40 Mg Tab) 40 mg PO [facility] Last Admin: 03/13/21 20:54 Dose: 40 mg Documented by: Cholecalciferol (Cholecalciferol 25 Mcg (1000 Iu) Tablet) 125 mcg PO DAILY [facility] Last Admin: 03/14/21 07:50 Dose: 125 mcg Documented by: Clopidogrel Bisulfate (Clopidogrel 75 Mg Tab) 75 mg PO [facility] Last Admin: 03/13/21 20:54 Dose: 75 mg Documented by: Collagenase (Collagenase 250 Unit/Gm Ointment 30 Gm Tube) 1 applic TOPICAL DAILY [facility] Last Admin: 03/14/21 07:52 Dose: 1 applic Documented by: Hydromorphone HCl (Hydromorphone 2 Mg/Ml 1 Ml Syringe) 2 mg IVP Q6H PRN PRN Reason: Pain Last Admin: 03/14/21 12:21 Dose: 2 mg Documented by: Insulin Aspart (Insulin Aspart (Novolog) 100 Unit/Ml Vial) 0 unit SQ [facility]; Protocol Last Admin: 03/14/21 11:46 Dose: Not Given Documented by: Insulin Detemir (Insulin Detemir (Levemir) 100 Unit/Ml Syr) 50 unit SQ DAILY@0600 [facility] Last Admin: 03/14/21 05:50 Dose: 50 unit Documented by: Levothyroxine Sodium (Levothyroxine 125 Mcg Tab) 125 mcg PO 0630 [facility] Last Admin: 03/14/21 05:50 Dose: 125 mcg Documented by: Lisinopril (Lisinopril 5 Mg Tab) 5 mg PO QAM [facility] Last Admin: 03/14/21 07:51 Dose: 5 mg Documented by: Naloxone HCl (Naloxone 0.4 Mg/Ml 1 Ml Vial) 0.2 mg IV Q2M PRN PRN Reason: Opioid Reversal Rivaroxaban (Rivaroxaban 20 Mg Tab) 20 mg PO [facility] Last Admin: 03/13/21 20:54 Dose: 20 mg Documented by: Zinc Sulfate (Zinc Sulfate 220 Mg Cap) 220 mg PO DAILY [facility] Last Admin: 03/14/21 07:51 Dose: 220 mg Documented by: Objective - Vital Signs Vital signs: Vital Signs Temp 98.5 F 03/14/21 09:44 Pulse 96 03/14/21 09:44 Resp 20 03/14/21 09:44 BP 120/75 03/14/21 09:44 Pulse Ox 96 03/14/21 09:44 Intake & Output 03/13/21 03/14/21 03/14/21 18:59 06:59 18:59 Output Total 420 150 Balance -420 -150 Weight 124.738 kg Output: Urine 420 150 Other: Voiding Method External Catheter External Catheter Incontinent External Catheter # Voids 2 # Bowel Movements 1 1 - Exam GENERAL: Obese female lying comfortably in bed appears to be no acute distress, having continued right foot pain. Temp is 98.5F, pulse is 96, respirations are 20, blood pressure is 120/75, oxygen saturation is 96% on room air HEENT: Pupils are round and equally reacting to light. EOMI. No scleral icterus. No conjunctival pallor. CARDIOVASCULAR: S1 and S2 muffled PULMONARY: Bilateral breath sounds are diminished with no wheeze or crackles. ABDOMEN: Soft, nontender, bowel sounds positive. MUSCULOSKELETAL: No joint swelling or deformity. EXTREMITIES: No cyanosis, clubbing, or pedal edema. Right Great toe wrapped in bandage elevated on pillows. NEUROLOGICAL: Patient is alert awake oriented 3, Gross neurological examination did not reveal any focal deficits. Diffusely weak SKIN: No rashes. - Labs CBC & Chem 7: 03/13/21 05:49 03/13/21 05:49 Labs: Abnormal Lab Results - Last 24 Hours (Table) 03/13/21 03/14/21 03/14/21 Range/Units 20:54 05:37 05:43 POC Glucose (mg/dL) 108 H 129 H 128 H (75-99) mg/dL 03/14/21 03/14/21 Range/Units 07:05 11:42 POC Glucose (mg/dL) 132 H 122 H (75-99) mg/dL Microbiology - Last 24 Hours (Table) 03/08/21 00:54 Blood Culture - Final Blood No Growth after 144 hours 03/08/21 00:52 Blood Culture - Final Blood No Growth after 144 hours 03/11/21 23:00 Urine Culture - Final Urine,Voided 03/11/21 09:09 Gram Stain - Preliminary Foot - Right Wound Culture - Preliminary Assessment and Plan Assessment: Sepsis secondary to COVID-19 infection, UTI, present on admission Acute urinary tract infection with cultures growing E. coli and Klebsiella pneumonia Possible right foot osteomyelitis as noted on x-ray Coronary artery disease status post stenting COPD Diabetes mellitus Hypertension History of DVT Hypothyroidism Obstructive sleep apnea History of gastric sleeve surgery History of right big toe amputation Morbid obesity with BMI 45.8 Mild protein calorie malnutrition Chronic debility Full code Recommendations and discussion: Recommend to continue with current medications, management, and symptomatic treatment. Patient continues on IV Invanz as initial urine cultures were growing E. coli with Klebsiella pneumonia. Repeat urine cultures are negative for any growth. Infectious disease is following as well and awaiting cultures of the right foot to determine discharge antibiotics. She continues to have extreme right foot pain and weakness and will likely require ECF placement for continued weakness, gait dysfunction, and possible IV antibiotic therapy. Initially patient was refusing a rehab facility but is now agreeable to [facility] and case management and health and social care teacher working on discharge planning needs. Patient continues on Xarelto along with vitamin and zinc supplements. Recommend continue with Accu-Cheks before meals and at bedtime and continue sliding scale along with long-acting and local wound care with Santyl. Due to multiple complex medical issues, prognosis is guarded. Further recommendations to follow based on the clinical course of the patient. Time with Patient: Greater than 30
--- NOTE | 2021-03-14 15:57 | P.GSCN ---
History of Present Illness Consult date: 03/14/21 Reason for Consult: Right great toe osteomyelitis, consult for debridement and deep tissue cultures Requesting physician: Paul Wetzel History of present illness: This is a 66-year-old obese female who was admitted to [facility] with complaints of weakness, decreased appetite, urinary frequency, and right foot pain. She was found to be positive for COVID-19. She was treated for a urinary tract infection with cultures demonstrating E. coli and Klebsiella, most recent cultures negative. Cultures were taken from her right foot which are finalized as no growth, however foot x-ray and bone scan suggest osteomyelitis. This patient is known to Dr. Ham as she had a right great toe amputation in November 2020 with osteomyelitis present at that time. She has continued to follow in the wound care center. Plans were being made for patient to be discharged to [facility] with IV antibiotics, however with no growth on the cultures Dr. Wetzel placed a consultation to Dr. Ham for debridement and deep tissue cultures for appropriate antibiotic management. Review of Systems Review of systems was completed and was negative except as noted in the HPI - Musculoskeletal right: foot pain Past Medical History Past Medical History: Coronary Artery Disease (CAD), COPD, Diabetes Mellitus, Deep Vein Thrombosis (DVT), Hypertension, Musculoskeletal Disorder, Osteoarthritis (OA), Sleep Apnea/CPAP/BIPAP, Thyroid Disorder, Vascular Disorder Additional Past Medical History / Comment(s): MS, current wound on rt leg great toe-dressing on, USES WHEELCHAIR- can stand and pivot., DYSPHAGIA. migraines, no cpap used, hx dvt's luke legs, urinary leakage, osteomyelitis of right great toe November 2020; COVID-19 infection March 2021 History of Any Multi-Drug Resistant Organisms: ESBL Year Discovered:: 03/08/21 MDRO Source:: ESBL URINE Past Surgical History: Bariatric Surgery, Heart Catheterization With Stent, Orthopedic Surgery Additional Past Surgical History / Comment(s): 11/02/19 angiogram, L CARPAL TUNNEL, GASTRIC SLEEVE, 2 cardiac stents. Right big toe amputation 11/2020 Past Anesthesia/Blood Transfusion Reactions: Motion Sickness Additional Past Anesthesia/Blood Transfusion Reaction / Comm: past motion sickness, never had a transfusion Date of Last Stent Placement:: unknown Past Psychological History: Anxiety Additional Psychological History / Comment(s): anxious over this surgeryalone. She has a dog in the home. Smoking Status: Former smoker Past Alcohol Use History: None Reported Additional Past Alcohol Use History / Comment(s): QUIT SMOKING 20 YRS AGO (19 99), SMOKED <PPD, SMOKED 14 YEARS.alone. She has a dog in the home. Past Drug Use History: None Reported Additional Drug Use History / Comment(s): CBD OIL FOR MUSCLE ACHES, instructed to hold 24 hrs prior to procedure - Past Family History Father History Unknown: Yes Family Medical History: Cancer Mother History Unknown: Yes Family Medical History: Deep Vein Thrombosis (DVT) Medications and Allergies Home Medications Medication Instructions Recorded Confirmed Type Levothyroxine Sodium 125 mcg PO QAM 04/12/19 03/08/21 History Cyclobenzaprine [Flexeril] 10 mg PO DAILY PRN 08/25/19 03/08/21 History Aspirin EC [Ecotrin Low Dose] 81 mg PO DAILY 12/04/19 03/08/21 History Atorvastatin [Lipitor] 40 mg PO HS 12/04/19 03/08/21 History Clopidogrel Bisulfate [Plavix] 75 mg PO HS 11/15/20 03/08/21 History Furosemide [Lasix] 40 mg PO DAILY 11/15/20 03/08/21 History Insulin Glargine,Hum.rec.anlog 50 unit SQ DAILY@0600 11/15/20 03/08/21 History [Lantus Solostar] Rivaroxaban [Xarelto] 20 mg PO HS 11/15/20 03/08/21 History Acetaminophen [Tylenol 8 Hour] 650 mg PO Q6H 02/01/21 03/08/21 History Insulin Aspart Protam & Aspart See Protocol SQ AC-TID 02/01/21 03/08/21 History [NovoLOG MIX 70-30 Flexpen] Collagenase [Santyl] 1 applic TOPICAL DAILY #1 tube 02/04/21 03/08/21 Rx Lisinopril [Prinivil] 5 mg PO QAM 03/07/21 03/08/21 History amLODIPine [Norvasc] 10 mg PO DAILY 03/07/21 03/08/21 History Allergies Allergy/AdvReac Type Severity Reaction Status Date / Time No Known Allergies Allergy Verified 03/08/21 10:52 Surgical - Exam Vital Signs Temp Pulse Resp BP Pulse Ox 102.8 F H 91 20 114/63 97 05/08/21 00:26 03/08/21 00:26 03/08/21 00:26 03/08/21 00:26 03/08/21 00:26 CONSTITUTIONAL: Awake and alert, appears comfortable, cooperative, well- developed, well-nourished, no acute distress EYES: Pupils equal, round, reactive to light, normal ocular movement ENT: Moist mucous membranes without oral lesions present NECK: No masses, no bruits, trachea midline RESPIRATORY: Lungs sounds clear to auscultation bilaterally. Respirations even, nonlabored. Currently on room air with oxygen saturation 94%. Strong cough. CARDIOVASCULAR: S1, S2 present. Regular rate and rhythm, sinus rhythm on telemetry. GASTROINTESTINAL: Abdomen soft, nontender, nondistended. Active bowel sounds present 4 quadrants. GENITOURINARY: Deferred INTEGUMENTARY: Skin is warm and dry. See chart for description of wounds NEUROLOGIC: Cranial nerves II through XII intact MUSKULOSKELETAL: Able to move all extremities, strength equal bilaterally, generalized weakness present PSYCHIATRIC: Alert and oriented to person place and time Results - Labs 03/13/21 05:49 03/13/21 05:49 Abnormal Lab Results - Last 24 Hours (Table) 03/13/21 03/14/21 03/14/21 Range/Units 20:54 05:37 05:43 POC Glucose (mg/dL) 108 H 129 H 128 H (75-99) mg/dL 03/14/21 03/14/21 Range/Units 07:05 11:42 POC Glucose (mg/dL) 132 H 122 H (75-99) mg/dL Microbiology - Last 24 Hours (Table) 03/11/21 09:09 Anaerobic Culture - Preliminary Foot - Right 03/11/21 09:09 Gram Stain - Final Foot - Right Wound Culture - Final 03/08/21 00:54 Blood Culture - Final Blood No Growth after 144 hours 03/08/21 00:52 Blood Culture - Final Blood No Growth after 144 hours 03/11/21 23:00 Urine Culture - Final Urine,Voided - Imaging Additional studies: Foot x-ray and bone scan results reviewed Assessment and Plan Assessment: 1. Possible osteomyelitis of right great toe area, status post amputation of" right great toe in November 2020 2. Acute urinary tract infection with E. coli and Klebsiella, most recent culture negative 3. COVID-19 infection 4. Diabetes mellitus 5. Multiple other comorbid conditions Plan: The patient was seen and examined at the bedside. Chart/diagnostics reviewed. The case was discussed in detail with Dr. Ham. Our recommendations are to continue Santyl dressing changes as prescribed in the wound care center, deep tissue cultures to be completed on outpatient basis. Patient may follow up in the wound care center, although if being discharged to ECF would likely receive wound care there from their wound team, and may follow in the wound care center once discharged from ECF. Management of other comorbidities per primary care service. Thank you Dr. Wetzel for this consult. Please call us with any further questions Time with Patient: Greater than 30
[2021-03-14 16:30] LABS: Glucose,Whole Blood 123 mg/dL (75-99)
[2021-03-14] MEDS ORDERED: LIDOCAINE 1% INJ 10MG/ML (20 ML MDV) SQ ONE (17:02)
--- NOTE | 2021-03-14 17:53 | PN ---
PROGRESS NOTE DATE OF SERVICE: 03/14/2021 REASON FOR FOLLOWUP: 1. Urinary tract infection. 2. Right big toe pain, abnormal bone scan, concern for osteomyelitis. INTERVAL HISTORY: The patient is currently afebrile. The patient is breathing comfortably. The patient denies having any chest pain or shortness of breath or cough. No abdominal pain. Still complaining of pain to the right big toe as well as wound on the right or lateral border. PHYSICAL EXAMINATION: Blood pressure is 120/75, pulse of 96, temperature 98.5. She is 96% on room air. General description is an elderly female lying in bed in no distress. RESPIRATORY SYSTEM: Unlabored breathing. Clear to auscultation anteriorly. HEART: S1, S2. Regular rate and rhythm. ABDOMEN: Soft. No tenderness. Right foot is currently dressed up. No obvious drainage on the dressing. LABS: No new labs have been obtained today. Culture from the right foot wound has came back negative. Repeat urine culture is negative. DIAGNOSTIC IMPRESSION AND PLAN: 1. Patient with fever, concern likely for urinary tract infection. Urine has been ESBL and Klebsiella. E coli and Klebsiella underlying UTI has been adequately treated. Repeat urine is negative. Discontinue the Invanz. 2. Patient with a right big toe partial amputation with a wound to that site along with a wound on the right foot lateral border with abnormal bone scan suspicious for osteomyelitis. Local culture has been negative. Would recommend consultation with her vascular surgeon, Dr. Ham, for debridement and deep cultures so we can find out what infected pathogen is responsible for osteomyelitis and subsequently that will determine her discharge antibiotics. This has been explained to the patient. As the patient does not look toxic, recommend no antibiotics so we can increase the yield of cultures. MMODL / IJN: [id number] / MTDCortez
[2021-03-14 19:34] LABS: African American GFR (CKD) >90 (>60 ml/min/1.73 sqM); Anion Gap 6 mmol/L; Blood Urea Nitrogen 19 mg/dL (7-17); Calcium 8.8 mg/dL (8.4-10.2); Carbon Dioxide 27 mmol/L (22-30); Chloride 103 mmol/L (98-107); Glucose 133 mg/dL (74-99); Magnesium 1.7 mg/dL (1.6-2.3); Non-African American GFR(CKD) 85 (>60 ml/min/1.73 sqM); Potassium 4.5 mmol/L (3.5-5.1); Sodium 136 mmol/L (137-145)
[2021-03-14] MEDS ORDERED: MAGNESIUM SULFATE-D5W PMX 1 GM in DEXTROSE/WATER 1 100ML.BAG IVPB ONE (20:03)
[2021-03-14] MEDS: ACETAMINOPHEN TAB 325 MG TAB PO PRN (20:28)
[2021-03-14 20:39] LABS: Glucose,Whole Blood 148 mg/dL (75-99)
[2021-03-14] MEDS: RIVAROXABAN 20 MG TAB PO SCH (22:07)
[2021-03-14] MEDS: ATORVASTATIN 40 MG TAB PO SCH (22:07)
[2021-03-14] MEDS: CLOPIDOGREL 75 MG TAB PO SCH (22:07)
--- NOTE | 2021-03-14 23:24 | CONS ---
CONSULTATION This is a 66-year-old white female, well known to me from the past from the wound clinic. The patient has been admitted with weakness and patient has Covid 19 positive and also patient has UTI with some fever. I was consulted for right foot lateral aspect of the foot there is a wound. Measurement is 2 x 2 cm with devitalized tissue and also patient had a right big toe partially amputated done by Dr. Ham and there is open wound. There was a concern about osteomyelitis. PAST MEDICAL HISTORY: History of diabetes, hypertension, deep vein thrombosis in the past. The patient had a culture done from the right foot came back negative and a repeat urine culture is negative. PHYSICAL EXAMINATION: NECK: Supple. Trachea central. CHEST: Clear. ABDOMEN: Soft. Femorals are 1+ bilateral. The patient has a right foot lateral aspect wound measurement is 2 x 2 cm with devitalized tissue and also right foot big toe has 0.5 cm wound on the big toe. No discharge or redness noted. PLAN: Debridement of the wound and we sent for deep culture. The patient is under care of Infectious Disease. Thank you for the consult. MMODL / IJN: [id number] /
--- NOTE | 2021-03-14 23:32 | OP ---
OPERATIVE REPORT PREOPERATIVE DIAGNOSES: 1. Chronic wound right foot plantar aspect measurement is 2 x 2 cm with devitalized tissue. 2. Right foot big toe stump partial amputation with small wound 0.5 cm with no discharge or redness. PROCEDURE PERFORMED: Debridement of the wound down to the subcu tissue and bone on the lateral aspect of the foot. DESCRIPTION OF PROCEDURE: 1% lidocaine was infiltrated. Right foot was prepped and drapes applied in usual sterile manner. Using sharp knife, we did the debridement of the lateral aspect of the wound deepened through the subcu tissue and down to the bone, devitalized tissue was excised with sharp knife which was sent for culture and sensitivity. After that, the right foot big toe was infiltrated with 1% lidocaine. There was a very small area of the wound on the big toe stump. Small tissue was excised, sent for culture. The wound was irrigated with saline. No bleeding was noted. Santyl cream applied to the wound. Dressing applied. Patient tolerated the procedure well. PLAN: Continue with Santyl cream. Follow with you. MMODL / IJN: [id number] /
[2021-03-15] MEDS: HYDROmorphone 2 MG/ML 1 ML SYRINGE IVP PRN ×3 (00:07→15:09)
[2021-03-15] MEDS: HYDROcodone/APAP 7.5-325MG 1 EACH TAB PO PRN ×2 (04:16→10:53)
[2021-03-15] MEDS: LEVOTHYROXINE 125 MCG TAB PO SCH (06:22)
[2021-03-15 07:21] LABS: Glucose,Whole Blood 154 mg/dL (75-99)
[2021-03-15] MEDS: ZINC SULFATE 220 MG CAP PO SCH (07:38)
[2021-03-15] MEDS: ASPIRIN 81 MG PO SCH (07:39)
[2021-03-15] MEDS: amLODIPine 10 MG TAB PO SCH (07:39)
[2021-03-15] MEDS: lisinopriL 5 MG TAB PO SCH (07:39)
[2021-03-15] MEDS: ASCORBIC ACID 500 MG TAB PO SCH (07:39)
[2021-03-15] MEDS: CHOLECALCIFEROL 25 MCG (1000 IU) TABLET PO SCH (07:39)
[2021-03-15] MEDS: INSULIN ASPART (NovoLOG) 100 UNIT/ML VIAL SQ SCH ×4 (07:39→21:35)
[2021-03-15] MEDS: COLLAGENASE 250 UNIT/GM OINTMENT 30 GM TUBE TOPICAL SCH (07:43)
[2021-03-15] MEDS: INSULIN DETEMIR (LEVEMIR) 100 UNIT/ML SYR SQ SCH (08:01)
[2021-03-15 11:38] LABS: Glucose,Whole Blood 165 mg/dL (75-99)
[2021-03-15 16:34] LABS: Glucose,Whole Blood 111 mg/dL (75-99)
[2021-03-15] MEDS: ACETAMINOPHEN TAB 325 MG TAB PO PRN (17:57)
--- NOTE | 2021-03-15 18:38 | PN ---
PROGRESS NOTE DATE OF SERVICE: 03/15/2021 REASON FOR FOLLOWUP: Right foot lateral border and big toe wound, abnormal bone scan, suspicious for osteo. INTERVAL HISTORY: Patient was seen by vascular surgery yesterday, status post debridement of the wound. Culture has been obtained, currently pending. The patient did mention decrease intensity of the pain to the right foot. No chest pain, shortness of breath or cough. No abdominal pain or diarrhea. PHYSICAL EXAMINATION: Blood pressure is 92/58 with a pulse of 94, temperature 98.1. She is 92% on room air. General description: The patient is an elderly female lying in bed in no distress. Respiratory system: Unlabored breathing, is clear to auscultation anteriorly. Heart S1, S2. Regular rate and rhythm. ABDOMEN: Soft, no tenderness. Wound is currently dressed up. No obvious drainage on the dressing. LABS: BUN of 19, creatinine 0.74. Cultures currently pending. DIAGNOSTIC IMPRESSION AND PLAN: 1. Patient with nonhealing wound on the right foot lateral border and abnormal concerning for osteo. We are waiting for the culture to finalize. Monitor the patient closely off antibiotic therapy. 2. Urinary tract infection, adequately treated. Repeat urine culture is negative. MMODL / IJN: [id number] / JAYLENE
--- NOTE | 2021-03-15 19:29 | P.CRDCN ---
History of Present Illness History of present illness: HISTORY OF PRESENTING ILLNESS Patient is a pleasant 66-year-old female with history of COPD, coronary artery disease status post PCI 2, diabetes mellitus, DVT, hypertension, osteoarthritis, diabetic foot ulcers with previous right toe amputation who presented secondary to foot pain with generalized fatigue, decreased appetite. She was found to have COVID-19 infection however denied significant cough or shortness breath. Patient had a right toe amputation November 2020 and has been followed at the wound clinic. She follows in the office with Dr. Nina. She was last seen in December. She had previous peripheral intervention November 2019 of the right posterior tibial artery. She states she was scheduled for a angiogram with possible intervention next week with Dr. Nina however she then started feeling fatigued and came into the hospital. She denies any chest pain or pressure. Cardiology was consult that secondary to a short episode of ventricular tachycardia. Patient was asymptomatic at the time. Denies any chest pain or pressure. She denies any history of syncope. Last echocardiogram in the office was from December 2012 which showed ejection fraction 55-60% without significant valvular disease. 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 Choudhary. EKG on presentation showed sinus tachycardia, left anterior fascicular block, poor R- wave progression, Q waves in lead 3, 2. Blood work showed white blood cell count 7.8 on admission 03/08/2021, hemoglobin 11.1, d-dimer 0.9, BUN 30, creatinine 0.8, troponin 0.012, coronal virus positive. REVIEW OF SYSTEMS At the time of my exam: CONSTITUTIONAL: Denies fever or chills. CARDIOVASCULAR: Denies chest pain, shortness of breath, orthopnea, PND or palpitations. RESPIRATORY: Denies cough. GASTROINTESTINAL: Denies abdominal pain, diarrhea, constipation, +nausea, no vomiting. MUSCULOSKELETAL: Denies myalgias. NEUROLOGIC: Denies numbness, tingling or weakness. ENDOCRINE: Denies fatigue, weight change, polydipsia or polyurina. GENITOURINARY: Denies burning, hematuria or urgency with micturation. HEMATOLOGIC: Denies history of anemia or bleeding. PHYSICAL EXAMINATION Vital signs reviewed. CONSTITUTIONAL: No apparent distress, chronically ill appearing, obese HEENT: Head is normocephalic. Pupils are equal, round. Sclerae anicteric. Mucous membranes of the mouth are moist. No JVD. No carotid bruit. CHEST EXAMINATION: Lungs are clear to auscultation. No chest wall tenderness is noted on palpation or with deep breathing. HEART EXAMINATION: Regular rate and rhythm. S1, S2 heard. No murmurs, gallops or rub. ABDOMEN: Soft, nontender. Positive bowel sounds. EXTREMITIES: +Right lower extremity wound with ALFONSO bandage NEUROLOGIC EXAMINATION: Patient is awake, alert and oriented x3. ASSESSMENT 1. Wide-complex tachycardia, likely ventricular tachycardia 2. Coronary artery disease status post PCI 2 per patient 3. PAD with history of below the knee PT treatment November 2019 4. Anemia 5. COVID-19 infection 6. Critical limb ischemia 7. Right foot osteomyelitis PLAN Patient mainly presenting with fatigue as well as findings of right foot crit ical limb ischemia, nonhealing diabetic foot ulcer with osteomyelitis. Patient does appear to have COVID-19 infection and appears to be tolerating fairly well. She was scheduled for possible angiography, intervention with Dr. Nina this coming week. Patient incidentally had wide-complex tachycardia which she was asymptomatic from. Continue with beta masoud. Check 2-D echo to evaluate left ventricular function. Continue to monitor on telemetry. Further recommendations to follow. Past Medical History Past Medical History: Coronary Artery Disease (CAD), COPD, Diabetes Mellitus, Deep Vein Thrombosis (DVT), Hypertension, Musculoskeletal Disorder, O steoarthritis (OA), Sleep Apnea/CPAP/BIPAP, Thyroid Disorder, Vascular Disorder Additional Past Medical History / Comment(s): MS, current wound on rt leg great toe-dressing on, USES WHEELCHAIR- can stand and pivot., DYSPHAGIA. migraines, no cpap used, hx dvt's luke legs, urinary leakage, osteomyelitis of right great toe November 2020; COVID-19 infection March 2021 History of Any Multi-Drug Resistant Organisms: ESBL Date of last positivie culture/infection: 03/08/21 MDRO Source:: ESBL URINE Past Surgical History: Bariatric Surgery, Heart Catheterization With Stent, Orthopedic Surgery Additional Past Surgical History / Comment(s): 11/02/19 angiogram, L CARPAL TUNNEL, GASTRIC SLEEVE, 2 cardiac stents. Right big toe amputation 11/2020 Past Anesthesia/Blood Transfusion Reactions: Motion Sickness Additional Past Anesthesia/Blood Transfusion Reaction / Comment(s): past motion sickness, never had a transfusion Date of Last Stent Placement:: unknown Past Psychological History: Anxiety Additional Psychological History / Comment(s): anxious over this surgeryalone. She has a dog in the home. Smoking Status: Former smoker Past Alcohol Use History: None Reported Additional Past Alcohol Use History / Comment(s): QUIT SMOKING 20 YRS AGO (1998), SMOKED <PPD, SMOKED 14 YEARS.alone. She has a dog in the home. Past Drug Use History: None Reported Additional Drug Use History / Comment(s): CBD OIL FOR MUSCLE ACHES, instructed to hold 24 hrs prior to procedure - Past Family History Father History Unknown: Yes Family Medical History: Cancer Mother History Unknown: Yes Family Medical History: Deep Vein Thrombosis (DVT) Medications and Allergies Home Medications Medication Instructions Recorded Confirmed Type Levothyroxine Sodium 125 mcg PO QAM 04/12/19 03/08/21 History Cyclobenzaprine [Flexeril] 10 mg PO DAILY PRN 08/25/19 03/08/21 History Aspirin EC [Ecotrin Low Dose] 81 mg PO DAILY 12/04/19 03/08/21 History Atorvastatin [Lipitor] 40 mg PO HS 12/04/19 03/08/21 History Clopidogrel Bisulfate [Plavix] 75 mg PO HS 11/15/20 03/08/21 History Furosemide [Lasix] 40 mg PO DAILY 11/15/20 03/08/21 History Insulin Glargine,Hum.rec.anlog 50 unit SQ DAILY@0600 11/15/20 03/08/21 History [Lantus Solostar] Rivaroxaban [Xarelto] 20 mg PO HS 11/15/20 03/08/21 History Acetaminophen [Tylenol 8 Hour] 650 mg PO Q6H 02/01/21 03/08/21 History Insulin Aspart Protam & Aspart See Protocol SQ AC-TID 02/01/21 03/08/21 History [NovoLOG MIX 70-30 Flexpen] Collagenase [Santyl] 1 applic TOPICAL DAILY #1 tube 02/04/21 03/08/21 Rx Lisinopril [Prinivil] 5 mg PO QAM 03/07/21 03/08/21 History amLODIPine [Norvasc] 10 mg PO DAILY 03/07/21 03/08/21 History Allergies Allergy/AdvReac Type Severity Reaction Status Date / Time No Known Allergies Allergy Verified 03/08/21 10:52 Physical Exam Vitals: Vital Signs Temp Pulse Resp BP Pulse Ox 03/15/21 18:00 99.5 F 91 18 94/56 92 L 03/15/21 14:00 98.7 F 90 19 118/69 94 L 03/15/21 10:00 99.1 F 94 16 97/58 92 L 03/15/21 07:41 99 18 03/15/21 05:57 98.2 F 99 18 104/67 92 L 03/15/21 01:47 98.3 F 91 17 96/59 94 L 03/14/21 19:45 97.7 F 71 18 98/41 91 L Intake and Output 03/15/21 03/15/21 03/15/21 06:59 14:59 22:59 Intake Total 240 500 Output Total 300 Balance -60 500 Intake: Oral 240 500 Output: Urine 300 Other: Voiding Method Diaper Incontinent External Catheter # Voids 1 Results 03/13/21 05:49 03/14/21 19:05 Comprehensive Metabolic Panel 03/14/21 Range/Units 19:05 Sodium 136 L (137-145) mmol/L Potassium 4.5 (3.5-5.1) mmol/L Chloride 103 (98-107) mmol/L Carbon Dioxide 27 (22-30) mmol/L BUN 19 H (7-17) mg/dL Creatinine 0.74 (0.52-1.04) mg/dL Glucose 133 H (74-99) mg/dL Calcium 8.8 (8.4-10.2) mg/dL Current Medications Generic Name Dose Route Start Last Admin Trade Name Freq PRN Reason Stop Dose Admin Acetaminophen 650 mg 03/08/21 02:39 03/15/21 17:57 Acetaminophen Tab 325 Mg Tab PO 650 mg Q6HR PRN Administration Mild Pain or Fever > 100.5 Hydrocodone Bitart/Acetaminophen 1 each 03/08/21 09:26 03/15/21 10:53 Hydrocodone/Apap 7.5-325mg 1 Each Tab PO 1 each Q6H PRN Administration Pain Amlodipine Besylate 10 mg 03/09/21 09:00 03/15/21 07:39 Amlodipine 10 Mg Tab PO Not Given DAILY [facility] Ascorbic Acid 1,000 mg 03/08/21 09:00 05/15/21 07:39 Ascorbic Acid 500 Mg Tab PO 1,000 mg DAILY ABDIEL Administration Aspirin 81 mg 03/09/21 09:00 03/15/21 07:39 Aspirin 81 Mg PO 81 mg DAILY ABDIEL Administration Atorvastatin Calcium 40 mg 03/08/21 21:00 03/14/21 22:07 Atorvastatin 40 Mg Tab PO 40 mg HS ABDIEL Administration Cholecalciferol 125 mcg 03/08/21 09:00 03/15/21 07:39 Cholecalciferol 25 Mcg (1000 Iu) Tablet PO 125 mcg DAILY ABDIEL Administration Clopidogrel Bisulfate 75 mg 03/08/21 21:00 03/14/21 22:07 Clopidogrel 75 Mg Tab PO 75 mg HS ABDIEL Administration Collagenase 1 applic 03/08/21 11:45 03/15/21 07:43 Collagenase 250 Unit/Gm Ointment 30 Gm Tube TOPICAL 1 applic DAILY ABDIEL Administration Hydromorphone HCl 2 mg 03/14/21 09:03 03/15/21 15:09 Hydromorphone 2 Mg/Ml 1 Ml Syringe IVP 2 mg Q6H PRN Administration Pain Insulin Aspart 0 unit 03/08/21 12:30 03/15/21 17:03 Insulin Aspart (Novolog) 100 Unit/Ml Vial SQ Not Given ACHS [facility] Protocol Insulin Detemir 50 unit 03/09/21 06:00 03/15/21 08:01 Insulin Detemir (Levemir) 100 Unit/Ml Syr SQ 50 unit DAILY@0600 ABDIEL Administration Levothyroxine Sodium 125 mcg 03/09/21 06:30 03/15/21 06:22 Levothyroxine 125 Mcg Tab PO 125 mcg 0630 ABDIEL Administration Lisinopril 5 mg 03/09/21 09:00 03/15/21 07:39 Lisinopril 5 Mg Tab PO 5 mg QAM ABDIEL Administration Naloxone HCl 0.2 mg 03/08/21 02:39 Naloxone 0.4 Mg/Ml 1 Ml Vial IV Q2M PRN Opioid Reversal Rivaroxaban 20 mg 03/08/21 21:00 03/14/21 22:07 Rivaroxaban 20 Mg Tab PO 20 mg HS ABDIEL Administration Zinc Sulfate 220 mg 03/08/21 09:00 03/15/21 07:38 Zinc Sulfate 220 Mg Cap PO 220 mg DAILY ABDIEL Administration Intake and Output 03/15/21 03/15/21 03/15/21 06:59 14:59 22:59 Intake Total 240 500 Output Total 300 Balance -60 500 Intake: Oral 240 500 Output: Urine 300 Other: Voiding Method Diaper Incontinent External Catheter # Voids 1 03/13/21 05:49 03/14/21 19:05
[2021-03-15 20:09] LABS: Glucose,Whole Blood 99 mg/dL (75-99)
--- NOTE | 2021-03-15 20:15 | PN ---
PROGRESS NOTE DATE OF SERVICE: 03/15/2021 This 66-year-old woman who was admitted with sepsis secondary to COVID-19 infection, had also UTI. The patient being closely monitored at this time. The patient underwent debridement of the wound down to subcu tissues for chronic right foot wound. The patient is on broad-spectrum IV antibiotics. Urine culture showed E coli and Klebsiella pneumonia. Dr. Wetzel is following the patient closely. Continue to monitor. Past medical history reviewed. REVIEW OF SYSTEMS: Review of systems could not be taken. The patient is mildly confused. CURRENT MEDICATIONS: Tylenol, [place], Norvasc, vitamin C, aspirin, Lipitor, vitamin D3. Doses reviewed. PHYSICAL EXAMINATION: Patient is alert and oriented x2. Pulse 91. Blood pressure 94/56, respiration 18, temperature 99.4, pulse ox 92% on room air. HEENT: Conjunctivae normal. NECK: No JVD. CARDIOVASCULAR: S1, S2 muffled. RESPIRATORY: Breath sounds diminished in the bases. A few scattered rhonchi and crackles. ABDOMEN: Soft, nontender. LEGS: Right foot wound present, chronic. Status post debridement. LABS: Sodium 136 and Accu-Cheks are noted. ASSESSMENT: 1. Acute COVID-19 infection with sepsis secondary to COVID-19 present on admission. 2. Urinary tract infection with Escherichia coli and Klebsiella pneumonia with possible sepsis present on admission. 3. Right foot wound and osteomyelitis status post debridement. 4. Coronary artery disease, stent. 5. Chronic obstructive pulmonary disease. 6. Diabetes mellitus type 2. 7. Hypertension. 8. History of deep vein thrombosis. 9. Hypothyroidism. 10.History of obstructive sleep apnea. 11.History of gastric sleeve surgery. 12.History of right big toe amputation. 13.Morbid obesity with body mass index of 45.8. 14.Mild protein calorie malnutrition. 15.Chronic debility. 16.FULL CODE. RECOMMENDATIONS AND DISCUSSION: Continue current medications, management and symptomatic treatment. Continue the antibiotics. Cultures are noted above. Otherwise, I would recommend a CBC, BMP, possible PICC line and ECF rehab. PT/OT evaluation. Prognosis guarded because of multiple complex medical issues. Further recommendations to follow. MMODL / IJN: [id number] /
[2021-03-15] MEDS: HYDROmorphone 0.5 MG/0.5 ML SYRINGE IVP PRN (21:33)
[2021-03-15] MEDS: ATORVASTATIN 40 MG TAB PO SCH (21:33)
[2021-03-15] MEDS: CLOPIDOGREL 75 MG TAB PO SCH (21:33)
[2021-03-15] MEDS: RIVAROXABAN 20 MG TAB PO SCH (21:33)
[2021-03-16] MEDS: KETOROLAC 15 MG/ML 1 ML VIAL IVP PRN ×4 (00:39→18:10)
[2021-03-16] MEDS: HYDROmorphone 0.5 MG/0.5 ML SYRINGE IVP PRN ×2 (01:24→14:03)
[2021-03-16] MEDS: ACETAMINOPHEN TAB 325 MG TAB PO PRN ×2 (04:29→21:11)
[2021-03-16] MEDS: LEVOTHYROXINE 125 MCG TAB PO SCH (06:23)
[2021-03-16 07:22] LABS: Glucose,Whole Blood 104 mg/dL (75-99)
[2021-03-16] MEDS: INSULIN ASPART (NovoLOG) 100 UNIT/ML VIAL SQ SCH ×4 (07:50→20:57)
[2021-03-16] MEDS: CHOLECALCIFEROL 25 MCG (1000 IU) TABLET PO SCH (08:08)
[2021-03-16] MEDS: ASCORBIC ACID 500 MG TAB PO SCH (08:08)
[2021-03-16] MEDS: METOPROLOL SUCCINATE (ER) 25 MG TAB.ER.24H PO SCH (08:08)
[2021-03-16] MEDS: lisinopriL 5 MG TAB PO SCH (08:08)
[2021-03-16] MEDS: ZINC SULFATE 220 MG CAP PO SCH (08:08)
[2021-03-16] MEDS: ASPIRIN 81 MG PO SCH (08:08)
[2021-03-16] MEDS: COLLAGENASE 250 UNIT/GM OINTMENT 30 GM TUBE TOPICAL SCH (08:09)
[2021-03-16] MEDS: INSULIN DETEMIR (LEVEMIR) 100 UNIT/ML SYR SQ SCH (08:16)
[2021-03-16 10:36] LABS: ALT <8 U/L (8-44); AST 9 U/L (13-35); African American GFR (CKD) 104.6 (60.0-200.0); Albumin/Globulin Ratio 1.27 (1.60-3.17); Alkaline Phosphatase 49 U/L (41-126); BUN/Creat Ratio 27.14 Ratio (12.00-20.00); Calcium 8.6 mg/dL (8.7-10.3); Carbon Dioxide 29.5 mmol/L (21.6-31.8); Chloride 102 mmol/L (96-109); Globulin 2.6 g/dL (1.6-3.3); Glucose 102 mg/dL (70-110); Non-African American GFR(CKD) 90.3 (60.0-200.0); Potassium 4.5 mmol/L (3.5-5.5); Sodium 138 mmol/L (135-145); Total Bilirubin 0.3 mg/dL (0.3-1.2); Total Protein 5.9 g/dL (6.2-8.2)
[2021-03-16 11:25] LABS: Basophils # (A) 0.04 X 10*3/uL (0.00-0.10); Basophils % (A) 0.6 %; Eosinophils # (A) 0.11 X 10*3/uL (0.04-0.35); Eosinophils % (A) 1.7 %; HCT 33.6 % (37.2-46.3); HGB 10.2 g/dL (12.0-15.0); Lymphocytes # (A) 0.76 X 10*3/uL (0.90-5.00); Lymphocytes % (A) 11.6 %; MCH 26.2 pg (27.0-32.0); MCHC 30.4 g/dL (32.0-37.0); MCV 86.2 fL (80.0-97.0); Mean Platelet Volume 9.5 fL (9.5-12.2); Monocytes # (A) 0.59 X 10*3/uL (0.20-1.00); Neutrophils # (A) 5.01 X 10*3/uL (1.80-7.70); Neutrophils % (A) 76.5 %; Platelet Count 327 X 10*3/uL (140-440); WBC 6.55 X 10*3/uL (4.50-10.00)
[2021-03-16 11:30] LABS: Glucose,Whole Blood 121 mg/dL (75-99)
[2021-03-16 11:42] LABS: African American GFR (CKD) 104.6 (60.0-200.0); Anion Gap 6.4 mmol/L (4.00-12.00); BUN/Creat Ratio 28.57 Ratio (12.00-20.00); Calcium 8.6 mg/dL (8.7-10.3); Carbon Dioxide 28.6 mmol/L (21.6-31.8); Non-African American GFR(CKD) 90.3 (60.0-200.0); Potassium 4.8 mmol/L (3.5-5.5)
[2021-03-16 16:42] LABS: Glucose,Whole Blood 126 mg/dL (75-99)
--- NOTE | 2021-03-16 18:15 | PN ---
PROGRESS NOTE DATE OF SERVICE: 03/16/2021 INTERVAL HISTORY: This 66year-old woman was admitted with sepsis secondary to go COVID-19 infection, also had UTI. The patient also had significant infection of the right foot. The patient underwent debridement by Dr. Dickson, osteomyelitis suspected. Patient also had wide- complex tachycardia. The patient also had critical limb ischemia. Being followed by Dr. Nina and as well as Dr. Dickson. PAST MEDICAL HISTORY: Reviewed. REVIEW OF SYSTEMS: CARDIOVASCULAR: No angina or palpitations. RESPIRATORY: No cough. GI: As mentioned earlier. : No dysuria. NERVOUS SYSTEM: No numbness or weakness. CURRENT MEDICATIONS: Reviewed include Tylenol, [place], vitamin C, aspirin, Lipitor, [place], Toradol, Synthroid. Doses reviewed. PHYSICAL EXAMINATION: GENERAL: Patient is alert and oriented x3. VITAL SIGNS: Pulse 95, blood pressure in 150/60, respiration 19, temperature 98.2, pulse ox 96% on room air. HEENT: Conjunctivae normal. Oral mucosa moist. NECK: No jugular venous distention. No carotid bruits. No lymph node enlargement. CARDIOVASCULAR: S1 and S2 muffles. LUNGS: Breath sounds diminished at the bases, a few scattered rhonchi. ABDOMEN: Soft and nontender. EXTREMITIES: Right foot infection. NERVOUS SYSTEMS: No focal deficits. LABS: WBC is 6.2, hemoglobin 10.2, glucose 104 and 121. ASSESSMENT: 1. Acute COVID-19 infection with sepsis possibly secondary COVID-19 present on admission. 2. Urinary tract infection with Escherichia coli as well as Klebsiella pneumoniae with possible sepsis present on admission. 3. Right foot wound and osteomyelitis status post debridement. 4. Critical limb ischemia on the right. 5. CAD, stent. 6. Chronic obstructive pulmonary disease. 7. Diabetes mellitus type 2. 8. Hypertension. 9. History of DVT. 10.Hypothyroidism. 11.History of sleep apnea. 12.History of gastric sleeve surgery. 13.History of right big toe amputation. 14.Morbid obesity with body mass index of 45.8. 15.Mild protein-calorie malnutrition. 16.Chronic debility. 17.FULL CODE. RECOMMENDATIONS AND DISCUSSION: Recommend to continue current management and continue symptomatic treatment. The cultures are noted as above. Currently the patient is on broad-spectrum IV antibiotics. Monitor closely. Most recent wound culture showed group D Enterococcus and corynebacterium species. UTI is adequately treated. Otherwise, we will check a UA with micro. The prognosis is guarded because of multiple complex medical issues and the patient might require a PICC line and outpatient antibiotics. We will discuss with infectious Disease. Further recommendations to follow. PT, OT also evaluating the patient closely. MMODL / IJN: [id number] /
--- NOTE | 2021-03-16 19:59 | P.PN ---
Subjective HISTORY OF PRESENTING ILLNESS Patient is a pleasant 66-year-old female with history of COPD, coronary artery disease status post PCI 2, diabetes mellitus, DVT, hypertension, osteoarthritis, diabetic foot ulcers with previous right toe amputation who presented secondary to foot pain with generalized fatigue, decreased appetite. She was found to have COVID-19 infection however denied significant cough or shortness breath. Patient had a right toe amputation November 2020 and has been followed at the wound clinic. She follows in the office with Dr. Nina. She was last seen in December. She had previous peripheral intervention November 2019 of t he right posterior tibial artery. She states she was scheduled for a angiogram with possible intervention next week with Dr. Nina however she then started feeling fatigued and came into the hospital. She denies any chest pain or pressure. Cardiology was consult that secondary to a short episode of ventricular tachycardia. Patient was asymptomatic at the time. Denies any chest pain or pressure. She denies any history of syncope. Last echocardiogram in the office was from December 2012 which showed ejection fraction 55-60% without significant valvular disease. She had previously followed with another binder operator for care however has now transferred care to Dr. Choudhary. EKG on presentation showed sinus tachycardia, left anterior fascicular block, poor R- wave progression, Q waves in lead 3, 2. Blood work showed white blood cell count 7.8 on admission 03/08/2021, hemoglobin 11.1, d-dimer 0.9, BUN 30, creatinine 0.8, troponin 0.012, coronal virus positive. 03/16 Patient seen and examined. Patient denies any chest pain or pressure. States she feels well. Still with some fatigue. REVIEW OF SYSTEMS At the time of my exam: CONSTITUTIONAL: Denies fever or chills. CARDIOVASCULAR: Denies chest pain, shortness of breath, orthopnea, PND or palpitations. RESPIRATORY: Denies cough. GASTROINTESTINAL: Denies abdominal pain, diarrhea, constipation, +nausea, no vomiting. MUSCULOSKELETAL: Denies myalgias. NEUROLOGIC: Denies numbness, tingling or weakness. ENDOCRINE: Denies fatigue, weight change, polydipsia or polyurina. GENITOURINARY: Denies burning, hematuria or urgency with micturation. HEMATOLOGIC: Denies history of anemia or bleeding. PHYSICAL EXAMINATION Vital signs reviewed. CONSTITUTIONAL: No apparent distress, chronically ill appearing, obese HEENT: Head is normocephalic. Pupils are equal, round. Sclerae anicteric. Mucous membranes of the mouth are moist. No JVD. No carotid bruit. CHEST EXAMINATION: Lungs are clear to auscultation. No chest wall tenderness is noted on palpation or with deep breathing. HEART EXAMINATION: Regular rate and rhythm. S1, S2 heard. No murmurs, gallops or rub. ABDOMEN: Soft, nontender. Positive bowel sounds. EXTREMITIES: +Right lower extremity wound with ALFONSO bandage NEUROLOGIC EXAMINATION: Patient is awake, alert and oriented x3. ASSESSMENT 1. Wide-complex tachycardia, likely ventricular tachycardia 2. Coronary artery disease status post PCI 2 per patient 3. PAD with history of below the knee PT treatment November 2019 4. Anemia 5. COVID-19 infection 6. Critical limb ischemia 7. Right foot osteomyelitis PLAN Patient mainly presenting with fatigue as well as findings of right foot critical limb ischemia, nonhealing diabetic foot ulcer with osteomyelitis. Patient does appear to have COVID-19 infection and appears to be tolerating fairly well. She was scheduled for possible angiography, intervention with Dr. Nina this coming week. Patient incidentally had wide-complex tachycardia which she was asymptomatic fr om. Continue with beta masoud. Check 2-D echo to evaluate left ventricular function. Continue to monitor on telemetry. Objective - Vital Signs Vital signs: Vital Signs Temp 98.4 F 03/16/21 18:00 Pulse 91 03/16/21 18:00 Resp 18 03/16/21 18:00 BP 127/77 03/16/21 18:00 Pulse Ox 96 03/16/21 18:00 Intake & Output 03/16/21 03/16/21 03/17/21 06:59 18:59 06:59 Intake Total 540 Output Total 700 600 Balance -700 -60 Intake: Oral 540 Output: Urine 700 600 Other: Voiding Method Diaper Diaper Incontinent Incontinent External Catheter External Catheter # Voids 1 # Bowel Movements 1 - Labs CBC & Chem 7: 03/16/21 06:36 03/16/21 06:36 Labs: Abnormal Lab Results - Last 24 Hours (Table) 03/15/21 03/16/21 03/16/21 Range/Units 20:08 06:36 06:36 RBC 3.90 L (4.10-5.20) X 10*6/uL Hgb 10.2 L (12.0-15.0) g/dL Hct 33.6 L (37.2-46.3) % MCH 26.2 L (27.0-32.0) pg MCHC 30.4 L (32.0-37.0) g/dL RDW 17.0 H (11.5-14.5) % Lymphocytes # 0.76 L (0.90-5.00) X 10*3/uL BUN/Creatinine Ratio 27.14 H 28.57 H (12.00-20.00) Ratio POC Glucose (mg/dL) (75-99) mg/dL Calcium 8.6 L 8.6 L (8.7-10.3) mg/dL AST 9 L (13-35) U/L ALT <8 L (8-44) U/L Total Protein 5.9 L (6.2-8.2) g/dL Albumin 3.30 L (3.80-4.90) g/dL Albumin/Globulin Ratio 1.27 L (1.60-3.17) g/dL 03/16/21 03/16/21 03/16/21 Range/Units 07:20 11:29 16:41 RBC (4.10-5.20) X 10*6/uL Hgb (12.0-15.0) g/dL Hct (37.2-46.3) % MCH (27.0-32.0) pg MCHC (32.0-37.0) g/dL RDW (11.5-14.5) % Lymphocytes # (0.90-5.00) X 10*3/uL BUN/Creatinine Ratio (12.00-20.00) Ratio POC Glucose (mg/dL) 104 H 121 H 126 H (75-99) mg/dL Calcium (8.7-10.3) mg/dL AST (13-35) U/L ALT (8-44) U/L Total Protein (6.2-8.2) g/dL Albumin (3.80-4.90) g/dL Albumin/Globulin Ratio (1.60-3.17) g/dL Microbiology - Last 24 Hours (Table) 03/14/21 20:10 Anaerobic Culture - Preliminary Foot - Right 03/11/21 09:09 Anaerobic Culture - Final Foot - Right 03/14/21 20:10 Gram Stain - Preliminary Foot - Right Tissue Culture - Preliminary Group D Enterococcus Corynebacterium species
--- NOTE | 2021-03-16 20:03 | PN ---
PROGRESS NOTE DATE OF SERVICE: 03/16/2021. REASON FOR FOLLOWUP: Right foot wound with concern for osteomyelitis. INTERVAL HISTORY: Patient is currently afebrile. The patient is breathing comfortably. Denies having any chest pain or shortness of breath, cough, no abdominal pain. Pain to the right foot is currently controlled. PHYSICAL EXAMINATION: Her blood pressure is 120/77, pulse of 91, temperature 98.4. She is 96% on room air. General description: The patient is an elderly female lying in bed in no distress. Respiratory system: Unlabored breathing. Examination to the right foot big toe with no significant swelling, redness or any drainage. Right leg wound is dressed, no drainage on the dressing. LABS: Hemoglobin is 10.1, white count 6.55. BUN of 20, creatinine 0.7. Culture now showing group D Enterococcus. DIAGNOSTIC IMPRESSION AND PLAN: Patient with right foot lateral border wound with slough, status post debridement, culture showing group D Enterococcus, did have abnormal bone scan suspicious for osteomyelitis. Antibiotic was started in the form of Unasyn at least for 6 weeks thru a PICC line and close outpatient followup. MMODL / IJN: [id number] /
[2021-03-16 20:36] LABS: Glucose,Whole Blood 126 mg/dL (75-99)
[2021-03-16] MEDS: ATORVASTATIN 40 MG TAB PO SCH (21:12)
[2021-03-16] MEDS: RIVAROXABAN 20 MG TAB PO SCH (21:12)
[2021-03-16] MEDS: CLOPIDOGREL 75 MG TAB PO SCH (21:12)
[2021-03-17] MEDS: AMPICILLIN-SULBACTAM 3 GM in SODIUM CHLORIDE 0.9% 100 ML IVPB SCH ×3 (00:11→13:11)
[2021-03-17 00:47] LABS: Appearance,Urine Clear (Clear); Bilirubin,Urine Negative (Negative); Blood,Urine Negative (Negative); Color,Urine Light Yellow; Glucose,Urine (UA) Negative (Negative); Ketones,Urine Negative (Negative); Leukocyte Esterase,Urine Negative (Negative); Nitrite,Urine Negative (Negative); Protein,Urine Negative (Negative); Specific Gravity,Urine 1.013 (1.001-1.035); Urobilinogen,Urine <2.0 mg/dL (<2.0)
[2021-03-17] MEDS: KETOROLAC 15 MG/ML 1 ML VIAL IVP PRN ×2 (02:05→20:12)
[2021-03-17] MEDS: LEVOTHYROXINE 125 MCG TAB PO SCH (05:54)
[2021-03-17 07:46] LABS: Glucose,Whole Blood 129 mg/dL (75-99)
[2021-03-17] MEDS: INSULIN ASPART (NovoLOG) 100 UNIT/ML VIAL SQ SCH ×4 (09:43→22:20)
[2021-03-17] MEDS: HYDROmorphone 0.5 MG/0.5 ML SYRINGE IVP PRN ×3 (10:16→18:10)
[2021-03-17] MEDS: ASPIRIN 81 MG PO SCH (10:16)
[2021-03-17] MEDS: METOPROLOL SUCCINATE (ER) 25 MG TAB.ER.24H PO SCH (10:16)
[2021-03-17] MEDS: ZINC SULFATE 220 MG CAP PO SCH (10:17)
[2021-03-17] MEDS: CHOLECALCIFEROL 25 MCG (1000 IU) TABLET PO SCH (10:17)
[2021-03-17] MEDS: COLLAGENASE 250 UNIT/GM OINTMENT 30 GM TUBE TOPICAL SCH (10:17)
[2021-03-17] MEDS: INSULIN DETEMIR (LEVEMIR) 100 UNIT/ML SYR SQ SCH (10:17)
[2021-03-17] MEDS: ASCORBIC ACID 500 MG TAB PO SCH (10:17)
[2021-03-17] MEDS: lisinopriL 5 MG TAB PO SCH (10:18)
[2021-03-17 12:04] LABS: Glucose,Whole Blood 134 mg/dL (75-99)
--- NOTE | 2021-03-17 14:05 | P.PN ---
Subjective Patient is a pleasant 66-year-old female with history of COPD, coronary artery disease status post PCI 2, diabetes mellitus, DVT, hypertension, oste oarthritis, diabetic foot ulcers with previous right toe amputation who presented secondary to foot pain with generalized fatigue, decreased appetite. She was found to have COVID-19 infection however denied significant cough or shortness breath. Patient had a right toe amputation November 2020 and has been followed at the wound clinic. She follows in the office with Dr. Nina. She was last seen in December. She had previous peripheral intervention November 2019 of the right posterior tibial artery. She states she was scheduled for a angiogram with possible intervention next week with Dr. Nina however she then started feeling fatigued and came into the hospital. Cardiology was consult that se condary to a short episode of ventricular tachycardia. Patient was asymptomatic at the time. Last echocardiogram in the office was from December 2012 which showed ejection fraction 55-60% without significant valvular disease. She had previously followed with another bond underwriter for care however has now transferred care to Dr. Nina. EKG on presentation showed sinus tachycardia, left anterior fascicular block, poor R-wave progression, Q waves in lead 3, 2. Covid-19 positive 03/17/2021: Patient seen at bedside, no acute distress. Blood pressure 133/65, heart rate 92, afebrile, maintaining oxygen saturation is 96% on room air. Telemetry reviewed patient in sinus mechanism heart rate 80s-90s, no further episodes of ventricular tachycardia. 2-D echo was ordered. Patient currently being ma intained on aspirin 81 mg daily, atorvastatin 40 mg nightly, Plavix 75 mg nightly, metoprolol succinate 12 any 5 mg daily, Xarelto 20 mg nightly. PHYSICAL EXAMINATION Vital signs reviewed. Thorough physical exam not completed due to covid-19 infection CONSTITUTIONAL: No apparent distress, chronically ill appearing, obese EXTREMITIES: +Right lower extremity wound with ALFONSO bandage NEUROLOGIC EXAMINATION: Patient is awake, alert and oriented x3. ASSESSMENT Wide-complex tachycardia, likely ventricular tachycardia, patient is asymptomatic Coronary artery disease status post PCI 2 per patient PAD with history of below the knee PT treatment November 2019 Anemia COVID-19 infection Critical limb ischemia Right foot osteomyelitis, nonhealing diabetic foot ulcer PLAN Continue cardiac medications at this time Check 2-D echo to evaluate left ventricular function- we will follow up on results She was scheduled for possible angiography, intervention with Dr. Nina Continue to monitor on telemetry with any further ectopy. Objective - Vital Signs Vital signs: Vital Signs Temp 98.6 F 03/17/21 10:00 Pulse 92 03/17/21 10:00 Resp 16 03/17/21 10:00 BP 133/65 03/17/21 10:00 Pulse Ox 96 03/17/21 10:00 Intake & Output 03/16/21 03/17/21 03/17/21 18:59 06:59 18:59 Intake Total 540 240 Output Total 600 400 Balance -60 -160 Intake: Oral 540 240 Output: Urine 600 400 Other: Voiding Method Diaper Diaper Incontinent Incontinent External Catheter External Catheter # Bowel Movements 1 - Labs CBC & Chem 7: 03/16/21 06:36 03/16/21 06:36 Labs: Abnormal Lab Results - Last 24 Hours (Table) 03/16/21 03/16/21 03/17/21 Range/Units 16:41 20:34 07:11 POC Glucose (mg/dL) 126 H 126 H 129 H (75-99) mg/dL 03/17/21 Range/Units 11:58 POC Glucose (mg/dL) 134 H (75-99) mg/dL Microbiology - Last 24 Hours (Table) 03/14/21 20:10 Gram Stain - Final Foot - Right Tissue Culture - Final Enterococcus faecalis Corynebacterium species 03/14/21 20:10 Anaerobic Culture - Preliminary Foot - Right 03/11/21 09:09 Anaerobic Culture - Final Foot - Right
[2021-03-17] MEDS ORDERED: LIDOCAINE 1% INJ 10MG/ML (20 ML MDV) SQ ONE (14:38)
--- NOTE | 2021-03-17 15:09 | P.PN ---
Subjective Progress Note Date: 03/17/21 This is a 66-year-old female who was recently admitted with sepsis secondary to COVID-19 infection also was found to have an acute urinary tract infection and is being closely monitored. Patient also has significant infection to the right foot suggestive of osteomyelitis on bone scan and was evaluated and underwent debridement with Dr. Dickson. Infectious disease also following and patient is maintained on IV Unasyn and will continue at this time. Patient receiving a PICC line as she will require IV antibiotic therapy in the outpatient setting. Wound culture of the right foot showing enterococcus faecalix and corynebacterium species. Patient's repeat urinalysis is negative. Cardiology also following and have ordered a 2-D echo which is pending. Patient is agreeable to rehab and will likely be going to [facility] once stabilized. Review of systems: Constitutional: No reports of fatigue, fever, or chills Cardiovascular: No reports of chest pain or palpitations Respiratory: No reports of shortness of breath or cough GI: No reports of nausea, vomiting, or diarrhea : No reports of dysuria or retention Neurovascular: Reports generalized weakness All medications have been reviewed Active Medications Acetaminophen (Acetaminophen Tab 325 Mg Tab) 650 mg PO Q6HR PRN PRN Reason: Mild Pain or Fever > 100.5 Last Admin: 03/16/21 21:11 Dose: 650 mg Documented by: Hydrocodone Bitart/Acetaminophen (Hydrocodone/Apap 7.5-325mg 1 Each Tab) 1 each PO Q6H PRN PRN Reason: Pain Last Admin: 03/15/21 10:53 Dose: 1 each Documented by: Ascorbic Acid (Ascorbic Acid 500 Mg Tab) 1,000 mg PO DAILY [facility] Last Admin: 03/17/21 10:17 Dose: 1,000 mg Documented by: Aspirin (Aspirin 81 Mg) 81 mg PO DAILY [facility] Last Admin: 03/17/21 10:16 Dose: 81 mg Documented by: Atorvastatin Calcium (Atorvastatin 40 Mg Tab) 40 mg PO [facility] Last Admin: 03/16/21 21:12 Dose: 40 mg Documented by: Cholecalciferol (Cholecalciferol 25 Mcg (1000 Iu) Tablet) 125 mcg PO DAILY [facility] Last Admin: 03/17/21 10:17 Dose: 125 mcg Documented by: Clopidogrel Bisulfate (Clopidogrel 75 Mg Tab) 75 mg PO [facility] Last Admin: 03/16/21 21:12 Dose: 75 mg Documented by: Collagenase (Collagenase 250 Unit/Gm Ointment 30 Gm Tube) 1 applic TOPICAL DAILY [facility] Last Admin: 03/17/21 10:17 Dose: 1 applic Documented by: Hydromorphone HCl (Hydromorphone 0.5 Mg/0.5 Ml Syringe) 0.5 mg IVP Q4HR PRN PRN Reason: Pain Last Admin: 03/17/21 13:55 Dose: 0.5 mg Documented by: Ampicillin Sodium/Sulbactam (Sodium 3 gm/ Sodium Chloride) 100 mls @ 200 mls/hr IVPB Q6HR [facility] Last Admin: 03/17/21 13:11 Dose: 200 mls/hr Documented by: Insulin Aspart (Insulin Aspart (Novolog) 100 Unit/Ml Vial) 0 unit SQ ACHS [facility]; Protocol Last Admin: 03/17/21 12:36 Dose: Not Given Documented by: Insulin Detemir (Insulin Detemir (Levemir) 100 Unit/Ml Syr) 50 unit SQ DAILY@0730 [facility] Last Admin: 03/17/21 10:17 Dose: 50 unit Documented by: Ketorolac Tromethamine (Ketorolac 15 Mg/Ml 1 Ml Vial) 15 mg IVP Q6HR PRN PRN Reason: Pain Stop: 03/18/21 21:12 Last Admin: 03/17/21 02:05 Dose: 15 mg Documented by: Levothyroxine Sodium (Levothyroxine 125 Mcg Tab) 125 mcg PO 0630 [facility] Last Admin: 03/17/21 05:54 Dose: 125 mcg Documented by: Lisinopril (Lisinopril 5 Mg Tab) 5 mg PO QAM [facility] Last Admin: 03/17/21 10:18 Dose: 5 mg Documented by: Metoprolol Succinate (Metoprolol Succinate (Er) 25 Mg Tab.Er.24h) 25 mg PO DAILY [facility] Last Admin: 03/17/21 10:16 Dose: 25 mg Documented by: Naloxone HCl (Naloxone 0.4 Mg/Ml 1 Ml Vial) 0.2 mg IV Q2M PRN PRN Reason: Opioid Reversal Rivaroxaban (Rivaroxaban 20 Mg Tab) 20 mg PO HS [facility] Last Admin: 03/16/21 21:12 Dose: 20 mg Documented by: Zinc Sulfate (Zinc Sulfate 220 Mg Cap) 220 mg PO DAILY [facility] Last Admin: 03/17/21 10:17 Dose: 220 mg Documented by: Objective - Vital Signs Vital signs: Vital Signs Temp 98.6 F 03/17/21 10:00 Pulse 92 03/17/21 10:00 Resp 16 03/17/21 10:00 BP 133/65 03/17/21 10:00 Pulse Ox 96 03/17/21 10:00 Intake & Output 03/16/21 03/17/21 03/17/21 18:59 06:59 18:59 Intake Total 540 240 Output Total 600 400 Balance -60 -160 Intake: Oral 540 240 Output: Urine 600 400 Other: Voiding Method Diaper Diaper Incontinent Incontinent External Catheter External Catheter # Bowel Movements 1 - Exam GENERAL: Obese female sitting up in the chair, awake, alert and oriented 3, well-developed, well-nourished. Temp is 98.6F, pulse is 92, respirations are 16, blood pressure is 133/65, oxygen saturation is 96% on room air HEENT: Pupils are round and equally reacting to light. EOMI. No scleral icterus. No conjunctival pallor. CARDIOVASCULAR: S1 and S2 muffled PULMONARY: Bilateral breath sounds are diminished with no wheeze or crackles. ABDOMEN: Soft, nontender, bowel sounds positive. MUSCULOSKELETAL: No joint swelling or deformity. EXTREMITIES: No cyanosis, clubbing, or pedal edema. Right foot elevated on pillows surgical site open to air NEUROLOGICAL: Patient is alert awake oriented 3, Gross neurological examination did not reveal any focal deficits. Diffusely weak SKIN: No rashes. - Labs CBC & Chem 7: 03/16/21 06:36 03/16/21 06:36 Labs: Abnormal Lab Results - Last 24 Hours (Table) 03/16/21 03/16/21 03/17/21 Range/Units 16:41 20:34 07:11 POC Glucose (mg/dL) 126 H 126 H 129 H (75-99) mg/dL 03/17/21 Range/Units 11:58 POC Glucose (mg/dL) 134 H (75-99) mg/dL Microbiology - Last 24 Hours (Table) 03/14/21 20:10 Gram Stain - Final Foot - Right Tissue Culture - Final Enterococcus faecalis Corynebacterium species 03/14/21 20:10 Anaerobic Culture - Preliminary Foot - Right 03/11/21 09:09 Anaerobic Culture - Final Foot - Right Assessment and Plan Assessment: Acute COVID-19 infection with sepsis, possibly secondary to COVID-19, present on admission Acute urinary tract infection with cultures growing E. coli and Klebsiella pneumonia with possible sepsis, present on admission Right foot wound and osteomyelitis status post debridement Critical limb ischemia on the right Coronary artery disease/ stenting COPD Diabetes mellitus Hypertension History of DVT Hypothyroidism History of sleep apnea History of gastric sleeve surgery History of right big toe amputation Morbid obesity with BMI 45.8 Mild protein calorie malnutrition Chronic debility Full code Recommendations and discussion: Recommend to continue with current medications, management, and symptomatic treatment. Patient continues on IV Unasyn and will continue. Patient is status post debridement with Dr. Dickson and infectious disease following closely as well. Patient is to receive a PICC line today as she will be requiring outpatient IV antibiotic therapy. Patient continues on Xarelto along with vitamin and zinc supplements. Recommend continue with Accu-Cheks before meals and at bedtime and continue sliding scale along with long-acting and local wound care to the right foot. Social work and case management also following this patient will be going to [facility] once stabilized and discharged. Due to multiple complex medical issues, prognosis is guarded. Further recommendations to follow based on the clinical course of the patient. Possible discharge in 24 hours.
--- NOTE | 2021-03-17 15:21 | XR ---
EXAMINATION TYPE: XR chest 1V confirm line [facility] DATE OF EXAM: 03/17/2021 COMPARISON: Chest x-ray 03/12/2021 HISTORY: Status post PICC line TECHNIQUE: Single frontal view of the chest is obtained. FINDINGS: There is been interval placement of right-sided PICC line, distal tip is overlying the sup erior vena cava. No other interval change. IMPRESSION: No evident complication status post PICC line placement.
[2021-03-17 17:15] LABS: Glucose,Whole Blood 135 mg/dL (75-99)
[2021-03-17] MEDS: ATORVASTATIN 40 MG TAB PO SCH (20:12)
[2021-03-17] MEDS: RIVAROXABAN 20 MG TAB PO SCH (20:12)
[2021-03-17] MEDS: CLOPIDOGREL 75 MG TAB PO SCH (20:12)
[2021-03-17 22:17] LABS: Glucose,Whole Blood 189 mg/dL (75-99)
--- NOTE | 2021-03-17 23:10 | PN ---
PROGRESS NOTE DATE OF SERVICE: 03/17/2021 REASON FOR FOLLOWUP: Right big toe and right foot lateral border wound with concern for underlying osteomyelitis. INTERVAL HISTORY: Patient is seen on rounds this morning. The patient has been afebrile, breathing comfortably. No chest pain or cough. No abdominal pain or any worsening pain to the right foot lateral border wound area. PHYSICAL EXAMINATION: Blood pressure is 131/67 with a pulse of 69, temperature 98.8. She is 97% on room air. General description: The patient is an elderly female lying in bed in no distress. Respiratory system: Unlabored breathing, clear to auscultation anteriorly. Heart S1, S2. Regular rate and rhythm. Abdomen: Soft, no tenderness. Right foot lateral border wound with slough tissue. Some surrounding swelling and redness. No drainage. LABS: Wound culture with Enterococcus faecalis, sed rate of 73. Positive bone scan. DIAGNOSTIC IMPRESSION AND PLAN: Patient with right foot lateral border wound with concern for underlying osteomyelitis, status post debridement. Culture with Enterococcus. She will get a PICC line. Plan is for a total of 6 weeks of IV Unasyn 3 grams q.6 hours. Local wound care per surgery with Santyl followed by moist dressing and monitor clinical course closely. Continue supportive care. MMODL / IJN: [id number] /
[2021-03-18] MEDS: AMPICILLIN-SULBACTAM 3 GM in SODIUM CHLORIDE 0.9% 100 ML IVPB SCH ×4 (00:23→17:48)
[2021-03-18] MEDS: HYDROmorphone 0.5 MG/0.5 ML SYRINGE IVP PRN (00:57)
[2021-03-18] MEDS: KETOROLAC 15 MG/ML 1 ML VIAL IVP PRN ×2 (04:42→14:29)
[2021-03-18] MEDS: LEVOTHYROXINE 125 MCG TAB PO SCH (06:16)
[2021-03-18 06:46] LABS: Glucose,Whole Blood 130 mg/dL (75-99)
[2021-03-18] MEDS: INSULIN ASPART (NovoLOG) 100 UNIT/ML VIAL SQ SCH ×4 (07:34→21:22)
[2021-03-18] MEDS: lisinopriL 5 MG TAB PO SCH (07:36)
[2021-03-18] MEDS: ASPIRIN 81 MG PO SCH (07:48)
[2021-03-18] MEDS: ASCORBIC ACID 500 MG TAB PO SCH (07:48)
[2021-03-18] MEDS: ZINC SULFATE 220 MG CAP PO SCH (07:48)
[2021-03-18] MEDS: CHOLECALCIFEROL 25 MCG (1000 IU) TABLET PO SCH (07:48)
[2021-03-18] MEDS: METOPROLOL SUCCINATE (ER) 25 MG TAB.ER.24H PO SCH (07:48)
[2021-03-18] MEDS: COLLAGENASE 250 UNIT/GM OINTMENT 30 GM TUBE TOPICAL SCH (07:49)
[2021-03-18] MEDS: INSULIN DETEMIR (LEVEMIR) 100 UNIT/ML SYR SQ SCH (08:02)
[2021-03-18] MEDS ORDERED: INSULIN DETEMIR (LEVEMIR) 100 UNIT/ML SYR SQ ONE (08:03)
--- NOTE | 2021-03-18 09:27 | IR ---
EXAMINATION TYPE: IR cvc insert >=5 years DATE OF EXAM: 03/17/2021 COMPARISON: NONE HISTORY: Infection, needs long-term intravenous access for therapy FINDINGS: Maximal barrier technique was utilized. Hand hygiene obtained with soap and water and alco hol-based hand rub. The skin overlying the right basilic vein was localized with ultrasound and noted to be compressible and patent by ultrasound. An ultrasound image was obtained and submitted on ana ent's chart. Sterile technique utilized with the ultrasound machine. The skin overlying was prepped a nd draped and Lidocaine used for local anesthesia. A skin reina was made with a scalpel. Access was gained to the vein under direct ultrasound guidance with a 21-gauge needle and a 0.018 inch wire was advanced. Access site was dilated with a peel-away sheath and the catheter tailored to length. Cath eter advanced centrally and a post procedure chest x-ray verified placement with tip at the superior vena cava. Catheter was fixed to the skin and a sterile dressing placed. Hemostasis achieved and th e catheter was aspirated and flushed with sterile saline. The patient remained in stable condition. IMPRESSION: STATUS POST ULTRASOUND GUIDED PICC LINE PLACEMENT, READY FOR USE. THIS PROCEDURE WAS PER FORMED BY THE UNDERSIGNED.
--- NOTE | 2021-03-18 11:00 | ECHOF ---
Referral Reason:re: VT, LV function MEASUREMENTS -------- HEIGHT: 165.1 cm WEIGHT: 124.7 kg BP: 127/67 RVIDd: 2.8 cm (< 3.3) IVSd: 1.4 cm (0.6 - 1.1) LVIDd: 3.7 cm (3.9 - 5.3) LVPWd: 1.6 cm (0.6 - 1.1) IVSs: 2.1 cm LVIDs: 2.4 cm LVPWs: 1.8 cm Ao Diam: 3.2 cm (2.0 - 3.7) AV Cusp: 2.3 cm (1.5 - 2.6) LA Diam: 3.8 cm (2.7 - 3.8) MV E Valdemar: 0.73 m/s MV DecT: 182 ms MV A Valdemar: 1.03 m/s MV E/A Ratio: 0.71 RAP: 5.00 mmHg RVSP: 7.91 mmHg FINDINGS -------- This was a technically difficult study with suboptimal views. The left ventricular size is normal. There is moderate concentric left ventricular hypertrophy. O verall left ventricular systolic function is normal with, an EF between 55 - 60 %. The right ventricle is normal in size. The left atrial size is normal. The right atrium was not well visualized. xx ml of Lumason was utilized for enhancement of images. The aortic valve was not well visualized. The mitral valve was not well visualized. There is trace mitral regurgitation. The tricuspid valve was not well visualized. Trace tricuspid regurgitation present. Right ventric ular systolic pressure is normal at < 35 mmHg. The pulmonic valve was not well visualized. The aortic root size is normal. IVC Not well visulized. There is a small, generalized pericardial effusion present. CONCLUSIONS -------- 1. The left ventricular size is normal. 2. There is moderate concentric left ventricular hypertrophy. 3. Overall left ventricular systolic function is normal with, an EF between 55 - 60 %. 4. There is trace mitral regurgitation. 5. Trace tricuspid regurgitation present. 6. There is a small, generalized pericardial effusion present. [employer]: Nisa Dover [facility]
[2021-03-18 11:58] LABS: Glucose,Whole Blood 132 mg/dL (75-99)
[2021-03-18] MEDS: HYDROcodone/APAP 7.5-325MG 1 EACH TAB PO PRN ×2 (12:11→21:32)
--- NOTE | 2021-03-18 12:57 | P.PN ---
Subjective Patient is a pleasant 66-year-old female with history of COPD, coronary artery disease status post PCI 2, diabetes mellitus, DVT, hypertension, oste oarthritis, diabetic foot ulcers with previous right toe amputation who presented secondary to foot pain with generalized fatigue, decreased appetite. She was found to have COVID-19 infection however denied significant cough or shortness breath. Patient had a right toe amputation November 2020 and has been followed at the wound clinic. She follows in the office with Dr. Nina. She was last seen in December. She had previous peripheral intervention November 2019 of the right posterior tibial artery. She states she was scheduled for a angiogram with possible intervention next week with Dr. Nina however she then started feeling fatigued and came into the hospital. Cardiology was consult that se condary to a short episode of ventricular tachycardia. Patient was asymptomatic at the time. Last echocardiogram in the office was from December 2012 which showed ejection fraction 55-60% without significant valvular disease. She had previously followed with another primary counselor for care however has now transferred care to Dr. Nina. EKG on presentation showed sinus tachycardia, left anterior fascicular block, poor R-wave progression, Q waves in lead 3, 2. Covid-19 positive 03/18/2021: Patient seen at bedside, no acute distress. Blood pressure 112/64, heart rate 87, afebrile, maintaining oxygen saturation is 96% on room air. Telemetry reviewed patient in sinus mechanism heart rate 70s-80s no further episodes of ventricular tachycardia or ectopy noted. Patient currently being maintained on aspirin 81 mg daily, atorvastatin 40 mg nightly, Plavix 75 mg nightly, metoprolol succinate 12 any 5 mg daily, Xarelto 20 mg nightly. Echocardiogram revealed- left ventricular systolic function is normal with an EF measuring 55-60%, moderate concentric left ventricular hypertrophy, trace mitral regurgitation, trace tricuspid regurgitation, small generalized pericardial effusion is present. PHYSICAL EXAMINATION Vital signs reviewed. Thorough physical exam not completed due to covid-19 infection CONSTITUTIONAL: No apparent distress, chronically ill appearing, obese NEUROLOGIC EXAMINATION: Patient is awake, alert and oriented x3. ASSESSMENT Wide-complex tachycardia, likely ventricular tachycardia, patient is asymptomatic Coronary artery disease status post PCI 2 per patient PAD with history of below the knee PT treatment November 2019 Anemia COVID-19 infection Critical limb ischemia Right foot osteomyelitis, nonhealing diabetic foot ulcer PLAN Continue cardiac medications at this time From cardiology perspective, no further changes or cardiac testing. We will sign off at this time. Please reach out with any further questions or concerns. Patient should follow up in the office with Dr. Nina Objective - Vital Signs Vital signs: Vital Signs Temp 97.9 F 03/18/21 05:47 Pulse 87 03/18/21 05:47 Resp 20 03/18/21 05:47 BP 112/64 03/18/21 05:47 Pulse Ox 94 L 03/18/21 05:47 Intake & Output 03/17/21 03/18/21 03/18/21 18:59 06:59 18:59 Intake Total 550 Output Total 400 Balance 550 -400 Intake: Intake, IV Titration 100 Amount Ampicillin-Sulbactam 3 gm 100 In Sodium Chloride 0.9% 100 ml @ 200 mls/hr IVPB Q6HR [facility] Rx#:[id number] Oral 450 Output: Urine 400 Other: Voiding Method Diaper Diaper Incontinent Incontinent External Catheter External Catheter # Voids 3 - Labs CBC & Chem 7: 03/16/21 06:36 03/16/21 06:36 Labs: Abnormal Lab Results - Last 24 Hours (Table) 03/17/21 03/17/21 03/17/21 Range/Units 11:58 17:13 22:16 POC Glucose (mg/dL) 134 H 135 H 189 H (75-99) mg/dL 03/18/21 Range/Units 06:45 POC Glucose (mg/dL) 130 H (75-99) mg/dL
--- NOTE | 2021-03-18 14:52 | PN ---
PROGRESS NOTE DATE OF SERVICE: 03/18/2021 REASON FOR FOLLOWUP: Right foot wound and osteomyelitis. INTERVAL HISTORY: The patient is currently afebrile. Patient is breathing comfortably. Patient denies having any chest pain, shortness of breath or cough. No abdominal pain or any pain to the right foot wound has currently increased in intensity. PHYSICAL EXAMINATION: Blood pressure 133/85, pulse 68, temperature 98.5. She is 93% on room air. General description is an elderly female lying in bed in no distress. RESPIRATORY SYSTEM: Unlabored breathing, clear to auscultation anteriorly. HEART: S1, S2. Regular rate and rhythm. ABDOMEN: Soft, no tenderness. Right foot is currently dressed up. No obvious drainage on the dressing. DIAGNOSTIC IMPRESSION AND PLAN: Patient with right foot lateral border wound with abnormal x-ray and a bone scan suspicious for osteomyelitis. Foot culture positive for Enterococcus faecalis. The patient did get a PICC line to continue for 6 weeks of IV Unasyn. Local wound care per Surgery and close outpatient followup. MMODL / IJN: [id number] / JAYLENE
--- NOTE | 2021-03-18 16:43 | P.PN ---
Subjective Progress Note Date: 03/18/21 This is a 66-year-old female who was recently admitted with sepsis secondary to COVID-19 infection also was found to have an acute urinary tract infection and is being closely monitored. Patient also has significant infection to the right foot suggestive of osteomyelitis on bone scan and was evaluated and underwent debridement with Dr. Dickson. Infectious disease also following and patient is maintained on IV Unasyn and will continue at this time. Patient receiving a PICC line as she will require IV antibiotic therapy in the outpatient setting. Wound culture of the right foot showing enterococcus faecalix and corynebacterium species. Patient's repeat urinalysis is negative. Cardiology also following and have ordered a 2-D echo which is pending. Patient is agreeable to rehab and will likely be going to [facility] once stabilized. 03/18/2021 Patient is seen and evaluated and follow-up with no acute overnight issues. Patient has received PICC line and will continue with IV antibiotic therapy in the outpatient setting. Patient was scheduled to go to [facility] although patient is now refusing [facility] and is agreeable to [facility] and there is a bed there available tomorrow. They were also questioning her Covid status and repeat Covid testing was done and was negative today. Patient will continue on IV Unasyn and infectious disease is following. Patient has been having some lower blood sugars and will adjust long-acting to 30 units and continue with sliding scale at this time. Repeat a.m. labs. Review of systems: Constitutional: No reports of fatigue, fever, or chills Cardiovascular: No reports of chest pain or palpitations Respiratory: No reports of shortness of breath or cough GI: No reports of nausea, vomiting, or diarrhea : No reports of dysuria or retention Neurovascular: Reports generalized weakness All medications have been reviewed Objective - Vital Signs Vital signs: Vital Signs Temp 98.5 F 03/18/21 10:30 Pulse 68 03/18/21 10:30 Resp 18 03/18/21 10:30 BP 133/85 03/18/21 10:30 Pulse Ox 93 L 03/18/21 10:30 Intake & Output 03/17/21 03/18/21 03/18/21 18:59 06:59 18:59 Intake Total 550 Output Total 400 Balance 550 -400 Intake: Intake, IV Titration 100 Amount Ampicillin-Sulbactam 3 gm 100 In Sodium Chloride 0.9% 100 ml @ 200 mls/hr IVPB Q6HR [facility] Rx#:[id number] Oral 450 Output: Urine 400 Other: Voiding Method Diaper Diaper Incontinent Incontinent External Catheter External Catheter # Voids 3 - Exam GENERAL: Obese female sitting up in the chair, awake, alert and oriented 3, well-developed, well-nourished. HEENT: Pupils are round and equally reacting to light. EOMI. No scleral icterus. No conjunctival pallor. CARDIOVASCULAR: S1 and S2 muffled PULMONARY: Bilateral breath sounds are diminished with no wheeze or crackles. ABDOMEN: Soft, nontender, bowel sounds positive. MUSCULOSKELETAL: No joint swelling or deformity. EXTREMITIES: No cyanosis, clubbing, or pedal edema. Right foot elevated on bharat ws surgical site open to air NEUROLOGICAL: Patient is alert awake oriented 3, Gross neurological examination did not reveal any focal deficits. Diffusely weak SKIN: No rashes. - Labs CBC & Chem 7: 03/16/21 06:36 03/16/21 06:36 Labs: Abnormal Lab Results - Last 24 Hours (Table) 03/17/21 03/17/21 03/17/21 Range/Units 11:58 17:13 22:16 POC Glucose (mg/dL) 134 H 135 H 189 H (75-99) mg/dL 03/18/21 Range/Units 06:45 POC Glucose (mg/dL) 130 H (75-99) mg/dL Assessment and Plan Assessment: Acute COVID-19 infection with sepsis, possibly secondary to COVID-19, present on admission, repeat COVID-19 testing was negative today Acute urinary tract infection with cultures growing E. coli and Klebsiella pneumonia with possible sepsis, present on admission Right foot wound and osteomyelitis status post debridement Critical limb ischemia on the right Coronary artery disease/ stenting COPD Diabetes mellitus Hypertension History of DVT Hypothyroidism History of sleep apnea History of gastric sleeve surgery History of right big toe amputation Morbid obesity with BMI 45.8 Mild protein calorie malnutrition Chronic debility Full code Recommendations and discussion: Recommend to continue with current medications, management, and symptomatic treatment. Patient continues on IV Unasyn and will continue. Patient is status post debridement with Dr. Dickson and infectious disease following closely as well. Patient has received her PICC line as she will be requiring outpatient IV antibiotic therapy. Patient continues on Xarelto along with vitamin and zinc supplements. Repeat COVID-19 testing was negative today. Recommend continue with Accu-Cheks before meals and at bedtime and continue sliding scale along with long-acting and will decrease the dose of long-acting and continue to monitor closely. Continue with local wound care to the right foot. Social work and case management also following this patient will be going to [facility]. Patient was supposed to go to [facility] although is refusing now. A bed will be available in [place] tomorrow. Anticipate discharge in 24 hours.
[2021-03-18 17:12] LABS: Glucose,Whole Blood 129 mg/dL (75-99)
[2021-03-18 20:00] LABS: Glucose,Whole Blood 148 mg/dL (75-99)
[2021-03-18] MEDS: RIVAROXABAN 20 MG TAB PO SCH (21:29)
[2021-03-18] MEDS: ATORVASTATIN 40 MG TAB PO SCH (21:29)
[2021-03-18] MEDS: CLOPIDOGREL 75 MG TAB PO SCH (21:29)
[2021-03-19] MEDS: AMPICILLIN-SULBACTAM 3 GM in SODIUM CHLORIDE 0.9% 100 ML IVPB SCH ×2 (00:38→05:30)
[2021-03-19] MEDS: ACETAMINOPHEN TAB 325 MG TAB PO PRN (00:38)
[2021-03-19] MEDS: HYDROcodone/APAP 7.5-325MG 1 EACH TAB PO PRN ×2 (05:30→12:14)
[2021-03-19] MEDS: LEVOTHYROXINE 125 MCG TAB PO SCH (05:32)
[2021-03-19 07:04] LABS: Glucose,Whole Blood 121 mg/dL (75-99)
[2021-03-19] MEDS ORDERED: INSULIN DETEMIR (LEVEMIR) 100 UNIT/ML SYR SQ SCH (07:30)
[2021-03-19] MEDS: ZINC SULFATE 220 MG CAP PO SCH (08:07)
[2021-03-19] MEDS: ASCORBIC ACID 500 MG TAB PO SCH (08:07)
[2021-03-19] MEDS: CHOLECALCIFEROL 25 MCG (1000 IU) TABLET PO SCH (08:07)
[2021-03-19] MEDS: ASPIRIN 81 MG PO SCH (08:07)
[2021-03-19] MEDS: lisinopriL 5 MG TAB PO SCH (08:08)
[2021-03-19] MEDS: METOPROLOL SUCCINATE (ER) 25 MG TAB.ER.24H PO SCH (08:08)
[2021-03-19] MEDS: INSULIN ASPART (NovoLOG) 100 UNIT/ML VIAL SQ SCH (09:03)
[2021-03-19 10:00] LABS: Basophils # (A) 0.02 X 10*3/uL (0.00-0.10); Basophils % (A) 0.3 %; Eosinophils # (A) 0.21 X 10*3/uL (0.04-0.35); Eosinophils % (A) 3.2 %; HGB 9.8 g/dL (12.0-15.0); Lymphocytes # (A) 0.82 X 10*3/uL (0.90-5.00); Lymphocytes % (A) 12.5 %; MCH 25.7 pg (27.0-32.0); MCHC 29.7 g/dL (32.0-37.0); MCV 86.4 fL (80.0-97.0); Mean Platelet Volume 9.3 fL (9.5-12.2); Monocytes # (A) 0.52 X 10*3/uL (0.20-1.00); Neutrophils # (A) 4.93 X 10*3/uL (1.80-7.70); Neutrophils % (A) 75.4 %; Platelet Count 293 X 10*3/uL (140-440); RBC 3.82 X 10*6/uL (4.10-5.20); RDW 17.1 % (11.5-14.5); WBC 6.54 X 10*3/uL (4.50-10.00)
[2021-03-19 10:09] VITALS: BP 131/76; PULSE 95; RESP 17; TEMP 98.7
[2021-03-19 10:38] LABS: African American GFR (CKD) 104.6 (60.0-200.0); Anion Gap 11.5 mmol/L (4.00-12.00); BUN/Creat Ratio 34.29 Ratio (12.00-20.00); Calcium 8.5 mg/dL (8.7-10.3); Carbon Dioxide 22.5 mmol/L (21.6-31.8); Non-African American GFR(CKD) 90.3 (60.0-200.0); Potassium 4.8 mmol/L (3.5-5.5)
[2021-03-19] MEDS: COLLAGENASE 250 UNIT/GM OINTMENT 30 GM TUBE TOPICAL SCH (10:55)
[2021-03-19 11:11] LABS: Glucose,Whole Blood 165 mg/dL (75-99)
--- NOTE | 2021-03-19 11:30 | P.DS ---
Providers Date of admission: 03/08/21 02:34 Expected date of discharge: 03/19/21 Attending physician: Chanda Sanchez Consults: 03/08/21 10:48 Consult Physician Routine Consulting Provider: Tyler Lion Consult Reason/Comments: covid positive Do you want consulting provider notified?: Yes 03/08/21 11:10 Consult Physician Routine Consulting Provider: Paul Smith Consult Reason/Comments: wounds on right foot Do you want consulting provider notified?: Yes 03/14/21 15:58 Consult Physician Routine Consulting Provider: Chris Dickson Consult Reason/Comments: debridement/deep tissue culture Do you want consulting provider notified?: Yes 03/14/21 18:40 Consult Physician Routine Consulting Provider: Nikolas Nina Consult Reason/Comments: run of v tach Do you want consulting provider notified?: Yes Primary care physician: Martin Cuello [facility] Course: Final diagnosis Acute COVID-19 infection with sepsis, possibly secondary to COVID-19, present on admission, repeat COVID-19 testing was negative Acute urinary tract infection with cultures growing E. coli and Klebsiella pneumonia with possible sepsis, present on admission Right foot wound and osteomyelitis status post debridement Critical limb ischemia on the right Coronary artery disease/ stenting COPD Diabetes mellitus Hypertension History of DVT Hypothyroidism History of sleep apnea History of gastric sleeve surgery History of right big toe amputation Morbid obesity with BMI 45.8 Mild protein calorie malnutrition Chronic debility Full code Discharge disposition Patient is being discharged in a stable condition with guarded prognosis to [facility] continued IV antibiotic therapy and PT/OT therapy. Patient will follow-up with Dr. Cuello in the outpatient setting upon discharge. Patient also instructed to follow-up at the wound care center along with cardiology Dr. Nina in 2 weeks. Patient is to continue with the antibiotics in the form of Unasyn as instructed by infectious disease. Recommend repeat labs in a few days. Total time taken is greater than 35 minutes. Hospital course This is a 66-year-old female who was recently admitted with sepsis secondary to COVID-19 infection also was found to have an acute urinary tract infection and is being closely monitored. Patient also has significant infection to the right foot suggestive of osteomyelitis on bone scan and was evaluated and underwent debridement with Dr. Dickson. Infectious disease also following and patient is maintained on IV Unasyn and will continue at this time. Patient receiving a PICC line as she will require IV antibiotic therapy in the outpatient setting. Wound culture of the right foot showing enterococcus faecalix and corynebacterium species. Patient's repeat urinalysis is negative. Cardiology also following and have ordered a 2-D echo which is pending. Patient is agreeable to rehab and will likely be going to [facility] once stabilized. 03/18/2021 Patient is seen and evaluated and follow-up with no acute overnight issues. Patient has received PICC line and will continue with IV antibiotic therapy in the outpatient setting. Patient was scheduled to go to [facility] although patient is now refusing [facility] and is agreeable to [facility] and there is a bed there available tomorrow. They were also questioning her Covid status and repeat Covid testing was done and was negative today. Patient will continue on IV Unasyn and infectious disease is following. Patient has been having some lower blood sugars and will adjust long-acting to 30 units and continue with sliding scale at this time. Repeat a.m. labs. 03/19/2021 She was seen and evaluated in follow-up this morning and has received a PICC line and will continue with IV antibiotic therapy in the form of Unasyn and will need to follow-up with the wound care center as instructed. Patient also instructed to follow-up with Dr. Nina cardiology outpatient in 2 weeks. Recommend continue monitoring Accu-Cheks before meals and at bedtime and treat accordingly with sliding scale along with long-acting. Patient will continue with local wound care as well. Currently no reports of chest pain, shortness of breath, or palpitations. Patient is afebrile. No reports of nausea or vomiting and patient is tolerating diet. Patient will be going to [facility] today. On exam vital signs are stable. Cardio S1, S2 are muffled. Respiratory system shows diminished breath sounds at the bases with no wheezing or rhonchi noted. Abdomen is soft and obese, and nontender. Nervous system shows diffuse weakness. Please refer to medication reconciliation sheet for a list of medications. Patient Condition at Discharge: Stable Plan - Discharge Summary Discharge Rx Participant: Yes New Discharge Prescriptions: New HYDROcodone/APAP 7.5-325MG [[place] 7.5-325] 1 each PO Q6H PRN #6 tab PRN Reason: Pain Metoprolol Succinate (ER) [Toprol XL] 25 mg PO DAILY tab.er.24h Cholecalciferol [Vitamin D3 (25 Mcg = 1000 Iu)] 125 mcg PO DAILY tablet Ampicillin-Sulbactam [Unasyn] 3 gm IVPB Q6HR #140 vial Insulin Detemir (Levemir) [Levemir] 30 unit SQ DAILY@0730 syr Zinc Sulfate [Orazinc] 220 mg PO DAILY cap Ascorbic Acid [Vitamin C] 1,000 mg PO DAILY tab Continue Levothyroxine Sodium 125 mcg PO QAM Cyclobenzaprine [Flexeril] 10 mg PO DAILY PRN PRN Reason: Muscle Spasm Atorvastatin [Lipitor] 40 mg PO HS Aspirin EC [Ecotrin Low Dose] 81 mg PO DAILY Rivaroxaban [Xarelto] 20 mg PO HS Clopidogrel Bisulfate [Plavix] 75 mg PO HS Insulin Aspart Protam & Aspart [NovoLOG MIX 70-30 Flexpen] See Protocol SQ AC-TID Collagenase [Santyl] 1 applic TOPICAL DAILY #1 tube Lisinopril [Prinivil] 5 mg PO QAM Acetaminophen [Tylenol 8 Hour] 650 mg PO Q6H Discontinued Insulin Glargine,Hum.rec.anlog [Lantus Solostar] 50 unit SQ DAILY@0600 Furosemide [Lasix] 40 mg PO DAILY amLODIPine [Norvasc] 10 mg PO DAILY Discharge Medication List Levothyroxine Sodium 125 mcg PO QAM 04/12/19 [History] Cyclobenzaprine [Flexeril] 10 mg PO DAILY PRN 08/25/19 [History] Aspirin EC [Ecotrin Low Dose] 81 mg PO DAILY 12/04/19 [History] Atorvastatin [Lipitor] 40 mg PO HS 12/04/19 [History] Clopidogrel Bisulfate [Plavix] 75 mg PO HS 11/15/20 [History] Rivaroxaban [Xarelto] 20 mg PO HS 11/15/20 [History] Acetaminophen [Tylenol 8 Hour] 650 mg PO Q6H 02/01/21 [History] Insulin Aspart Protam & Aspart [NovoLOG MIX 70-30 Flexpen] See Protocol SQ AC- TID 02/01/21 [History] Collagenase [Santyl] 1 applic TOPICAL DAILY #1 tube 02/04/21 [Rx] Lisinopril [Prinivil] 5 mg PO QAM 03/07/21 [History] Ampicillin-Sulbactam [Unasyn] 3 gm IVPB Q6HR #140 vial 03/18/21 [Rx] Ascorbic Acid [Vitamin C] 1,000 mg PO DAILY tab 03/19/21 [Rx] Cholecalciferol [Vitamin D3 (25 Mcg = 1000 Iu)] 125 mcg PO DAILY tablet 03/19 [Rx] HYDROcodone/APAP 7.5-325MG [[place] 7.5-325] 1 each PO Q6H PRN #6 tab 03/19/21 [Rx] Insulin Detemir (Levemir) [Levemir] 30 unit SQ DAILY@0730 syr 03/19/21 [Rx] Metoprolol Succinate (ER) [Toprol XL] 25 mg PO DAILY tab.er.24h 03/19/21 [Rx] Zinc Sulfate [Orazinc] 220 mg PO DAILY cap 03/19/21 [Rx] Follow up Appointment(s)/Referral(s): Nikolas Nina MD [STAFF PHYSICIAN] - 2 Weeks Martin Cuello DO [Primary Care Provider] - 1-2 days [facility], [NON-STAFF] - 1-2 Days Ambulatory/Diagnostic Orders: Basic Metabolic Panel [LAB.AMB] Location: None Selected C Reactive Protein [LAB.AMB] Location: None Selected Complete Blood Count w/diff [LAB.AMB] Location: None Selected Erythrocyte Sedimentation Rate [LAB.AMB] Location: None Selected Activity/Diet/Wound Care/Special Instructions: Followup with Dr smith at wound care , call [phone] to make an appointment Patient is going to [facility] as tolerated Continue with consistent carb diet Continue to monitor Accu-Cheks before meals and at bedtime NovoLog sliding scale 0-150 equals 0 units 151-200 equals 2 units 201-250 equals 4 units 251-300 equals 6 units 301-350 equals 8 units 351-400 equals 10 units Please notify provider if blood sugar is 400 or above Follow-up at the wound care center as instructed continue with IV antibiotics per infectious disease Repeat labs as instructed Discharge Disposition: TRANSFER TO SNF/ECF
--- NOTE | 2021-03-19 15:06 | PN ---
PROGRESS NOTE DATE OF SERVICE: 03/19/2021 REASON FOR FOLLOWUP: Right foot osteomyelitis acute. INTERVAL HISTORY: The patient is afebrile. The patient is breathing comfortably. Patient denies having any chest pain or shortness of breath or cough. No nausea, no vomiting. No abdominal pain. Has been complaining of pain to the right foot lateral border wound area. PHYSICAL EXAMINATION: Blood pressure 131/76, pulse 95, temperature is 98.7. He is 95% on room air. General description is an elderly female lying in bed in no distress. RESPIRATORY SYSTEM: Unlabored breathing, clear to auscultation anteriorly. HEART: S1, S2. Regular rate and rhythm. ABDOMEN: Soft, no tenderness. Right foot currently dressed up. No obvious drainage on the dressing. LABS: Hemoglobin is 9.8, white count 6.54. BUN of 24, creatinine 0.7. DIAGNOSTIC IMPRESSION AND PLAN: Patient with right foot lateral border wound with concern for underlying osteomyelitis on basis of scan. Culture with Enterococcus faecalis. She is on Unasyn to continue for another 5 weeks to finish a course of therapy with weekly morning of CBC, BMP, Sedimentation rate and close outpatient followup. Continue with supportive care. MMODL / IJN: [id number] / JAYLENE
== END 2021-03-19 17:00 | DRG 853 ==
LOC: EC 00:17 → 4SSUR 02:34
PROVIDERS: ADMIT Internal Medicine; ATTEND Internal Medicine
PROC: 0QBQ0ZZ Excision of Right Toe Phalanx, Open Approach (ICD-10-PCS; principal; 2021-03-14)
PROC: 02HV33Z Insertion of Infusion Device into Superior Vena Cava, Percutaneous Approach (ICD-10-PCS; 2021-03-18)
PROC: B548ZZA Ultrasonography of Superior Vena Cava, Guidance (ICD-10-PCS; 2021-03-18)
DX: A41.89 Other specified sepsis (principal); U07.1 COVID-19; N39.0 Urinary tract infection, site not specified; Z68.42 Body mass index [BMI] 45.0-49.9, adult; E44.1 Mild protein-calorie malnutrition; Z16.12 Extended spectrum beta lactamase (ESBL) resistance; I47.2 Ventricular tachycardia; J44.0 Chronic obstructive pulmonary disease with (acute) lower respiratory infection; M86.171 Other acute osteomyelitis, right ankle and foot; E11.621 Type 2 diabetes mellitus with foot ulcer; L97.519 Non-pressure chronic ulcer of other part of right foot with unspecified severity; E11.42 Type 2 diabetes mellitus with diabetic polyneuropathy; E11.51 Type 2 diabetes mellitus with diabetic peripheral angiopathy without gangrene; E11.69 Type 2 diabetes mellitus with other specified complication; I70.229 Atherosclerosis of native arteries of extremities with rest pain, unspecified extremity; G35 Multiple sclerosis; E66.01 Morbid (severe) obesity due to excess calories; Z89.411 Acquired absence of right great toe; Z79.4 Long term (current) use of insulin; E86.0 Dehydration; B96.20 Unspecified Escherichia coli [E. coli] as the cause of diseases classified elsewhere; B96.1 Klebsiella pneumoniae [K. pneumoniae] as the cause of diseases classified elsewhere; D64.9 Anemia, unspecified; G47.33 Obstructive sleep apnea (adult) (pediatric); G89.29 Other chronic pain; I25.10 Atherosclerotic heart disease of native coronary artery without angina pectoris; E03.9 Hypothyroidism, unspecified; I10 Essential (primary) hypertension; R13.10 Dysphagia, unspecified; G43.909 Migraine, unspecified, not intractable, without status migrainosus; M19.90 Unspecified osteoarthritis, unspecified site; F41.9 Anxiety disorder, unspecified; Z98.84 Bariatric surgery status; Z99.3 Dependence on wheelchair; Z95.5 Presence of coronary angioplasty implant and graft; Z79.01 Long term (current) use of anticoagulants; Z79.82 Long term (current) use of aspirin; Z79.899 Other long term (current) drug therapy; Z86.718 Personal history of other venous thrombosis and embolism; Z87.891 Personal history of nicotine dependence; Z80.9 Family history of malignant neoplasm, unspecified; Z83.2 Family history of diseases of the blood and blood-forming organs and certain disorders involving the immune mechanism; Z89.421 Acquired absence of other right toe(s); I11.9 Hypertensive heart disease without heart failure; B95.2 Enterococcus as the cause of diseases classified elsewhere; Z79.02 Long term (current) use of antithrombotics/antiplatelets; I44.4 Left anterior fascicular block
CPT/HCPCS: 36415; 36573; 71045; 78315; 80048; 80053; 81001; 81003; 83036; 83605; 83615; 83735; 84145; 84484; 85025; 85379; 85610; 85652; 85730; 86140; 87040; 87070; 87075; 87077; 87086; 87186; 87205; 87635; 87636; 93005; 93306; 94760; 96361; 96374; 99285

== ENCOUNTER → 2022-08-25 | Outpatient (CLI) | payer MEDICARE, BC ==
[2022-08-25 18:24] LABS: HCT 40.2 % (37.2-46.3); HGB 12.9 g/dL (12.0-15.0); MCH 29.3 pg (27.0-32.0); MCHC 32.1 g/dL (32.0-37.0); MCV 91.4 fL (80.0-97.0); Mean Platelet Volume 9.9 fL (9.5-12.2); NRBC Per 100 WBC 0 /100 WBCS (0.0-0.0); Platelet Count 266 X 10*3/uL (140-440); RDW 14.2 % (11.5-14.5); WBC 6.56 X 10*3/uL (4.50-10.00)
[2022-08-25 19:21] LABS: African American GFR (CKD) 93.9 (60.0-200.0); Anion Gap 12.4 mmol/L (10.00-18.00); Blood Urea Nitrogen 23.5 mg/dL (9.0-27.0); Carbon Dioxide 23.4 mmol/L (20.0-27.5); Potassium 4.1 mmol/L (3.5-5.5)
== END | disposition home or self-care (01) ==
LOC: LABPAT 12:01
PROVIDERS: ATTEND Internal Medicine Interventional Cardiology
DX: Z01.812 Encounter for preprocedural laboratory examination (principal); I25.10 Atherosclerotic heart disease of native coronary artery without angina pectoris; I73.9 Peripheral vascular disease, unspecified
CPT/HCPCS: 80051; 82565; 82947; 84520; 85027

== ENCOUNTER 2022-09-07 11:08 | Inpatient (IN) | payer MEDICARE, BC ==
[2022-09-02 15:47] VITALS: BMI 33.3
[~2022-09-07 11:08] MED LIST changes: +ALPRAZolam 0.25 MG TAB PO PRN; +ALPRAZolam 0.5 MG TAB PO PRN; +ASPIRIN 325 MG TAB PO STA; -DEXAMETHASONE SOD PHOSPHATE 4 MG/ML 1 ML VIAL IV ONE; -LACTATED RINGERS 1,000 ML IV SCH; -LIDOCAINE 1% (10MG/ML) FOR IV START INTRADERMA PRN; +NITROGLYCERIN SL TABS 0.4 MG TAB SUBLINGUAL PRN; -ONDANSETRON 4 MG/2 ML VIAL IVP ONE; -ceFAZolin 3 GM in SODIUM CHLORIDE 0.9% 100 ML IVPB PRN
[2022-09-07 12:05] LABS: Glucose,Whole Blood 116 mg/dL (70-110)
[2022-09-07] MEDS: SODIUM CHLORIDE 0.9% 1,000 ML in EMPTY BAG 1 BAG IV SCH ×2 (12:07→17:19)
[2022-09-07] MEDS ORDERED: MIDAZOLAM 2 MG/2 ML VIAL IV ONE (12:52)
[2022-09-07] MEDS ORDERED: LIDOCAINE 1% INJ 10MG/ML (30 ML VIAL-PF) SQ ONE ×2 (12:53→12:55)
[2022-09-07] MEDS ORDERED: HEPARIN SODIUM 1,000 UN/ML (10ML VL) IV ONE (13:22)
[2022-09-07] MEDS ORDERED: fentaNYL (PF) 50 MCG/ML 2 ML AMP IV ONE (13:22)
[2022-09-07] MEDS ORDERED: IOPAMIDOL-370 125ML BTL INJ ONE (13:36)
[2022-09-07] MEDS ORDERED: RX INFO: IV CONTRAST WAS GIVEN 1 EACH MISC MISCELLANE PRN (13:43)
[2022-09-07] MEDS: HYDROmorphone 0.5 MG/0.5 ML SYRINGE IVP PRN (13:56)
[2022-09-07] MEDS ORDERED: CYCLOBENZAPRINE 10 MG TAB PO STA (15:51)
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
[2022-09-07 17:37] LABS: Glucose,Whole Blood 64 mg/dL (70-110)
[2022-09-07] MEDS: INSULIN ASPART (NovoLOG) 100 UNIT/ML VIAL SQ SCH ×2 (17:43→19:45)
--- NOTE | 2022-09-07 18:01 | P.PCN ---
Date of Procedure: 09/07/22 Operative Findings: CARDIAC CATHETERIZATION PERFORMING PHYSICIAN: Nikolas Nina MD, RPVI PROCEDURE PERFORMED: 1. Selective right and left coronary angiogram 2. Left heart catheterization 3. Intravascular ultrasound of the left main 4. Right common femoral artery angiogram INDICATION: This is a very pleasant 67-year-old female patient with lower extremities peripheral arterial disease and coronary artery disease with prior revascularization as well as diabetes and hypertension and dyslipidemia was seen in the office recently for preop cardiac assessment before noncardiac surgery. She underwent myocardial perfusion imaging stress test and that showed an anterior ischemia and in the light of that a heart catheterization was advised COMPLICATION: None APPROACH: Right Plan femoral artery LEVEL OF SEDATION: Moderate with a sedation length of 38 minutes PROCEDURE DESCRIPTION: After obtaining an informed consent, the patient was brought to cardiac medical lab specialist. Local anesthesia was performed using lidocaine subcutaneously. The pat ient did not have any radial pulse. Subsequently the right common femoral artery was cannulated using micropuncture technique the micropuncture wire passed easily and then I placed a 6 Croatian sheath. I did selective right and left coronary angiogram using JR4 and JL4 catheters. Left heart catheterization was performed using pigtail catheter. Then I did an intravascular ultrasound of the left main. Finally selective right common femoral artery angiogram was performed SELECTIVE CORONARY ANGIOGRAM: The right coronary artery: Large caliber vessel and dominant vessel. The RCA has mild diffuse disease. Distally bifurcates into subtotally occluded PDA and large PLV branch. Left main: Calcified with the lesion distally appeared to be in the range of 50%. We attempted doing intravascular ultrasound but the catheter would not cross the lesion. The left circumflex: Large caliber vessel and nondominant vessel. The LCx has mild disease only. It gives rise into an OM which appeared to be angiographically normal The left anterior descending artery: The LAD in the proximal portion is a stented and the stent is patent. The mid and distal LAD appeared to have mild disease only. HEMODYNAMICS: The LVEDP was 4 mmHg was no significant gradient across aortic valve IVUS OF THE LM: Anticoagulation was achieved using heparin with continuous ACT monitoring. Subsequently after that I did engage the left main is in JL4 guiding catheter. The LAD was wired using a run-through wire. At tempting advancing the IVUS catheter through the left main was unsuccessful because the IVUS catheter would not cross the left main. The procedure was completed without any complication CONCLUSION: 1. Severe disease involving the mid RCA 2. Intermediate to severe disease involving the left main coronary artery 3. Low left side feeling POSTPROCEDURE MANAGEMENT: Consults surgery further evaluation of CABG
[2022-09-07 18:18] LABS: Glucose,Whole Blood 69 mg/dL (70-110)
[2022-09-07 18:36] LABS: Glucose,Whole Blood 74 mg/dL (70-110)
[2022-09-07 19:09] LABS: Glucose,Whole Blood 146 mg/dL (70-110)
[2022-09-07] MEDS: OXYBUTYNIN XL 5 MG TAB.ER.24 PO SCH (20:04)
[2022-09-07] MEDS: ATORVASTATIN 40 MG TAB PO SCH (20:04)
[2022-09-07] MEDS: CYCLOBENZAPRINE 10 MG TAB PO PRN (20:04)
[2022-09-08] MEDS: ACETAMINOPHEN TAB 500 MG TAB PO PRN ×3 (00:21→09:41)
[2022-09-08] MEDS: SODIUM CHLORIDE 0.9% 1,000 ML in EMPTY BAG 1 BAG IV SCH ×4 (05:07→22:07)
[2022-09-08] MEDS: LEVOTHYROXINE 125 MCG TAB PO SCH (05:07)
[2022-09-08 06:06] LABS: Glucose,Whole Blood 122 mg/dL (70-110)
[2022-09-08] MEDS: INSULIN ASPART (NovoLOG) 100 UNIT/ML VIAL SQ SCH ×4 (06:07→22:08)
[2022-09-08] MEDS: PANTOPRAZOLE 40 MG TABLET PO SCH (06:08)
[2022-09-08] MEDS ORDERED: HEPARIN SODIUM,PORCINE 2,500 UNIT in SODIUM CHLORIDE 0.9% 250 ML IRRIGATION PRN (07:00)
[2022-09-08] MEDS ORDERED: HEPARIN SODIUM,PORCINE 10,000 UNIT in SODIUM CHLORIDE 0.9% 1,000 ML IRRIGATION PRN (07:00)
[2022-09-08] MEDS: OXYBUTYNIN XL 5 MG TAB.ER.24 PO SCH ×2 (09:06→19:32)
[2022-09-08] MEDS: MULTIVITAMINS, THERA 1 EACH TAB PO SCH (09:06)
[2022-09-08] MEDS: ASPIRIN 81 MG PO SCH (09:06)
[2022-09-08] MEDS: lisinopriL 10 MG TAB PO SCH (09:06)
[2022-09-08] MEDS ORDERED: ATORVASTATIN 80 MG TAB PO STA (09:22)
[2022-09-08] MEDS ORDERED: ASPIRIN 325 MG TAB PO STA (09:22)
[2022-09-08] MEDS ORDERED: ALPRAZolam 0.5 MG TAB PO PRN (09:22)
[2022-09-08] MEDS ORDERED: NITROGLYCERIN SL TABS 0.4 MG TAB SUBLINGUAL PRN ×2 (09:22→13:31)
[2022-09-08] MEDS ORDERED: ALPRAZolam 0.25 MG TAB PO PRN (09:22)
[2022-09-08 10:51] LABS: Basophils % (A) 1 %; Eosinophils # (A) 0.1 k/uL (0-0.7); Eosinophils % (A) 2 %; HCT 41.5 % (34.0-46.0); Hypochromasia Slight; Lymphocytes # (A) 0.7 k/uL (1.0-4.8); Lymphocytes % (A) 13 %; MCH 29.2 pg (25.0-35.0); MCHC 31.4 g/dL (31.0-37.0); MCV 92.9 fL (80.0-100.0); Mean Platelet Volume 7.5; Monocytes # (A) 0.4 k/uL (0-1.0); Monocytes % (A) 6 %; Neutrophils # (A) 4.2 k/uL (1.3-7.7); Neutrophils % (A) 76 %; Platelet Count 227 k/uL (150-450); RBC 4.47 m/uL (3.80-5.40); RDW 13.6 % (11.5-15.5); WBC 5.6 k/uL (3.8-10.6)
[2022-09-08 11:03] LABS: African American GFR (CKD) 79 (>60 ml/min/1.73 sqM); Anion Gap 5 mmol/L; Blood Urea Nitrogen 21 mg/dL (7-17); Calcium 8.8 mg/dL (8.4-10.2); Carbon Dioxide 27 mmol/L (22-30); Chloride 106 mmol/L (98-107); Glucose 117 mg/dL (74-99); Non-African American GFR(CKD) 69 (>60 ml/min/1.73 sqM); Potassium 4.6 mmol/L (3.5-5.1); Sodium 138 mmol/L (137-145)
[2022-09-08 11:41] LABS: Glucose,Whole Blood 105 mg/dL (70-110)
[2022-09-08] MEDS ORDERED: IV FLUID CONTINUATION 1,000 ML IV ONE (12:25)
[2022-09-08] MEDS ORDERED: LIDOCAINE 1% INJ 10MG/ML (30 ML VIAL-PF) SQ ONE ×2 (12:55→13:48)
[2022-09-08] MEDS ORDERED: HYDROmorphone 1 MG/ML 1 ML SYRINGE ONE (12:56)
[2022-09-08] MEDS ORDERED: MIDAZOLAM 2 MG/2 ML VIAL IV ONE (12:57)
[2022-09-08] MEDS ORDERED: HYDROmorphone 1 MG/ML 1 ML SYRINGE IVP ONE (12:58)
[2022-09-08] MEDS ORDERED: HEPARIN SODIUM 1,000 UN/ML (10ML VL) IV ONE (13:10)
[2022-09-08] MEDS ORDERED: HYDROmorphone 0.5 MG/0.5 ML SYRINGE IVP ONE (13:10)
[2022-09-08] MEDS ORDERED: IOPAMIDOL-370 100ML BTL INJ ONE ×2 (13:25→13:59)
[2022-09-08] MEDS ORDERED: CLOPIDOGREL 75 MG TAB PO ONE ×2 (13:25)
[2022-09-08] MEDS ORDERED: CLOPIDOGREL 75 MG TAB ONE ×2 (13:26→13:35)
[2022-09-08] MEDS ORDERED: RX INFO: IV CONTRAST WAS GIVEN 1 EACH MISC MISCELLANE PRN (13:31)
[2022-09-08] MEDS ORDERED: ATROPINE SULFATE 0.1 MG/ML 10ML SYRINGE IV PRN (13:31)
[2022-09-08] MEDS ORDERED: ZOLPIDEM 5 MG TAB PO PRN (13:31)
[2022-09-08] MEDS ORDERED: MAG HYDROX/AL HYDROX/SIMETH 30 ML CUP PO PRN (13:31)
[2022-09-08] MEDS ORDERED: niCARdipine 25 MG/10 ML VIAL ONE (13:42)
[2022-09-08] MEDS ORDERED: SODIUM CHLORIDE 0.9% 1,000 ML in EMPTY BAG 1 BAG IV SCH (13:45)
--- NOTE | 2022-09-08 13:55 | P.PCN ---
Date of Procedure: 09/08/22 Operative Findings: PERCUTANEOUS CORONARY INTERVENTION Performing physician Nikolas Nina M.D. Procedure Performed: 1. Successful stenting of the mid RCA using 5.0 x 18 mm Xience drug-eluting stent with an excellent angiographic results. 2. Intravascular ultrasound of the RCA 3. Selective right common femoral artery angiogram 4. Ultrasound guided access of the right common femoral artery Indication: This is a 67-year-old female patient with diabetes and hypertension and dyslipidemia and known lower extent his PAD was seen in the office recently for preoperative cardiac assessment before noncardiac surgery she underwent myocardial perfusion imaging stress is given to be abnormal and then she underwent a heart catheterization and that revealed severe disease involving the mid RCA and intermediate disease involving the distal left main coronary artery which was referred for CABG which he was turned down to be high risk for revascularization. Approach: Right common femoral artery Complications: None Level of Sedation: Moderate with a sedation length of 29 minutes Procedure Discussion: After obtaining an informed consent the patient was brought to the cardiac mason tender restoration labor. The right common femoral artery was cannulated using puncture technique under ultrasound guidance, the macronodular passed easily then it was a 6-[place] sheath advanced common femoral artery. After that anticoagulation was initiated using heparin with continuous ACT monitoring. Subsequently I did engage the RCA using a JR4 guiding catheter. I did wired using a run-through wire. Intravascular ultrasound was performed and showed a diameter of the RCA about 5 mm. I did predilatation using 3 5 x 12 mm balloon before I deployed 50 by 18 mm stent using guide liner as adjunctive told because we could not get the stent to move from the proximal to the mid RCA. The stent was deployed under 12 gil for 30 seconds. The final angiogram showed good angiographic results. The procedure was completed without any complications Postprocedure Management: 1. Dual antiplatelet therapy using aspirin and Plavix for at least 6 months 2. Aggressive cholesterol control 3. Risk factors modification
[2022-09-08] MEDS ORDERED: ONDANSETRON 4 MG/2 ML VIAL ONE (14:19)
[2022-09-08] MEDS ORDERED: ONDANSETRON 4 MG/2 ML VIAL IVP ONE (14:33)
[2022-09-08] MEDS: CYCLOBENZAPRINE 10 MG TAB PO PRN (16:17)
[2022-09-08 16:25] LABS: Glucose,Whole Blood 131 mg/dL (70-110)
[2022-09-08] MEDS: ATORVASTATIN 40 MG TAB PO SCH (19:32)
[2022-09-08] MEDS: HYDROmorphone 0.5 MG/0.5 ML SYRINGE IVP PRN (19:32)
[2022-09-08 20:23] LABS: Glucose,Whole Blood 181 mg/dL (70-110)
[2022-09-09 02:43] VITALS: RESP 18
[2022-09-09] MEDS: HYDROmorphone 0.5 MG/0.5 ML SYRINGE IVP PRN (03:12)
[2022-09-09 06:23] LABS: Glucose,Whole Blood 153 mg/dL (70-110)
[2022-09-09] MEDS: INSULIN ASPART (NovoLOG) 100 UNIT/ML VIAL SQ SCH (06:30)
[2022-09-09] MEDS: PANTOPRAZOLE 40 MG TABLET PO SCH (06:32)
[2022-09-09] MEDS: LEVOTHYROXINE 125 MCG TAB PO SCH (06:32)
[2022-09-09] MEDS: SODIUM CHLORIDE 0.9% 1,000 ML in EMPTY BAG 1 BAG IV SCH ×2 (06:33→11:10)
[2022-09-09] MEDS ORDERED: HEPARIN SODIUM,PORCINE 10,000 UNIT in SODIUM CHLORIDE 0.9% 1,000 ML IRRIGATION PRN (07:00)
[2022-09-09] MEDS ORDERED: HEPARIN SODIUM,PORCINE 2,500 UNIT in SODIUM CHLORIDE 0.9% 250 ML IRRIGATION PRN (07:00)
[2022-09-09 09:02] VITALS: BP 144/84; PULSE 94; TEMP 98.3
[2022-09-09] MEDS: ASPIRIN 81 MG PO SCH (09:03)
[2022-09-09] MEDS: OXYBUTYNIN XL 5 MG TAB.ER.24 PO SCH (09:03)
[2022-09-09] MEDS: MULTIVITAMINS, THERA 1 EACH TAB PO SCH (09:03)
[2022-09-09] MEDS: lisinopriL 10 MG TAB PO SCH (09:03)
--- NOTE | 2022-09-09 09:44 | P.PCN ---
Date of Procedure: 09/08/22 Operative Findings: CARDIAC CATHETERIZATION PERFORMING PHYSICIAN: Nikolas Nina MD, RPVI PROCEDURE PERFORMED: 1. Selective right coronary angiogram 2. Left common femoral artery angiogram INDICATION: This is a 67-year-old female patient who underwent earlier today successful stenting of the RCA with a good angiographic results. After the procedure she started experiencing chest discomfort associated with ST segment elevation. In the light of that a heart catheterization was advised to COMPLICATION: None APPROACH: Left common femoral artery LEVEL OF SEDATION: Moderate to sedation length of 12 minutes PROCEDURE DESCRIPTION: After obtaining an informed consent, the patient was brought to cardiac cath lab radiological technologist. Local anesthesia was performed using lidocaine subcutaneously. The left common femoral artery was cannulated using Seldinger technique, the guidewire passed easily, following that we advanced a 6 Indonesian sheath dilator assembly, the wire and dilator were removed and sheath was flushed. Selective right coronary angiogram was performed using JR4 catheter. After that I did selective left common femoral artery angiogram The procedure was completed there was no complication. SELECTIVE CORONARY ANGIOGRAM: The right coronary artery: The stent in the mid RCA is widely patent was KEYSHA-3 flow in the right coronary artery and patent PDA branch and PLV branch of the right coronary artery. CONCLUSION: 1. Patent stent in the right coronary artery was KEYSHA-3 flow in the right coronary artery and patent acute marginal branch of the right coronary artery POSTPROCEDURE MANAGEMENT: Medical treatment and continue dual antiplatelet therapy and follow-up with the patient
--- NOTE | 2022-09-09 09:49 | P.DS ---
Providers Date of admission: 09/09/22 07:12 Attending physician: Nikolas Nina Consults: 09/08/22 13:31 Consult Physician Routine Consulting Provider: [facility] Consult Reason/Comments: Post Interventional Patient Do you want consulting provider notified?: Already Contacted Primary care physician: Martin Cuello [facility] Course: This is a 67-year-old female patient was underwent yesterday successful stenting of the right coronary artery with a good angiographic results and without any complication from groin approach. She was seen this morning. She is asymptomatic from a cardiovascular standpoint of view. Both the groins are soft and nontender and without any bruises. The patient is going to be discharged home on dual antiplatelet therapy and he'll follow-up with the patient in the office in a week Plan - Discharge Summary Discharge Rx Participant: Yes New Discharge Prescriptions: Continue Levothyroxine Sodium 125 mcg PO 0600 Cyclobenzaprine [Flexeril] 10 mg PO DAILY PRN PRN Reason: Muscle Spasm Atorvastatin [Lipitor] 40 mg PO HS Aspirin EC [Ecotrin Low Dose] 81 mg PO DAILY Rivaroxaban [Xarelto] 20 mg PO HS Clopidogrel Bisulfate [Plavix] 75 mg PO QAM Insulin Aspart Prot/Insuln Asp [NovoLOG MIX 70-30 Flexpen] See Protocol SQ AC-TID PRN PRN Reason: Blood Sugar - High lisinopriL [Prinivil] 10 mg PO QAM Insulin Glargine,Hum.rec.anlog [Lantus Solostar Pen] 15 - 20 units SQ QAM PRN PRN Reason: Blood Sugar - High Multivitamins, Thera [Multivitamin (formulary)] 1 tab PO DAILY Oxybutynin Xl [Ditropan XL] 5 mg PO BID Acetaminophen Tab [Tylenol] 500 mg PO Q4H PRN PRN Reason: Pain Omeprazole [PriLOSEC] 20 mg PO AC-BRKFST Discharge Medication List Levothyroxine Sodium 125 mcg PO 0600 04/12/19 [History] Cyclobenzaprine [Flexeril] 10 mg PO DAILY PRN 08/25/19 [History] Aspirin EC [Ecotrin Low Dose] 81 mg PO DAILY 12/04/19 [History] Atorvastatin [Lipitor] 40 mg PO HS 12/04/19 [History] Clopidogrel Bisulfate [Plavix] 75 mg PO QAM 11/15/20 [History] Rivaroxaban [Xarelto] 20 mg PO HS 11/15/20 [History] Insulin Aspart Prot/Insuln Asp [NovoLOG MIX 70-30 Flexpen] See Protocol SQ AC- TID PRN 02/01/21 [History] lisinopriL [Prinivil] 10 mg PO QAM 03/07/21 [History] Acetaminophen Tab [Tylenol] 500 mg PO Q4H PRN 06/18/22 [History] Insulin Glargine,Hum.rec.anlog [Lantus Solostar Pen] 15 - 20 units SQ QAM PRN 06/18/22 [History] Multivitamins, Thera [Multivitamin (formulary)] 1 tab PO DAILY 06/18/22 [History] Omeprazole [PriLOSEC] 20 mg PO AC-BRKFST 06/18/22 [History] Oxybutynin Xl [Ditropan XL] 5 mg PO BID 06/18/22 [History] Follow up Appointment(s)/Referral(s): Nikolas Nina MD [STAFF PHYSICIAN] - 1 Week (THE OFFICE WILL CALL YOU WITH AN APPOINTMENT DATE AND TIME) Patient Instructions/Handouts: Moderate Sedation (GEN), After Radial Heart Catheterization (GEN) Activity/Diet/Wound Care/Special Instructions: *NO LIFTING, PUSHING, OR PULLING ANYTHING OVER 5 POUNDS FOR 5 DAYS *NO DRIVING FOR 3 DAYS *YOU CAN SHOWER TOMORROW BUT DO NOT SUBMERSE YOUR PUNCTURE SITE IN WATER FOR A FEW DAYS TO PREVENT INFECTION - SO NO TUB BATHS, POOLS, HOT TUBS, DISHES....ETC *ANY SIGNS OF BLEEDING (HARDNESS, SWELLING, OR EXCESSIVE BRUISING) HOLD DIRECT PRESSURE ON YOUR PUNCTURE SITE AND COME TO THE NEAREST EMERGENCY ROOM TO GET YOUR PUNCTURE SITE LOOKED AT - DO NOT DRIVE YOURSELF! EITHER CALL EMS OR HAVE SOMEONE DRIVE YOU!
== END 2022-09-09 12:21 | disposition home or self-care (01) | DRG 247 ==
LOC: CATHCVL 11:08 → 6NMEDSUR 13:30 → 3SCARD 09-08 13:57 → CATHCVL 09-09 07:12 → 3SCARD 09-09 07:12
PROVIDERS: ADMIT Internal Medicine Interventional Cardiology; ATTEND Internal Medicine Interventional Cardiology
PROC: B2111ZZ Fluoroscopy of Multiple Coronary Arteries using Low Osmolar Contrast (ICD-10-PCS; 2022-09-07 12:30)
PROC: 4A023N7 Measurement of Cardiac Sampling and Pressure, Left Heart, Percutaneous Approach (ICD-10-PCS; 2022-09-07 12:30)
PROC: B41F1ZZ Fluoroscopy of Right Lower Extremity Arteries using Low Osmolar Contrast (ICD-10-PCS; 2022-09-07 12:30)
PROC: B240ZZ3 Ultrasonography of Single Coronary Artery, Intravascular (ICD-10-PCS; 2022-09-07 12:30)
PROC: 027034Z Dilation of Coronary Artery, One Artery with Drug-eluting Intraluminal Device, Percutaneous Approach (ICD-10-PCS; principal; 2022-09-08 09:30)
PROC: B41F1ZZ Fluoroscopy of Right Lower Extremity Arteries using Low Osmolar Contrast (ICD-10-PCS; principal; 2022-09-08 09:30)
PROC: B240ZZ3 Ultrasonography of Single Coronary Artery, Intravascular (ICD-10-PCS; principal; 2022-09-08 09:30)
PROC: B2101ZZ Fluoroscopy of Single Coronary Artery using Low Osmolar Contrast (ICD-10-PCS; 2022-09-09)
PROC: B41G1ZZ Fluoroscopy of Left Lower Extremity Arteries using Low Osmolar Contrast (ICD-10-PCS; 2022-09-09)
DX: I25.10 Atherosclerotic heart disease of native coronary artery without angina pectoris (principal); E11.51 Type 2 diabetes mellitus with diabetic peripheral angiopathy without gangrene; E66.01 Morbid (severe) obesity due to excess calories; E78.5 Hyperlipidemia, unspecified; G35 Multiple sclerosis; G47.30 Sleep apnea, unspecified; G89.18 Other acute postprocedural pain; R07.89 Other chest pain; H91.91 Unspecified hearing loss, right ear; I10 Essential (primary) hypertension; I25.9 Chronic ischemic heart disease, unspecified; J44.9 Chronic obstructive pulmonary disease, unspecified; E07.9 Disorder of thyroid, unspecified; M17.12 Unilateral primary osteoarthritis, left knee; R13.10 Dysphagia, unspecified; K21.9 Gastro-esophageal reflux disease without esophagitis; F41.9 Anxiety disorder, unspecified; G43.909 Migraine, unspecified, not intractable, without status migrainosus; Z79.4 Long term (current) use of insulin; Z87.828 Personal history of other (healed) physical injury and trauma; Z71.3 Dietary counseling and surveillance; Z89.411 Acquired absence of right great toe; Z79.01 Long term (current) use of anticoagulants; Z79.02 Long term (current) use of antithrombotics/antiplatelets; Z79.82 Long term (current) use of aspirin; Z79.899 Other long term (current) drug therapy; Z86.16 Personal history of COVID-19; Z86.718 Personal history of other venous thrombosis and embolism; Z87.891 Personal history of nicotine dependence; Z98.84 Bariatric surgery status; Z99.3 Dependence on wheelchair; Z95.5 Presence of coronary angioplasty implant and graft
CPT/HCPCS: 80048; 85025; 92979; 93458

== ENCOUNTER → 2022-09-23 | Outpatient (CLI) | payer MEDICARE, BC ==
[2022-09-23 18:13] LABS: HCT 37.2 % (37.2-46.3); HGB 11.5 g/dL (12.0-15.0); MCH 28.3 pg (27.0-32.0); MCHC 30.9 g/dL (32.0-37.0); MCV 91.4 fL (80.0-97.0); Mean Platelet Volume 9.8 fL (9.5-12.2); NRBC Per 100 WBC 0 /100 WBCS (0.0-0.0); Platelet Count 286 X 10*3/uL (140-440); RBC 4.07 X 10*6/uL (4.10-5.20); RDW 14.6 % (11.5-14.5); WBC 7.78 X 10*3/uL (4.50-10.00)
[2022-09-23 18:29] LABS: African American GFR (CKD) 103.9 (60.0-200.0); Anion Gap 11.6 mmol/L (10.00-18.00); Blood Urea Nitrogen 25.4 mg/dL (9.0-27.0); Carbon Dioxide 23.4 mmol/L (20.0-27.5); Non-African American GFR(CKD) 89.7 (60.0-200.0); Potassium 4.5 mmol/L (3.5-5.5)
== END | disposition home or self-care (01) ==
LOC: LABPAT 12:43
PROVIDERS: ATTEND Internal Medicine Interventional Cardiology
DX: Z01.812 Encounter for preprocedural laboratory examination (principal); I25.10 Atherosclerotic heart disease of native coronary artery without angina pectoris
CPT/HCPCS: 80051; 82565; 84520; 85027

== ENCOUNTER 2022-10-05 07:31 | Day surgery (SDC) | payer MEDICARE, BC ==
[2022-10-01 13:24] VITALS: BMI 33.1
[~2022-10-05 07:31] MED LIST changes: +SODIUM CHLORIDE 0.9% 1,000 ML in EMPTY BAG 1 BAG IV SCH
[2022-10-05 07:56] LABS: Glucose,Whole Blood 131 mg/dL (70-110)
[2022-10-05] MEDS ORDERED: VERAPAMIL 2.5 MG/ML 2 ML AMP ONE (09:10)
[2022-10-05] MEDS ORDERED: HEPARIN SODIUM 1,000 UN/ML (10ML VL) ONE (09:45)
[2022-10-05] MEDS ORDERED: MIDAZOLAM 2 MG/2 ML VIAL IV ONE (09:50)
[2022-10-05] MEDS ORDERED: LIDOCAINE 1% INJ 10MG/ML (30 ML VIAL-PF) SQ ONE (09:54)
[2022-10-05] MEDS ORDERED: fentaNYL (PF) 50 MCG/ML 2 ML AMP ONE (09:54)
[2022-10-05] MEDS: fentaNYL (PF) 50 MCG/ML 2 ML AMP IV ONE ×2 (09:57→10:39)
[2022-10-05] MEDS: HEPARIN SODIUM 1,000 UN/ML (10ML VL) IV ONE ×2 (10:00→11:01)
[2022-10-05] MEDS ORDERED: HYDROmorphone 0.5 MG/0.5 ML SYRINGE IVP ONE (10:16)
[2022-10-05] MEDS ORDERED: MORPHINE SULFATE 4 MG/ML SYRINGE ONE ×2 (10:45→11:25)
[2022-10-05] MEDS: MORPHINE SULFATE 4 MG/ML SYRINGE IV ONE ×2 (10:48→11:01)
[2022-10-05] MEDS ORDERED: CLOPIDOGREL 75 MG TAB ONE (10:50)
[2022-10-05] MEDS ORDERED: CLOPIDOGREL 75 MG TAB PO ONE (10:52)
[2022-10-05] MEDS ORDERED: IOPAMIDOL-370 100ML BTL INJ ONE ×3 (10:55→11:44)
[2022-10-05] MEDS ORDERED: HYDROmorphone 1 MG/ML 1 ML SYRINGE ONE (11:04)
[2022-10-05] MEDS ORDERED: HYDROmorphone 1 MG/ML 1 ML SYRINGE IVP ONE (11:06)
[2022-10-05] MEDS ORDERED: ONDANSETRON 4 MG/2 ML VIAL ONE (11:08)
[2022-10-05] MEDS ORDERED: ONDANSETRON 4 MG/2 ML VIAL IVP ONE (11:09)
[2022-10-05] MEDS ORDERED: MORPHINE SULFATE 4MG/4ML SYRG IV ONE (11:26)
[2022-10-05] MEDS ORDERED: ACETAMINOPHEN TAB 500 MG TAB PO PRN (11:46)
[2022-10-05] MEDS ORDERED: CYCLOBENZAPRINE 10 MG TAB PO PRN (11:46)
[2022-10-05] MEDS ORDERED: ATROPINE SULFATE 0.1 MG/ML 10ML SYRINGE IV PRN (11:49)
[2022-10-05] MEDS ORDERED: ZOLPIDEM 5 MG TAB PO PRN (11:49)
[2022-10-05] MEDS ORDERED: MAG HYDROX/AL HYDROX/SIMETH 30 ML CUP PO PRN (11:49)
[2022-10-05] MEDS ORDERED: RX INFO: IV CONTRAST WAS GIVEN 1 EACH MISC MISCELLANE PRN (11:49)
--- NOTE | 2022-10-05 11:57 | P.PCN ---
Date of Procedure: 10/05/22 Operative Findings: PERCUTANEOUS CORONARY INTERVENTION Performing physician Nikolas Nina M.D. Procedure Performed: 1. Successful stenting of the distal left main and proximal LAD using 5.0 x 18 mm Xience drug-eluting stent with an excellent angiographic results with adjunctive use of shockwave/lithotripsy balloon 2. Successful stending of the mid left main using 5.0 x 12 Xience drug-eluting stent with an excellent angiographic result. 3. FFR of the left main coronary artery 4. Intravascular ultrasound of the left main coronary artery 5. Selective right common femoral artery angiogram and ultrasound-guided access of the right common femoral Indication: This is a pleasant 67-year-old female patient with CAD and known to have an intermediate lesion involving the distal left main coronary artery as well as severe disease involving the RCA. She was seen by the cardiothoracic team and she didn't to be high risk for bypass surgery. In the light of that she underwent stenting of the right coronary artery and she was brought today for FFR of the left main. Approach: Right common femoral artery Complications: None Level of Sedation: Moderate with a sedation length of 90 minutes Procedure Discussion: After obtaining an informed consent the patient was brought to the cardiac geoscience laboratory technician. The right common femoral artery was cannulated using puncture technique under ultrasound guidance, the micropuncture wire passed easily then I placed a 6-[place] sheath and 11 cm at the right common femoral artery. At that point anticoagulation was initiated using heparin with continuous ACT monitoring. Subsequently I did decided to do an FFR of the left main coronary artery after zeroing the Doppler wire equalizing between the Doppler wire and the guiding catheter which was JL4 guiding catheter with an iFR and that came in to be ischemic 0.82. I decided at that point to move forward was PCI of the left main and proximal LAD. Intravascular ultrasound was performed and showed a diameter of the left main about 5.5-6 mm. I did wire the left circumflex initially using a run-through wire but subsequently the wire came out so I decided to go and advance a wire to the LAD. I did balloon angioplasty using shockwave balloon which was 3.5 x 15 mm balloon. After that I did balloon angioplasty of the distal left anterior descending artery using regular 3.5 mm balloon. After that attempting advancing 5.0 x 18 mm stent was unsuccessful but was successful with adjunctive use of guide liner. The stent was positioned under fluoroscopy guidance and deployed under its nominal pressure. The following angiogram showed that the stent in the midportion was not with a bolus and that was confirmed by intravascular ultrasound. At that point I decided to post-dilate which I did using 4 mm noncompliant balloon. Subsequent angiogram showed possible proximal edge dissection also confirmed by intravascular ultrasound. I decided to cover that with the stent so I deployed a 5.0 x 12 mm another drug- eluting stent where the stent was positioned under fluoroscopy guidance and deployed under its nominal pressure. The final angiogram showed good angiographic results and the procedure was completed without any complication Postprocedure Management: 1. Dual antiplatelet therapy using aspirin and Plavix for at least 6 months and preferably twelve-month 2. Aggressive cholesterol control 3. Factors modification
[2022-10-05 16:58] LABS: Glucose,Whole Blood 111 mg/dL (70-110)
[2022-10-05] MEDS: INSULIN ASPART (NovoLOG) 100 UNIT/ML VIAL SQ SCH ×2 (17:01→21:00)
[2022-10-05 20:13] LABS: Glucose,Whole Blood 107 mg/dL (70-110)
[2022-10-05] MEDS ORDERED: ATORVASTATIN 40 MG TAB PO SCH (21:00)
[2022-10-05] MEDS: OXYBUTYNIN XL 5 MG TAB.ER.24 PO SCH (21:00)
[2022-10-05] MEDS ORDERED: RIVAROXABAN 20 MG TAB PO SCH (21:00)
[2022-10-05 21:42] VITALS: RESP 18
[2022-10-06 01:47] LABS: African American GFR (CKD) >90 (>60 ml/min/1.73 sqM); Anion Gap 4 mmol/L; Blood Urea Nitrogen 18 mg/dL (7-17); Calcium 8.3 mg/dL (8.4-10.2); Carbon Dioxide 25 mmol/L (22-30); Chloride 107 mmol/L (98-107); Glucose 153 mg/dL (74-99); Non-African American GFR(CKD) >90 (>60 ml/min/1.73 sqM); Potassium 4.1 mmol/L (3.5-5.1); Sodium 136 mmol/L (137-145)
[2022-10-06 04:45] VITALS: TEMP 98.2
[2022-10-06 06:22] LABS: Glucose,Whole Blood 155 mg/dL (70-110)
[2022-10-06] MEDS: INSULIN ASPART (NovoLOG) 100 UNIT/ML VIAL SQ SCH ×2 (06:28→12:39)
[2022-10-06] MEDS ORDERED: LEVOTHYROXINE 125 MCG TAB PO SCH (06:30)
[2022-10-06] MEDS ORDERED: PANTOPRAZOLE 40 MG TABLET PO SCH (07:30)
[2022-10-06] MEDS: OXYBUTYNIN XL 5 MG TAB.ER.24 PO SCH (08:37)
[2022-10-06 08:46] VITALS: BP 106/75; PULSE 108
[2022-10-06] MEDS ORDERED: ASPIRIN 81 MG PO SCH (09:00)
[2022-10-06] MEDS ORDERED: MULTIVITAMINS, THERA 1 EACH TAB PO SCH (09:00)
[2022-10-06] MEDS ORDERED: CLOPIDOGREL 75 MG TAB PO SCH (09:00)
[2022-10-06] MEDS ORDERED: lisinopriL 10 MG TAB PO SCH (09:00)
[2022-10-06 09:01] LABS: HCT 37.3 % (34.0-46.0); HGB 11.9 gm/dL (11.4-16.0); Hypochromasia Slight; MCH 29.1 pg (25.0-35.0); MCV 90.8 fL (80.0-100.0); Mean Platelet Volume 7.8; Platelet Count 320 k/uL (150-450); RDW 13.8 % (11.5-15.5); WBC 10.3 k/uL (3.8-10.6)
[2022-10-06 09:11] LABS: African American GFR (CKD) >90 (>60 ml/min/1.73 sqM); Anion Gap 7 mmol/L; Blood Urea Nitrogen 16 mg/dL (7-17); Calcium 8.3 mg/dL (8.4-10.2); Carbon Dioxide 25 mmol/L (22-30); Chloride 106 mmol/L (98-107); Glucose 175 mg/dL (74-99); Non-African American GFR(CKD) >90 (>60 ml/min/1.73 sqM); Potassium 4.3 mmol/L (3.5-5.1); Sodium 138 mmol/L (137-145)
--- NOTE | 2022-10-06 10:53 | P.DS ---
Providers Attending physician: Tj Angela Consults: 10/05/22 11:50 Consult Physician Routine Consulting Provider: [facility] Consult Reason/Comments: Post Interventional patient Do you want consulting provider notified?: Already Contacted Primary care physician: [facility] Hospital Course: The patient is a pleasant 67-year-old female patient was underwent yesterday successful stenting of unprotected left main with a good angiographic results and with no complication from right groin approach. She was seen this morning. She is asymptomatic from a cardiovascular standpoint of view and she is hemodynamically stable. The right groin is soft and nontender and with no bruises. The patient is going to be discharged home on dual antiplatelet therapy and he'll follow-up with the patient next week in the office Plan - Discharge Summary Discharge Rx Participant: No New Discharge Prescriptions: Continue Levothyroxine Sodium 125 mcg PO QAM Cyclobenzaprine [Flexeril] 10 mg PO DAILY PRN PRN Reason: Muscle Spasm Atorvastatin [Lipitor] 40 mg PO HS Aspirin EC [Ecotrin Low Dose] 81 mg PO DAILY Rivaroxaban [Xarelto] 20 mg PO HS Clopidogrel Bisulfate [Plavix] 75 mg PO QAM Insulin Aspart Prot/Insuln Asp [NovoLOG MIX 70-30 Flexpen] See Protocol SQ AC-TID PRN PRN Reason: Blood Sugar - High lisinopriL [Prinivil] 10 mg PO QAM Insulin Glargine,Hum.rec.anlog [Lantus Solostar Pen] 15 - 20 units SQ QAM PRN PRN Reason: Blood Sugar - High Multivitamins, Thera [Multivitamin (formulary)] 1 tab PO DAILY Oxybutynin Xl [Ditropan XL] 5 mg PO BID Acetaminophen Tab [Tylenol] 500 mg PO Q4H PRN PRN Reason: Pain Omeprazole [PriLOSEC] 20 mg PO AC-BRKFST Discharge Medication List Levothyroxine Sodium 125 mcg PO QAM 04/12/19 [History] Cyclobenzaprine [Flexeril] 10 mg PO DAILY PRN 08/25/19 [History] Aspirin EC [Ecotrin Low Dose] 81 mg PO DAILY 12/04/19 [History] Atorvastatin [Lipitor] 40 mg PO HS 12/04/19 [History] Clopidogrel Bisulfate [Plavix] 75 mg PO QAM 11/15/20 [History] Rivaroxaban [Xarelto] 20 mg PO HS 11/15/20 [History] Insulin Aspart Prot/Insuln Asp [NovoLOG MIX 70-30 Flexpen] See Protocol SQ AC- TID PRN 02/01/21 [History] lisinopriL [Prinivil] 10 mg PO QAM 03/07/21 [History] Acetaminophen Tab [Tylenol] 500 mg PO Q4H PRN 06/18/22 [History] Insulin Glargine,Hum.rec.anlog [Lantus Solostar Pen] 15 - 20 units SQ QAM PRN 06/18/22 [History] Multivitamins, Thera [Multivitamin (formulary)] 1 tab PO DAILY 06/18/22 [History] Omeprazole [PriLOSEC] 20 mg PO AC-BRKFST 06/18/22 [History] Oxybutynin Xl [Ditropan XL] 5 mg PO BID 06/18/22 [History] Follow up Appointment(s)/Referral(s): Nikolas Nina MD [STAFF PHYSICIAN] - 10/15/22 4:45 pm (Recheck appt. sherwin @ [facility]. Office.)
[2022-10-06 11:55] LABS: Glucose,Whole Blood 159 mg/dL (70-110)
== END 2022-10-06 13:51 | disposition home health service (06) ==
LOC: CATHCVL 07:31 → 3SCARD 17:12 → CATHCVL 10-06 13:51
PROVIDERS: ATTEND Hospitalist
DX: I25.10 Atherosclerotic heart disease of native coronary artery without angina pectoris (principal); Z95.5 Presence of coronary angioplasty implant and graft; I10 Essential (primary) hypertension; E78.5 Hyperlipidemia, unspecified; I73.9 Peripheral vascular disease, unspecified; E11.9 Type 2 diabetes mellitus without complications; Z79.84 Long term (current) use of oral hypoglycemic drugs; Z79.1 Long term (current) use of non-steroidal anti-inflammatories (NSAID); Z79.01 Long term (current) use of anticoagulants; Z79.02 Long term (current) use of antithrombotics/antiplatelets; Z79.82 Long term (current) use of aspirin; Z79.890 Hormone replacement therapy; Z79.899 Other long term (current) drug therapy; Z98.890 Other specified postprocedural states; F17.210 Nicotine dependence, cigarettes, uncomplicated; Z86.718 Personal history of other venous thrombosis and embolism
CPT/HCPCS: 92928 ×2; 93571; 94760; 92978; 93454; 93799; 0715T; 92920; 80048; 85027; C9600; C1769 ×6; C1887 ×2; C1725 ×3; C1894; C1753; C1761; C1874 ×2; J2250; J2270 ×2; J2405; J2001; J3010; J1644; J1170 ×2; Q9967

== ENCOUNTER 2022-11-04 06:26 | Day surgery (SDC) | payer MEDICARE, BC ==
[2022-10-29 16:17] VITALS: BMI 33.1
[~2022-11-04 06:26] MED LIST changes: -ALPRAZolam 0.25 MG TAB PO PRN; -ALPRAZolam 0.5 MG TAB PO PRN; -ASPIRIN 325 MG TAB PO STA; -NITROGLYCERIN SL TABS 0.4 MG TAB SUBLINGUAL PRN; +Pre Op ABX Message 1 EACH MISC MISCELLANE ONE; -SODIUM CHLORIDE 0.9% 1,000 ML in EMPTY BAG 1 BAG IV SCH
[2022-11-04] MEDS ORDERED: LACTATED RINGERS 1,000 ML IV SCH (06:37)
[2022-11-04] MEDS ORDERED: LIDOCAINE 1% (10MG/ML) FOR IV START INTRADERMA PRN (06:37)
[2022-11-04 07:33] VITALS: TEMP 97.3
[2022-11-04] MEDS ORDERED: ONDANSETRON 4 MG/2 ML VIAL ONE (07:34)
[2022-11-04 07:53] LABS: Glucose,Whole Blood 150 mg/dL (70-110)
[2022-11-04] MEDS ORDERED: fentaNYL (PF) 50 MCG/ML 2 ML AMP ONE (08:05)
[2022-11-04] MEDS ORDERED: PROPOFOL 10 MG/ML 20 ML VIAL IV ONE (08:05)
[2022-11-04] MEDS ORDERED: KETAMINE 10 MG/ML 20 ML VIAL ONE (08:05)
[2022-11-04] MEDS ORDERED: MIDAZOLAM 2 MG/2 ML VIAL ONE (08:05)
[2022-11-04] MEDS ORDERED: LIDOCAINE 1% INJ 10MG/ML (5 ML VIAL-PF) SQ ONE (08:22)
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
--- NOTE | 2022-11-04 09:08 | P.OP ---
Date of Procedure: 11/04/22 Preoperative Diagnosis: Draining wound tip of right third finger and necrotic ulcer with bone involvement right third toe. Postoperative Diagnosis: Same Procedure(s) Performed: Debridement right third finger and amputation right third toe through proximal phalanx. Anesthesia: MAC Surgeon: Erich Ham Estimated Blood Loss (ml): 3 Pathology: other (Granulation tissue right third finger. Toe for disposal only.) Condition: stable Disposition: PACU Indications for Procedure: The patient has a chronic draining pinhole at the distal right third finger and a necrotic ulcer involving the distal interphalangeal joint of the right third toe. Operative Findings: In exploring the tip of the right third finger we find a ball of granulation tissue deep just distal to the tip of the phalanx. The third toe was somewhat necrotic distally. Proximal tissues looked fairly healthy with adequate blood supply and no proximal infection. Description of Procedure: With the patient spine position under benefit of IV sedation we prepped and draped sterile fashion. We made an elliptical incision around the pinhole and took this down into subcutaneous tissue removing an ellipse of skin and dermis. We found a ball of granulation tissue which was removed with what was potentially the very tip of the phalanx. We closed the wound with 4-0 nylon. We then prepped and draped the foot in the standard fashion. We made a circular incision around the base of the toe just proximal. The toe was removed and then the bone was taken down as far proximally as possible. Fascial and tendinous structures were removed. Blood supply appeared adequate. We irrigated with saline and closed the wound loosely with 4-0 nylon. Sterile dressings were applied. The patient tolerated the procedure well and was taken recovery area in stable condition.
[2022-11-04 09:11] VITALS: BP 130/67; PULSE 90; RESP 16
== END 2022-11-04 09:44 | disposition home or self-care (01) ==
LOC: OR 06:26
PROVIDERS: ATTEND Thoracic Surgery (Cardiothoracic Vascular Surgery)
DX: E11.621 Type 2 diabetes mellitus with foot ulcer (principal); L98.496 Non-pressure chronic ulcer of skin of other sites with bone involvement without evidence of necrosis; E11.52 Type 2 diabetes mellitus with diabetic peripheral angiopathy with gangrene; E78.5 Hyperlipidemia, unspecified; G47.30 Sleep apnea, unspecified; I10 Essential (primary) hypertension; I25.10 Atherosclerotic heart disease of native coronary artery without angina pectoris; J44.9 Chronic obstructive pulmonary disease, unspecified; L97.514 Non-pressure chronic ulcer of other part of right foot with necrosis of bone; M19.90 Unspecified osteoarthritis, unspecified site; Z79.82 Long term (current) use of aspirin; Z86.16 Personal history of COVID-19; Z86.718 Personal history of other venous thrombosis and embolism; Z95.5 Presence of coronary angioplasty implant and graft; Z98.84 Bariatric surgery status; K21.9 Gastro-esophageal reflux disease without esophagitis
CPT/HCPCS: 28825; 11043; 87070; 87205; 87075; J2250; J2405; J2001; J3010; J2704; 87077; 87186

== ENCOUNTER 2023-01-15 02:43 | Inpatient (IN) | payer MEDICARE, BC ==
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
[2023-01-15] MEDS ORDERED: SODIUM CHLORIDE 0.9% 1,000 ML IV STA (03:41)
--- NOTE | 2023-01-15 03:42 | XR ---
EXAMINATION TYPE: XR chest 1V portable DATE OF EXAM: 01/15/2023 COMPARISON: 03/17/2021 HISTORY: Fall. Chest pain TECHNIQUE: Single view FINDINGS: There is coarsening of the interstitial markings. Heart is borderline enlarged. Thoracic aorta is atheromatous. Lungs are clear of consolidation. no pleural effusion. IMPRESSION: There are coarse lung markings which are increased compared to old exam and could be acut e interstitial pneumonia or acute mild heart failure.
[2023-01-15 03:43] LABS: Potassium 3.9 mmol/L (3.5-5.1)
[2023-01-15 03:46] LABS: HCT 40.8 % (34.0-46.0); HGB 12.9 gm/dL (11.4-16.0); MCHC 31.7 g/dL (31.0-37.0); MCV 85.1 fL (80.0-100.0); Mean Platelet Volume 7.6; Platelet Count 271 k/uL (150-450); RBC 4.79 m/uL (3.80-5.40); WBC 19.4 k/uL (3.8-10.6)
--- NOTE | 2023-01-15 03:48 | CT ---
EXAMINATION TYPE: CT brain cspine wo con DATE OF EXAM: 01/15/2023 COMPARISON: 08/26/2019 HISTORY: POSSIBLE FALL FROM BED, AMS CT DLP: 2643.4 mGycm Automated exposure control for dose reduction was used. Images obtained of the brain and cervical spine with no contrast. There is cerebral cortical atrophy. There is no mass effect nor midline shift. The calvarium is intac t. Skull base is intact. There is normal aeration of the mastoid sinuses. There is high attenuation i n the right side of the sella turcica. Unchanged The cervical vertebra have normal alignment. Posterior elements are intact. There is narrowing at C5- 6 and C6-7 disc spaces with spurring. At T1-T2 level there is degenerative subluxation and osteoscler osis. IMPRESSION: Cerebral atrophy. No acute intracranial abnormality. High attenuation in the right side of the sella turcica could be pituitary calcification and stable compared to CT scan 3 years ago. This could be be nign pituitary tumor. There is T1-T2 level degenerative first-degree spondylolisthesis with significant osteosclerosis. Thi s could be related to chronic discitis. This appears new compared to old CT scan of 08/26/2019. There is mild degenerative disc change at C5-6 and C6-7.
--- NOTE | 2023-01-15 03:49 | XR ---
EXAMINATION TYPE: XR Hip LT and AP Pelvis DATE OF EXAM: 01/15/2023 COMPARISON: NONE HISTORY: Pain TECHNIQUE: 3 views FINDINGS: The pelvic ring is intact. The proximal femur and hip joint are intact. There is vascular c alcification. No hip dysplasia. IMPRESSION: No acute abnormality of the pelvis and left hip.
[2023-01-15] MEDS ORDERED: SODIUM CHLORIDE 0.9% 1,000 ML IV ONE (03:59)
[2023-01-15] MEDS ORDERED: fentaNYL (PF) 50 MCG/ML 2 ML AMP IVP STA (04:11)
[2023-01-15 04:43] LABS: Band Neutrophils % 8 %; Lymphocytes # (M) 1.16 k/uL (1.0-4.8); Monocytes # (M) 0.58 k/uL (0-1.0); Neutrophils % (M) 83 %; Nucleated Red Blood Cells 0 /100 WBC (0-0); Total Cells Counted 100
[2023-01-15] MEDS ORDERED: NOREPINEPHRINE 32 MG in SODIUM CHLORIDE 0.9% 218 ML IV ONE (04:45)
[2023-01-15] MEDS: PIPERACILLIN-TAZOBACTAM 3.375 GM in SODIUM CHLORIDE 0.9% 100 ML IVPB SCH ×3 (04:52→19:58)
[2023-01-15 05:08] LABS: Appearance,Urine Turbid (Clear); Bacteria,Urine Many /hpf; Bilirubin,Urine Negative (Negative); Blood,Urine Large (Negative); Color,Urine Yellow; Glucose,Urine (UA) Negative (Negative); Ketones,Urine Negative (Negative); Leukocyte Esterase,Urine Large (Negative); Mucus,Urine Few /hpf; Nitrite,Urine Negative (Negative); PH, Urine 5.5 (5.0-8.0); Protein,Urine 2+ (Negative); RBC,Urine 98 /hpf (0-5); Specific Gravity,Urine 1.018 (1.001-1.035); Squamous Epithelial Cell,Urine 3 /hpf (0-4); Urobilinogen,Urine <2.0 mg/dL (<2.0); WBC,Urine >182 /hpf (0-5)
[2023-01-15] MEDS ORDERED: NALOXONE 0.4 MG/ML 1 ML VIAL IV PRN (05:34)
[2023-01-15] MEDS: SODIUM CHLORIDE 0.9% 1,000 ML IV SCH ×3 (05:56→17:06)
[2023-01-15 05:59] LABS: INR 1.1 (<1.2); Partial Thromboplastin Time 27.1 sec (22.0-30.0); Prothrombin Time 11.2 sec (9.0-12.0)
[2023-01-15] MEDS ORDERED: VANCOMYCIN IV PER PHARMACY 1 EACH MISC MISCELLANE PRN (06:15)
[2023-01-15] MEDS ORDERED: VANCOMYCIN 1,750 MG in SODIUM CHLORIDE 0.9% 500 ML 500 ML IVPB ONE (07:00)
[2023-01-15] MEDS: ACETAMINOPHEN TAB 325 MG TAB PO PRN (08:03)
[2023-01-15] MEDS ORDERED: ONDANSETRON 4 MG/2 ML VIAL IVP PRN (08:35)
[2023-01-15] MEDS ORDERED: DEXTROSE 50% SYRINGE 50 ML IVP PRN ×2 (08:35)
[2023-01-15 08:45] LABS: Glucose,Whole Blood 224 mg/dL (70-110)
[2023-01-15] MEDS ORDERED: RIVAROXABAN 20 MG TAB PO SCH (09:00)
[2023-01-15] MEDS: ASPIRIN 81 MG PO SCH (10:39)
[2023-01-15] MEDS: LEVOTHYROXINE 125 MCG TAB PO SCH (10:40)
[2023-01-15 11:35] LABS: Glucose,Whole Blood 309 mg/dL (70-110)
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
[2023-01-15] MEDS: INSULIN ASPART (NovoLOG) 100 UNIT/ML VIAL SQ SCH ×3 (12:01→20:25)
[2023-01-15] MEDS: KETOROLAC 15 MG/ML 1 ML VIAL IVP PRN ×2 (12:57→18:19)
[2023-01-15] MEDS ORDERED: INSULIN DETEMIR (LEVEMIR) 100 UNIT/ML SYR SQ SCH (14:07)
[2023-01-15] MEDS: HYDROcodone/APAP 5-325MG 1 EACH TAB PO PRN ×2 (14:19→19:56)
[2023-01-15 16:43] LABS: Glucose,Whole Blood 197 mg/dL (70-110)
[2023-01-15] MEDS ORDERED: HEPARIN SODIUM 1,000 UN/ML (10ML VL) IV PRN (19:10)
[2023-01-15] MEDS: CLOPIDOGREL 75 MG TAB PO SCH (19:59)
[2023-01-15] MEDS: ATORVASTATIN 40 MG TAB PO SCH (19:59)
[2023-01-15] MEDS: HEPARIN SOD,PORK IN 0.45% NACL 25,000 UNIT in 0.45% NACL 1 250ML.BAG IV SCH (20:15)
[2023-01-15] MEDS: INSULIN DETEMIR (LEVEMIR) 100 UNIT/ML SYR SQ SCH (20:17)
[2023-01-15 20:19] LABS: Glucose,Whole Blood 134 mg/dL (70-110)
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
[2023-01-16] MEDS: ACETAMINOPHEN TAB 325 MG TAB PO PRN ×2 (01:32→21:38)
[2023-01-16 03:05] LABS: Calcium 7.9 mg/dL (8.4-10.2); Magnesium 1.5 mg/dL (1.6-2.3)
[2023-01-16 03:21] LABS: C Reactive Protein 26.9 mg/dL (<1.0)
[2023-01-16 03:31] LABS: Basophils % (A) 0 %; Eosinophils % (A) 0 %; HCT 34.6 % (34.0-46.0); HGB 10.6 gm/dL (11.4-16.0); Hypochromasia Slight; Lymphocytes # (A) 0.3 k/uL (1.0-4.8); Lymphocytes % (A) 3 %; MCH 26.6 pg (25.0-35.0); MCHC 30.5 g/dL (31.0-37.0); MCV 87.3 fL (80.0-100.0); Mean Platelet Volume 7.9; Monocytes # (A) 0.2 k/uL (0-1.0); Monocytes % (A) 2 %; Neutrophils # (A) 9.1 k/uL (1.3-7.7); Neutrophils % (A) 93 %; Platelet Count 175 k/uL (150-450); RBC 3.97 m/uL (3.80-5.40); RDW 15.1 % (11.5-15.5); WBC 9.8 k/uL (3.8-10.6)
[2023-01-16] MEDS: KETOROLAC 15 MG/ML 1 ML VIAL IVP PRN ×2 (03:49→23:28)
[2023-01-16 04:38] LABS: INR 1.2 (<1.2); Partial Thromboplastin Time 39.2 sec (22.0-30.0); Prothrombin Time 12.2 sec (9.0-12.0)
[2023-01-16] MEDS: PIPERACILLIN-TAZOBACTAM 3.375 GM in SODIUM CHLORIDE 0.9% 100 ML IVPB SCH (04:55)
[2023-01-16] MEDS: SODIUM CHLORIDE 0.9% 1,000 ML IV SCH ×2 (05:09→17:29)
[2023-01-16] MEDS ORDERED: Magnesium Replacement Protocol 1 EACH MISC MISCELLANE PRN (05:10)
[2023-01-16] MEDS: MAGNESIUM SULFATE-D5W PMX 1 GM in DEXTROSE/WATER 1 100ML.BAG IVPB SCH ×2 (05:55→07:55)
[2023-01-16] MEDS: NOREPINEPHRINE 32 MG in SODIUM CHLORIDE 0.9% 218 ML IV SCH (06:23)
[2023-01-16 06:45] LABS: Glucose,Whole Blood 118 mg/dL (70-110)
[2023-01-16] MEDS: PANTOPRAZOLE 40 MG TABLET PO SCH (06:56)
[2023-01-16] MEDS: LEVOTHYROXINE 125 MCG TAB PO SCH (06:56)
[2023-01-16] MEDS: INSULIN ASPART (NovoLOG) 100 UNIT/ML VIAL SQ SCH ×4 (06:57→20:16)
[2023-01-16] MEDS: INSULIN DETEMIR (LEVEMIR) 100 UNIT/ML SYR SQ SCH ×4 (07:00→20:17)
[2023-01-16] MEDS: ASPIRIN 81 MG PO SCH (08:13)
--- NOTE | 2023-01-16 08:50 | US ---
EXAMINATION TYPE: US kidneys/renal and bladder DATE OF EXAM: 01/16/2023 COMPARISON: None CLINICAL HISTORY: 67-year-old female with UTI and bacteremia. ICU patient. Bladder Abraham. TECHNIQUE: Multiple sonographic images of the kidneys and bladder are obtained. FINDINGS: EXAM MEASUREMENTS: Right Kidney: 12.6 x 6.3 x 5.5 cm Left Kidney: 11.4 x 4.8 x 6.1 cm Right Kidney: No prominent hydronephrosis or masses seen, limited due to bowel gas Left Kidney: Suboptimal visualization due to patient position and bowel gas. No obvious hydronephrosi s. Bladder: Suboptimally assessed; collapsed due to Abraham catheter. Bilateral Jets not seen due to Abraham IMPRESSION: 1. Limited exam due to prominent bowel gas and patient positioning. No obvious hydronephrosis on eith er side. 2. Suboptimal assessment of the bladder due to indwelling Abraham catheter.
[2023-01-16] MEDS ORDERED: VANCOMYCIN 1,500 MG in SODIUM CHLORIDE 0.9% 500 ML 500 ML IVPB SCH (09:00)
[2023-01-16 11:18] LABS: Glucose,Whole Blood 156 mg/dL (70-110)
--- NOTE | 2023-01-16 11:48 | P.PN ---
Subjective Progress Note Date: 01/16/23 Principal diagnosis: Acute sepsis and septic shock, and E. coli bacteremia This is a 67-year-old female with history of MS, COPD, coronary artery disease and previous PCI 2, type 2 diabetes, hypertension, degenerative joint disease, diabetic foot ulcers and right toe amputation, patient was brought into the hospital with chief complaint of falling off the bed, and the patient was confused. Upon evaluation in the ER, patient was noted to be hypotensive, and she had evidence of infected urine with bacteriuria. Patient received fluids for her low blood pressure, did not improve much, then the ER physician placed a femoral triple-lumen catheter, and the patient was given 2 L of fluids followed by norepinephrine. Considering the patient seems to be septic patient was ad mitted to the ICU and this consult was initiated. I saw the patient this morning, patient is on 4 L nasal cannula, she is on antibiotics in the form of vancomycin and Zosyn. She is on 0.04 mcg/kg/m of norepinephrine and IV fluid in the form of 0.9 normal saline at 1 50 mL per hour. According to the patient's is feeling much better now, she is more alert and oriented and she denies any specific complaints except for chronic pain in the left knee joint. Lactic acid on admission was 2.0. Troponin of 0.275. CPK of 250. Renal profile showed a creatinine of 1.34. WBC count of 19.4. Computed tomography scan of the head and cervical spine is unremarkable. Chest x-ray showed slight prominence of the interstitial markings otherwise negative. X-rays of the hip and pelvis are unremarkable. Urinalysis showed evidence of bacteriuria, large leukocyte esterase, and there is evidence of pyuria. Patient had no symptoms of UTI whatsoever. Reevaluated today on 01/16 patient remains in the ICU, and she is on 4 L nasal cannula O2 saturations on the percent. Patient is feeling much better, she went off norepinephrine this morning. And she seems to be tolerating that quite well. Blood pressure remains stable, her blood cultures came back positive for E. coli, urine cultures are pending and I believe the most likely source of her bacteremia is E. coli urinary tract infection. Patient has been on Zosyn all along, and today I recommended switching the patient to Rocephin. Overall the patient is doing better, feeling much better compared to yesterday. WBC count is 9.8 hemoglobin is 10.6. Electrolytes are normal basic metabolic profile is normal creatinine is 1.06. C-reactive protein is 26.9 Objective - Vital Signs Vital signs: Vital Signs Temp 98.7 F 01/16/23 05:00 Pulse 92 01/16/23 11:00 Resp 18 01/16/23 11:00 BP 121/62 01/16/23 11:00 Pulse Ox 100 01/16/23 11:00 FiO2 Intake & Output 01/15/23 01/16/23 01/16/23 18:59 06:59 18:59 Intake Total 4849.530 1279.163 731.030 Output Total 800 575 205 Balance 227.962 0705.163 526.030 Weight 90.718 kg 114 kg Intake: Intake, IV Titration 6257.550 9731.163 731.030 Amount Heparin Sod,Pork in 0.45% 91.807 NaCl 25,000 unit In 0.45 % NaCl 1 250ml.bag @ 11 UNITS/KG/HR 9.979 mls/hr IV .Q24H [facility] Rx#: [id number] Magnesium Sulfate-D5w Pmx 100 1 gm In Dextrose/Water 1 100ml.bag @ 100 mls/hr IVPB Q1H [facility] Rx#: [id number] Norepinephrine 32 mg In 14.389 8.356 Sodium Chloride 0.9% 218 ml @ 0.03 MCG/KG/MIN 1. 276 mls/hr IV .Q24H [facility] Rx#:[id number] Norepinephrine 32 mg In 6.030 Sodium Chloride 0.9% 218 ml @ 0.03 MCG/KG/MIN 1. 603 mls/hr IV .Q24H [facility] Rx#:[id number] Piperacillin-Tazobactam 3 100 200 50 .375 gm In Sodium Chloride 0.9% 100 ml @ 25 mls/hr IVPB Q8H [facility] Rx#: [id number] Sodium Chloride 0.9% 1, 1125 1500 525 000 ml @ 75 mls/hr IV . [id number] [facility] Rx#:[id number] cefTRIAXone 2 gm In 50 Sodium Chloride 0.9% 50 ml @ 100 mls/hr IVPB Q24HR [facility] Rx#:[id number] Oral 360 530 Output: Urine 800 575 205 Other: Voiding Method Indwelling Catheter Indwelling Catheter Indwelling Catheter - Exam Physical Exam: Revealed a 67-year-old female in no distress. On 4 L nasal cannula. Head: Atraumatic, normocephalic. HEENT:[Neck is supple.] [No neck masses.] [No thyromegaly.] [No JVD.] Chest: [Clear throughout, no crackles, no rhonchi, no wheezes.] Cardiac Exam: [Normal S1 and S2, no S3 gallop, no murmur.] Abdomen: [Soft, nontender, no megaly, no rebound, no guarding, normal bowel sounds.] Extremities: [No clubbing, no edema, no cyanosis.] Neurological Exam: [No focal neurologic deficit.] Alert and oriented 3 Psychiatric: Normal mood affect and normal mental status examination. Skin: No rashes. - Labs CBC & Chem 7: 01/16/23 02:13 01/16/23 02:13 Labs: Abnormal Lab Results - Last 24 Hours (Table) 01/15/23 01/15/23 01/15/23 Range/Units 09:23 16:00 16:42 Hgb (11.4-16.0) gm/dL MCHC (31.0-37.0) g/dL Neutrophils # (1.3-7.7) k/uL Lymphocytes # (1.0-4.8) k/uL PT (9.0-12.0) sec INR (<1.2) APTT (22.0-30.0) sec Chloride (98-107) mmol/L Carbon Dioxide (22-30) mmol/L BUN (7-17) mg/dL Creatinine (0.52-1.04) mg/dL Glucose (74-99) mg/dL POC Glucose (mg/dL) 197 H (70-110) mg/dL Hemoglobin A1c 7.9 H (0.0-6.0) % Calcium (8.4-10.2) mg/dL Magnesium (1.6-2.3) mg/dL Troponin I 0.494 H* (0.000-0.034) ng/mL C-Reactive Protein (<1.0) mg/dL 01/15/23 01/15/23 01/16/23 Range/Units 20:17 21:44 02:13 Hgb (11.4-16.0) gm/dL MCHC (31.0-37.0) g/dL Neutrophils # (1.3-7.7) k/uL Lymphocytes # (1.0-4.8) k/uL PT (9.0-12.0) sec INR (<1.2) APTT (22.0-30.0) sec Chloride 110 H (98-107) mmol/L Carbon Dioxide 20 L (22-30) mmol/L BUN 34 H (7-17) mg/dL Creatinine 1.06 H (0.52-1.04) mg/dL Glucose 121 H (74-99) mg/dL POC Glucose (mg/dL) 134 H (70-110) mg/dL Hemoglobin A1c (0.0-6.0) % Calcium 7.9 L (8.4-10.2) mg/dL Magnesium 1.5 L (1.6-2.3) mg/dL Troponin I 0.422 H* (0.000-0.034) ng/mL C-Reactive Protein 26.9 H (<1.0) mg/dL 01/16/23 01/16/23 01/16/23 Range/Units 02:13 02:13 06:42 Hgb 10.6 L (11.4-16.0) gm/dL MCHC 30.5 L (31.0-37.0) g/dL Neutrophils # 9.1 H (1.3-7.7) k/uL Lymphocytes # 0.3 L (1.0-4.8) k/uL PT 12.2 H (9.0-12.0) sec INR 1.2 H (<1.2) APTT 39.2 H (22.0-30.0) sec Chloride (98-107) mmol/L Carbon Dioxide (22-30) mmol/L BUN (7-17) mg/dL Creatinine (0.52-1.04) mg/dL Glucose (74-99) mg/dL POC Glucose (mg/dL) 118 H (70-110) mg/dL Hemoglobin A1c (0.0-6.0) % Calcium (8.4-10.2) mg/dL Magnesium (1.6-2.3) mg/dL Troponin I (0.000-0.034) ng/mL C-Reactive Protein (<1.0) mg/dL 01/16/23 Range/Units 11:17 Hgb (11.4-16.0) gm/dL MCHC (31.0-37.0) g/dL Neutrophils # (1.3-7.7) k/uL Lymphocytes # (1.0-4.8) k/uL PT (9.0-12.0) sec INR (<1.2) APTT (22.0-30.0) sec Chloride (98-107) mmol/L Carbon Dioxide (22-30) mmol/L BUN (7-17) mg/dL Creatinine (0.52-1.04) mg/dL Glucose (74-99) mg/dL POC Glucose (mg/dL) 156 H (70-110) mg/dL Hemoglobin A1c (0.0-6.0) % Calcium (8.4-10.2) mg/dL Magnesium (1.6-2.3) mg/dL Troponin I (0.000-0.034) ng/mL C-Reactive Protein (<1.0) mg/dL Microbiology - Last 24 Hours (Table) 01/15/23 04:50 Blood Culture Gram Stain - Preliminary Blood Blood Culture - Preliminary Escherichia coli 01/15/23 04:50 Blood Culture Gram Stain - Preliminary Blood 01/15/23 04:50 Blood Culture - Final Blood 01/15/23 04:50 Blood Culture - Final Blood 01/15/23 04:50 Urine Culture - Preliminary Urine,Voided Assessment and Plan Assessment: Impression: Hypotension secondary to sepsis and septic shock, secondary to E. coli bact eremia Acute urinary tract infection/urosepsis, suspect E. coli urinary tract infection with bacteremia History of MS. History of coronary artery disease and previous PCI 2 Peripheral vessel occlusive disease and previous toe amputation History of right foot osteomyelitis History of type 2 diabetes History of deep vein thromboses Benign essential hypertension History of obstructive sleep apnea syndrome, on BiPAP History of hypothyroidism Recommendation: Continue antibiotics however will change Zosyn to Rocephin, awaiting final report on the cultures Continue IV fluids Discontinue norepinephrine Awaiting urine and blood cultures and will adjust antibiotics accordingly Transfer patient to a regular medical floor later today if she maintains adequate blood pressure off norepinephrine. GI and DVT prophylaxis Continue Xarelto We will continue to follow. Time with Patient: Less than 30
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
[2023-01-16 16:39] LABS: Glucose,Whole Blood 124 mg/dL (70-110)
--- NOTE | 2023-01-16 17:03 | P.PN ---
Subjective Progress Note Date: 01/16/23 67-year-old female has multiple comorbidities including multiple sclerosis. Patient is a poor historian. Patient according EMS fell out of bed. Patient reports that she rolled out of bed. In the skull. States that he suspects she is on the ground for almost one hour. She was trapped in between the bed and the wall. Patient denies any pain complaints. She does report feeling "yucky." When asked to elaborate further she is unable to do so. States that she's been feeling this way for the last 12 hours. Computed tomography scan of the head and cervical spine is unremarkable. Chest x-ray showed slight prominence of the interstitial markings otherwise negative. X-rays of the hip and pelvis are unremarkable. Urinalysis showed evidence of bacteriuria, large leukocyte esterase, and there is evidence of pyuria. Patient had no symptoms of UTI whatsoever. Lactic acid on admission was 2.0. Troponin of 0.275. CPK of 250. Renal profile showed a creatinine of 1.34. WBC count of 19.4. Patient has been admitted to ICU and currently on IV antibiotics in form of vancomycin and Zosyn along with pressor support with norepinephrine Objective - Vital Signs Vital signs: Vital Signs Temp 98.7 F 01/16/23 05:00 Pulse 87 01/16/23 06:00 Resp 28 H 01/16/23 06:00 BP 112/65 01/16/23 06:00 Pulse Ox 96 01/16/23 06:00 FiO2 Intake & Output 01/15/23 01/16/23 01/16/23 18:59 06:59 18:59 Intake Total 4219.738 9425.163 378.857 Output Total 800 575 65 Balance 724.165 9088.163 313.857 Weight 90.718 kg 114 kg Intake: Intake, IV Titration 4153.480 8157.163 378.857 Amount Heparin Sod,Pork in 0.45% 91.807 NaCl 25,000 unit In 0.45 % NaCl 1 250ml.bag @ 11 UNITS/KG/HR 9.979 mls/hr IV .Q24H [facility] Rx#: [id number] Magnesium Sulfate-D5w Pmx 100 1 gm In Dextrose/Water 1 100ml.bag @ 100 mls/hr IVPB Q1H [facility] Rx#: [id number] Norepinephrine 32 mg In 14.389 8.356 Sodium Chloride 0.9% 218 ml @ 0.03 MCG/KG/MIN 1. 276 mls/hr IV .Q24H [facility] Rx#:[id number] Norepinephrine 32 mg In 3.857 Sodium Chloride 0.9% 218 ml @ 0.03 MCG/KG/MIN 1. 603 mls/hr IV .Q24H [facility] Rx#:[id number] Piperacillin-Tazobactam 3 100 200 25 .375 gm In Sodium Chloride 0.9% 100 ml @ 25 mls/hr IVPB Q8H [facility] Rx#: [id number] Sodium Chloride 0.9% 1, 1125 1500 250 000 ml @ 125 mls/hr IV . Q8H [facility] Rx#:[id number] Oral 360 530 Output: Urine 800 575 65 Other: Voiding Method Indwelling Catheter Indwelling Catheter - Exam General Impression: Alert and oriented x3, not in acute distress HEENT: Normocephalic atraumatic, extra-ocular movements intact, pupils equal and reactive to light bilaterally, mucous membranes moist. Cardiovascular: Heart regular rate and rhythm Chest: Able to complete full sentences, no retractions, no tachypnea Abdomen: abdomen soft, non-tender, non-distended, no organomegaly Musculoskeletal: Pulses present and equal in all extremities, no peripheral edema Motor: no focal deficits noted Neurological: CN II-XII grossly intact, no focal motor or sensory deficits noted Skin: Intact with no visualized rashes Psych: Normal affect and mood - Labs CBC & Chem 7: 01/16/23 02:13 01/16/23 02:13 Labs: Abnormal Lab Results - Last 24 Hours (Table) 01/15/23 01/15/23 01/15/23 Range/Units 09:23 09:23 11:33 Hgb (11.4-16.0) gm/dL MCHC (31.0-37.0) g/dL Neutrophils # (1.3-7.7) k/uL Lymphocytes # (1.0-4.8) k/uL PT (9.0-12.0) sec INR (<1.2) APTT (22.0-30.0) sec Chloride (98-107) mmol/L Carbon Dioxide (22-30) mmol/L BUN (7-17) mg/dL Creatinine (0.52-1.04) mg/dL Glucose (74-99) mg/dL POC Glucose (mg/dL) 309 H (70-110) mg/dL Hemoglobin A1c 7.9 H (0.0-6.0) % Calcium (8.4-10.2) mg/dL Magnesium (1.6-2.3) mg/dL Troponin I 0.275 H* (0.000-0.034) ng/mL C-Reactive Protein (<1.0) mg/dL 01/15/23 01/15/23 01/15/23 Range/Units 16:00 16:42 20:17 Hgb (11.4-16.0) gm/dL MCHC (31.0-37.0) g/dL Neutrophils # (1.3-7.7) k/uL Lymphocytes # (1.0-4.8) k/uL PT (9.0-12.0) sec INR (<1.2) APTT (22.0-30.0) sec Chloride (98-107) mmol/L Carbon Dioxide (22-30) mmol/L BUN (7-17) mg/dL Creatinine (0.52-1.04) mg/dL Glucose (74-99) mg/dL POC Glucose (mg/dL) 197 H 134 H (70-110) mg/dL Hemoglobin A1c (0.0-6.0) % Calcium (8.4-10.2) mg/dL Magnesium (1.6-2.3) mg/dL Troponin I 0.494 H* (0.000-0.034) ng/mL C-Reactive Protein (<1.0) mg/dL 01/15/23 01/16/23 01/16/23 Range/Units 21:44 02:13 02:13 Hgb 10.6 L (11.4-16.0) gm/dL MCHC 30.5 L (31.0-37.0) g/dL Neutrophils # 9.1 H (1.3-7.7) k/uL Lymphocytes # 0.3 L (1.0-4.8) k/uL PT (9.0-12.0) sec INR (<1.2) APTT (22.0-30.0) sec Chloride 110 H (98-107) mmol/L Carbon Dioxide 20 L (22-30) mmol/L BUN 34 H (7-17) mg/dL Creatinine 1.06 H (0.52-1.04) mg/dL Glucose 121 H (74-99) mg/dL POC Glucose (mg/dL) (70-110) mg/dL Hemoglobin A1c (0.0-6.0) % Calcium 7.9 L (8.4-10.2) mg/dL Magnesium 1.5 L (1.6-2.3) mg/dL Troponin I 0.422 H* (0.000-0.034) ng/mL C-Reactive Protein 26.9 H (<1.0) mg/dL 01/16/23 01/16/23 Range/Units 02:13 06:42 Hgb (11.4-16.0) gm/dL MCHC (31.0-37.0) g/dL Neutrophils # (1.3-7.7) k/uL Lymphocytes # (1.0-4.8) k/uL PT 12.2 H (9.0-12.0) sec INR 1.2 H (<1.2) APTT 39.2 H (22.0-30.0) sec Chloride (98-107) mmol/L Carbon Dioxide (22-30) mmol/L BUN (7-17) mg/dL Creatinine (0.52-1.04) mg/dL Glucose (74-99) mg/dL POC Glucose (mg/dL) 118 H (70-110) mg/dL Hemoglobin A1c (0.0-6.0) % Calcium (8.4-10.2) mg/dL Magnesium (1.6-2.3) mg/dL Troponin I (0.000-0.034) ng/mL C-Reactive Protein (<1.0) mg/dL Microbiology - Last 24 Hours (Table) 01/15/23 04:50 Blood Culture Gram Stain - Preliminary Blood 01/15/23 04:50 Blood Culture Gram Stain - Preliminary Blood 01/15/23 04:50 Blood Culture - Final Blood 01/15/23 04:50 Blood Culture - Final Blood 01/15/23 04:50 Urine Culture - Preliminary Urine,Voided Assessment and Plan Assessment: 1. Septic shock; as indicated by hypotension, tachycardia, tachypnea and elevat ed lactic acid levels - Patient remains on pressor support; continue with IV antibiotics in form of Zosyn and vancomycin - Blood cultures and urine cultures obtained and pending - We will continue to monitor CBC, CMP and pro-calcitonin 2. Acute UTI; continue with current IV antibiotic therapy; blood cultures and urine cultures obtained and pending; adjust antibiotic therapy once culture results are available 3. Hypotension, related to sepsis and septic shock; patient did receive IV fluid resuscitation an antihypertensive therapy remains on hold 4. Hypertension; lisinopril 10 mg daily which remains on hold due to hypotension 5. Hypothyroidism; levothyroxin 125 MCG daily 6. Diabetes mellitus type 2; patient is on long-acting insulin in form of Lantus; we will monitor Accu-Cheks before meals and at bedtime with insulin sliding scale 7. Peripheral vascular occlusive disease; history of toe amputation; patient is currently on statins, Plavix and Xarelto 8. Coronary artery disease; status post PCI 2; continue with aspirin, Lipitor along with Plavix 75 mg daily 9. Hyperlipidemia; Lipitor 40 mg by mouth daily at bedtime DVT prophylaxis; SCDs/Xarelto CODE STATUS; full code
[2023-01-16] MEDS: HEPARIN SOD,PORK IN 0.45% NACL 25,000 UNIT in 0.45% NACL 1 250ML.BAG IV SCH (17:24)
[2023-01-16 19:51] LABS: Glucose,Whole Blood 113 mg/dL (70-110)
[2023-01-16] MEDS: CLOPIDOGREL 75 MG TAB PO SCH (20:16)
[2023-01-16] MEDS: ATORVASTATIN 40 MG TAB PO SCH (20:16)
--- NOTE | 2023-01-16 21:50 | P.PN ---
Subjective Progress Note Date: 01/16/23 Principal diagnosis: Gram-negative bacteremia and urinary tract infection Patient is a 67-year female with a past medical history significant for type 2 diabetes mellitus hypertension diabetic foot ulcer with right third toe amputation on November 04, 2022 also with a history of COPD and MS the patient was brought into the hospital after apparently the patient fell off the bed, patient was noticed to be confused did have a fever and evidence of gram- negative bacteremia secondary to urinary source. On today's evaluation of his 01/16/2023, the patient denies having any fever or chills, patient did mention have problem with difficulty breathing last night seemed to be doing better this morning denies any chest pain shortness of breath or cough no abdominal pain or diarrhea Objective - Vital Signs Vital signs: Vital Signs Temp 98.7 F 01/16/23 05:00 Pulse 87 01/16/23 06:00 Resp 28 H 01/16/23 06:00 BP 112/65 01/16/23 06:00 Pulse Ox 96 01/16/23 06:00 FiO2 Intake & Output 01/15/23 01/16/23 01/16/23 18:59 06:59 18:59 Intake Total 5152.477 1119.163 378.857 Output Total 800 575 65 Balance 537.942 5081.163 313.857 Weight 90.718 kg 114 kg Intake: Intake, IV Titration 9557.370 6727.163 378.857 Amount Heparin Sod,Pork in 0.45% 91.807 NaCl 25,000 unit In 0.45 % NaCl 1 250ml.bag @ 11 UNITS/KG/HR 9.979 mls/hr IV .Q24H [facility] Rx#: [id number] Magnesium Sulfate-D5w Pmx 100 1 gm In Dextrose/Water 1 100ml.bag @ 100 mls/hr IVPB Q1H [facility] Rx#: [id number] Norepinephrine 32 mg In 14.389 8.356 Sodium Chloride 0.9% 218 ml @ 0.03 MCG/KG/MIN 1. 276 mls/hr IV .Q24H [facility] Rx#:[id number] Norepinephrine 32 mg In 3.857 Sodium Chloride 0.9% 218 ml @ 0.03 MCG/KG/MIN 1. 603 mls/hr IV .Q24H [facility] Rx#:[id number] Piperacillin-Tazobactam 3 100 200 25 .375 gm In Sodium Chloride 0.9% 100 ml @ 25 mls/hr IVPB Q8H [facility] Rx#: [id number] Sodium Chloride 0.9% 1, 1125 1500 250 000 ml @ 125 mls/hr IV . Q8H [facility] Rx#:[id number] Oral 360 530 Output: Urine 800 575 65 Other: Voiding Method Indwelling Catheter Indwelling Catheter - Exam GENERAL DESCRIPTION: An elderly female lying in bed in no distress RESPIRATORY SYSTEM: Unlabored breathing , decreased breath sounds at bases HEART: S1 S2 regular rate and rhythm , ABDOMEN: Soft , no tenderness EXTREMITIES: Right foot wound is currently dressed no drainage on the dressing - Labs CBC & Chem 7: 01/16/23 02:13 01/16/23 02:13 Labs: Abnormal Lab Results - Last 24 Hours (Table) 01/15/23 01/15/23 01/15/23 Range/Units 09:23 09:23 11:33 Hgb (11.4-16.0) gm/dL MCHC (31.0-37.0) g/dL Neutrophils # (1.3-7.7) k/uL Lymphocytes # (1.0-4.8) k/uL PT (9.0-12.0) sec INR (<1.2) APTT (22.0-30.0) sec Chloride (98-107) mmol/L Carbon Dioxide (22-30) mmol/L BUN (7-17) mg/dL Creatinine (0.52-1.04) mg/dL Glucose (74-99) mg/dL POC Glucose (mg/dL) 309 H (70-110) mg/dL Hemoglobin A1c 7.9 H (0.0-6.0) % Calcium (8.4-10.2) mg/dL Magnesium (1.6-2.3) mg/dL Troponin I 0.275 H* (0.000-0.034) ng/mL C-Reactive Protein (<1.0) mg/dL 01/15/23 01/15/23 01/15/23 Range/Units 16:00 16:42 20:17 Hgb (11.4-16.0) gm/dL MCHC (31.0-37.0) g/dL Neutrophils # (1.3-7.7) k/uL Lymphocytes # (1.0-4.8) k/uL PT (9.0-12.0) sec INR (<1.2) APTT (22.0-30.0) sec Chloride (98-107) mmol/L Carbon Dioxide (22-30) mmol/L BUN (7-17) mg/dL Creatinine (0.52-1.04) mg/dL Glucose (74-99) mg/dL POC Glucose (mg/dL) 197 H 134 H (70-110) mg/dL Hemoglobin A1c (0.0-6.0) % Calcium (8.4-10.2) mg/dL Magnesium (1.6-2.3) mg/dL Troponin I 0.494 H* (0.000-0.034) ng/mL C-Reactive Protein (<1.0) mg/dL 01/15/23 01/16/23 01/16/23 Range/Units 21:44 02:13 02:13 Hgb 10.6 L (11.4-16.0) gm/dL MCHC 30.5 L (31.0-37.0) g/dL Neutrophils # 9.1 H (1.3-7.7) k/uL Lymphocytes # 0.3 L (1.0-4.8) k/uL PT (9.0-12.0) sec INR (<1.2) APTT (22.0-30.0) sec Chloride 110 H (98-107) mmol/L Carbon Dioxide 20 L (22-30) mmol/L BUN 34 H (7-17) mg/dL Creatinine 1.06 H (0.52-1.04) mg/dL Glucose 121 H (74-99) mg/dL POC Glucose (mg/dL) (70-110) mg/dL Hemoglobin A1c (0.0-6.0) % Calcium 7.9 L (8.4-10.2) mg/dL Magnesium 1.5 L (1.6-2.3) mg/dL Troponin I 0.422 H* (0.000-0.034) ng/mL C-Reactive Protein 26.9 H (<1.0) mg/dL 01/16/23 01/16/23 Range/Units 02:13 06:42 Hgb (11.4-16.0) gm/dL MCHC (31.0-37.0) g/dL Neutrophils # (1.3-7.7) k/uL Lymphocytes # (1.0-4.8) k/uL PT 12.2 H (9.0-12.0) sec INR 1.2 H (<1.2) APTT 39.2 H (22.0-30.0) sec Chloride (98-107) mmol/L Carbon Dioxide (22-30) mmol/L BUN (7-17) mg/dL Creatinine (0.52-1.04) mg/dL Glucose (74-99) mg/dL POC Glucose (mg/dL) 118 H (70-110) mg/dL Hemoglobin A1c (0.0-6.0) % Calcium (8.4-10.2) mg/dL Magnesium (1.6-2.3) mg/dL Troponin I (0.000-0.034) ng/mL C-Reactive Protein (<1.0) mg/dL Microbiology - Last 24 Hours (Table) 01/15/23 04:50 Blood Culture Gram Stain - Preliminary Blood 01/15/23 04:50 Blood Culture Gram Stain - Preliminary Blood 01/15/23 04:50 Blood Culture - Final Blood 01/15/23 04:50 Blood Culture - Final Blood 01/15/23 04:50 Urine Culture - Preliminary Urine,Voided Assessment and Plan (1) UTI (urinary tract infection) Current Visit: Yes Status: Acute Code(s): N39.0 - URINARY TRACT INFECTION, SITE NOT SPECIFIED SNOMED Code(s): 00427620 (2) Gram-negative bacteremia Current Visit: Yes Status: Acute Code(s): R78.81 - BACTEREMIA SNOMED Code(s): 801727714807 Plan: 1patient presented to hospital with sepsis in this patient who did have hypertension elevated white count elevated lactic acid presented to hospital with weakness fall significantly positive UA likely secondary to urinary source as clinically not behaving as pneumonia abdominal soft examination patient recently did have a right third toe amputation however the amputation site looks clean without any cellulitis. 2patient with renal insufficiency high risk of nephrotoxicity from vancomycin which will be discontinued. 3 ultrasound of the kidney and bladder was suboptimal but no evidence of any hydronephrosis 4local wound care to the right third toe amputation site with Aquacel silver dressing change every 48 hour. 5antibiotic has been adjusted to Rocephin 2 g daily on the basis of sensitivities and monitor clinical course closely Time with Patient: Less than 30
[2023-01-17] MEDS: SODIUM CHLORIDE 0.9% 1,000 ML IV SCH ×3 (05:34→21:28)
[2023-01-17 05:51] LABS: Glucose,Whole Blood 74 mg/dL (70-110)
[2023-01-17] MEDS: LEVOTHYROXINE 125 MCG TAB PO SCH (06:26)
[2023-01-17] MEDS: PANTOPRAZOLE 40 MG TABLET PO SCH (06:26)
[2023-01-17] MEDS: INSULIN ASPART (NovoLOG) 100 UNIT/ML VIAL SQ SCH ×4 (06:27→21:20)
[2023-01-17] MEDS: NOREPINEPHRINE 32 MG in SODIUM CHLORIDE 0.9% 218 ML IV SCH (06:28)
[2023-01-17 06:37] LABS: Magnesium 1.8 mg/dL (1.6-2.3)
[2023-01-17] MEDS: INSULIN DETEMIR (LEVEMIR) 100 UNIT/ML SYR SQ SCH ×4 (07:48→21:24)
[2023-01-17] MEDS: ASPIRIN 81 MG PO SCH (09:00)
[2023-01-17 09:56] LABS: Basophils % (A) 1 %; Eosinophils # (A) 0.1 k/uL (0-0.7); Eosinophils % (A) 3 %; HCT 32.3 % (34.0-46.0); Hypochromasia Moderate; Lymphocytes # (A) 0.3 k/uL (1.0-4.8); Lymphocytes % (A) 8 %; MCH 26.8 pg (25.0-35.0); MCV 86.6 fL (80.0-100.0); Mean Platelet Volume 8.7; Monocytes # (A) 0.2 k/uL (0-1.0); Monocytes % (A) 5 %; Neutrophils # (A) 3.1 k/uL (1.3-7.7); Neutrophils % (A) 80 %; Platelet Count 128 k/uL (150-450); RBC 3.73 m/uL (3.80-5.40); RDW 15.5 % (11.5-15.5); WBC 3.8 k/uL (3.8-10.6)
--- NOTE | 2023-01-17 10:49 | P.PN ---
Subjective HISTORY OF PRESENTING ILLNESS Patient is pleasant 67-year-old female with history of multiple sclerosis with bilateral lower extremity weakness, CAD status post PCI, PAD, obesity with history of bariatric surgery, osteoarthritis, hypertension, hyperlipidemia, hypothyroidism, diabetes mellitus type 2, COPD, sleep apnea. She had undergone prior heart catheterization September 2022 was found to have significant left main disease and eventually turned down for surgery and underwent successful stenting of the left main. She has done fairly well since then. Unfortunately over the last few days she has been feeling somewhat more fatigued and had a fall at home. She denies any actual syncope. She denies any changes in her medications. She was found to have a urinary tract infection with additional E. coli bacteremia. She was septic and with blood pressures down into the 60s and required norepinephrine. She has received IV fluid hydration with improvement in blood pressure and eventually weaned off vasopressors this morning. She festus es any chest pain or pressure or tightness. Denies any shortness breath. Does have trace lower extremity edema which is chronic. EKG shows sinus rhythm with left axis deviation, low voltage, poor R-wave progression and nonspecific minimal ST depressions in the lateral leads. Cardiology was consult that secondary to elevated troponins 0.1, 0.27, 0.49 and 0.42. 01/17 Patient seen and examined. Patient transferred from ICU. Blood pressure stable 110-130's. Denies any chest pain or pressure. No lightheadedness. Hemoglobin 10.0. Echocardiogram has not been performed yet. PHYSICAL EXAMINATION Vital signs reviewed. CONSTITUTIONAL: No apparent distress, chronically ill-appearing, obese. HEENT: Head is normocephalic. Pupils are equal, round. Sclerae anicteric. Mucous membranes of the mouth are moist. No JVD. No carotid bruit. CHEST EXAMINATION: Lungs are clear to auscultation. No chest wall tenderness is noted on palpation or with deep breathing. HEART EXAMINATION: Regular rate and rhythm. S1, S2 heard. No murmurs, gallops or rub. ABDOMEN: Soft, nontender. Positive bowel sounds. EXTREMITIES: 2+ peripheral pulses, no lower extremity edema and no calf tenderness. NEUROLOGIC EXAMINATION: Patient is awake, alert and oriented x3. ASSESSMENT 1. Non-STEMI likely related to sepsis, type II mechanism 2. CAD with prior history of PCI left Main October 2022 3. Septic shock currently off vasopressors 4. History of hypertension 5. Diabetes mellitus type 2 6. E. coli bacteremia related to urosepsis PLAN Patient denies any chest pain or pressure. Stop heparin drip. Majority presentation appears related to sepsis. Await 2-D echo. If unrevealing no further workup as an inpatient. Objective - Vital Signs Vital signs: Vital Signs Temp 97.9 F 01/17/23 06:53 Pulse 94 01/17/23 06:53 Resp 19 01/17/23 06:53 BP 101/60 01/17/23 06:53 Pulse Ox 96 01/17/23 06:53 FiO2 Intake & Output 01/16/23 01/17/23 01/17/23 18:59 06:59 18:59 Intake Total 1796.956 950 Output Total 595 1140 Balance 1201.956 -190 Intake: Intake, IV Titration 1396.956 750 Amount Heparin Sod,Pork in 0.45% 140.926 NaCl 25,000 unit In 0.45 % NaCl 1 250ml.bag @ 11 UNITS/KG/HR 9.979 mls/hr IV .Q24H [facility] Rx#: [id number] Magnesium Sulfate-D5w Pmx 100 1 gm In Dextrose/Water 1 100ml.bag @ 100 mls/hr IVPB Q1H [facility] Rx#: [id number] Norepinephrine 32 mg In 6.030 Sodium Chloride 0.9% 218 ml @ 0.03 MCG/KG/MIN 1. 603 mls/hr IV .Q24H [facility] Rx#:[id number] Piperacillin-Tazobactam 3 50 .375 gm In Sodium Chloride 0.9% 100 ml @ 25 mls/hr IVPB Q8H [facility] Rx#: [id number] Sodium Chloride 0.9% 1, 1050 750 000 ml @ 75 mls/hr IV . [id number] [facility] Rx#:[id number] cefTRIAXone 2 gm In 50 Sodium Chloride 0.9% 50 ml @ 100 mls/hr IVPB Q24HR [facility] Rx#:[id number] Oral 400 200 Output: Urine 595 1140 Other: Voiding Method Indwelling Catheter Indwelling Catheter Indwelling Catheter - Labs CBC & Chem 7: 01/17/23 05:48 01/17/23 05:48 Labs: Abnormal Lab Results - Last 24 Hours (Table) 01/16/23 01/16/23 01/16/23 Range/Units 11:17 11:22 16:36 RBC (3.80-5.40) m/uL Hgb (11.4-16.0) gm/dL Hct (34.0-46.0) % Plt Count (150-450) k/uL Lymphocytes # (1.0-4.8) k/uL APTT 44.3 H (22.0-30.0) sec POC Glucose (mg/dL) 156 H 124 H (70-110) mg/dL 01/16/23 01/17/23 01/17/23 Range/Units 19:49 05:48 05:48 RBC 3.73 L (3.80-5.40) m/uL Hgb 10.0 L (11.4-16.0) gm/dL Hct 32.3 L (34.0-46.0) % Plt Count 128 L (150-450) k/uL Lymphocytes # 0.3 L (1.0-4.8) k/uL APTT 32.2 H (22.0-30.0) sec POC Glucose (mg/dL) 113 H (70-110) mg/dL Microbiology - Last 24 Hours (Table) 01/16/23 02:13 Blood Culture - Preliminary Blood No Growth after 24 hours 01/15/23 04:50 Urine Culture - Preliminary Urine,Voided Gram Neg Bacilli 01/15/23 04:50 Blood Culture Gram Stain - Preliminary Blood Blood Culture - Preliminary Escherichia coli 01/15/23 04:50 Blood Culture Gram Stain - Preliminary Blood
[2023-01-17 11:26] LABS: Glucose,Whole Blood 77 mg/dL (70-110)
--- NOTE | 2023-01-17 13:44 | P.PN ---
Subjective Progress Note Date: 01/17/23 This is a 67-year-old female with history of MS, COPD, coronary artery disease and previous PCI 2, type 2 diabetes, hypertension, degenerative joint disease, diabetic foot ulcers and right toe amputation, patient was brought into the hospital with chief complaint of falling off the bed, and the patient was confused. Upon evaluation in the ER, patient was noted to be hypotensive, and she had evidence of infected urine with bacteriuria. Patient received fluids for her low blood pressure, did not improve much, then the ER physician placed a femoral triple-lumen catheter, and the patient was given 2 L of fluids followed by norepinephrine. Considering the patient seems to be septic patient was admi tted to the ICU and this consult was initiated. I saw the patient this morning, patient is on 4 L nasal cannula, she is on antibiotics in the form of vancomycin and Zosyn. She is on 0.04 mcg/kg/m of norepinephrine and IV fluid in the form of 0.9 normal saline at 1 50 mL per hour. According to the patient's is feeling much better now, she is more alert and oriented and she denies any specific co mplaints except for chronic pain in the left knee joint. Lactic acid on admission was 2.0. Troponin of 0.275. CPK of 250. Renal profile showed a creatinine of 1.34. WBC count of 19.4. Computed tomography scan of the head and cervical spine is unremarkable. Chest x-ray showed slight prominence of the interstitial markings otherwise negative. X-rays of the hip and pelvis are unremarkable. Urinalysis showed evidence of bacteriuria, large leukocyte esterase, and there is evidence of pyuria. Patient had no symptoms of UTI whatsoever. Reevaluated today on 01/16 patient remains in the ICU, and she is on 4 L nasal cannula O2 saturations on the percent. Patient is feeling much better, she went off norepinephrine this morning. And she seems to be tolerating that quite well. Blood pressure remains stable, her blood cultures came back positive for E. coli, urine cultures are pending and I believe the most likely source of her bacteremia is E. coli urinary tract infection. Patient has been on Zosyn all along, and today I recommended switching the patient to Rocephin. Overall the patient is doing better, feeling much better compared to yesterday. WBC count is 9.8 hemoglobin is 10.6. Electrolytes are normal basic metabolic profile is normal creatinine is 1.06. C-reactive protein is 26.9 The patient is seen today 01/17/2023 in follow-up on the regular medical floor. She is currently resting comfortably in bed. Awake and alert in no acute distress. Maintaining O2 saturations in the 90s on room air. Normal saline at 75 mL per hour. Blood cultures positive for E. coli. Urine culture pending. White count 3.8. Hemoglobin 10.0. Platelets 128. Creatinine 0.86. She remains on ceftriaxone. Objective - Vital Signs Vital signs: Vital Signs Temp 97.9 F 01/17/23 06:53 Pulse 94 01/17/23 06:53 Resp 19 01/17/23 06:53 BP 101/60 01/17/23 06:53 Pulse Ox 96 01/17/23 06:53 FiO2 Intake & Output 01/16/23 01/17/23 01/17/23 18:59 06:59 18:59 Intake Total 1796.956 950 Output Total 595 1140 Balance 1201.956 -190 Intake: Intake, IV Titration 1396.956 750 Amount Heparin Sod,Pork in 0.45% 140.926 NaCl 25,000 unit In 0.45 % NaCl 1 250ml.bag @ 11 UNITS/KG/HR 9.979 mls/hr IV .Q24H [facility] Rx#: [id number] Magnesium Sulfate-D5w Pmx 100 1 gm In Dextrose/Water 1 100ml.bag @ 100 mls/hr IVPB Q1H [facility] Rx#: [id number] Norepinephrine 32 mg In 6.030 Sodium Chloride 0.9% 218 ml @ 0.03 MCG/KG/MIN 1. 603 mls/hr IV .Q24H [facility] Rx#:[id number] Piperacillin-Tazobactam 3 50 .375 gm In Sodium Chloride 0.9% 100 ml @ 25 mls/hr IVPB Q8H [facility] Rx#: [id number] Sodium Chloride 0.9% 1, 1050 750 000 ml @ 75 mls/hr IV . [id number] [facility] Rx#:[id number] cefTRIAXone 2 gm In 50 Sodium Chloride 0.9% 50 ml @ 100 mls/hr IVPB Q24HR [facility] Rx#:[id number] Oral 400 200 Output: Urine 595 1140 Other: Voiding Method Indwelling Catheter Indwelling Catheter Indwelling Catheter - Exam GENERAL EXAM: Alert, pleasant 67-year-old female, on room air, comfortable in no apparent distress. HEAD: Normocephalic. EYES: Normal reaction of pupils, equal size. NOSE: Clear with pink turbinates. THROAT: No erythema or exudates. NECK: No masses, no JVD. CHEST: No chest wall deformity. LUNGS: Equal air entry with no crackles, wheeze, rhonchi or dullness. CVS: S1 and S2 normal with no audible murmur, regular rhythm. ABDOMEN: No hepatosplenomegaly, normal bowel sounds, no guarding or rigidity. SPINE: No scoliosis or deformity SKIN: No rashes CENTRAL NERVOUS SYSTEM: No focal deficits, tone is normal in all 4 extremities. EXTREMITIES: There is no peripheral edema. No clubbing, no cyanosis. Peripheral pulses are intact. - Labs CBC & Chem 7: 01/17/23 05:48 01/17/23 05:48 Labs: Abnormal Lab Results - Last 24 Hours (Table) 01/16/23 01/16/23 01/17/23 Range/Units 16:36 19:49 05:48 RBC (3.80-5.40) m/uL Hgb (11.4-16.0) gm/dL Hct (34.0-46.0) % Plt Count (150-450) k/uL Lymphocytes # (1.0-4.8) k/uL APTT 32.2 H (22.0-30.0) sec POC Glucose (mg/dL) 124 H 113 H (70-110) mg/dL 01/17/23 Range/Units 05:48 RBC 3.73 L (3.80-5.40) m/uL Hgb 10.0 L (11.4-16.0) gm/dL Hct 32.3 L (34.0-46.0) % Plt Count 128 L (150-450) k/uL Lymphocytes # 0.3 L (1.0-4.8) k/uL APTT (22.0-30.0) sec POC Glucose (mg/dL) (70-110) mg/dL Microbiology - Last 24 Hours (Table) 01/15/23 04:50 Blood Culture Gram Stain - Preliminary Blood Blood Culture - Preliminary Gram Neg Bacilli 01/15/23 04:50 Blood Culture Gram Stain - Preliminary Blood Blood Culture - Preliminary Escherichia coli 01/16/23 02:13 Blood Culture - Preliminary Blood No Growth after 24 hours 01/15/23 04:50 Urine Culture - Preliminary Urine,Voided Gram Neg Bacilli Assessment and Plan Assessment: Hypotension secondary to sepsis and septic shock, secondary to E. coli bacteremia. Recovered and off pressors Acute urinary tract infection suspect E. coli urinary tract infection with bacteremia History of MS. History of coronary artery disease and previous PCI 2 Peripheral vessel occlusive disease and previous toe amputation History of right foot osteomyelitis History of type 2 diabetes History of deep vein thromboses Benign essential hypertension History of obstructive sleep apnea syndrome, on BiPAP History of hypothyroidism Plan: The patient was seen and evaluated Labs and medications reviewed Stable and on room air Continue ceftriaxone Resume Xarelto We'll continue to follow I have personally seen and examined the patient, performed the documentation and the assessment and plan as written. Number of minutes spent on the visit: 10.
[2023-01-17 16:29] LABS: Glucose,Whole Blood 83 mg/dL (70-110)
[2023-01-17] MEDS: ACETAMINOPHEN TAB 325 MG TAB PO PRN (16:46)
[2023-01-17] MEDS: RIVAROXABAN 20 MG TAB PO SCH (16:46)
[2023-01-17 21:00] LABS: Glucose,Whole Blood 133 mg/dL (70-110)
[2023-01-17] MEDS: CLOPIDOGREL 75 MG TAB PO SCH (21:25)
[2023-01-17] MEDS: ATORVASTATIN 40 MG TAB PO SCH (21:25)
[2023-01-17] MEDS: HYDROcodone/APAP 5-325MG 1 EACH TAB PO PRN (22:54)
--- NOTE | 2023-01-17 22:55 | P.PN ---
Subjective Progress Note Date: 01/17/23 Principal diagnosis: Gram-negative bacteremia and urinary tract infection Patient is a 67-year female with a past medical history significant for type 2 diabetes mellitus hypertension diabetic foot ulcer with right third toe amputation on November 04, 2022 also with a history of COPD and MS the patient was brought into the hospital after apparently the patient fell off the bed, patient was noticed to be confused did have a fever and evidence of gram- negative bacteremia secondary to urinary source. On today's evaluation of his 01/17/2023, the patient remains to be afebrile, patient is breathing comfortably on room air, the patient denies any chest pain shortness of breath or cough no abdominal pain or diarrhea Objective - Vital Signs Vital signs: Vital Signs Temp 97.9 F 01/17/23 06:53 Pulse 94 01/17/23 06:53 Resp 19 01/17/23 06:53 BP 101/60 01/17/23 06:53 Pulse Ox 96 01/17/23 06:53 FiO2 Intake & Output 01/16/23 01/17/23 01/17/23 18:59 06:59 18:59 Intake Total 1796.956 950 Output Total 595 1140 Balance 1201.956 -190 Intake: Intake, IV Titration 1396.956 750 Amount Heparin Sod,Pork in 0.45% 140.926 NaCl 25,000 unit In 0.45 % NaCl 1 250ml.bag @ 11 UNITS/KG/HR 9.979 mls/hr IV .Q24H [facility] Rx#: [id number] Magnesium Sulfate-D5w Pmx 100 1 gm In Dextrose/Water 1 100ml.bag @ 100 mls/hr IVPB Q1H [facility] Rx#: [id number] Norepinephrine 32 mg In 6.030 Sodium Chloride 0.9% 218 ml @ 0.03 MCG/KG/MIN 1. 603 mls/hr IV .Q24H [facility] Rx#:[id number] Piperacillin-Tazobactam 3 50 .375 gm In Sodium Chloride 0.9% 100 ml @ 25 mls/hr IVPB Q8H [facility] Rx#: [id number] Sodium Chloride 0.9% 1, 1050 750 000 ml @ 75 mls/hr IV . [id number] [facility] Rx#:[id number] cefTRIAXone 2 gm In 50 Sodium Chloride 0.9% 50 ml @ 100 mls/hr IVPB Q24HR [facility] Rx#:[id number] Oral 400 200 Output: Urine 595 1140 Other: Voiding Method Indwelling Catheter Indwelling Catheter - Exam GENERAL DESCRIPTION: An elderly female lying in bed in no distress RESPIRATORY SYSTEM: Unlabored breathing , decreased breath sounds at bases HEART: S1 S2 regular rate and rhythm , ABDOMEN: Soft , no tenderness EXTREMITIES: Right foot wound is currently dressed no drainage on the dressing - Labs CBC & Chem 7: 01/17/23 05:48 01/17/23 05:48 Labs: Abnormal Lab Results - Last 24 Hours (Table) 01/16/23 01/16/23 01/16/23 Range/Units 11:17 11:22 16:36 APTT 44.3 H (22.0-30.0) sec POC Glucose (mg/dL) 156 H 124 H (70-110) mg/dL 01/16/23 01/17/23 Range/Units 19:49 05:48 APTT 32.2 H (22.0-30.0) sec POC Glucose (mg/dL) 113 H (70-110) mg/dL Microbiology - Last 24 Hours (Table) 01/16/23 02:13 Blood Culture - Preliminary Blood No Growth after 24 hours 01/15/23 04:50 Urine Culture - Preliminary Urine,Voided Gram Neg Bacilli 01/15/23 04:50 Blood Culture Gram Stain - Preliminary Blood Blood Culture - Preliminary Escherichia coli 01/15/23 04:50 Blood Culture Gram Stain - Preliminary Blood Assessment and Plan (1) UTI (urinary tract infection) Current Visit: Yes Status: Acute Code(s): N39.0 - URINARY TRACT INFECTION, SITE NOT SPECIFIED SNOMED Code(s): 66913197 (2) Gram-negative bacteremia Current Visit: Yes Status: Acute Code(s): R78.81 - BACTEREMIA SNOMED Code(s): 792778720485 Plan: 1patient presented to hospital with sepsis in this patient who did have hyp ertension elevated white count elevated lactic acid presented to hospital with weakness fall significantly positive UA likely secondary to urinary source as clinically not behaving as pneumonia abdominal soft examination patient recently did have a right third toe amputation however the amputation site looks clean without any cellulitis. 2 ultrasound of the kidney and bladder was suboptimal but no evidence of any hydronephrosis 3local wound care to the right third toe amputation site with Aquacel silver dressing change every 48 hour. 4patient to continue with Rocephin 2 g daily and monitor clinical course closely Time with Patient: Less than 30
[2023-01-18 05:06] LABS: Glucose,Whole Blood 101 mg/dL (70-110)
[2023-01-18] MEDS: INSULIN ASPART (NovoLOG) 100 UNIT/ML VIAL SQ SCH ×3 (05:41→17:15)
[2023-01-18] MEDS: LEVOTHYROXINE 125 MCG TAB PO SCH (06:33)
[2023-01-18] MEDS: PANTOPRAZOLE 40 MG TABLET PO SCH (06:33)
[2023-01-18] MEDS: INSULIN DETEMIR (LEVEMIR) 100 UNIT/ML SYR SQ SCH (07:31)
[2023-01-18] MEDS: ASPIRIN 81 MG PO SCH (07:49)
--- NOTE | 2023-01-18 09:05 | P.PN ---
Subjective Progress Note Date: 01/18/23 HISTORY OF PRESENTING ILLNESS Patient is pleasant 67-year-old female with history of multiple sclerosis with bilateral lower extremity weakness, CAD status post PCI, PAD, obesity with history of bariatric surgery, osteoarthritis, hypertension, hyperlipidemia, hypothyroidism, diabetes mellitus type 2, COPD, sleep apnea. She had undergone prior heart catheterization September 2022 was found to have significant left main disease and eventually turned down for surgery and underwent successful stenting of the left main. She has done fairly well since then. Unfortunately over the last few days she has been feeling somewhat more fatigued and had a fall at home. She denies any actual syncope. She denies any changes in her medications. She was found to have a urinary tract infection with additional E. coli bacteremia. She was septic and with blood pressures down into the 60s and required norepinephrine. She has received IV fluid hydration with improvement in blood pressure and eventually weaned off vasopressors this morning. She denies any chest pain or pressure or tightness. Denies any shortness breath. Does have trace lower extremity edema which is chronic. EKG shows sinus rhythm with left axis deviation, low voltage, poor R-wave progression and nonspecific minimal ST depressions in the lateral leads. Cardiology was consult that secondary to elevated troponins 0.1, 0.27, 0.49 and 0.42. 01/17 Patient seen and examined. Patient transferred from ICU. Blood pressure stable 110-130's. Denies any chest pain or pressure. No lightheadedness. Hemoglobin 10.0. Echocardiogram has not been performed yet. 01/18 Patient is seen and examined in her room. [facility] She denies having any chest pain, shortness of breath, no nausea. No lightheadedness. Her vital signs have been stable PHYSICAL EXAMINATION Vital signs reviewed. CONSTITUTIONAL: No apparent distress, chronically ill-appearing, obese. HEENT: Head is normocephalic. Pupils are equal, round. Sclerae anicteric. Mucous membranes of the mouth are moist. No JVD. No carotid bruit. CHEST EXAMINATION: Lungs are clear to auscultation. No chest wall tenderness is noted on palpation or with deep breathing. HEART EXAMINATION: Regular rate and rhythm. S1, S2 heard. No murmurs, gallops or rub. ABDOMEN: Soft, nontender. Positive bowel sounds. EXTREMITIES: 2+ peripheral pulses, no lower extremity edema and no calf tenderness. NEUROLOGIC EXAMINATION: Patient is awake, alert and oriented x3. ASSESSMENT 1. Non-STEMI likely related to sepsis, type II mechanism 2. CAD with prior history of PCI left Main October 2022 3. Septic shock currently off vasopressors 4. History of hypertension 5. Diabetes mellitus type 2 6. E. coli bacteremia related to urosepsis PLAN Patient denies any chest pain or pressure. Continue current medication regime Echocardiogram No plan for any further workup by cardiology. Nurse practitioner note has been reviewed, I agree with the documented findings and plan of care. Patient was seen and examined. Objective - Vital Signs Vital signs: Vital Signs Temp 98.1 F 01/18/23 07:11 Pulse 84 01/18/23 07:11 Resp 17 01/18/23 07:11 BP 134/71 01/18/23 07:11 Pulse Ox 97 01/18/23 07:11 FiO2 Intake & Output 01/17/23 01/18/23 01/18/23 18:59 06:59 18:59 Intake Total 1080 360 Output Total 800 500 350 Balance 280 -140 -350 Intake: Oral 1080 360 Output: Urine 800 500 350 Other: Voiding Method Indwelling Catheter Indwelling Catheter # Bowel Movements 1 - Labs CBC & Chem 7: 01/17/23 05:48 01/17/23 05:48 Labs: Abnormal Lab Results - Last 24 Hours (Table) 01/17/23 01/17/23 Range/Units 05:48 20:59 RBC 3.73 L (3.80-5.40) m/uL Hgb 10.0 L (11.4-16.0) gm/dL Hct 32.3 L (34.0-46.0) % Plt Count 128 L (150-450) k/uL Lymphocytes # 0.3 L (1.0-4.8) k/uL POC Glucose (mg/dL) 133 H (70-110) mg/dL Microbiology - Last 24 Hours (Table) 01/16/23 02:13 Blood Culture - Preliminary Blood No Growth after 48 hours 01/15/23 04:50 Urine Culture - Final Urine,Voided Escherichia coli 01/15/23 04:50 Blood Culture Gram Stain - Preliminary Blood Blood Culture - Preliminary Gram Neg Bacilli 01/15/23 04:50 Blood Culture Gram Stain - Preliminary Blood Blood Culture - Preliminary Escherichia coli
[2023-01-18 11:57] LABS: Glucose,Whole Blood 101 mg/dL (70-110)
--- NOTE | 2023-01-18 14:34 | P.PN ---
Subjective From records 67-year-old female has multiple comorbidities including multiple sclerosis. Patient is a poor historian. Patient according EMS fell out of bed. Patient reports that she rolled out of bed. In the skull. States that he suspects she is on the ground for almost one hour. She was trapped in between the bed and the wall. Patient denies any pain complaints. She does report feeling "yucky." When asked to elaborate further she is unable to do so. States that she's been feeling this way for the last 12 hours. Computed tomography scan of the head and cervical spine is unremarkable. Chest x-ray showed slight prominence of the interstitial markings otherwise negative. X-rays of the hip and pelvis are unremarkable. Urinalysis showed evidence of bacteriuria, large leukocyte esterase, and there is evidence of pyuria. Patient had no symptoms of UTI whatsoever. Lactic acid on admission was 2.0. Troponin of 0.275. CPK of 250. Renal profile showed a creatinine of 1.34. WBC count of 19.4. Patient has been admitted to ICU and currently on IV antibiotics in form of vancomycin and Zosyn along with pressor support with norepinephrine 01/18/2023 Patient currently without the ICU, she presents originally septic shock with E. coli UTI and E. coli bacteremia, and she recovered ceftriaxone 2 g daily abdominal 7 75 mL/h (IV fluids was discontinued this morning, patient with evidence of fluid overload) On admission she had CAT scan of the head and neck showing possible T1-T2 chronic discitis with osseous sclerosis\\ which is new from old [facility], therefore going to order MRI of the thoracic and cervical spine. Patient also denies any back pain or neck pain. Patient states that she has history of multiple sclerosis and she has chronic left hemiplegia which is not worsening now as per patient. Patient also states that she is bedridden and uses a wheelchair at home. Also patient does not need any pressors Also patient has evidence of amputation of the third and fifth toe with some dried yellow discharge at the base but no or minimal surrounding cellulitis Patient on Xarelto, as pe aspirating and Plavix at home which is continuing now. Noted for any pressors Presented that patient is fully awake and oriented, looks comfortable. Patient has bilateral pitting leg edema and basal crepitations and swelling in the upper and lower extremities. Objective - Vital Signs Vital signs: Vital Signs Temp 98.1 F 01/18/23 07:11 Pulse 84 01/18/23 07:11 Resp 17 01/18/23 07:11 BP 134/71 01/18/23 07:11 Pulse Ox 97 01/18/23 09:54 FiO2 Intake & Output 01/17/23 01/18/23 01/18/23 18:59 06:59 18:59 Intake Total 1080 360 Output Total 800 500 350 Balance 280 -140 -350 Intake: Oral 1080 360 Output: Urine 800 500 350 Other: Voiding Method Indwelling Catheter Indwelling Catheter Indwelling Catheter # Voids 1 # Bowel Movements 1 1 - Exam -GENERAL: The patient is alert and oriented x3, not in any acute distress. Obese HEENT: Pupils are round and equally reacting to light. EOMI. No scleral icterus. No conjunctival pallor. Normocephalic, atraumatic. No pharyngeal erythema. No thyromegaly. CARDIOVASCULAR: S1 and S2 present. No murmurs, rubs, or gallops. PULMONARY: Chest is clear to auscultation, no wheezing or crackles. ABDOMEN: Soft, nontender, nondistended, normoactive bowel sounds. No palpable organomegaly. MUSCULOSKELETAL: No joint swelling or deformity. - EXTREMITIES: No cyanosis, clubbing, or pedal edema. Status post amputation of the third and fifth toe with diet yellow discharge and minimal or no surrounding cellulitis - NEUROLOGICAL: Cranial nerves are Gross intact. Significant left mohit-Paresis of the left lower extremity (chronic as per pt) SKIN: No rashes. no petechiae. - Labs CBC & Chem 7: 01/17/23 05:48 01/17/23 05:48 Labs: Abnormal Lab Results - Last 24 Hours (Table) 01/17/23 Range/Units 20:59 POC Glucose (mg/dL) 133 H (70-110) mg/dL Microbiology - Last 24 Hours (Table) 01/15/23 04:50 Blood Culture Gram Stain - Final Blood Blood Culture - Final Escherichia coli 01/15/23 04:50 Blood Culture Gram Stain - Final Blood Blood Culture - Final Escherichia coli 01/16/23 02:13 Blood Culture - Preliminary Blood No Growth after 48 hours 01/15/23 04:50 Urine Culture - Final Urine,Voided Escherichia coli Assessment and Plan Assessment: 1. E. coli bacteremia -Check MRI of the cervical and thoracic spine - ID team on the case, continue with antibiotic ceftriaxone. Patient is status post Septic shock resolved, patient with fluid overload. Discontinue normal saline - 2. Acute UTI; continue with current IV antibiotic therapy; blood cultures and urine cultures obtained and pending; adjust antibiotic therapy once culture results are available 3. Hypotensio, resolved. DC IV fluids 4. Hypertension; lisinopril 10 mg daily which remains on hold due to hypotension 5. Hypothyroidism; levothyroxin 125 MCG daily 6. Diabetes mellitus type 2; patient is on long-acting insulin in form of Lantus; we will monitor Accu-Cheks before meals and at bedtime with insulin sliding scale 7. Peripheral vascular occlusive disease; history of toe amputation; patient is currently on statins, Plavix and Xarelto 8. Coronary artery disease; status post PCI 2; continue with aspirin, Lipitor along with Plavix 75 mg daily 9. Hyperlipidemia; Lipitor 40 mg by mouth daily at bedtime DVT prophylaxis; SCDs/Xarelto CODE STATUS; full code
[2023-01-18 14:41] LABS: Basophils # (A) 0.03 X 10*3/uL (0.00-0.10); Basophils % (A) 0.6 %; Eosinophils # (A) 0.11 X 10*3/uL (0.04-0.35); Eosinophils % (A) 2.3 %; HCT 33.1 % (37.2-46.3); HGB 10.1 g/dL (12.0-15.0); Immature Grans, Automated 0.4 %; Lymphocytes # (A) 0.49 X 10*3/uL (0.90-5.00); Lymphocytes % (A) 10.3 %; MCH 25.9 pg (27.0-32.0); MCHC 30.5 g/dL (32.0-37.0); MCV 84.9 fL (80.0-97.0); Mean Platelet Volume 10.2 fL (9.5-12.2); Monocytes # (A) 0.45 X 10*3/uL (0.20-1.00); Monocytes % (A) 9.4 %; NRBC Per 100 WBC 0 /100 WBCS (0.0-0.0); Neutrophils # (A) 3.67 X 10*3/uL (1.80-7.70); Platelet Count 143 X 10*3/uL (140-440); WBC 4.77 X 10*3/uL (4.50-10.00)
[2023-01-18 14:52] LABS: African American GFR (CKD) 88.4 (60.0-200.0); BUN/Creat Ratio 20.13 Ratio (12.00-20.00); Blood Urea Nitrogen 16.1 mg/dL (9.0-27.0); Calcium 8.2 mg/dL (8.7-10.3); Non-African American GFR(CKD) 76.3 (60.0-200.0)
--- NOTE | 2023-01-18 15:14 | P.PN ---
Subjective Progress Note Date: 01/18/23 This is a 67-year-old female with history of MS, COPD, coronary artery disease and previous PCI 2, type 2 diabetes, hypertension, degenerative joint disease, diabetic foot ulcers and right toe amputation, patient was brought into the hospital with chief complaint of falling off the bed, and the patient was confused. Upon evaluation in the ER, patient was noted to be hypotensive, and she had evidence of infected urine with bacteriuria. Patient received fluids for her low blood pressure, did not improve much, then the ER physician placed a femoral triple-lumen catheter, and the patient was given 2 L of fluids followed by norepinephrine. Considering the patient seems to be septic patient was admi tted to the ICU and this consult was initiated. I saw the patient this morning, patient is on 4 L nasal cannula, she is on antibiotics in the form of vancomycin and Zosyn. She is on 0.04 mcg/kg/m of norepinephrine and IV fluid in the form of 0.9 normal saline at 1 50 mL per hour. According to the patient's is feeling much better now, she is more alert and oriented and she denies any specific co mplaints except for chronic pain in the left knee joint. Lactic acid on admission was 2.0. Troponin of 0.275. CPK of 250. Renal profile showed a creatinine of 1.34. WBC count of 19.4. Computed tomography scan of the head and cervical spine is unremarkable. Chest x-ray showed slight prominence of the interstitial markings otherwise negative. X-rays of the hip and pelvis are unremarkable. Urinalysis showed evidence of bacteriuria, large leukocyte esterase, and there is evidence of pyuria. Patient had no symptoms of UTI whatsoever. Reevaluated today on 01/16 patient remains in the ICU, and she is on 4 L nasal cannula O2 saturations on the percent. Patient is feeling much better, she went off norepinephrine this morning. And she seems to be tolerating that quite well. Blood pressure remains stable, her blood cultures came back positive for E. coli, urine cultures are pending and I believe the most likely source of her bacteremia is E. coli urinary tract infection. Patient has been on Zosyn all along, and today I recommended switching the patient to Rocephin. Overall the patient is doing better, feeling much better compared to yesterday. WBC count is 9.8 hemoglobin is 10.6. Electrolytes are normal basic metabolic profile is normal creatinine is 1.06. C-reactive protein is 26.9 The patient is seen today 01/17/2023 in follow-up on the regular medical floor. She is currently resting comfortably in bed. Awake and alert in no acute distress. Maintaining O2 saturations in the 90s on room air. Normal saline at 75 mL per hour. Blood cultures positive for E. coli. Urine culture pending. White count 3.8. Hemoglobin 10.0. Platelets 128. Creatinine 0.86. She remains on ceftriaxone. The patient is seen today 01/18/2023 in follow-up on the regular medical floor. She is awake and alert in no acute distress. Resting comfortably in bed. Maintaining O2 saturations in the 90s on room air. White count 4.7. Hemoglobin 10.1. Platelets 143. Sodium 141. Potassium 4.0. Bicarb 18. BUN 16. Creatinine 0.8. Glucose 89. Blood and urine cultures were positive for E. coli. Follow-up blood culture revealing no growth. She is remains on ceftriaxone. Anticoagulated with Xarelto. Objective - Vital Signs Vital signs: Vital Signs Temp 98.4 F 01/18/23 13:29 Pulse 82 01/18/23 13:29 Resp 18 01/18/23 13:29 BP 108/58 01/18/23 13:29 Pulse Ox 94 L 01/18/23 13:29 FiO2 Intake & Output 01/17/23 01/18/23 01/18/23 18:59 06:59 18:59 Intake Total 1080 360 Output Total 800 500 350 Balance 280 -140 -350 Intake: Oral 1080 360 Output: Urine 800 500 350 Other: Voiding Method Indwelling Catheter Indwelling Catheter Indwelling Catheter # Voids 3 # Bowel Movements 1 3 - Exam GENERAL EXAM: Alert, oriented 67-year-old female, on room air, comfortable in no apparent distress. HEAD: Normocephalic. EYES: Normal reaction of pupils, equal size. NOSE: Clear with pink turbinates. THROAT: No erythema or exudates. NECK: No masses, no JVD. CHEST: No chest wall deformity. LUNGS: Equal air entry with no crackles, wheeze, rhonchi or dullness. CVS: S1 and S2 normal with no audible murmur, regular rhythm. ABDOMEN: No hepatosplenomegaly, normal bowel sounds, no guarding or rigidity. SPINE: No scoliosis or deformity SKIN: No rashes CENTRAL NERVOUS SYSTEM: No focal deficits, tone is normal in all 4 extremities. EXTREMITIES: There is no peripheral edema. No clubbing, no cyanosis. Peripher al pulses are intact. - Labs CBC & Chem 7: 01/18/23 07:45 01/18/23 07:45 Labs: Abnormal Lab Results - Last 24 Hours (Table) 01/17/23 01/18/23 01/18/23 Range/Units 20:59 07:45 07:45 RBC 3.90 L (4.10-5.20) X 10*6/uL Hgb 10.1 L (12.0-15.0) g/dL Hct 33.1 L (37.2-46.3) % MCH 25.9 L (27.0-32.0) pg MCHC 30.5 L (32.0-37.0) g/dL RDW 16.0 H (11.5-14.5) % Lymphocytes # 0.49 L (0.90-5.00) X 10*3/uL Chloride 111 H (96-109) mmol/L Carbon Dioxide 18.0 L (20.0-27.5) mmol/L BUN/Creatinine Ratio 20.13 H (12.00-20.00) Ratio POC Glucose (mg/dL) 133 H (70-110) mg/dL Calcium 8.2 L (8.7-10.3) mg/dL Microbiology - Last 24 Hours (Table) 01/15/23 04:50 Blood Culture Gram Stain - Final Blood Blood Culture - Final Escherichia coli 01/15/23 04:50 Blood Culture Gram Stain - Final Blood Blood Culture - Final Escherichia coli 01/16/23 02:13 Blood Culture - Preliminary Blood No Growth after 48 hours 01/15/23 04:50 Urine Culture - Final Urine,Voided Escherichia coli Assessment and Plan Assessment: Hypotension secondary to sepsis and septic shock, secondary to E. coli bacteremia. Recovered and off pressors Acute urinary tract infection suspect E. coli urinary tract infection with bacteremia History of MS. History of coronary artery disease and previous PCI 2 Peripheral vessel occlusive disease and previous toe amputation History of right foot osteomyelitis History of type 2 diabetes History of deep vein thromboses Benign essential hypertension History of obstructive sleep apnea syndrome, on BiPAP History of hypothyroidism Plan: The patient was seen and evaluated Labs and medications reviewed Stable and on room air Antibiotics per ID services Home once cleared by medicine I have personally seen and examined the patient, performed the documentation and the assessment and plan as written. Number of minutes spent on the visit: 10.
[2023-01-18 17:11] LABS: Glucose,Whole Blood 108 mg/dL (70-110)
[2023-01-18] MEDS: RIVAROXABAN 20 MG TAB PO SCH ×2 (17:30→17:32)
[2023-01-18 22:03] LABS: Glucose,Whole Blood 124 mg/dL (70-110)
[2023-01-18] MEDS: HYDROcodone/APAP 5-325MG 1 EACH TAB PO PRN (23:07)
[2023-01-18] MEDS: ATORVASTATIN 40 MG TAB PO SCH (23:08)
[2023-01-18] MEDS: CLOPIDOGREL 75 MG TAB PO SCH (23:08)
--- NOTE | 2023-01-19 | P.PN ---
Subjective Progress Note Date: 01/18/23 Principal diagnosis: Gram-negative bacteremia and urinary tract infection Patient is a 67-year female with a past medical history significant for type 2 diabetes mellitus hypertension diabetic foot ulcer with right third toe amputation on November 04, 2022 also with a history of COPD and MS the patient was brought into the hospital after apparently the patient fell off the bed, patient was noticed to be confused did have a fever and evidence of gram- negative bacteremia secondary to urinary source. On today's evaluation of his 01/18/2023, the patient continues to be afebrile, patient is breathing comfortably on room air, the patient denies any chest pain shortness of breath or cough no abdominal pain or diarrhea, the patient is feeling better Objective - Vital Signs Vital signs: Vital Signs Temp 98.1 F 01/18/23 07:11 Pulse 84 01/18/23 07:11 Resp 17 01/18/23 07:11 BP 134/71 01/18/23 07:11 Pulse Ox 97 01/18/23 09:54 FiO2 Intake & Output 01/17/23 01/18/23 01/18/23 18:59 06:59 18:59 Intake Total 1080 360 Output Total 800 500 350 Balance 280 -140 -350 Intake: Oral 1080 360 Output: Urine 800 500 350 Other: Voiding Method Indwelling Catheter Indwelling Catheter Indwelling Catheter # Voids 1 # Bowel Movements 1 1 - Exam GENERAL DESCRIPTION: An elderly female lying in bed in no distress RESPIRATORY SYSTEM: Unlabored breathing , decreased breath sounds at bases HEART: S1 S2 regular rate and rhythm , ABDOMEN: Soft , no tenderness EXTREMITIES: Right foot wound is currently dressed no drainage on the dressing - Labs CBC & Chem 7: 01/18/23 07:45 01/18/23 07:45 Labs: Abnormal Lab Results - Last 24 Hours (Table) 01/17/23 Range/Units 20:59 POC Glucose (mg/dL) 133 H (70-110) mg/dL Microbiology - Last 24 Hours (Table) 01/15/23 04:50 Blood Culture Gram Stain - Final Blood Blood Culture - Final Escherichia coli 01/15/23 04:50 Blood Culture Gram Stain - Final Blood Blood Culture - Final Escherichia coli 01/16/23 02:13 Blood Culture - Preliminary Blood No Growth after 48 hours 01/15/23 04:50 Urine Culture - Final Urine,Voided Escherichia coli Assessment and Plan (1) UTI (urinary tract infection) Current Visit: Yes Status: Acute Code(s): N39.0 - URINARY TRACT INFECTION, SITE NOT SPECIFIED SNOMED Code(s): 39927205 (2) Gram-negative bacteremia Current Visit: Yes Status: Acute Code(s): R78.81 - BACTEREMIA SNOMED Code(s): 269791668068 Plan: 1patient presented to hospital with sepsis in this patient who did have hypertension elevated white count elevated lactic acid presented to hospital with weakness fall significantly positive UA likely secondary to urinary source as clinically not behaving as pneumonia abdominal soft examination patient recently did have a right third toe amputation however the amputation site looks clean without any cellulitis. 2 ultrasound of the kidney and bladder was suboptimal but no evidence of any hydronephrosis 3local wound care to the right third toe amputation site with Aquacel silver dressing change every 48 hour. 4patient did have a abnormal CT of the cervical spine with a question of possible discitis to T1-T2, clinically not behaving as discitis however needs to be ruled out and will benefit from MRI with contrast was discussed with the admitting team 5patient to continue with Rocephin 2 g daily and monitor clinical course closely Time with Patient: Less than 30
[2023-01-19] MEDS: INSULIN ASPART (NovoLOG) 100 UNIT/ML VIAL SQ SCH ×5 (00:10→21:15)
[2023-01-19] MEDS: INSULIN DETEMIR (LEVEMIR) 100 UNIT/ML SYR SQ SCH ×3 (00:13→21:22)
[2023-01-19] MEDS: SODIUM CHLORIDE 0.9% 1,000 ML IV SCH ×3 (01:03→21:23)
[2023-01-19] MEDS: HYDROcodone/APAP 5-325MG 1 EACH TAB PO PRN ×2 (04:14→22:08)
[2023-01-19 06:08] LABS: Glucose,Whole Blood 89 mg/dL (70-110)
[2023-01-19] MEDS: LEVOTHYROXINE 125 MCG TAB PO SCH (07:00)
[2023-01-19] MEDS: PANTOPRAZOLE 40 MG TABLET PO SCH (07:00)
[2023-01-19] MEDS: ASPIRIN 81 MG PO SCH (09:25)
[2023-01-19 11:30] LABS: Glucose,Whole Blood 78 mg/dL (70-110)
--- NOTE | 2023-01-19 13:33 | CA ---
Transthoracic Echo Report Name: Taco Barnes Age: 67 Gender: F : 1955 Exam Date: 01/19/2023 08:53 Exam Location: [place] [facility] Ht (in): 65 Wt (lb): 251 Ordering Physician: Alex Haro DO ([email or web address]) Attending/Referring Phys: [employer] Scout Jackelyn Alcaraz RDCS Procedure CPT: Indications: re: NSTEMI Cardiac Hx: pt supine during exam Technical Quality: Technically difficult study Contrast 1: Total Dose (mL): Contrast 2: Total Dose (mL): MEASUREMENTS (Male / Female) Normal Values 2D ECHO LV Diastolic Diameter PLAX 5.6 cm 4.2 - 5.9 / 3.9 - 5.3 cm LA Volume 81.5 cm??? 18 - 58 / 22 - 52 cm??? M-MODE Aortic Root Diameter MM 3.2 cm AV Cusp Separation MM 1.9 cm DOPPLER AV Peak Velocity 143.6 cm/s AV Peak Gradient 8.2 mmHg LVOT Peak Velocity 90.6 cm/s LVOT Peak Gradient 3.3 mmHg MV Area PHT 4.1 cm??? Mitral E Point Velocity 103.8 cm/s Mitral A Point Velocity 111.0 cm/s Mitral E to A Ratio 0.9 MV Deceleration Time 183.3 ms Right Atrial Pressure 8.0 mmHg FINDINGS Left Ventricle Left ventricular cavity size normal. Left ventricular ejection fraction is estimated at 50-55 %. Right Ventricle Right ventricular systolic pressure within normal limits. Right Atrium Normal right atrial size. Left Atrium Severely increased left atrial volume. Mitral Valve Structurally normal mitral valve. Mild to moderate mitral regurgitation.mitral annular calcification. Aortic Valve Trileaflet aortic valve. No aortic regurgitation. No aortic stenosis. Tricuspid Valve Structurally normal tricuspid valve. No tricuspid regurgitation. Pulmonic Valve Pulmonic valve not well visualized. Pericardium Small pericardial effusion Aorta Normal size aortic root and proximal ascending aorta. CONCLUSIONS 1. Left ventricle systolic function borderline normal 2. [id number] mitral regurgitation 3. Small pericardial effusion Previewed by: Dr. Miriam Rucker MD (Electronically Signed) Final Date: 19 January 2023 13:32
--- NOTE | 2023-01-19 14:16 | P.PN ---
Subjective Progress Note Date: 01/19/23 HISTORY OF PRESENTING ILLNESS Patient is pleasant 67-year-old female with history of multiple sclerosis with bilateral lower extremity weakness, CAD status post PCI, PAD, obesity with history of bariatric surgery, osteoarthritis, hypertension, hyperlipidemia, hypothyroidism, diabetes mellitus type 2, COPD, sleep apnea. She had undergone prior heart catheterization September 2022 was found to have significant left main disease and eventually turned down for surgery and underwent successful stenting of the left main. She has done fairly well since then. Unfortunately over the last few days she has been feeling somewhat more fatigued and had a fall at home. She denies any actual syncope. She denies any changes in her medications. She was found to have a urinary tract infection with additional E. coli bacteremia. She was septic and with blood pressures down into the 60s and required norepinephrine. She has received IV fluid hydration with improvement in blood pressure and eventually weaned off vasopressors this morning. She denies any chest pain or pressure or tightness. Denies any shortness breath. Does have trace lower extremity edema which is chronic. EKG shows sinus rhythm with left axis deviation, low voltage, poor R-wave progression and nonspecific minimal ST depressions in the lateral leads. Cardiology was consult that secondary to elevated troponins 0.1, 0.27, 0.49 and 0.42. 01/17 Patient seen and examined. Patient transferred from ICU. Blood pressure stable 110-130's. Denies any chest pain or pressure. No lightheadedness. Hemoglobin 10.0. Echocardiogram has not been performed yet. 01/18 Patient is seen and examined in her room. She is on the [facility] floor. She denies having any chest pain, shortness of breath, no nausea. No lightheadedness. Her vital signs have been stable 01/19 Patient is seen today in follow-up. She states she continues to feel better, no chest pain and no shortness of breath. We are waiting on an echocardiogram which revealed left ventricular systolic function borderline normal with EF of 50-55%, mild to moderate mitral regurgitation, small pericardial effusion Vital signs have been stable, heart rate in the 70s and 80s, blood pressure 132/79, pulse ox 95% on room air. PHYSICAL EXAMINATION Vital signs reviewed. CONSTITUTIONAL: No apparent distress, chronically ill-appearing, obese. HEENT: Head is normocephalic. Pupils are equal, round. Sclerae anicteric. Mucous membranes of the mouth are moist. No JVD. No carotid bruit. CHEST EXAMINATION: Lungs are clear to auscultation. No chest wall tenderness is noted on palpation or with deep breathing. HEART EXAMINATION: Regular rate and rhythm. S1, S2 heard. No murmurs, gallops or rub. ABDOMEN: Soft, nontender. Positive bowel sounds. EXTREMITIES: 2+ peripheral pulses, no lower extremity edema and no calf tenderness. NEUROLOGIC EXAMINATION: Patient is awake, alert and oriented x3. ASSESSMENT 1. Non-STEMI likely related to sepsis, type II mechanism 2. CAD with prior history of PCI left Main October 2022 3. Septic shock currently off vasopressors 4. History of hypertension 5. Diabetes mellitus type 2 6. E. coli bacteremia related to urosepsis PLAN Patient denies any chest pain or pressure. Continue current medication regime No plan for any further workup by cardiology. Cardiology will sign off and follow on an as-needed basis. Please reconsult for any new concerns. Patient may follow-up in the office with Dr. Nina in one to 2 weeks following discharge. Nurse practitioner note has been reviewed, I agree with the documented findings and plan of care. Patient was seen and examined. Objective - Vital Signs Vital signs: Vital Signs Temp 98.7 F 01/19/23 08:00 Pulse 74 01/19/23 08:00 Resp 16 01/19/23 08:00 BP 132/79 01/19/23 08:00 Pulse Ox 95 01/19/23 08:00 FiO2 Intake & Output 01/18/23 01/19/23 01/19/23 18:59 06:59 18:59 Output Total 350 700 Balance -350 -700 Output: Urine 350 700 Other: Voiding Method Indwelling Catheter External Catheter # Voids 2 2 # Bowel Movements 3 1 - Labs CBC & Chem 7: 01/18/23 07:45 01/18/23 07:45 Labs: Abnormal Lab Results - Last 24 Hours (Table) 01/18/23 01/18/23 01/18/23 Range/Units 07:45 07:45 22:02 RBC 3.90 L (4.10-5.20) X 10*6/uL Hgb 10.1 L (12.0-15.0) g/dL Hct 33.1 L (37.2-46.3) % MCH 25.9 L (27.0-32.0) pg MCHC 30.5 L (32.0-37.0) g/dL RDW 16.0 H (11.5-14.5) % Lymphocytes # 0.49 L (0.90-5.00) X 10*3/uL Chloride 111 H (96-109) mmol/L Carbon Dioxide 18.0 L (20.0-27.5) mmol/L BUN/Creatinine Ratio 20.13 H (12.00-20.00) Ratio POC Glucose (mg/dL) 124 H (70-110) mg/dL Calcium 8.2 L (8.7-10.3) mg/dL Microbiology - Last 24 Hours (Table) 01/16/23 02:13 Blood Culture - Preliminary Blood No Growth after 72 hours 01/15/23 04:50 Blood Culture Gram Stain - Final Blood Blood Culture - Final Escherichia coli 01/15/23 04:50 Blood Culture Gram Stain - Final Blood Blood Culture - Final Escherichia coli
--- NOTE | 2023-01-19 15:09 | P.PN ---
Subjective Progress Note Date: 01/19/23 This is a 67-year-old female with history of MS, COPD, coronary artery disease and previous PCI 2, type 2 diabetes, hypertension, degenerative joint disease, diabetic foot ulcers and right toe amputation, patient was brought into the hospital with chief complaint of falling off the bed, and the patient was confused. Upon evaluation in the ER, patient was noted to be hypotensive, and she had evidence of infected urine with bacteriuria. Patient received fluids for her low blood pressure, did not improve much, then the ER physician placed a femoral triple-lumen catheter, and the patient was given 2 L of fluids followed by norepinephrine. Considering the patient seems to be septic patient was admi tted to the ICU and this consult was initiated. I saw the patient this morning, patient is on 4 L nasal cannula, she is on antibiotics in the form of vancomycin and Zosyn. She is on 0.04 mcg/kg/m of norepinephrine and IV fluid in the form of 0.9 normal saline at 1 50 mL per hour. According to the patient's is feeling much better now, she is more alert and oriented and she denies any specific co mplaints except for chronic pain in the left knee joint. Lactic acid on admission was 2.0. Troponin of 0.275. CPK of 250. Renal profile showed a creatinine of 1.34. WBC count of 19.4. Computed tomography scan of the head and cervical spine is unremarkable. Chest x-ray showed slight prominence of the interstitial markings otherwise negative. X-rays of the hip and pelvis are unremarkable. Urinalysis showed evidence of bacteriuria, large leukocyte esterase, and there is evidence of pyuria. Patient had no symptoms of UTI whatsoever. Reevaluated today on 01/16 patient remains in the ICU, and she is on 4 L nasal cannula O2 saturations on the percent. Patient is feeling much better, she went off norepinephrine this morning. And she seems to be tolerating that quite well. Blood pressure remains stable, her blood cultures came back positive for E. coli, urine cultures are pending and I believe the most likely source of her bacteremia is E. coli urinary tract infection. Patient has been on Zosyn all along, and today I recommended switching the patient to Rocephin. Overall the patient is doing better, feeling much better compared to yesterday. WBC count is 9.8 hemoglobin is 10.6. Electrolytes are normal basic metabolic profile is normal creatinine is 1.06. C-reactive protein is 26.9 The patient is seen today 01/17/2023 in follow-up on the regular medical floor. She is currently resting comfortably in bed. Awake and alert in no acute distress. Maintaining O2 saturations in the 90s on room air. Normal saline at 75 mL per hour. Blood cultures positive for E. coli. Urine culture pending. White count 3.8. Hemoglobin 10.0. Platelets 128. Creatinine 0.86. She remains on ceftriaxone. The patient is seen today 01/18/2023 in follow-up on the regular medical floor. She is awake and alert in no acute distress. Resting comfortably in bed. Maintaining O2 saturations in the 90s on room air. White count 4.7. Hemoglobin 10.1. Platelets 143. Sodium 141. Potassium 4.0. Bicarb 18. BUN 16. Creatinine 0.8. Glucose 89. Blood and urine cultures were positive for E. coli. Follow-up blood culture revealing no growth. She is remains on ceftriaxone. Anticoagulated with Xarelto. The patient is seen today 01/19/2023 in follow-up on the regular medical floor. She is resting comfortably in bed. Awake and alert in no acute distress. Maintaining good O2 saturations in the 90s on room air. She remains on ceftriaxone for her E. coli. has secondary to urinary tract infection. Anticoagulated with Xarelto. Echocardiogram revealed preserved left ventricular systolic function. Mild to moderate mitral regurgitation. Small pericardial effusion. Objective - Vital Signs Vital signs: Vital Signs Temp 98.3 F 01/19/23 14:01 Pulse 87 01/19/23 14:01 Resp 18 01/19/23 14:01 BP 138/90 01/19/23 14:01 Pulse Ox 95 01/19/23 14:01 FiO2 Intake & Output 01/18/23 01/19/23 01/19/23 18:59 06:59 18:59 Output Total 350 700 Balance -350 -700 Output: Urine 350 700 Other: Voiding Method Indwelling Catheter External Catheter Bedpan # Voids 2 2 1 # Bowel Movements 3 1 1 - Exam GENERAL EXAM: Alert, oriented 67-year-old female, sitting up in bed, on room air, comfortable in no apparent distress. HEAD: Normocephalic. EYES: Normal reaction of pupils, equal size. NOSE: Clear with pink turbinates. THROAT: No erythema or exudates. NECK: No masses, no JVD. CHEST: No chest wall deformity. LUNGS: Equal air entry with no crackles, wheeze, rhonchi or dullness. CVS: S1 and S2 normal with no audible murmur, regular rhythm. ABDOMEN: No hepatosplenomegaly, normal bowel sounds, no guarding or rigidity. SPINE: No scoliosis or deformity SKIN: No rashes CENTRAL NERVOUS SYSTEM: No focal deficits, tone is normal in all 4 extremities. EXTREMITIES: There is no peripheral edema. No clubbing, no cyanosis. Peripheral pulses are intact. - Labs CBC & Chem 7: 01/18/23 07:45 01/18/23 07:45 Labs: Abnormal Lab Results - Last 24 Hours (Table) 01/18/23 01/19/23 01/19/23 Range/Units 22:02 06:01 06:01 ESR 84 H (0-30) mm/Hr POC Glucose (mg/dL) 124 H (70-110) mg/dL C-Reactive Protein 7.70 H (0.00-0.80) mg/dL Microbiology - Last 24 Hours (Table) 01/16/23 02:13 Blood Culture - Preliminary Blood No Growth after 72 hours 01/15/23 04:50 Blood Culture Gram Stain - Final Blood Blood Culture - Final Escherichia coli 01/15/23 04:50 Blood Culture Gram Stain - Final Blood Blood Culture - Final Escherichia coli Assessment and Plan Assessment: Hypotension secondary to sepsis and septic shock, secondary to E. coli bacteremia. Recovered and off pressors Acute urinary tract infection suspect E. coli urinary tract infection with bacteremia. Remains on ceftriaxone History of multiple sclerosis History of coronary artery disease and previous PCI 2 Peripheral vessel occlusive disease and previous toe amputation History of right foot osteomyelitis History of type 2 diabetes History of deep vein thromboses Benign essential hypertension History of obstructive sleep apnea syndrome, on BiPAP History of hypothyroidism Plan: The patient was seen and evaluated Echocardiogram, labs and medications reviewed Stable and on room air Antibiotics per ID services Home once cleared by medicine I have personally seen and examined the patient, performed the documentation and the assessment and plan as written. Number of minutes spent on the visit: 10.
--- NOTE | 2023-01-19 15:57 | MR ---
EXAMINATION TYPE: MR thoracic spine wo/w con DATE OF EXAM: 01/19/2023 3:23 PM COMPARISON: CT brain C-spine 01/15/2023, CT chest Angio 12/04/2022. INDICATION: Patient age:Female; 67 years old; Reason for study: Abdominal CT question of possible discitis T1-T2. Fall, AMS, abnormal CT. TECHNIQUE: Multi planar, multi sequence imaging was performed utilizing: T1-weighted, short-tau inver madelyn recovery and T2-weighted of the thoracic spine. The patient was not given Gadolinium. IV Contrast: 11.5 cc Gadavist FINDINGS: Motion limited exam. Severe degeneration changes are seen at the level of T1-T2. There is no abnormal bony signal. No evid ence for abnormal signal within the disc space itself. Area corresponds with sclerosis with low T1 an d low T2 signal involving the adjoining endplates. No abnormal postcontrast enhancement at this level . There is slight grade 1 anterolisthesis at this level without significant spinal canal stenosis. Scattered small disc protrusions are suggested in this motion limited exam without significant spinal canal stenosis. The largest is at T7-T8 on the right central location with at least mild spinal sera l stenosis. Facet joint arthropathy seen throughout the spine Scattered neural foraminal stenosis worse at T9-T10 with moderate right and mild left neural foramina l stenosis additional multilevel at least mild neural foraminal stenosis scattered throughout the spi ne. The remainder of the levels demonstrate no evidence for abnormal postcontrast enhancement. There is m ild to moderate degeneration changes of the spine with osteophyte formation, Schmorl's nodes and scat tered disc space narrowing. Facet joint arthropathy seen throughout the spin. Cord signal is maintained. Moderate right and small left pleural effusion. IMPRESSION: 1. T1-T2 adjoining endplates do not demonstrate abnormal postcontrast enhancement or bony edema. Fin dings are felt to correlate with severe degeneration at this level with secondary sclerosis of the ad joining endplates. 2. No evidence for fracture. 3. Scattered small disc protrusions suggested largest in the right central portion of T7-T8 with mil d spinal canal stenosis. 4. Moderate right and small left pleural effusions.
[2023-01-19 16:47] LABS: Glucose,Whole Blood 91 mg/dL (70-110)
[2023-01-19] MEDS: NYSTATIN 100,000 UNIT/GM POWD 15 GM TOPICAL SCH ×2 (18:27→21:23)
[2023-01-19] MEDS: RIVAROXABAN 20 MG TAB PO SCH (18:27)
--- NOTE | 2023-01-19 19:31 | P.PN ---
Subjective Progress Note Date: 01/19/23 Principal diagnosis: Gram-negative bacteremia and urinary tract infection Patient is a 67-year female with a past medical history significant for type 2 diabetes mellitus hypertension diabetic foot ulcer with right third toe amputation on November 04, 2022 also with a history of COPD and MS the patient was brought into the hospital after apparently the patient fell off the bed, patient was noticed to be confused did have a fever and evidence of gram- negative bacteremia secondary to urinary source. On today's evaluation of his 01/19/2023, the patient remains to be afebrile, patient is breathing comfortably on room air, the patient denies any chest pain shortness of breath or cough no abdominal pain or diarrhea, the patient denies pain to the mid or upper back area Objective - Vital Signs Vital signs: Vital Signs Temp 98.7 F 01/19/23 08:00 Pulse 74 01/19/23 11:06 Resp 16 01/19/23 08:00 BP 132/79 01/19/23 08:00 Pulse Ox 95 01/19/23 08:00 FiO2 Intake & Output 01/18/23 01/19/23 01/19/23 18:59 06:59 18:59 Output Total 350 700 Balance -350 -700 Output: Urine 350 700 Other: Voiding Method Indwelling Catheter External Catheter Bedpan # Voids 2 2 1 # Bowel Movements 3 1 - Exam GENERAL DESCRIPTION: An elderly female lying in bed in no distress RESPIRATORY SYSTEM: Unlabored breathing , decreased breath sounds at bases HEART: S1 S2 regular rate and rhythm , ABDOMEN: Soft , no tenderness EXTREMITIES: Right foot wound is currently dressed no drainage on the dressing - Labs CBC & Chem 7: 01/18/23 07:45 01/18/23 07:45 Labs: Abnormal Lab Results - Last 24 Hours (Table) 01/18/23 01/18/23 01/18/23 Range/Units 07:45 07:45 22:02 RBC 3.90 L (4.10-5.20) X 10*6/uL Hgb 10.1 L (12.0-15.0) g/dL Hct 33.1 L (37.2-46.3) % MCH 25.9 L (27.0-32.0) pg MCHC 30.5 L (32.0-37.0) g/dL RDW 16.0 H (11.5-14.5) % Lymphocytes # 0.49 L (0.90-5.00) X 10*3/uL Chloride 111 H (96-109) mmol/L Carbon Dioxide 18.0 L (20.0-27.5) mmol/L BUN/Creatinine Ratio 20.13 H (12.00-20.00) Ratio POC Glucose (mg/dL) 124 H (70-110) mg/dL Calcium 8.2 L (8.7-10.3) mg/dL C-Reactive Protein (0.00-0.80) mg/dL 01/19/23 Range/Units 06:01 RBC (4.10-5.20) X 10*6/uL Hgb (12.0-15.0) g/dL Hct (37.2-46.3) % MCH (27.0-32.0) pg MCHC (32.0-37.0) g/dL RDW (11.5-14.5) % Lymphocytes # (0.90-5.00) X 10*3/uL Chloride (96-109) mmol/L Carbon Dioxide (20.0-27.5) mmol/L BUN/Creatinine Ratio (12.00-20.00) Ratio POC Glucose (mg/dL) (70-110) mg/dL Calcium (8.7-10.3) mg/dL C-Reactive Protein 7.70 H (0.00-0.80) mg/dL Microbiology - Last 24 Hours (Table) 01/16/23 02:13 Blood Culture - Preliminary Blood No Growth after 72 hours 01/15/23 04:50 Blood Culture Gram Stain - Final Blood Blood Culture - Final Escherichia coli 01/15/23 04:50 Blood Culture Gram Stain - Final Blood Blood Culture - Final Escherichia coli Assessment and Plan (1) UTI (urinary tract infection) Current Visit: Yes Status: Acute Code(s): N39.0 - URINARY TRACT INFECTION, SITE NOT SPECIFIED SNOMED Code(s): 26921248 (2) Gram-negative bacteremia Current Visit: Yes Status: Acute Code(s): R78.81 - BACTEREMIA SNOMED Code(s): 320929546556 Plan: 1patient presented to hospital with sepsis in this patient who did have hypertension elevated white count elevated lactic acid presented to hospital with weakness fall significantly positive UA likely secondary to urinary source as clinically not behaving as pneumonia abdominal soft examination patient recently did have a right third toe amputation however the amputation site looks clean without any cellulitis. 2 ultrasound of the kidney and bladder was suboptimal but no evidence of any hydronephrosis 3local wound care to the right third toe amputation site with Aquacel silver dressing change every 48 hour. 4patient did have a abnormal CT of the cervical spine with a question of possible discitis to T1-T2, clinically not behaving as discitis however needs to be ruled out, currently waiting for MRI of the thoracic spine 5patient to continue with Rocephin 2 g daily and hopefully finishing therapy with oral antibiotics Time with Patient: Less than 30
--- NOTE | 2023-01-19 20:50 | P.PN ---
Subjective From records 67-year-old female has multiple comorbidities including multiple sclerosis. Patient is a poor historian. Patient according EMS fell out of bed. Patient reports that she rolled out of bed. In the skull. States that he suspects she is on the ground for almost one hour. She was trapped in between the bed and the wall. Patient denies any pain complaints. She does report feeling "yucky." When asked to elaborate further she is unable to do so. States that she's been feeling this way for the last 12 hours. Computed tomography scan of the head and cervical spine is unremarkable. Chest x-ray showed slight prominence of the interstitial markings otherwise negative. X-rays of the hip and pelvis are unremarkable. Urinalysis showed evidence of bacteriuria, large leukocyte esterase, and there is evidence of pyuria. Patient had no symptoms of UTI whatsoever. Lactic acid on admission was 2.0. Troponin of 0.275. CPK of 250. Renal profile showed a creatinine of 1.34. WBC count of 19.4. Patient has been admitted to ICU and currently on IV antibiotics in form of vancomycin and Zosyn along with pressor support with norepinephrine 01/18/2023 Patient currently without the ICU, she presents originally septic shock with E. coli UTI and E. coli bacteremia, and she recovered ceftriaxone 2 g daily abdominal 7 75 mL/h (IV fluids was discontinued this morning, patient with evidence of fluid overload) On admission she had CAT scan of the head and neck showing possible T1-T2 chronic discitis with osseous sclerosis\\ which is new from old Imaging, therefore going to order MRI of the thoracic and cervical spine. Patient also denies any back pain or neck pain. Patient states that she has history of multiple sclerosis and she has chronic left hemiplegia which is not worsening now as per patient. Patient also states that she is bedridden and uses a wheelchair at home. Also patient does not need any pressors Also patient has evidence of amputation of the third and fifth toe with some dried yellow discharge at the base but no or minimal surrounding cellulitis Patient on Xarelto, as pe aspirating and Plavix at home which is continuing now. Noted for any pressors Presented that patient is fully awake and oriented, looks comfortable. Patient has bilateral pitting leg edema and basal crepitations and swelling in the upper and lower extremities. 01/19/2023 Patient lying in bed, showing clinical improvement as she is look more alert and comfortable and relaxed, she denies any neck pain or back pain. He Thoracic MRI showed degenerative changes with no evidence of bony edema to suspected osteomyelitis. However patient ESR and C-reactive protein are elevated. Patient with mild basal crepitation. Therefore with arthritis though 75 down to 50 mg/h Continue with ceftriaxone 2 g Check labs in the morning No fever today. We will keep monitoring Objective - Vital Signs Vital signs: Vital Signs Temp 98.4 F 01/19/23 19:13 Pulse 87 01/19/23 19:13 Resp 17 01/19/23 19:13 BP 162/71 01/19/23 19:13 Pulse Ox 92 L 01/19/23 19:13 FiO2 Intake & Output 01/19/23 01/19/23 01/20/23 06:59 18:59 06:59 Intake Total 1080 Output Total 700 Balance -700 1080 Intake: Oral 1080 Output: Urine 700 Other: Voiding Method External Catheter Bedpan # Voids 2 3 # Bowel Movements 1 1 - Exam -GENERAL: The patient is alert and oriented x3, not in any acute distress. Obese HEENT: Pupils are round and equally reacting to light. EOMI. No scleral icterus. No conjunctival pallor. Normocephalic, atraumatic. No pharyngeal erythema. No thyromegaly. CARDIOVASCULAR: S1 and S2 present. No murmurs, rubs, or gallops. PULMONARY: Chest is clear to auscultation, no wheezing or crackles. ABDOMEN: Soft, nontender, nondistended, normoactive bowel sounds. No palpable organomegaly. MUSCULOSKELETAL: No joint swelling or deformity. - EXTREMITIES: No cyanosis, clubbing, or pedal edema. Status post amputation of the third and fifth toe with diet yellow discharge and minimal or no surrounding cellulitis - NEUROLOGICAL: Cranial nerves are Gross intact. Significant left mohit-Paresis of the left lower extremity (chronic as per pt) SKIN: No rashes. no petechiae. - Labs CBC & Chem 7: 01/18/23 07:45 01/18/23 07:45 Labs: Abnormal Lab Results - Last 24 Hours (Table) 01/18/23 01/19/23 01/19/23 Range/Units 22:02 06:01 06:01 ESR 84 H (0-30) mm/Hr POC Glucose (mg/dL) 124 H (70-110) mg/dL C-Reactive Protein 7.70 H (0.00-0.80) mg/dL Microbiology - Last 24 Hours (Table) 01/16/23 02:13 Blood Culture - Preliminary Blood No Growth after 72 hours Assessment and Plan Assessment: 1. E. coli bacteremia -Check MRI of the cervical and thoracic spine - ID team on the case, continue with antibiotic ceftriaxone. Patient is status post Septic shock resolved, patient with fluid overload. Rate of normal saline - 2. Acute UTI; continue with current IV antibiotic therapy; blood cultures and urine cultures obtained and pending; adjust antibiotic therapy once culture results are available 3. Hypotension, resolved. 4. Hypertension; lisinopril 10 mg daily which remains on hold due to hypotension 5. Hypothyroidism; levothyroxin 125 MCG daily 6. Diabetes mellitus type 2; patient is on long-acting insulin in form of Lantus; we will monitor Accu-Cheks before meals and at bedtime with insulin sliding scale 7. Peripheral vascular occlusive disease; history of toe amputation; patient is currently on statins, Plavix and Xarelto 8. Coronary artery disease; status post PCI 2; continue with aspirin, Lipitor along with Plavix 75 mg daily 9. Hyperlipidemia; Lipitor 40 mg by mouth daily at bedtime DVT prophylaxis; SCDs/Xarelto CODE STATUS; full code
[2023-01-19 21:14] LABS: Glucose,Whole Blood 128 mg/dL (70-110)
[2023-01-19] MEDS: ATORVASTATIN 40 MG TAB PO SCH (21:22)
[2023-01-19] MEDS: CLOPIDOGREL 75 MG TAB PO SCH (21:22)
[2023-01-20 03:03] VITALS: RESP 16
[2023-01-20] MEDS: HYDROcodone/APAP 5-325MG 1 EACH TAB PO PRN (04:16)
[2023-01-20 06:09] LABS: Glucose,Whole Blood 98 mg/dL (70-110)
[2023-01-20] MEDS: INSULIN ASPART (NovoLOG) 100 UNIT/ML VIAL SQ SCH ×2 (06:15→12:00)
[2023-01-20] MEDS: PANTOPRAZOLE 40 MG TABLET PO SCH (06:19)
[2023-01-20] MEDS: LEVOTHYROXINE 125 MCG TAB PO SCH (06:19)
[2023-01-20] MEDS: NYSTATIN 100,000 UNIT/GM POWD 15 GM TOPICAL SCH (08:31)
[2023-01-20] MEDS: INSULIN DETEMIR (LEVEMIR) 100 UNIT/ML SYR SQ SCH (08:32)
[2023-01-20] MEDS: ASPIRIN 81 MG PO SCH (08:33)
[2023-01-20 10:47] VITALS: TEMP 98.6
[2023-01-20 11:39] LABS: Glucose,Whole Blood 127 mg/dL (70-110)
[2023-01-20 12:24] LABS: African American GFR (CKD) 85.9 (60.0-200.0); Anion Gap 12.5 mmol/L (10.00-18.00); BUN/Creat Ratio 13.19 Ratio (12.00-20.00); Blood Urea Nitrogen 10.8 mg/dL (9.0-27.0); Calcium 8.6 mg/dL (8.7-10.3); Carbon Dioxide 20.8 mmol/L (20.0-27.5); Non-African American GFR(CKD) 74.2 (60.0-200.0); Potassium 3.7 mmol/L (3.5-5.5)
[2023-01-20 14:02] VITALS: BP 161/90; PULSE 70
--- NOTE | 2023-01-20 14:20 | P.PN ---
Subjective Progress Note Date: 01/20/23 This is a 67-year-old female with history of MS, COPD, coronary artery disease and previous PCI 2, type 2 diabetes, hypertension, degenerative joint disease, diabetic foot ulcers and right toe amputation, patient was brought into the hospital with chief complaint of falling off the bed, and the patient was confused. Upon evaluation in the ER, patient was noted to be hypotensive, and she had evidence of infected urine with bacteriuria. Patient received fluids for her low blood pressure, did not improve much, then the ER physician placed a femoral triple-lumen catheter, and the patient was given 2 L of fluids followed by norepinephrine. Considering the patient seems to be septic patient was admi tted to the ICU and this consult was initiated. I saw the patient this morning, patient is on 4 L nasal cannula, she is on antibiotics in the form of vancomycin and Zosyn. She is on 0.04 mcg/kg/m of norepinephrine and IV fluid in the form of 0.9 normal saline at 1 50 mL per hour. According to the patient's is feeling much better now, she is more alert and oriented and she denies any specific co mplaints except for chronic pain in the left knee joint. Lactic acid on admission was 2.0. Troponin of 0.275. CPK of 250. Renal profile showed a creatinine of 1.34. WBC count of 19.4. Computed tomography scan of the head and cervical spine is unremarkable. Chest x-ray showed slight prominence of the interstitial markings otherwise negative. X-rays of the hip and pelvis are unremarkable. Urinalysis showed evidence of bacteriuria, large leukocyte esterase, and there is evidence of pyuria. Patient had no symptoms of UTI whatsoever. Reevaluated today on 01/16 patient remains in the ICU, and she is on 4 L nasal cannula O2 saturations on the percent. Patient is feeling much better, she went off norepinephrine this morning. And she seems to be tolerating that quite well. Blood pressure remains stable, her blood cultures came back positive for E. coli, urine cultures are pending and I believe the most likely source of her bacteremia is E. coli urinary tract infection. Patient has been on Zosyn all along, and today I recommended switching the patient to Rocephin. Overall the patient is doing better, feeling much better compared to yesterday. WBC count is 9.8 hemoglobin is 10.6. Electrolytes are normal basic metabolic profile is normal creatinine is 1.06. C-reactive protein is 26.9 The patient is seen today 01/17/2023 in follow-up on the regular medical floor. She is currently resting comfortably in bed. Awake and alert in no acute distress. Maintaining O2 saturations in the 90s on room air. Normal saline at 75 mL per hour. Blood cultures positive for E. coli. Urine culture pending. White count 3.8. Hemoglobin 10.0. Platelets 128. Creatinine 0.86. She remains on ceftriaxone. The patient is seen today 01/18/2023 in follow-up on the regular medical floor. She is awake and alert in no acute distress. Resting comfortably in bed. Maintaining O2 saturations in the 90s on room air. White count 4.7. Hemoglobin 10.1. Platelets 143. Sodium 141. Potassium 4.0. Bicarb 18. BUN 16. Creatinine 0.8. Glucose 89. Blood and urine cultures were positive for E. coli. Follow-up blood culture revealing no growth. She is remains on ceftriaxone. Anticoagulated with Xarelto. The patient is seen today 01/19/2023 in follow-up on the regular medical floor. She is resting comfortably in bed. Awake and alert in no acute distress. Maintaining good O2 saturations in the 90s on room air. She remains on ceftriaxone for her E. coli. has secondary to urinary tract infection. Anticoagulated with Xarelto. Echocardiogram revealed preserved left ventricular systolic function. Mild to moderate mitral regurgitation. Small pericardial effusion. The patient is seen today 01/20/2023 in follow-up on the regular medical floor. She is awake and alert in no acute distress. Resting comfortably in bed. Anxious to go home. She is maintaining good O2 saturations in the 90s on room air. No IV fluids. MRI of the spine did not reveal any discitis. Blood and urine cultures were positive for E. coli. Follow-up blood culture revealing no growth. Sodium 142. Potassium 3.7. Chloride 108. BUN 11. Creatinine 0.8. Glucose 96. Remains anticoagulated with Xarelto. Completed her course of ceftriaxone. Objective - Vital Signs Vital signs: Vital Signs Temp 98.6 F 01/20/23 10:46 Pulse 70 01/20/23 14:00 Resp 16 01/20/23 14:00 BP 161/90 01/20/23 14:00 Pulse Ox 95 01/20/23 14:00 FiO2 Intake & Output 01/19/23 01/20/23 01/20/23 18:59 06:59 18:59 Intake Total 1080 Output Total 90 Balance 1080 -90 Intake: Oral 1080 Output: Urine 90 Other: Voiding Method Bedpan Bedpan # Voids 3 4 1 # Bowel Movements 1 - Exam GENERAL EXAM: Alert, oriented pleasant 67-year-old female, resting in bed, on room air, comfortable in no apparent distress. HEAD: Normocephalic. EYES: Normal reaction of pupils, equal size. NOSE: Clear with pink turbinates. THROAT: No erythema or exudates. NECK: No masses, no JVD. CHEST: No chest wall deformity. LUNGS: Equal air entry with no crackles, wheeze, rhonchi or dullness. CVS: S1 and S2 normal with no audible murmur, regular rhythm. ABDOMEN: No hepatosplenomegaly, normal bowel sounds, no guarding or rigidity. SPINE: No scoliosis or deformity SKIN: No rashes CENTRAL NERVOUS SYSTEM: No focal deficits, tone is normal in all 4 extremities. EXTREMITIES: There is no peripheral edema. No clubbing, no cyanosis. Peripheral pulses are intact. - Labs CBC & Chem 7: 01/18/23 07:45 01/20/23 06:56 Labs: Abnormal Lab Results - Last 24 Hours (Table) 01/19/23 01/20/23 01/20/23 Range/Units 21:12 06:56 11:38 POC Glucose (mg/dL) 128 H 127 H (70-110) mg/dL Calcium 8.6 L (8.7-10.3) mg/dL Microbiology - Last 24 Hours (Table) 01/16/23 02:13 Blood Culture - Preliminary Blood No Growth after 96 hours Assessment and Plan Assessment: Hypotension secondary to sepsis and septic shock, secondary to E. coli bacteremia. Recovered and off pressors Acute urinary tract infection suspect E. coli urinary tract infection with bacteremia. Remains on ceftriaxone History of multiple sclerosis History of coronary artery disease and previous PCI 2 Peripheral vessel occlusive disease and previous toe amputation History of right foot osteomyelitis History of type 2 diabetes History of deep vein thromboses Benign essential hypertension History of obstructive sleep apnea syndrome, on BiPAP History of hypothyroidism Plan: The patient was seen and evaluated MRI of the spine, labs and medications reviewed Stable and on room air Home once cleared by medicine Follow up in the office in 1 week I have personally seen and examined the patient, performed the documentation and the assessment and plan as written. Number of minutes spent on the visit: 10.
--- NOTE | 2023-01-20 22:34 | P.DS ---
Providers Date of admission: 01/15/23 05:36 Attending physician: Tj Angela Consults: 01/15/23 05:34 Consult Physician Stat Consulting Provider: Girma Barrett Consult Reason/Comments: icu Do you want consulting provider notified?: Already Contacted 01/15/23 05:36 Consult Physician Routine Consulting Provider: Paul Smith Consult Reason/Comments: urosepsis Do you want consulting provider notified?: Yes 01/15/23 17:23 Consult Physician Routine Consulting Provider: Alex Haro Consult Reason/Comments: Elevated troponin Do you want consulting provider notified?: Yes, Notify in am Primary care physician: [facility] Hospital Course: Diagnoses: 1. E. coli bacteremia, most likely secondary to UTI with E. coli as well, improving 2. Acute UTI; secondary to E. coli infection, improving 3. Hypotension, resolved. 4. Hypertension; lisinopril 10 mg daily which remains on hold due to hypotension 5. Hypothyroidism; levothyroxin 125 MCG daily 6. Diabetes mellitus type 2; patient is on long-acting insulin in form of Lantus; we will monitor Accu-Cheks before meals and at bedtime with insulin sliding scale 7. Peripheral vascular occlusive disease; history of toe amputation; patient is currently on statins, Plavix and Xarelto 8. Coronary artery disease; status post PCI 2; continue with aspirin, Lipitor along with Plavix 75 mg daily 9. Hyperlipidemia; 10. Pituitary calcification, looks benign in nature, patient says that the neurologist abdomen MRI of the brain that she has now has about it, patient still instructed to follow up with PCP upon discharge and she agrees Hospital course: 67-year-old female has multiple comorbidities including multiple sclerosis.Patient was treated initially in the ICU, she presents originally septic shock with E. coli UTI and E. coli bacteremia, and she recovered ceftriaxone 2 g daily and IV fluids On admission she had CAT scan of the head and neck showing possible T1-T2 chronic discitis with osseous sclerosis\ however MRI of the thoracic spine show no edema and no evidence of osteomyelitis and no fracture. Patient also with no neck pain or back pain. Patient has been seen by several consultants including pulmonary/critical care team, infectious disease team and machine ii coremaker. Patient elevated troponin were secondary to her infection, cardiac causes has been ruled out. Also Patient states that she has history of multiple sclerosis and she has chronic left hemiplegia which is not worsening now as per patient. Patient also states that she is bedridden and uses a wheelchair at home. Also patient has evidence of amputation of the third and fifth toe with some dried yellow discharge at the base but no or minimal surrounding cellulitis Patient on Xarelto, as pe aspirating and Plavix at home which is continuing now. This morning patient is back to baseline over the last 48-72 hours, mentation normal, patient since morning was asking to be discharged home confirming that she is at baseline. She was adamant to be discharged home today. She denies any chest pain or dyspnea, no change in urine or bowel habits. She has chronic left hemiparesis with no worsening. And she is wheelchair bound but she can m anage herself at home and she confirms to me, I offered to do physical therapy evaluation and may consider inpatient rehab versus subacute rehab she declined those also I offered home health care and also she declines. Patient showed interval improvement of antibiotics and I discussed with the Patient is going to be discharged on 10 day course of Ceftin per Dr. smith recommendation. Patient says she has RESTRICTION and she does not want anymore Patient was cleared for discharge by all consultants including pulmonary, cardiology and infectious disease team Problems and management plan were discussed with the patient and he verbalized understanding and acceptance Patient was found stable and can be discharged home in guarded prognosis however he needs follow-up as an outpatient. Patient was instructed to follow up with PCP Dr. Cuello within one week and patient agrees Patient was instructed to follow up with machine ii coremaker Dr. Nina in one to 2 weeks and she agrees and Dr. Cuello in one week and Dr. Veras in one week and she admits: Make her own appointment Physical exam Gen: patient is a AAOx3, no distress CVS: S1-S2, RRR, no murmur Lungs: B/L CTA, no wheezing Abdomen: soft, no distention, no tenderness, positive bowel sounds Extremity: no leg edema or induration -Neuro: Patient mentation at baseline. She has left hemiparesis which is a stable and chronic. No other new weakness. Sensation intact. Meningeal signs are absent, she is bedbound Time spent more than 35 minutes Patient Condition at Discharge: Critical Plan - Discharge Summary New Discharge Prescriptions: New Acetaminophen Tab [Tylenol] 650 mg PO Q4HR PRN tab PRN Reason: Fever And/Or Mild Pain cefUROXime axetiL [Ceftin] 500 mg PO BID 10 Days #20 tab Nystatin 100,000 Unit/gm Powd [Mycostatin Powder] 1 applic TOPICAL BID #2 each Continue Levothyroxine Sodium 125 mcg PO DAILY Cyclobenzaprine [Flexeril] 10 mg PO DAILY PRN PRN Reason: Muscle Spasm Atorvastatin [Lipitor] 40 mg PO HS Aspirin EC [Ecotrin Low Dose] 81 mg PO DAILY Rivaroxaban [Xarelto] 20 mg PO DAILY Clopidogrel Bisulfate [Plavix] 75 mg PO HS lisinopriL [Prinivil] 10 mg PO DAILY Omeprazole [PriLOSEC] 20 mg PO AC-BRKFST Insulin Aspart [NovoLOG Flexpen] See Protocol SQ AC-TID Changed Insulin Glargine,Hum.rec.anlog [Lantus Solostar Pen] 10 units SQ BID #0 Discontinued Furosemide [Lasix] 40 - 60 mg PO DAILY PRN PRN Reason: Edema Discharge Medication List Levothyroxine Sodium 125 mcg PO DAILY 04/12/19 [History] Cyclobenzaprine [Flexeril] 10 mg PO DAILY PRN 08/25/19 [History] Aspirin EC [Ecotrin Low Dose] 81 mg PO DAILY 12/04/19 [History] Atorvastatin [Lipitor] 40 mg PO HS 12/04/19 [History] Clopidogrel Bisulfate [Plavix] 75 mg PO HS 11/15/20 [History] Rivaroxaban [Xarelto] 20 mg PO DAILY 11/15/20 [History] lisinopriL [Prinivil] 10 mg PO DAILY 03/07/21 [History] Omeprazole [PriLOSEC] 20 mg PO AC-BRKFST 06/18/22 [History] Insulin Aspart [NovoLOG Flexpen] See Protocol SQ AC-TID 10/29/22 [History] Acetaminophen Tab [Tylenol] 650 mg PO Q4HR PRN tab 01/20/23 [Rx] Insulin Glargine,Hum.rec.anlog [Lantus Solostar Pen] 10 units SQ BID #0 01/20/23 [Rx] Nystatin 100,000 Unit/gm Powd [Mycostatin Powder] 1 applic TOPICAL BID #2 each 01/20/23 [Rx] cefUROXime axetiL [Ceftin] 500 mg PO BID 10 Days #20 tab 01/20/23 [Rx] Follow up Appointment(s)/Referral(s): Nikolas Nina MD [STAFF PHYSICIAN] - 02/04/23 2:15 pm (At Electric [facility]) Martin Cuello DO [Primary Care Provider] - 02/17/23 2:15 pm Paul Smith MD [STAFF PHYSICIAN] - 02/02/23 1:45 pm Patient Instructions/Handouts: Urinary Tract Infection in Women (DC) Activity/Diet/Wound Care/Special Instructions: heart healthy diet activity is restricted till you see your doctor we recommend to check your glucose 4 times a day before each meal and at bed time , keep the results in a log book and bring it to your doctor upon your appointment date if your glucose is less than 70 or more than 400 then call 911 and come to emergency room Discharge Disposition: HOME SELF-CARE
--- NOTE | 2023-01-21 14:25 | P.PN ---
Subjective Progress Note Date: 01/20/23 Principal diagnosis: Gram-negative bacteremia and urinary tract infection Patient is a 67-year female with a past medical history significant for type 2 diabetes mellitus hypertension diabetic foot ulcer with right third toe amputation on November 04, 2022 also with a history of COPD and MS the patient was brought into the hospital after apparently the patient fell off the bed, patient was noticed to be confused did have a fever and evidence of gram- negative bacteremia secondary to urinary source. On today's evaluation of his 01/20/2023, the patient continues to be afebrile, patient is breathing comfortably on room air, the patient denies any chest pain shortness of breath or cough , but denies any nausea no vomiting no abdominal pain or diarrhea, the patient denies pain to the mid or upper back area, patient feeling better and wants to go home Objective - Vital Signs Vital signs: Vital Signs Temp 98.6 F 01/20/23 10:46 Pulse 82 01/20/23 10:47 Resp 16 01/20/23 10:47 BP 144/74 01/20/23 10:46 Pulse Ox 95 01/20/23 10:46 FiO2 Intake & Output 01/19/23 01/20/23 01/20/23 18:59 06:59 18:59 Intake Total 1080 Output Total 90 Balance 1080 -90 Intake: Oral 1080 Output: Urine 90 Other: Voiding Method Bedpan Bedpan # Voids 3 4 1 # Bowel Movements 1 - Exam GENERAL DESCRIPTION: An elderly female lying in bed in no distress RESPIRATORY SYSTEM: Unlabored breathing , decreased breath sounds at bases HEART: S1 S2 regular rate and rhythm , ABDOMEN: Soft , no tenderness EXTREMITIES: Right foot wound is currently dressed no drainage on the dressing - Labs CBC & Chem 7: 01/18/23 07:45 01/20/23 06:56 Labs: Abnormal Lab Results - Last 24 Hours (Table) 01/19/23 01/20/23 01/20/23 Range/Units 21:12 06:56 11:38 POC Glucose (mg/dL) 128 H 127 H (70-110) mg/dL Calcium 8.6 L (8.7-10.3) mg/dL Microbiology - Last 24 Hours (Table) 01/16/23 02:13 Blood Culture - Preliminary Blood No Growth after 96 hours Assessment and Plan (1) UTI (urinary tract infection) Status: Acute Code(s): N39.0 - URINARY TRACT INFECTION, SITE NOT SPECIFIED SNOMED Code(s): 66117768 (2) Gram-negative bacteremia Status: Acute Code(s): R78.81 - BACTEREMIA SNOMED Code(s): 643019862504 Plan: 1patient presented to hospital with sepsis in this patient who did have hypertension elevated white count elevated lactic acid presented to hospital with weakness fall significantly positive UA likely secondary to urinary source as clinically not behaving as pneumonia abdominal soft examination patient recently did have a right third toe amputation however the amputation site looks clean without any cellulitis. 2 ultrasound of the kidney and bladder was suboptimal but no evidence of any hydronephrosis 3local wound care to the right third toe amputation site with Aquacel silver dressing change every 48 hour. 4patient did have a abnormal CT of the cervical spine with a question of possible discitis to T1-T2, clinically not behaving as discitis MRI of the thoracic spine was not suggestive of discitis either 5patient has shown clinical improvement with Rocephin and will finish therapy with oral Ceftin, close outpatient follow-up discussed with the admitting physician working on discharge Time with Patient: Less than 30
== END 2023-01-20 15:44 | disposition home or self-care (01) | DRG 871 ==
LOC: EC 02:43 → 2SICU 05:36 → 4SSUR 01-17 05:31
PROVIDERS: ADMIT Hospitalist; ATTEND Hospitalist
PROC: 02HV33Z Insertion of Infusion Device into Superior Vena Cava, Percutaneous Approach (ICD-10-PCS; principal; 2023-01-15)
PROC: 3E043XZ Introduction of Vasopressor into Central Vein, Percutaneous Approach (ICD-10-PCS; principal; 2023-01-15)
DX: A41.51 Sepsis due to Escherichia coli [E. coli] (principal); I21.A1 Myocardial infarction type 2; R65.21 Severe sepsis with septic shock; G81.94 Hemiplegia, unspecified affecting left nondominant side; I31.39 Other pericardial effusion (noninflammatory); N39.0 Urinary tract infection, site not specified; E03.9 Hypothyroidism, unspecified; E11.51 Type 2 diabetes mellitus with diabetic peripheral angiopathy without gangrene; Z79.4 Long term (current) use of insulin; E78.5 Hyperlipidemia, unspecified; Z87.891 Personal history of nicotine dependence; G35 Multiple sclerosis; G89.29 Other chronic pain; I10 Essential (primary) hypertension; E23.7 Disorder of pituitary gland, unspecified; I25.10 Atherosclerotic heart disease of native coronary artery without angina pectoris; M46.44 Discitis, unspecified, thoracic region; I34.0 Nonrheumatic mitral (valve) insufficiency; G47.33 Obstructive sleep apnea (adult) (pediatric); M19.90 Unspecified osteoarthritis, unspecified site; Z91.81 History of falling; Z86.19 Personal history of other infectious and parasitic diseases; Z74.01 Bed confinement status; Z99.3 Dependence on wheelchair; Z83.2 Family history of diseases of the blood and blood-forming organs and certain disorders involving the immune mechanism; Z98.84 Bariatric surgery status; Z89.411 Acquired absence of right great toe; Z89.429 Acquired absence of other toe(s), unspecified side; Z95.5 Presence of coronary angioplasty implant and graft; Z79.01 Long term (current) use of anticoagulants; Z79.02 Long term (current) use of antithrombotics/antiplatelets; Z79.82 Long term (current) use of aspirin; Z79.890 Hormone replacement therapy; Z79.899 Other long term (current) drug therapy; Z86.718 Personal history of other venous thrombosis and embolism
CPT/HCPCS: 36415; 70450; 71045; 72125; 72157; 73502; 76770; 80048; 81001; 82550; 82565; 83036; 83605; 83735; 84484; 85025; 85610; 85652; 85730; 86140; 87040; 87077; 87086; 87186; 93005; 93306; 94760; 96361; 96365; 96366; 96368; 99285

== ENCOUNTER 2023-02-26 15:40 | Emergency (ER) | payer MEDICARE, BC ==
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
[2023-02-26 16:26] VITALS: BP 110/68; PULSE 96; RESP 16; TEMP 98.1
== END 2023-02-26 16:18 | disposition home or self-care (01) ==
LOC: EC 15:40
DX: K62.89 Other specified diseases of anus and rectum (principal); I10 Essential (primary) hypertension; I25.10 Atherosclerotic heart disease of native coronary artery without angina pectoris; J44.9 Chronic obstructive pulmonary disease, unspecified; K21.9 Gastro-esophageal reflux disease without esophagitis; G47.30 Sleep apnea, unspecified; E78.5 Hyperlipidemia, unspecified; M19.90 Unspecified osteoarthritis, unspecified site; E07.9 Disorder of thyroid, unspecified; F41.9 Anxiety disorder, unspecified; Z79.01 Long term (current) use of anticoagulants; Z79.4 Long term (current) use of insulin; Z79.82 Long term (current) use of aspirin; Z79.899 Other long term (current) drug therapy; Z79.890 Hormone replacement therapy; Z86.16 Personal history of COVID-19; Z87.891 Personal history of nicotine dependence
CPT/HCPCS: 99283

== ENCOUNTER 2023-05-14 09:38 | Day surgery (SDC) | payer MEDICARE, BC ==
[2023-05-12 08:46] VITALS: BMI 34.3
[2023-05-14] MEDS ORDERED: DEXAMETHASONE SOD PHOSPHATE 4 MG/ML 1 ML VIAL IV ONE (09:58)
[2023-05-14] MEDS ORDERED: LACTATED RINGERS 1,000 ML IV SCH (09:58)
[2023-05-14] MEDS ORDERED: MIDAZOLAM 2 MG/2 ML VIAL IV PRN (09:58)
[2023-05-14] MEDS ORDERED: HYDROmorphone 0.5 MG/0.5 ML SYRINGE IVP PRN (09:58)
[2023-05-14] MEDS ORDERED: ONDANSETRON 4 MG/2 ML VIAL IVP ONE (09:58)
[2023-05-14 10:14] VITALS: TEMP 98.4
[2023-05-14 10:34] LABS: Glucose,Whole Blood 97 mg/dL (70-110)
[2023-05-14] MEDS ORDERED: MIDAZOLAM 2 MG/2 ML VIAL IVP ONE ×2 (10:41→10:44)
[2023-05-14] MEDS ORDERED: DEXAMETHASONE SOD PHOSPHATE 4 MG/ML 1 ML VIAL ONE (11:30)
[2023-05-14] MEDS ORDERED: fentaNYL (PF) 50 MCG/ML 2 ML AMP ONE (11:30)
[2023-05-14] MEDS ORDERED: KETAMINE 10 MG/ML 20 ML VIAL ONE (11:30)
[2023-05-14] MEDS ORDERED: PROPOFOL 10 MG/ML 20 ML VIAL IV ONE (11:30)
[2023-05-14] MEDS ORDERED: ROPIVACAINE 5 MG/ML 30 ML VIAL ONE (11:30)
--- NOTE | 2023-05-14 11:47 | P.ANPRN ---
Procedure Note - Anesthesia - Nerve Block Performed Right Adductor Canal Single Time Out Performed: Yes Date of Procedure: 05/14/23 Procedure Start Time: 10:40 Procedure Stop Time: 10:46 Location of Patient: PreOp Indication: Acute Post-Operative Pain, Requested by Surgeon Sedation Type: Sedate with meaningful contact maintained Preparation: Sterile Prep, Sterile Dressing Position: Supine Catheter: None Needle Types: Facet Needle Gauge: 20 Ultrasound used to visualize needle placement: Yes Ultrasound used to observe medication spread: Yes Injectate: 0.5% Ropivacaine (see comment for volume) (10 ml + decadron 2 mg) Blood Aspirated: No Pain Paresthesia on Injection Noted: No Resistance on Injection: Normal Image Stored and Saved: Yes Events: Uneventful and Well Tolerated Right Popliteal Single Time Out Performed: Yes Date of Procedure: 05/14/23 Procedure Start Time: 10:47 Procedure Stop Time: 10:52 Location of Patient: PreOp Indication: Acute Post-Operative Pain, Requested by Surgeon Sedation Type: Sedate with meaningful contact maintained Preparation: Sterile Prep, Sterile Dressing Position: Left Lateral Catheter: None Needle Types: Facet Needle Gauge: 20 Ultrasound used to visualize needle placement: Yes Ultrasound used to observe medication spread: Yes Injectate: 0.5% Ropivacaine (see comment for volume) (20 ml + decadron 2 mg) Blood Aspirated: No Pain Paresthesia on Injection Noted: No Resistance on Injection: Normal Image Stored and Saved: Yes Events: Uneventful and Well Tolerated
--- NOTE | 2023-05-14 12:24 | P.OP ---
Date of Procedure: 05/14/23 Description of Procedure: DATE OF SERVICE: 05/14/2023 SURGEON: Vy Abraham DO AIR[employer] REFUELLER: None PREOPERATIVE DIAGNOSIS: Right second toe wound POSTOPERATIVE DIAGNOSIS: Same OPERATION: Right second toe amputation. ANESTHESIA: Regional with monitored sedation ESTIMATED BLOOD LOSS: Less than 5 mL SPECIMENS REMOVED: Right second toe COMPLICATIONS: None OPERATIVE FINDINGS: Patient is a 68-year-old female with multiple previous amputations of her right lower extremity who has a nonhealing wound on the dorsal portion of her second hammer toe with exposed bone. Due to this is recommended she undergo second toe amputation. Risks and benefits were discussed including but not limited to bleeding, infection, injury this running areas and nonhealing of the wound. She seemingly understood and was willing to proceed. DESCRIPTION OF PROCEDURE: The patient was brought to the operating room under local IV sedation and previous regional block. An elliptical incision was made at the base of the proximal phalanx, deepened through the skin, fat, and tendons. Tendons were divided prior to plantar and dorsal aspect of the second toe. After that, proximal phalanx was dislocated from the metatarsal joint. Hemostasis was well controlled and incision was approximated with 3-0 Vicryl and 3-0 nylon interrupted suture. Dressing applied. The patient tolerated the procedure well. Plan - Discharge Summary Discharge Rx Participant: Yes New Discharge Prescriptions: No Action Levothyroxine Sodium 125 mcg PO DAILY Cyclobenzaprine [Flexeril] 10 mg PO DAILY PRN PRN Reason: Muscle Spasm Atorvastatin [Lipitor] 40 mg PO HS Aspirin EC [Ecotrin Low Dose] 81 mg PO DAILY Rivaroxaban [Xarelto] 20 mg PO DAILY Clopidogrel Bisulfate [Plavix] 75 mg PO HS lisinopriL [Prinivil] 10 mg PO DAILY Acetaminophen Tab [Tylenol] 650 mg PO Q4HR PRN tab PRN Reason: Fever And/Or Mild Pain Multivitamins, Thera [Multivitamin (formulary)] 1 tab PO DAILY Omeprazole [PriLOSEC] 20 mg PO AC-BRKFST Insulin Aspart [NovoLOG Flexpen] See Protocol SQ AC-TID Insulin Glargine,Hum.rec.anlog [Lantus Solostar Pen] 10 units SQ BID #0 Discharge Medication List Levothyroxine Sodium 125 mcg PO DAILY 04/12/19 [History] Cyclobenzaprine [Flexeril] 10 mg PO DAILY PRN 08/25/19 [History] Aspirin EC [Ecotrin Low Dose] 81 mg PO DAILY 12/04/19 [History] Atorvastatin [Lipitor] 40 mg PO HS 12/04/19 [History] Clopidogrel Bisulfate [Plavix] 75 mg PO HS 11/15/20 [History] Rivaroxaban [Xarelto] 20 mg PO DAILY 11/15/20 [History] lisinopriL [Prinivil] 10 mg PO DAILY 03/07/21 [History] Omeprazole [PriLOSEC] 20 mg PO AC-BRKFST 06/18/22 [History] Insulin Aspart [NovoLOG Flexpen] See Protocol SQ AC-TID 10/29/22 [History] Acetaminophen Tab [Tylenol] 650 mg PO Q4HR PRN tab 01/20/23 [Rx] Insulin Glargine,Hum.rec.anlog [Lantus Solostar Pen] 10 units SQ BID #0 01/20/23 [Rx] Multivitamins, Thera [Multivitamin (formulary)] 1 tab PO DAILY 05/12/23 [History] Follow up Appointment(s)/Referral(s): Vy Abraham DO [STAFF PHYSICIAN] - 10 Days Activity/Diet/Wound Care/Special Instructions: Resume regular activity. Resume home medications. May bathe as previous starting tomorrow. Discharge Disposition: HOME SELF-CARE
[2023-05-14 12:57] VITALS: BP 118/72; PULSE 99; RESP 16
[2023-05-14 13:07] LABS: Glucose,Whole Blood 76 mg/dL (70-110)
== END 2023-05-14 13:34 | disposition home or self-care (01) ==
LOC: OR 09:38
PROVIDERS: ATTEND Surgery
DX: S91.104A Unspecified open wound of right lesser toe(s) without damage to nail, initial encounter (principal); E11.9 Type 2 diabetes mellitus without complications; I25.10 Atherosclerotic heart disease of native coronary artery without angina pectoris; X58.XXXA Exposure to other specified factors, initial encounter; Z79.899 Other long term (current) drug therapy
CPT/HCPCS: 64447; 64445; 28820; J2250; J1100; J0690; J3010; J2795; J2704

== ENCOUNTER 2023-08-01 15:41 | Emergency (ER) | payer MEDICARE, BC ==
[2023-08-01 15:59] VITALS: BP 146/77; PULSE 98; RESP 18; TEMP 98.3
[2023-08-01] MEDS ORDERED: SODIUM CHLORIDE 0.9% 500 ML 500 ML IV STA (16:19)
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
[2023-08-01 19:33] LABS: Anisocytosis Slight; Basophils % (A) 0 %; Eosinophils # (A) 0.1 k/uL (0-0.7); Eosinophils % (A) 1 %; HCT 31.2 % (34.0-46.0); HGB 9.5 gm/dL (11.4-16.0); Hypochromasia Marked; Lymphocytes # (A) 0.8 k/uL (1.0-4.8); Lymphocytes % (A) 10 %; MCH 24.3 pg (25.0-35.0); MCHC 30.6 g/dL (31.0-37.0); MCV 79.5 fL (80.0-100.0); Microcytosis Slight; Monocytes # (A) 0.6 k/uL (0-1.0); Monocytes % (A) 7 %; Neutrophils % (A) 79 %; Platelet Count 390 k/uL (150-450); RBC 3.93 m/uL (3.80-5.40); RDW 16.7 % (11.5-15.5); WBC 8.8 k/uL (3.8-10.6)
[2023-08-01 19:38] LABS: ALT 13 U/L (4-34); AST 22 U/L (14-36); African American GFR (CKD) >90 (>60 ml/min/1.73 sqM); Albumin 3.1 g/dL (3.5-5.0); Alkaline Phosphatase 55 U/L (38-126); Anion Gap 8 mmol/L; Blood Urea Nitrogen 19 mg/dL (7-17); Calcium 8.7 mg/dL (8.4-10.2); Carbon Dioxide 25 mmol/L (22-30); Chloride 105 mmol/L (98-107); Glucose 64 mg/dL (74-99); Magnesium 1.6 mg/dL (1.6-2.3); Non-African American GFR(CKD) 85 (>60 ml/min/1.73 sqM); Phosphorus 3.7 mg/dL (2.5-4.5); Potassium 4.5 mmol/L (3.5-5.1); Sodium 138 mmol/L (137-145); Total Bilirubin 0.3 mg/dL (0.2-1.3); Total Protein 6.5 g/dL (6.3-8.2)
[2023-08-01 19:39] LABS: Partial Thromboplastin Time 26.2 sec (22.0-30.0); Prothrombin Time 10.7 sec (9.0-12.0)
== END 2023-08-01 21:51 | disposition home or self-care (01) ==
LOC: EC 15:41
DX: G35 Multiple sclerosis (principal); R19.7 Diarrhea, unspecified; R53.81 Other malaise; E11.9 Type 2 diabetes mellitus without complications; I10 Essential (primary) hypertension; I25.10 Atherosclerotic heart disease of native coronary artery without angina pectoris; J44.9 Chronic obstructive pulmonary disease, unspecified; K21.9 Gastro-esophageal reflux disease without esophagitis; E78.5 Hyperlipidemia, unspecified; E07.9 Disorder of thyroid, unspecified; F41.9 Anxiety disorder, unspecified; Z79.890 Hormone replacement therapy; Z79.82 Long term (current) use of aspirin; Z79.01 Long term (current) use of anticoagulants; Z79.4 Long term (current) use of insulin; Z79.02 Long term (current) use of antithrombotics/antiplatelets; Z79.899 Other long term (current) drug therapy; Z86.718 Personal history of other venous thrombosis and embolism; Z87.891 Personal history of nicotine dependence; Z86.16 Personal history of COVID-19; Z95.5 Presence of coronary angioplasty implant and graft; Z98.84 Bariatric surgery status
CPT/HCPCS: 36415; 80053; 83605; 83735; 84100; 84484; 85025; 85610; 85730; 86850; 86900; 86901; 93005; 99285

== ENCOUNTER → 2023-09-01 | Outpatient (CLI) | payer MEDICARE, BC ==
[2023-09-01 16:19] LABS: ALT 7 U/L (8-44); AST 16 U/L (13-35); Chol/HDL Ratio 2.51 Ratio
== END | disposition home or self-care (01) ==
LOC: LABWHC1 10:00
PROVIDERS: ATTEND Internal Medicine Interventional Cardiology
DX: E78.00 Pure hypercholesterolemia, unspecified (principal)
CPT/HCPCS: 36415; 80061; 84450; 84460

== ENCOUNTER 2023-12-17 07:43 | Day surgery (SDC) | payer MEDICARE, BC ==
[~2023-12-17 07:43] MED LIST changes: +LIDOCAINE 1% (10MG/ML) FOR IV START INTRADERMA PRN; +ONDANSETRON 4 MG/2 ML VIAL IVP PRN; -Pre Op ABX Message 1 EACH MISC MISCELLANE ONE
[2023-12-17] MEDS: LACTATED RINGERS 1,000 ML IV SCH (08:33)
[2023-12-17 08:46] VITALS: TEMP 97.6
[2023-12-17 08:50] LABS: Glucose,Whole Blood 128 mg/dL (70-110)
[2023-12-17] MEDS ORDERED: LIDOCAINE 1% INJ 10MG/ML (20 ML MDV) ONE (09:17)
[2023-12-17] MEDS ORDERED: PROPOFOL 10 MG/ML 20 ML VIAL IV ONE (09:17)
--- NOTE | 2023-12-17 09:32 | P.PCN ---
Date of Procedure: 12/17/23 Procedure(s) Performed: BRIEF HISTORY: Patient is a 68-year-old, pleasant, white female scheduled for an upper endoscopy as a part of evaluation of GERD and intermittent dysphagia to solids for the last 1 year duration.. Start omeprazole 20 mg daily and symptoms have gradually improved. However she did have some recurrent dysphagia the months ago and omeprazole was increased to 40 mg daily. PROCEDURE PERFORMED: Esophagogastroduodenoscopy. PREOPERATIVE DIAGNOSIS: GERD and dysphagia to solids for the last 1 year duration with biopsy. IV sedation per anesthesia. PROCEDURE: After informed consent was obtained, the patient was brought into the endoscopy unit. IV sedation was administered by Anesthesia under continuous monitoring. Initially the Olympus GIF-140 video endoscope was inserted into the mouth. Esophagus intubated without any difficulty. It was gradually advanced into the stomach and duodenum and carefully examined. The bulb and the second part of the duodenum appeared normal. The scope at this time was withdrawn to the stomach, adequately insufflated with air, and upon careful examination, mucosa of the antrum appeared normal. There was moderate amount of retained solid food in the stomach suggestive of diabetic gastroparesis. Visualized portions of the, body, cardia and the fundus appeared normal. The scope was then withdrawn into the esophagus. The GE junction was located at 39 cm from the incisors. Small hiatal hernia noted. The esophagus appeared dilated and there was retained solid food noted in the entire esophagus. No esophageal stricture identified. The proximal cervical esophagus also appeared dilated. Biopsies were done from the distal esophagus and the patient tolerated the procedure well. IMPRESSION: 1. Dilated esophagus with retained solid food but no evidence of esophagitis or esophageal stricture. 2. Patent lower esophageal sphincter 3. Large amount of retained solid food in the stomach suggestive of diabetic gastroparesis. RECOMMENDATIONS: The findings of this examination were discussed with the patient as well as a family. She was advised to follow with the biopsy results. Continue with omeprazole 40 mg daily. The instrument small frequent meals. Aggressive control of blood sugars for the diabetic gastroparesis. If she still remains symptomatic. Concern esophageal manometry to evaluate for esophageal achalasia.
[2023-12-17 09:53] LABS: Glucose,Whole Blood 116 mg/dL (70-110)
[2023-12-17 10:25] VITALS: BP 107/82; PULSE 93; RESP 20
== END 2023-12-17 10:23 | disposition home or self-care (01) ==
LOC: ORWHC2ENDO 07:43
PROVIDERS: ATTEND Internal Medicine Gastroenterology
DX: K21.00 Gastro-esophageal reflux disease with esophagitis, without bleeding (principal); K22.89 Other specified disease of esophagus; Z79.899 Other long term (current) drug therapy
CPT/HCPCS: 88305; 43239; J2001; J2704

== ENCOUNTER → 2024-03-15 | Outpatient (CLI) | payer MEDICARE, BC ==
[2024-03-15 19:23] LABS: ALT 9 U/L (8-44); AST 11 U/L (13-35); Chol/HDL Ratio 3.27 Ratio; LDL Cholesterol,Calculated 62.3 mg/dL (0.0-131.0)
== END | disposition home or self-care (01) ==
LOC: LABWHC1 11:32
PROVIDERS: ATTEND Internal Medicine Interventional Cardiology
DX: E78.2 Mixed hyperlipidemia (principal)
CPT/HCPCS: 36415; 80061; 84450; 84460

== ENCOUNTER 2024-08-08 10:45 | Emergency (ER) | payer MEDICARE, BC ==
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
[2024-08-08] MEDS: BENZONATATE 100 MG CAP PO STA (12:17)
[2024-08-08] MEDS: SODIUM CHLORIDE 0.9% 500 ML 500 ML IV STA (12:18)
[2024-08-08 12:38] LABS: ALT 10 U/L (4-34); AST 21 U/L (14-36); African American GFR (CKD) 85 (>60 ml/min/1.73 sqM); Albumin 3.9 g/dL (3.5-5.0); Alkaline Phosphatase 56 U/L (38-126); Anion Gap 10 mmol/L; Blood Urea Nitrogen 27 mg/dL (7-17); Calcium 9.6 mg/dL (8.4-10.2); Carbon Dioxide 25 mmol/L (22-30); Chloride 108 mmol/L (98-107); Glucose 127 mg/dL (74-99); Magnesium 1.6 mg/dL (1.6-2.3); Non-African American GFR(CKD) 73 (>60 ml/min/1.73 sqM); Phosphorus 3.6 mg/dL (2.5-4.5); Potassium 4.3 mmol/L (3.5-5.1); Sodium 143 mmol/L (137-145); Total Bilirubin 0.7 mg/dL (0.2-1.3); Total Protein 7.3 g/dL (6.3-8.2)
[2024-08-08 12:47] LABS: NT-Pro-B-Type Natriuretic Pept 333 pg/mL
[2024-08-08 12:57] LABS: Basophils # (A) 0.1 k/uL (0-0.2); Basophils % (A) 1 %; Eosinophils # (A) 0.2 k/uL (0-0.7); Eosinophils % (A) 2 %; HCT 41.9 % (34.0-46.0); Hypochromasia Slight; Lymphocytes # (A) 0.8 k/uL (1.0-4.8); Lymphocytes % (A) 9 %; MCH 29.2 pg (25.0-35.0); MCV 94.2 fL (80.0-100.0); Mean Platelet Volume 7.2; Monocytes # (A) 0.5 k/uL (0-1.0); Monocytes % (A) 5 %; Neutrophils # (A) 7.5 k/uL (1.3-7.7); Neutrophils % (A) 82 %; Platelet Count 251 k/uL (150-450); RBC 4.45 m/uL (3.80-5.40); RDW 15.1 % (11.5-15.5); WBC 9.2 k/uL (3.8-10.6)
--- NOTE | 2024-08-08 13:22 | CT ---
EXAMINATION TYPE: CT abdomen pelvis w con CT DLP: 2546 mGycm, Automated exposure control for dose reduction was used. DATE OF EXAM: 08/08/2024 1:08 PM COMPARISON: CT abdomen and pelvis 07/21/2023 CLINICAL INDICATION:Female, 69 years old with history of Rectal prolapse, left groin infection; Groin infection, prolapsed rectum TECHNIQUE: Standard CT of the abdomen and pelvis following the administration of 100 cc of Isovue 3 00 IV contrast material. Coronal and sagittal reformats were performed. FINDINGS: LOWER CHEST: Left lower lobe patchy groundglass opacities. Dense mitral annulus calcifications. Coron johny calcifications. Trace pericardial effusion. ABDOMEN LIVER: Unremarkable GALLBLADDER AND BILE DUCTS: Unremarkable. PANCREAS: Unremarkable. SPLEEN: Unremarkable. ADRENAL GLANDS: Unremarkable. KIDNEYS AND URETERS: No evidence of hydronephrosis. Bilateral punctate renal calculi versus renal vas cular calcifications. The kidneys enhance symmetrically. Contrast is demonstrated within both collect ing systems on the delayed phase. Duplicated right collecting system. PELVIS BLADDER: Incompletely distended but grossly unremarkable. REPRODUCTIVE: Unremarkable. ABDOMEN & PELVIS STOMACH AND BOWEL: Postsurgical changes from gastric sleeve with distention of the distal esophagus w ith food debris. There is focal narrowing at the GE junction. No focal wall thickening or surrounding inflammatory changes. The appendix is not definitely visualized however there is no significant infl ammatory changes within the right lower quadrant. Mild colonic stool present. No evidence of bowel ob struction. PERITONEUM: No evidence of pneumoperitoneum or free fluid. Mild rectal prolapse. VASCULATURE: Moderate atherosclerotic calcifications are present throughout the abdominal aorta and i ts branches. No evidence of aortic aneurysm. MUSCULOSKELETAL: No acute osseous abnormalities. Grade 1 anterolisthesis of L4 on L5 without evidence of pars defect. Mild retrolisthesis of L1 on L2. Moderate multilevel degenerative disc disease. LYMPH NODES: No evidence for lymphadenopathy. SOFT TISSUE/ABDOMINAL WALL: Small fat filled umbilical hernia. Abdominal wall calcified granulomas. N o discrete fluid collection or inflammatory changes within the left groin. IMPRESSION: 1. Mild rectal prolapse. No CT evidence for ischemia. No left inguinal inflammatory changes or fluid collections identified. 2. Distention of the distal esophagus with gastric sleeve changes and focal narrowing at the GE junct ion. Findings raise concern for esophageal stricture at the GE junction. 3. Left lower lobe patchy groundglass opacities concerning for developing pneumonia versus atelectasi s. [facility], , 08/08/2024 1:20 PM
--- NOTE | 2024-08-08 14:07 | XR ---
EXAMINATION TYPE: XR chest 2V DATE OF EXAM: 08/08/2024 COMPARISON: 01/15/2023 HISTORY: 69-year-old female with cough TECHNIQUE: AP and lateral views FINDINGS: Heart upper limits of normal in size. Mild interstitial density and focal patchy opacity at the perip chanel of the left lower lung. Degenerative change right shoulder with narrowing of the subacromial spa ce. No pleural effusion. IMPRESSION: Findings suspicious for developing patchy pneumonia at the left base. [facility], , 08/08/2024 2:05 PM
[2024-08-08] MEDS: BACITRACIN ZINC 500 UNIT/GM OINT 28.4 GM TUBE TOPICAL ONE (14:40)
[2024-08-08 14:46] VITALS: BP 116/78; PULSE 77; RESP 18; TEMP 98.1
== END 2024-08-08 15:00 | disposition home or self-care (01) ==
LOC: EC 10:45
CPT/HCPCS: 36415; 71046; 74177; 80053; 83605; 83735; 83880; 84100; 85025; 87636; 99284